=== PATIENT | male | born 1950 | race Caucasian/White ===

== ENCOUNTER 2025-02-12 13:11 | Outpatient (AMB) | payer MEDICARE, SELFPAY ==
--- NOTE | 2025-02-12 13:23 | A.OFFPC_ITS ---
Vital Signs 02/12/25 13:36 Height 5 ft 11.5 in Weight 238 lb BMI 32.7 BP 122/70 Blood Pressure Location Rt brachial Position Sitting Respiration 14 Pulse 92 Pulse Source Pulse Oximeter Temp 98.0 F Temp Source Oral Pulse Oximetry (%) 94 Oxygen Delivery Method Room Air Intake Visit Reasons: Est Care / Right shoulder pain Intake Note: New patient visit. Has Endocrinology at [facility]. Last results about three months ago was 7.0 Reprographics Technician Required: No Accompanied by: Spouse Allergies Gadolinium-Containing Contrast Medi Allergy (Unknown, Verified 02/12/25 14:00) watery eyes, watery itchy nose, coughing lisinopril Allergy (Unknown, Verified 02/12/25 14:00) Unknown Medication List - Last Reconciled 02/12/25 by Esvin Steward CNP amlodipine 2.5 mg PO DAILY atorvastatin 40 mg PO DAILY blood sugar diagnostic ([employer] Ultra Test strips) As directed blood-glucose meter (TáximoTouch Ultra2 Meter) As directed cetirizine 10 mg PO DAILY insulin aspart U-100 (Novolog FlexPen U-100 Insulin aspart) subcut insulin glargine (Lantus Solostar U-100 Insulin) 22 units subcut QPM lancets (OneTouch Delica Plus Lancet) As directed latanoprost 0.005% drps ophthalmic (eye) metformin 500 mg PO BID pen needle, diabetic As directed tolterodine 2 mg PO BID Tobacco use date assessed: 02/12/25 Fall risk assessment: No Falls in past year Last assessed Fall Risk: 02/12/25 Dental Screening Dental Screen Date: 02/12/25 Did you have a dental visit in the last 12 months?: Yes Did you have a dental problem in the last 6 months where you did not have access to dental care?: No Was dental information given to patient?: Patient has dentist HPI HPI Comments History of Present Illness Details 74-year-old male, accompanied by his wif e, presents to establish care. Prior PCP? - [facility] Last office visit - 8-9 months ago CPE/labs Over a year ago Acute issue(s) - HTN: He is on amlodiopine 2.5 mg daily - Elevated HDL: On atorvastatin 40 mg da kaleyn - Type 2 diabetes: On Metformin 500 mg t wice daily. Last A1c was 3 mos ago, 7%. Has a follow up appointment with endocrinology next week - Urinary incontinence: On tolterodine t litzy daily - Reports right shoulder arthritis. He has been experiencing severe sharp right shoulder pain with limited ROM in the past 2 months. He denies fall, injury, or trauma. He had 9-12 weeks of PT a year and half ago without relief. 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 - Reports bouts of diarrhea and normal s tool for the past 3 or 4 months. - Reports cramps to his bilateral lower extremities. - He has been experiencing difficulty wi th memory recall, including medication names and regular conversation with his , for the past 2 months - Myopia: He wears prescription glasses Past Medical History - HTN, type 2 diabetes, nephritis, right shoulder arthritis, memory loss, bladder cancer, urinary incontinence, myopia Surgical History - Prostatectomy, partial pancreatectomy, spleenectomy, bladder mesh Family History - Dad: Leukemia Social History - Former smoker, quit 55 years ago. Does not vape. Drinks 1-2 beers weekly, occasional glass of wine. Denies recreational drug use - Has been making healthy dietary choice s. Exercises routinely. Generally sleep well Health maintenance - Last eye exam was 3 months ago at [place], [place]. He will sign a release for his PCP to obtain his ophthalmology record - Last dental visit was 6 months ago; He has a dental appointment next month - Last tetanus vaccine was 7-8 years ago . - He has never been vaccinated for shing les or pneumonia; encouraged to get vaccinated for both at the local pharmacy - He notes that he is up-to-date on the flu vaccine - Last colonoscopy was about 8 years ago ; normal. He recently did a Cologuard test and awaiting result [facility] endocrinology [facility] Surgical History (Updated 02/12/25 @ 13:41 by Glenis Argueta CMA) History of pancreatectomy H/O prostatectomy Family History (Updated 02/12/25 @ 13:42 by Glenis Argueta CMA) Father Leukemia Social History (Updated 02/12/25 @ 13:43 by Glenis Argueta CMA) Housing: House Alcohol intake: current Comment: light beer and occasionally a glass of wine Patient Tobacco Use Status: Former Tobacco user Tobacco use type: Cigarette Years Smoked: 3 e-Cigarette/Vaping Use: Never Used Second Hand Smoke Exposure: No service: No Current occupational status: retired Cognitive needs: No Hearing needs: No Vision needs: No Questionnaire PHQ-9 Over the last 2 weeks, how often have you been bothered by any of the following problems? 1. Little interest or pleasure in doing things: not at all 2. Feeling down, depressed, or hopeless: not at all 3. Trouble falling or staying asleep, or sleeping too much: not at all 4. Feeling tired or having little energy: several days 5. Poor appetite or overeating: not at all 6. Feeling bad about yourself - or that you are a failure or have let yourself or your family down: not at all 7. Trouble concentrating on things, such as reading the newspaper or watching television: not at all 8. Moving or speaking so slowly that other people could have noticed. Or the opposite - being so fidgety or restless that you have been moving around a lot more than usual: not at all 9. Thoughts that you would be better off or of hurting yourself in some way: not at all Total score: 1 Depression Screening Interpretation: Negative Depression Screening Done: Yes 05268 - PHQ-9 Billing: Yes Source: Developed by Drs. Miguel Reyes, Ailyn Crenshaw, Valentino Lopez and colleagues, with an educational michael from [employer]. Thrive Questionnaire Date Thrive assessed: 02/12/25 I am a: Patient What is your living situation today?: I have a steady place to live Within the past 12 months, did the food you bought not last and you didn't have the money to get more?: Sometimes True Within the past 12 months, did you worry whether your food would run out before you got money to buy more?: Never true Do you have trouble paying for medicines?: No Do you have trouble getting transportation to medical appointments?: No Do you have trouble paying your heating and electricity bill?: No Do you have trouble taking care of your child, family member or friend?: No Do you have trouble with day-to-day activities such as bathing, preparing meals, shopping, managing finances, etc.?: No Are you currently unemployed and looking for a job?: No Are you interested in more education?: No Please select the resources that you would like help with: None Currently or been in a relationship where the following occur: No concerns reported THRIVE Score: 1 AUDIT C Alcohol Use Questionnaire (AUDIT-C) 1. How often do you have a drink containing alcohol?: 2-4 times a month 2. How many drinks containing alcohol do you have on a typical day when you are drinking?: 1 or 2 3. How often do you have six or more drinks on one occasion?: Never Total Score: 2 Score Reviewed/Action Taken: Yes MARYURI-7 AMB Questionnaire MARYURI-7 Date MARYURI - 7 assessed: 02/12/25 Feeling nervous, anxious, or on edge: 0 = Not at all Not being able to stop or control worryin = Not at all Worrying too much about different things: 0 = Not at all Trouble relaxin = Not at all Being so restless that it is hard to sit still: 0 = Not at all Becoming easily annoyed or irritable: 0 = Not at all Feeling afraid as if something awful might happen: 0 = Not at all Total MARYURI-7 score (0-4 normal; 5-9 mild; 10-14 moderate; 15-21 severe): 0 Source: Developed by Drs. Miguel Reyes, Ailyn Crenshaw, Valentino Lopez and colleagues, with an educational michael from [employer]. MARYURI-7 Assessment Billing MARYURI-7 Assessment Tool: MARYURI-7 Assessment 21415 Review of Systems Const Details: Denies chills, Denies fatigue, Denies fever(s), Denies headache(s) and Denies weakness HEENT Denies change in vision, Denies dizziness, Denies headache(s), Denies hearing loss, Denies nasal congestion, Denies sinus pain, Denies sinus pressure and Denies sore throat Card Denies chest pain, Denies lightheadedness, Denies dyspnea and Denies other (palpitations) Resp Denies cough, Denies dyspnea and Denies wheezing GI Reports as per HPI Denies hematuria and Denies dysuria Musc Reports as per HPI Skin/Breast Denies rash, Denies unusual bruising and Denies wounds Neuro Denies abnormal gait, Denies dizziness, Denies headache(s), Denies memory loss, Denies numbness, Denies Sensory deficit (Neuro), Denies tingling and Denies weakness Psych Denies anxiety, Denies depression and Reports memory loss Endo Denies cold intolerance, Denies fatigue, Denies heat intolerance, Denies polydipsia and Denies polyuria Adrián/Lymph Denies easy bleeding and Denies easy bruising Aller/Immun Denies wheezing Physical exam (Primary Care) Vital Signs: Last Vital Signs Pulse 92 02/12/25 13:36 Resp 14 02/12/25 13:36 BP 122/70 02/12/25 13:36 Pulse Ox 94 02/12/25 13:36 Oxygen Delivery Method Room Air 02/12/25 13:36 BMI result Body Mass Index 32.7 Tobacco/Smoking Status: Tobacco use Status Tobacco use date assessed 02/12/25 02/12/25 13:48 Patient Tobacco Use Status Former Tobacco user 02/12/25 13:48 Tobacco use type Cigarette 02/12/25 13:48 e-Cigarette/Vaping Use Never Used 02/12/25 13:48 PHQ-9: PHQ-9 Score PHQ-9: Total score 1 02/12/25 13:48 Depression Screening Interpretation: Negative Thrive Assessment: Date of Thrive Assessment Date Thrive assessed 02/12/25 02/12/25 13:48 Currently or been in a relationship where the following occur: No concerns reported Const Other: General: no acute distress, well developed, alert and awake Nutritional Appearance: well nourished Orientation/consciousness: patient oriented x3 HENMT Head: Yes normocephalic and Yes atraumatic Ears: hearing grossly normal bilaterally and TM's normal bilaterally General nose exam: Normal external nose present and Normal nares present Mouth: Normal oral and palatal mucosa present and moist mucous membranes Teeth and gingiva: dentition normal Throat: Yes oropharynx normal Eyes Pupils: Equal, round and reactive pupils present and Pupil accommodation reflex normal EOM: EOMs intact bilaterally Neck Neck: Yes normal visual inspection, Yes no lymphadenopathy and Yes trachea midline Thyroid: Thyroid normal Carotids: no bruits Lymphatic: no lymphadenopathy noted Chest Chest palpation & inspection: normal inspection of the chest Resp Effort & Inspection: normal respiratory effort Auscultation: clear to auscultation bilaterally Cardio Rate: regular rate Rhythm: regular rhythm Heart sounds: S1 normal heart sound present, S2 normal heart sound present, no gallops, no murmurs and no rubs Bruits: no abdominal aortic bruits and no carotid bruits GI Palpation (GI): No Abdominal aortic bruit present, Soft to palpation, nontender, No hepatosplenomegaly present and No Rebound tenderness present Auscultation: normal bowel sounds General: Yes no CVA tenderness Back/Spine/Pelvis Back: no CVA tenderness Cervical Spine: cervical ROM normal and No Cervical spine tenderness Thoracic/Lumbar Spine: thoraco-lumbar ROM normal, No pain with thoraco-lumbar ROM, No thoracic spinal tenderness and No lumbar spinal tenderness Skin General: warm and dry. Normal skin color. Normal skin turgor Lesions: no lesions Rashes: no rashes Trauma: no lacerations or abrasions Wounds: no wounds Nails: normal Neuro General: patient oriented x3, gait normal and CN's II-XI intact bilaterally Cranial nerves: Yes Equal, round and reactive pupils present Cognition (Neuro): normal cognition Gait exam (Neuro): Normal gait present Motor exam (neuro): 5/5 motor strength present throughout Sensory Exam: No Sensory deficit (Neuro) Deep tendon reflexes (DTR's): Right patellar reflex intensity grade: 2+ and Left patellar reflex intensity grade: 2+ Extrem General: Yes normal to inspection, No edema and No calf tenderness. Right shoulder pain with passive and active ROM which is slightly limited Psych Appearance: grossly normal Affect: normal affect Attitude: cooperative Thought process: Normal thought process present Coding Level of Care Code New Pt Level 4 (60438) New Pt Prev Care >65yr (27415) Diagnoses Normal physical examination, routine Z00.00 Type 2 diabetes mellitus E11.9 Hypertension I10 Urinary incontinence R32 Arthritis of right shoulder M19.011 Diarrhea R19.7 Cramps of left lower extremity R25.2 Vaccine counseling Z71.85 Memory loss R41.3 Obesity (BMI 30-39.9) E66.9 Laboratory tests ordered as part of a complete physical exam (CPE) Z00.00 Additional Codes MARYURI-7 Assessment Billing - MARYURI-7 Assessment Tool: MARYURI-7 Assessment 16728 ([id number]) PHQ-9 - 58201 - PHQ-9 Billing: Yes ([id number]) Assessment & Plan Assessment & Plan (1) Normal physical examination, routine: Code(s): Z00.00 - Encounter for general adult medical examination without abnormal findings Category: Medical Plan: Physical exam is normal except for positive tandem test. Gait is otherwise normal. Encouraged to ambulate with caution. Perform lab work at least 2-3 days before next visit. Follow-up for telehealth visit for labs review in 2-3 weeks. Return sooner with symptoms or concerns. Verbalized understanding and agreed with treatment plan. (2) Type 2 diabetes mellitus: Code(s): E11.9 - Type 2 diabetes mellitus without complications Category: Medical Plan: Continue current treatment regimen. Followed by [facility] endocrinology. (3) Hypertension: Code(s): I10 - Essential (primary) hypertension Category: Medical Plan: Blood pressure is 122/70, within goal of less than 130/80. Continue current treatment regimen. Will continue to monitor. Verbalized understanding and agreed with the plan. (4) Urinary incontinence: Code(s): R32 - Unspecified urinary incontinence Category: Medical Plan: Continue current treatment regimen. Followed by Urology. (5) Arthritis of right shoulder: Code(s): M19.011 - Primary osteoarthritis, right shoulder Category: Medical Plan: He has history of right shoulder arthritis. He has been experiencing severe sharp right shoulder pain with limited ROM in the past 2 months. No fall, injury, or trauma. He has history of PT without improvement. He declines physical therapy at this time. Right shoulder pain with passive and active ROM which is slightly limited. X-ray of the right shoulder ordered. May take Tylenol ibuprofen for pain or discomfort. Referred to [facility] Ortho. Follow-up with worsening or new symptoms. Verbalized understanding and agreed with treatment plan. (6) Diarrhea: Code(s): R19.7 - Diarrhea, unspecified Category: Medical Plan: Reports bouts of diarrhea and normal stool for the past 3 or 4 months. Healthy diet instructed and encouraged. Metformin IR can cause adverse reaction of diarrhea. 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 Follow-up with worsening or new symptoms. Verbalized understanding and agreed with the plan. (7) Cramps of left lower extremity: Code(s): R25.2 - Cramp and spasm Category: Medical Plan: He has been experiencing cramps to his bilateral lower extremities. Will check magnesium level. Stretching and massage encouraged. Follow-up with worsening or new symptoms. Verbalized understanding and agreed with the plan. (8) Vaccine counseling: Code(s): Z71.85 - Encounter for immunization safety counseling Category: Medical Plan: He has never been vaccinated for shingles or pneumonia. Encouraged to get vaccinated for both at the local pharmacy. Verbalized understanding and agreed with the plan. (9) Memory loss: Code(s): R41.3 - Other amnesia Category: Medical Plan: He has been experiencing difficulty with memory recall, including medication names and regular conversation with his , for the past 2 months. Referred to [facility] Neurology. (10) Obesity (BMI 30-39.9): Code(s): E66.9 - Obesity, unspecified Category: Medical Plan: He currently weighs 238 lb, BMI is 32.7. Declines referral to senior boiler operator/dietitian. He will continue to make healthy dietary choices and exercise routinely, which I encouraged. Follow-up as needed. Verbalized understanding and agreed with the plan. (11) Laboratory tests ordered as part of a complete physical exam (CPE): Code(s): Z00.00 - Encounter for general adult medical examination without abnormal findings Category: Medical Plan: Fasting labs ordered as part of a complete physical exam. Advised to fast for at least 10 hours before getting labs drawn. May drink water Verbalized understanding and agreed with treatment plan. Orders: Orders Lipid Panel Today Z00.00 - Encounter for general adult medical examination without abnormal findings Microalbumin, Random (w Creat) Today Z00.00 - Encounter for general adult medical examination without abnormal findings Vitamin D 25-OH Total Today Z00.00 - Encounter for general adult medical examination without abnormal findings Magnesium Today R25.2 - Cramp and spasm XR shoulder RT 1V Today M19.011 - Primary osteoarthritis, right shoulder Complete Blood Count Auto Diff Today Z00.00 - Encounter for general adult medical examination without abnormal findings Comprehensive [place]. Panel Fast Today Z00.00 - Encounter for general adult medical examination without abnormal findings PSA, Ultra Sensitive Today Z00.00 - Encounter for general adult medical examination without abnormal findings TSH reflex Free T4 Today Z00.00 - Encounter for general adult medical examination without abnormal findings UA CC w/rflx Micro + Cult Today Z00.00 - Encounter for general adult medical examination without abnormal findings Referrals Neurology Referral R41.3 - Other amnesia Orthopedics Referral M19.011 - Primary osteoarthritis, right shoulder
[2025-02-12 13:36] VITALS: BP 122/70; PULSE 92; RESP 14; TEMP 36.7; O2SAT 94; BMI 32.7
--- OUTSIDE RECORDS SUMMARY | 2025-02-12 15:07 | XMS_ITS | Clinical Summary ---
Author Organization [facility] Address [address] [place] [address] Phone Care Team Providers Care Live In Caregiver Name Role Phone Bita Nina MD Primary Care Prov ider Allergies Active Allergy Reactions Criticality Noted Date Comments Gadolinium-Containing Contrast Media Cough,Wheezing Medium 02/24/2014 Lisinopril Other 04/25/2020 Leg cramps/hyperkalemia Medications latanoprost (XALATAN) 0.005 % ophthalmic solution 8 Active diclofenac (VOLTAREN) 1 % topical gel Apply 4 g topically. 4 Active blood-glucose meter misc Use to monitor blood sugar twice daily 3 Active lancets 33 gauge misc 1 Stick by Not Applicable route. 4 Active blood-glucose meter,continuou s misc 1 Device by Not Applicable route. 4 Active methylPREDNISol one (MEDROL) 4 mg tablet Medrol Dosepak 6 tablets to be taken on day 1 5 tablets to be taken on day 2 4 tablets to be taken on day 3 3 tablets to be taken on day 4 2 tablets be taken on day 5 1 tablet to be taken on day 6 4 Active blood sugar diagnostic (ONE TOUCH/ONE TOUCH II STARTER MISC) Place 1 strip on the skin. 3 Active tolterodine (DETROL) 2 mg tablet Take 1 tablet (2 mg total) by mouth. 4 Active amLODIPine (NORVASC) 2.5 mg tablet Take 1 tablet (2.5 mg total) by mouth 1 (one) time each day. 90 tablet 1 4 Active metFORMIN (GLUCOPHAGE) 1,000 mg tablet Take 1 tablet (1,000 mg total) by mouth 2 (two) times a day with meals. 180 each 1 4 04/19/20 25 Active atorvastatin (LIPITOR) 40 mg tablet Take 1 tablet (40 mg total) by mouth 1 (one) time each day. 90 tablet 1 4 Active Lantus Solostar U-100 Insulin 100 unit/mL (3 mL) injection penIndications: 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, with long-term current use of insulin INJECT 5 UNITS INTO THE SKIN AT BEDTIME. 15 mL 2 4 Active NovoLOG Flexpen U-100 Insulin 100 unit/mL (3 mL) injection penIndications: 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, with long-term current use of insulin Take 16 units before beakfast, 14 units before lunch and 20 units before dinner plus sliding scale up to 60 units a day 60 mL 2 4 Active OneTouch Ultra Test test stripIndication s: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, with long-term current use of insulin Check sugars upto 2 times a day 200 each 3 4 Active pen needle, diabetic 32 gauge x 5/32 needleIndicatio ns: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, with long-term current use of insulin USE UP TO 4 TIMES A DAY 300 each 3 4 Active Active Problems Problem Noted Date Diagnosed Date Class 1 obesity 07/20/2024 Glaucoma 12/07/2020 Overview (07/08/2024): Sees Dr. 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 Incidental finding. 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assification 019 Radiation cystitis 05/31/2017 Overview (07/08/2024): Seen on cystoscopy 05/28/17 and evaluation of gross hematuria, Dr. Polo [place] cyst 05/09/2016 Metabolic syndrome 01/09/2016 Low HDL (under 40) 06/21/2015 Urinary incontinence 10/19/2014 Overview (07/08/2024): Post prostatectomy; Following with Dr. Nichole Syncope and collapse 02/09/2014 Overview (07/08/2024): 02/08/14, found uncounscous 45 miinutes in bathroom, left facial droop, slurred speech, [place], seen by Dr Arriaga, neg CT head, neg CXR, EKG Q III Diabetes mellitus 10/05/2013 Exposure to asbestos 10/05/2013 Hypertriglyceridemia 10/05/2013 Shoulder sprain 10/05/2013 Encounters Date Type Department Care Team Description 12/09/2024 8:15 AM EST Office Visit Orthopedic Surgery [facility] [address] [facility] [address] [place] [address] Quoc Pedro DPM Type 2 diabetes mellitus without complication, with long-term current use of insulin (CMS/HCC) (Primary Dx); Tendinitis of left ankle 11/25/2024 Telephone General Surgery [facility] [address] [facility] [address] [place] [address] Irina Soria [place] 11/20/2024 9:00 AM EST Office Visit Endocrinology [address] [phone] Kristina Dave MD Type 2 diabetes mellitus with other specified complication, unspecified whether filler leaf cutter long insulin use (CMS/HCC) (Primary Dx) from Last 3 Months Immunizations Name Administration Dates Next Due Hepatitis B (Owplnho-A-Ftwiv , Recombivax HB-Adult) 19yo and older 07/09/2019,09/10/2018,06/06/2018 HiB PRP-T conjugate (Acthib, Hiberix) 6wks and older 06/29/2020 Influenza Quadravalent, MDCK , 0.5ml, with preservative (Flucelvax) 6mo and older 2023 Influenza trivalent, 0.5mL ( Fluad) 65yo and older 08/14/2024 Influenza trivalent, 0.5mL ( Fluzone High-dose) 65yo and older 09/25/2022,09/26/2021,08/02/2020,07/28,09/10/2018,07/28/2017,08/24/2016 Influenza trivalent, with pr eservative (Fluzone; Afluria) 6mo and older 10/05/2013 Meningococcal Polysaccharide 06/29/2020 Pneumococcal conjugate 13 va lent (Prevnar 13, PCV13) 2mo and older 06/29/2020,01/09/2016 Pneumococcal polysaccharide 23 valent (Pneumovax 23) 2yo and older 03/04/2018 Td Tetanus diptheria (Tdvax) 7yo and older 12/03/2018,10/31/2006 Tdap Tetanus diptheria acell ular pertussis (Boostrix; Adacel) 7yo and older 12/03/2018,10/05/2013 Surgical History Surgery Date Site/Laterality Comments COLONOSCOPY 1999 PROCEDURE: HISTORICAL COLONOSCOPY; COMMENT: age 50, historic negative HAND SURGERY 2002 PROCEDURE: HISTORICAL HAND SURGERY; COMMENT: Right distal index finger amputation OTHER SURGICAL HISTORY 07/13/2014 PROCEDURE: ---- OTHER ----; COMMENT: robotic assisted prostatectomy CYSTOSCOPY 05/28/2017 PROCEDURE: NM CYSTOURETHROSCOPY; COMMENT: 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, gross hematuria COLONOSCOPY 01/29/2014 PROCEDURE: HISTORICAL COLONOSCOPY; COMMENT: 6 mm left colon polyp:adenoma COLONOSCOPY 05/18/2020 PROCEDURE: HISTORICAL COLONOSCOPY; COMMENT: Negative examination, no polyps. OTHER SURGICAL HISTORY 07/14/2020 PROCEDURE: HISTORICAL SPLENECTOMY OTHER SURGICAL HISTORY 07/14/2020 PROCEDURE: HISTORY OTHER; COMMENT: Distal pancreatectomy, regional lymphadenectomy, Dr. Jorge Aguilar OTHER SURGICAL HISTORY 02/15/2021 PROCEDURE: HISTORY OTHER; COMMENT: urethral sling OTHER SURGICAL HISTORY 07/2020 PROCEDURE: NM PNCRTECT DSTL STOT W/O PNCRTCOJEJUNOSTOMY OTHER SURGICAL HISTORY 07/2020 PROCEDURE: NM RPR TABDL LMPHADEC EXTNSV W/PEL AORTIC&RNL; COMMENT: 6 lymph nodes removed Medical History Medical History Date Comments Prediabetes 10/05/2013 DX:Prediabetes Mixed hyperlipidemia 06/21/2015 DX:Mixed hy perlipidemia Adenocarcinoma of prostate (CMS/HCC) 10/05/2013 DX:Adenocarcinoma of prostate (HCC); COMMENT: Biopsy 04/27/14, Tamar's 4+3 and no CVA of prostate in 2 on left upper 12 biopsies, sees Dr. Christian, referred to Dr. Morris for consideration of probiotic assisted laparoscopic radical prostatectomy 07/18/14 - robotic assisted prostatectomy 07/13/14 with left pelvic lymph node dissection State IIB, T2, N0 MX adenoca, positive margin at bladder base 08/28* Urinary incontinence 10/19/2014 DX:Urinary incontinence; COMMENT: Post prostatectomy Essential hypertension DX:Essent ial hypertension Diabetes mellitus type 2, co ntrolled, with complications (CMS/HCC) DX:Diabetes mellitus type 2, controlled, with complications (HCC) Family History Medical History Relation Name Comments Prostate cancer Brother 1 Bradly Prostate cancer Brother 2 Miguel Prostate cancer Brother 3 Wesley Brain cancer Brother 4 Manolo Leukemia Father Alzheimer's disease Mother Breast cancer Sister Colon cancer Neg Hx Esophageal cancer Neg Hx Pancreatic cancer Neg Hx Stomach cancer Neg Hx Relation Name Status Comments Brother 1 Bradly Alive Brother 2 Miguel Alive Brother 3 Wesley Alive Brother 4 Manolo Alive Father (Age 73) leukemia Mother (Age 87) alzhiemers Sister Alive Social History Tobacco Use Types Packs/Day Years Used Date Smoking Tobacco: Former Cigarettes Q uit: 11/11/1969 Smokeless Tobacco: Former Tobacco Cessation:Counseling Given: Not Answered Alcohol Use Standard Drinks/Week Comments Yes 0 (1 standard drink = 0.6 oz pur e alcohol) Sex and Gender Information Value Date Recorded Sex Assigned at Not on file Legal Sex Male 2:26 PM EST Gender Identity Not on file Sexual Orientation Not on file Obstetrics History Last Filed Vital Signs Vital Sign Reading Time Taken Comments Blood Pressure 133/87 11/20/2024 8:59 AM EST Pulse 66 11/20/2024 8:59 AM EST Temperature 36.2 ??C (97.2 ??F) 11/20/2024 8:59 AM ES T Respiratory Rate - - Oxygen Saturation 98% 11/20/2024 8:59 AM EST Inhaled Oxygen Concentration - - Weight 107 kg (235 lb) 12/09/2024 8:21 AM EST Height 180.3 cm (5' 10.98 ) 12/09/2024 8:[address] Body Mass Index 32.79 12/09/2024 8:21 AM EST Plan of Treatment Upcoming Encounters Date Type Department Care Team (Late st Contact Info) Description 02/18/2025 9:00 AM EDT Office Visit Endocrinology - [place] [address] [place], [place] [phone] Kristina Dave MD [address] [place] [address] Health Maintenance Due Date Last Done Comments Zoster Vaccines (1 of 2) 1969 RSV Immunization Adult Patients (1 - Risk 60-74 years 1-dose series) 2010 COVID-19 Vaccine (3 - Pfizer risk series) 03/29/2021 03/01/2021, 02/08/2021 Depression Screening 10/20/2022 Falls Risk Assessment 10/20/2022 Social Influencers of Health Screening 10/20/2022 Medicare Annual Wellness Visit 07/17/2024 07/17/2023 Diabetes: Blood Sugar Control Test (HGBA1C) 12/02/2024 06/01/2024, 06/01/2024 Diabetes: Annual GFR (Glomerular Filtration Rate) 03/02/2025 03/02/2024 Hypertension/CHF/CAD Annual BMP Blood Test 03/02/2025 03/02/2024 Diabetes: Annual Urine Albumin-Creatinine Ratio (uACR) 06/01/2025 06/01/2024 Diabetes: Annual Foot Exam 07/21/2025 07/21/2024 Diabetes: Annual Retina Eye Exam 07/28/2025 07/28/2024 Colorectal Cancer Screening: Colonoscopy 06/07/2027 06/07/2020 DTaP,Tdap,and Td Vaccines (5 - Td or Tdap) 12/03/2028 12/03/2018, 12/03/2018, 10/05/2013, Additional history exists Cholesterol Screening (Lipid Panel) 06/01/2029 06/01/2024, 06/01/2024, 06/01/2024 Hepatitis C Screening Completed 10/13/2013 Hepatitis B Vaccines Completed 07/09/2019, 09/10/2018, 06/06/2018 HIB Vaccines Aged Out 06/29/2020 No longer eligi ble based on patient's age to complete this topic Meningococcal ACWY Vaccine Aged Out 06/29/2020 N o longer eligible based on patient's age to complete this topic Pneumococcal Vaccine: 50+ Years Completed 06/29/2020, 03/04/2018, 01/09/2016 Abdominal Aortic Aneurysm (AAA) Screen Completed 05/18/2021 Influenza Vaccine Completed 08/14/2024, , 09/25/2022, Additional history exists HPV Vaccines Aged Out No longer eligi ble based on patient's age to complete this topic Hepatitis A Vaccines Aged Out No long er eligible based on patient's age to complete this topic IPV Vaccines Aged Out No longer eligi ble based on patient's age to complete this topic MMR Vaccines Aged Out No longer eligi ble based on patient's age to complete this topic Meningococcal B Vacine Aged Out No lo nger eligible based on patient's age to complete this topic RSV Immunization Patients Under 20 months Aged Out No longer eligible based on patient's age to complete this topic Varicella Vaccines Aged Out No longer eligible based on patient's age to complete this topic Procedures Procedure Name Priority Date/Time Associated Diagnosis Comments EXTERNAL CLINICAL LAB 12/27/2024 DIABETES EYE EXAM Routine 07/28/2024 DIABETES FOOT EXAM Routine 07/21/2024 URINE ALBUMIN CREATININE RATIO Routine 06/01/2024 HEMOGLOBIN A1C Routine 06/01/2024 LIPID PANEL Routine 06/01/2024 ANNUAL BMP BLOOD TEST Routine 03/02/2024 ABDOMINAL AORTIC ANEURYSM SCRREN Routine 05/18/2021 COLONOSCOPY Routine 06/07/2020 HEPATITIS C SCREENING Routine 10/13/2013 from Last 3 Months or Most Recently Relevant to Health Maintenance Results * External clinical lab (12/27/2024) Result [facility] [employer] LAB BLOOD ORDERABLES Fin al Result * Diabetes Eye Exam (07/28/2024) [facility] Diabetes: Annual Retina Eye Exam abstracted Result [facility] HEALTH MAINTENANCE Final Result * Diabetes Foot Exam (07/21/2024) [facility] Diabetes: Annual Foot Exam abstracted Result [facility] HEALTH MAINTENANCE Final Result * Urine Albumin Creatinine Ratio (06/01/2024) [facility] Urine Albumin Creatinine Ratio abstracted Result [facility] HEALTH MAINTENANCE Final Result * (ABNORMAL) Hemoglobin A1c (06/01/2024) [facility] Hemoglobin A1C 7.2(A) <=6.5 % Blood Venous blood specimen / Unknown Result [facility] LAB BLOOD ORDERABLES Sanna l Result * (ABNORMAL) Lipid panel (06/01/2024) [facility] Triglycerides 227(A) 0 - 150 mg/dL Cholesterol 130 0 - 200 mg/dL HDL 42 >=40 mg/dL LDL Cholesterol 43 0 - 100 mg/dL Blood Venous blood specimen / Unknown Result [facility] LAB BLOOD ORDERABLES Edit ed Result - Final * Annual BMP Blood Test (03/02/2024) [facility] Annual BMP Blood Test abstracted Result [facility] HEALTH MAINTENANCE Final Result * Abdominal Aortic Aneurysm Screen (05/18/2021) [facility] Abdominal Aortic Aneurysm (AAA) Screening 1 year fu Anatomical Region Laterality Modality Other Historical Provider HEALTH MAINTENANCE Final Result * Colonoscopy (06/07/2020) Colonoscopy 7 yr fu Anatomical Region Laterality Modality Other Historical Provider HEALTH MAINTENANCE Final Result * Hepatitis C Screening (10/13/2013) Hepatitis C Screening negative Historical Provider HEALTH MAINTENANCE Final Result from Last 3 Months or Most Recently Relevant to Health Maintenance Insurance [employer] MED[employer]ARE [employer]VANTAGE Advance Directives Documents on File Type Date Recorded Patient Prep Cook Expl anation Health Care Decision (hx) 07/18/2020 AD MURILLO DIRECTIVE Health Care Decision (hx) 07/18/2020 AD MURILLO DIRECTIVE Health Care Decision (hx) 07/18/2020 AD MURILLO DIRECTIVE Health Care Decision (hx) 07/18/2020 AD MURILLO DIRECTIVE Health Care Decision (hx) 07/18/2020 AD MURILLO DIRECTIVE Health Care Decision (hx) 07/18/2020 AD MURILLO DIRECTIVE Health Care Decision (hx) 07/18/2020 AD MURILLO DIRECTIVE Health Care Decision (hx) 07/18/2020 AD MURILLO DIRECTIVE Health Care Decision (hx) 07/18/2020 AD MURILLO DIRECTIVE Health Care Decision (hx) 07/14/2020 AD MURILLO DIRECTIVE Health Care Decision (hx) 07/14/2020 AD MURILLO DIRECTIVE Health Care Decision (hx) 07/14/2020 AD MURILLO DIRECTIVE Health Care Decision (hx) 07/14/2020 AD MURILLO DIRECTIVE Health Care Decision (hx) 07/14/2020 AD MURILLO DIRECTIVE Health Care Decision (hx) 07/14/2020 AD MURILLO DIRECTIVE Health Care Decision (hx) 07/14/2020 AD MURILLO DIRECTIVE Health Care Decision (hx) 07/14/2020 AD MURILLO DIRECTIVE Health Care Decision (hx) 07/14/2020 AD MURILLO DIRECTIVE Care Teams Live In Caregiver Relationship Specialty Start Date End Date Bita Nina MD [address] [place] [phone] PCP - General Internal Medicine 06/08/21
== END 2025-02-12 14:47 | disposition home or self-care (01) ==
LOC: HO.HMCFM 13:14
PROVIDERS: PCP Nurse Practitioner Family; Visit Provider Nurse Practitioner Family
DX: Z00.00 Encounter for general adult medical examination without abnormal findings (principal); E11.9 Type 2 diabetes mellitus without complications; E66.9 Obesity, unspecified; Z68.32 Body mass index [BMI] 32.0-32.9, adult; I10 Essential (primary) hypertension; R32 Unspecified urinary incontinence; M19.011 Primary osteoarthritis, right shoulder; R19.7 Diarrhea, unspecified; R25.2 Cramp and spasm; Z71.85 Encounter for immunization safety counseling; R41.3 Other amnesia

== ENCOUNTER → 2025-02-12 13:11 | Outpatient (BNVA) | payer MEDICARE, SELFPAY | PROVIDERS: PCP Nurse Practitioner Family; Visit Provider Nurse Practitioner Family | DX: Z00.00 Encounter for general adult medical examination without abnormal findings (principal); E11.9 Type 2 diabetes mellitus without complications; I10 Essential (primary) hypertension; R32 Unspecified urinary incontinence; M19.011 Primary osteoarthritis, right shoulder; R19.7 Diarrhea, unspecified; R25.2 Cramp and spasm; R41.3 Other amnesia; E66.9 Obesity, unspecified; Z68.32 Body mass index [BMI] 32.0-32.9, adult; Z71.85 Encounter for immunization safety counseling | CPT/HCPCS: 96127; 99202; 99387 ==

== ENCOUNTER 2025-02-16 09:00 | Outpatient (REF) | payer MEDICARE, SELFPAY ==
--- NOTE | ~2025-02-16 | XR_ITS ---
EXAMINATION: XR SHOULDER 2 OR MORE VIEWS RIGHT HISTORY: M19.011 - Primary osteoarthritis, right shoulder COMPARISON: There are no prior studies available for comparison. FINDINGS: Two views of the right shoulder are submitted. Osseous mineralization is normal. There is no fracture or dislocation. The glenohumeral and acromioclavicular joint spaces are preserved. The soft tissues are unremarkable. XR/XR shoulder RT min 2V IMPRESSION: Unremarkable examination of the right shoulder. Electronically signed by: Miguel Godinez MD 02/16/2025 11:14 AM EDT
--- OUTSIDE RECORDS SUMMARY | 2025-02-16 09:52 | XMS_ITS | Clinical Summary ---
Author Organization [facility] Address [address] [place] [address] Phone Care Team Providers Care Clinical Quality Manager Name Role Phone Bita Nina MD Primary [...] 8:15 AM EST Office Visit Orthopedic Surgery [facility] [address] [facility] [address] [place] [address] Quoc Pedro DPM Type 2 diabetes mellitus without complication, with long-term current use of insulin (CMS/HCC) (Primary Dx); Tendinitis of left ankle 11/25/2024 Telephone General Surgery [facility] [address] [facility] [address] [place] [address] Irina Soria [place] 11/20/2024 9:00 AM EST Office Visit Endocrinology [address] [phone] Kristina Dave MD Type 2 diabetes mellitus with other specified complication, unspecified whether vermin exterminator insulin use (CMS/HCC) (Primary Dx) from Last 3 Months Immunizations Name Administration Dates Next Due Hepatitis B (Ttnwvue-R-Ezlig , Recombivax HB-Adult) 19yo and older 07/09/2019,09/10/2018,06/06/2018 [...] COMMENT: robotic assisted prostatectomy CYSTOSCOPY 05/28/2017 PROCEDURE: OK CYSTOURETHROSCOPY; COMMENT: 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, [...] urethral sling OTHER SURGICAL HISTORY 07/2020 PROCEDURE: OK PNCRTECT DSTL STOT W/O PNCRTCOJEJUNOSTOMY OTHER SURGICAL HISTORY 07/2020 PROCEDURE: OK RPR TABDL LMPHADEC EXTNSV W/PEL AORTIC&RNL; COMMENT: [...] 9:00 AM EDT Office Visit Endocrinology - [place] [address] [place], [place] [phone] Kristina Dave MD [address] [place] [address] Health Maintenance Due Date Last Done Comments [...] age to complete this topic Meningococcal B Vaccine Aged Out No l onger eligible based on patient's age to complete [...] Results * External clinical lab (12/27/2024) Result [facility] [employer] LAB BLOOD ORDERABLES Fin al Result * Diabetes Eye Exam (07/28/2024) [facility] Diabetes: Annual Retina Eye Exam abstracted Result [facility] HEALTH MAINTENANCE Final Result * Diabetes Foot Exam (07/21/2024) [facility] Diabetes: Annual Foot Exam abstracted Result [facility] HEALTH MAINTENANCE Final Result * Urine Albumin Creatinine Ratio (06/01/2024) [facility] Urine Albumin Creatinine Ratio abstracted Result [facility] HEALTH MAINTENANCE Final Result * (ABNORMAL) Hemoglobin A1c (06/01/2024) [facility] Hemoglobin A1C 7.2(A) <=6.5 % Blood Venous blood specimen / Unknown Result [facility] LAB BLOOD ORDERABLES Sanna l Result * (ABNORMAL) Lipid panel (06/01/2024) [facility] Triglycerides 227(A) 0 - 150 mg/dL Cholesterol 130 0 - 200 mg/dL HDL 42 >=40 mg/dL LDL Cholesterol 43 0 - 100 mg/dL Blood Venous blood specimen / Unknown Result [facility] LAB BLOOD ORDERABLES Edit ed Result - Final * Annual BMP Blood Test (03/02/2024) [facility] Annual BMP Blood Test abstracted Result [facility] HEALTH MAINTENANCE Final Result * Abdominal Aortic Aneurysm Screen (05/18/2021) [facility] Abdominal Aortic Aneurysm (AAA) Screening [...] Documents on File Type Date Recorded Patient Leg Breaker Expl 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 (hx) 07/14/2020 AD MURILLO DIRECTIVE Care Teams Clinical Quality Manager Relationship Specialty Start Date End Date Bita Nina MD [address] [place] [phone] PCP - General Internal Medicine 06/08/21
[2025-02-16 09:59] LABS: MANUAL DIFF FLAG NO
[2025-02-16 10:10] LABS: Appearance Urine Clear; Basophils Percent Auto 0.5 % (0-2); Color Urine Yellow; Eosinophils Absolute Auto 0.2 X10*3/uL (0.0-0.4); Eosinophils Percent Auto 2.5 % (0-4); Glucose Urine UA Negative (Negative); Hemoglobin 14.7 g/dl (14.0-18.0); Imm Gran Abs Auto 0.03 X10*3/uL (0.00-0.03); Imm Gran Pct Auto 0.4 % (0.0-0.4); Leukocyte Esterase Urine Negative (Negative); Lymphocytes Absolute Auto 1.9 X10*3/uL (1.2-4.9); Lymphocytes Percent Auto 22.6 % (20-40); Mean Corpuscular HGB Conc 33.4 g/dl (31.0-36.0); Mean Corpuscular Hemoglobin 31.1 pg (27.0-33.0); Mean Corpuscular Volume 93.2 fL (80.0-98.0); Mean Platelet Volume 11.1 fL (9.4-12.4); Monocytes Percent Auto 11.6 % (2-11); Neutrophils Absolute Auto 5.4 x10*3/uL (2.0-8.3); Neutrophils Percent Auto 62.4 % (45-73); Nitrite Urine Negative (Negative); PH 6.5 (5.0-9.0); Platelet Count 321 X10*3/uL (160-400); Red Blood Count 4.72 X10*6/uL (4.60-5.80); Red Cell Distribution Width 13.8 % (11.0-16.0); Urine Blood Negative (Negative); Urine Ketones Trace mg/dL (Negative); Urine Protein Trace mg/dL (Neg-Trace); White Blood Count 8.6 X10*3/uL (4.8-10.8)
[2025-02-16 10:58] LABS: Carbon Dioxide 24 mmol/L (22-29); Chloride 108 mmol/L (96-108); Potassium 4.1 mmol/L (3.3-5.1); Sodium 138 mmol/L (135-145)
[2025-02-16 10:59] LABS: Alanine Aminotransferase 52 U/L (0-40); Albumin Level 4.3 g/dL (3.5-5.0); Alkaline Phosphatase 80 U/L (39-117); Anion Gap 10 (12-20); Aspartate Amino Transferase 29 U/L (5-37); Bilirubin Total 0.4 mg/dL (0.0-1.0); Blood Urea Nitrogen 17 mg/dL (9-16); Calcium 9.3 mg/dL (8.4-10.2); Cholesterol 134 mg/dL (<200); Estimated Glomerular Filt Rate > 60; Glucose Fasting 173 mg/dL (60-99); HDL Cholesterol 32 mg/dL (>40); LDL Cholesterol Calculated 37 mg/dL (<100); Magnesium 1.9 mg/dL (1.6-2.6); Triglycerides 329 mg/dL (<150)
[2025-02-16 11:13] LABS: Creatinine Urine 169.63 mg/dL; Microalbum/Creatinine Ratio Ur 28.2 ug/mg cr (<30)
[2025-02-16 11:16] LABS: TSH reflex Free T4 3.09 uIU/mL (0.32-4.0); Vitamin D 25-OH Total 24.4 ng/mL (>30)
== END 2025-02-16 09:01 | disposition home or self-care (01) ==
LOC: HO.HMGCX 09:00
PROVIDERS: PCP Nurse Practitioner Family; Visit Provider Nurse Practitioner Family
DX: Z00.00 Encounter for general adult medical examination without abnormal findings (principal); Z12.5 Encounter for screening for malignant neoplasm of prostate; Z13.6 Encounter for screening for cardiovascular disorders
CPT/HCPCS: 36415; 73030; 80053; 80061; 81003; 82043; 82306; 82570; 83735; 84153; 84443; 85025

== ENCOUNTER → 2025-02-16 09:06 | Outpatient (BNV) | payer MEDICARE, SELFPAY | PROVIDERS: PCP Nurse Practitioner Family; Visit Provider Radiology Diagnostic Radiology | DX: M19.011 Primary osteoarthritis, right shoulder (principal) | CPT/HCPCS: 73030 ==

== ENCOUNTER → 2025-03-02 11:58 | Outpatient (BNVA) | payer MEDICARE, SELFPAY | PROVIDERS: PCP Nurse Practitioner Family; Visit Provider Nurse Practitioner Family ==

== ENCOUNTER → 2025-03-02 11:58 | Outpatient (AMB) | payer MEDICARE, SELFPAY ==
--- NOTE | 2025-03-02 11:55 | A.OFFPC_ITS ---
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: No Allergies Gadolinium-Containing Contrast Medi Allergy (Unknown, Verified 03/02/25 11:55) watery eyes, watery itchy nose, coughing lisinopril Allergy (Unknown, Verified 03/02/25 11:55) Unknown Tobacco use date assessed: 03/02/25 Fall risk assessment: No Falls in past year Last assessed Fall Risk: 03/02/25 Dental Screening Dental Screen Date: 03/02/25 Did you have a dental visit in the last 12 months?: Yes Did you have a dental problem in the last 6 months where you did not have access to dental care?: No Was dental information given to patient?: Patient has dentist HPI HPI Comments History of Present Illness Details 74-year-old male presents for telehealth visit for review of recent lab and imaging results. He admits to taking his medications as prescribed without adverse reactions. He offers no complaints and denies acute symptoms at this time. [facility] Surgical History (Updated 02/12/25 @ 13:41 by Glenis Argueta CMA) History of pancreatectomy H/O prostatectomy Family History (Updated 02/12/25 @ 13:42 by Glenis Argueta CMA) Father Leukemia Social History (Updated 02/12/25 @ 13:43 by Glenis Argueta CMA) Housing: House Alcohol intake: current Comment: light beer and occasionally a glass of wine Patient Tobacco Use Status: Former Tobacco user Tobacco use type: Cigarette Years Smoked: 3 e-Cigarette/Vaping Use: Never Used Second Hand Smoke Exposure: No service: No Current occupational status: retired Cognitive needs: No Hearing needs: No Vision needs: No Questionnaire Thrive Questionnaire Date Thrive assessed: 02/12/25 MARYURI-7 AMB Questionnaire MARYURI-7 Date MARYURI - 7 assessed: 02/12/25 Source: Developed by Drs. Miguel Reyes, Ailyn Crenshaw, Valentino Lopez and colleagues, with an educational michael from [employer]. Review of Systems Const Details: Denies chills, Denies fatigue, Denies fever(s), Denies headache(s) and Denies weakness Cardiac Denies chest pain, Denies claudication, Denies leg edema, Denies lightheadedness, Denies palpitations, Denies dyspnea, Denies dyspnea on exertion, Denies orthopnea and Denies other (Loss of consciousness) Resp Denies cough, Denies excessive phlegm production, Denies dyspnea, Denies dyspnea on exertion, Denies snoring and Denies wheezing Physical exam (Primary Care) Tobacco/Smoking Status: Tobacco use Status Tobacco use date assessed 03/02/25 03/02/25 11:57 Patient Tobacco Use Status Former Tobacco user 03/02/25 11:57 Tobacco use type Cigarette 03/02/25 11:57 e-Cigarette/Vaping Use Never Used 03/02/25 11:57 Thrive Assessment: Date of Thrive Assessment Date Thrive assessed 02/12/25 03/02/25 11:57 Const Other: Patient is alert and oriented x3. Telehealth Telehealth Telehealth Platform: Telephone Location of provider rendering services: practice address Location of patient: address on file Patient Identification confirmed using: Name, : Yes Telehealth method: voice only Patient verbally consented to treatment: Yes Patient verbally consented to billing insurance company: Yes Patient informed of any privacy concerns related to visit: Yes Coding Level of Care Code Tele New Pt Level 3 (34147) Diagnoses Hyperlipidemia E78.5 Elevated ALT measurement R74.01 Vitamin D deficiency E55.9 Type 2 diabetes mellitus E11.9 Time Spent (min) 15 Assessment & Plan Assessment & Plan (1) Hyperlipidemia: Code(s): E78.5 - Hyperlipidemia, unspecified Category: Medical Plan: Recent triglycerides level is elevated, 329, HDL is slightly low, 32. Total cholesterol and LDL levels are normal. Fenofibrate 54 mg daily ordered; advised to take as prescribed. Advised to limit foods high in saturated fat and avoid foods high in trans fat. Routine exercise encouraged. Fast for 10-12 hours, may drink water, and perform blood work 2-3 days before next visit. Follow-up for a telehealth visit in 6 weeks. Return sooner with symptoms or concerns. Verbalized understanding and agreed with the plan. (2) Elevated ALT measurement: Code(s): R74.01 - Elevation of levels of liver transaminase levels Category: Medical Plan: Recent ALT level is slightly elevated, 52. Routine exercise and diet, including low fat encouraged. Will recheck liver panel in 6 weeks. Verbalized understanding and agreed with the plan. (3) Vitamin D deficiency: Code(s): E55.9 - Vitamin D deficiency, unspecified Category: Medical Plan: Recent vitamin-D level is slightly low, 24.4. Vitamin D3 1000 units ordered; advised to take as prescribed. Will recheck vitamin-D level in 6 weeks. Verbalized understanding and agreed with the plan. (4) Type 2 diabetes mellitus: Code(s): E11.9 - Type 2 diabetes mellitus without complications Category: Medical Plan: Recent fasting glucose is elevated, 173. He notes that his recent A1c was 7.2%. Continue current treatment regimen. Followed by [facility]. Verbalized understanding and agreed with the plan. Orders: Orders Vitamin D 25-OH Total 6 Weeks E55.9 - Vitamin D deficiency, unspecified Lipid Panel 6 Weeks E78.5 - Hyperlipidemia, unspecified Liver Panel 6 Weeks R74.01 - Elevation of levels of liver transaminase levels Medications: New fenofibrate 54 mg PO DAILY 30 days 30 tabs 3RF cholecalciferol (vitamin D3) 25 mcg PO DAILY 90 days 90 tabs 1RF
--- OUTSIDE RECORDS SUMMARY | 2025-03-02 14:22 | XMS_ITS | Clinical Summary ---
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 03/10/20 24 Active blood-glucose meter misc Use to monitor blood sugar twice daily 07/26/20 23 Active lancets 33 gauge misc 1 Stick by Not Applicable route. 04/03/20 24 Active blood-glucose meter,continuo us misc 1 Device by Not Applicable route. 06/02/20 24 Active methylPREDNISo lone (MEDROL) 4 mg tablet Medrol Dosepak 6 tablets to be taken on day 1 5 tablets to be taken on day 2 4 tablets to be taken on day 3 3 tablets to be taken on day 4 2 tablets be taken on day 5 1 tablet to be taken on day 6 06/08/20 24 Active blood sugar diagnostic (ONE TOUCH/ONE TOUCH II STARTER MISC) Place 1 strip on the skin. 07/26/20 23 Active tolterodine (DETROL) 2 mg tablet Take 1 tablet (2 mg total) by mouth. 12/16/19 24 Active amLODIPine (NORVASC) 2.5 mg tablet Take 1 tablet (2.5 mg total) by mouth 1 (one) time each day. 90 tablet 1 10/21/20 24 Active atorvastatin (LIPITOR) 40 mg tablet Take 1 tablet (40 mg total) by mouth 1 (one) time each day. 90 tablet 1 10/21/20 24 Active Lantus Solostar U-100 Insulin 100 unit/mL (3 mL) injection penIndications :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, with long-term current use of insulin ([facility] V24, [facility] V28) INJECT 5 UNITS INTO THE SKIN AT BEDTIME. 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, with long-term current use of insulin ([facility] V24, [facility] V28) Check sugars upto 2 times a day 200 each 3 10/22/20 24 Active pen needle, diabetic 32 gauge x 5/32 needleIndicati ons: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, with long-term current use of insulin ([facility] V24, [facility] V28) USE UP TO 4 TIMES A DAY 300 each 3 10/22/20 24 Active metFORMIN XR (GLUCOPHAGE-XR ) 500 mg 24 hr tabletIndicati ons: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, with long-term current use of insulin ([facility] V24, [facility] V28) Take 2 tablets (1,000 mg total) by mouth 2 (two) times a day. Do not crush, chew, or split. 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, with long-term current use of insulin ([facility] V24, [facility] V28) Take three times a day before meals max up to 70 units day. Please provide 90 day supply 90 mL 2 02/25/20 25 Active metFORMIN (GLUCOPHAGE) 1,000 mg tablet Take 1 tablet (1,000 mg total) by mouth 2 (two) times a day with meals. 180 each 1 10/21/20 24 025 Discontinued NovoLOG Flexpen U-100 Insulin 100 unit/mL (3 mL) injection penIndications :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, with long-term current use of insulin ([facility] V24, [facility] V28) Take 16 units before beakfast, 14 units before lunch and 20 units before dinner plus sliding scale up to 60 units a day 60 mL 2 10/22/20 24 025 Discontinued(Re order) NovoLOG Flexpen U-100 Insulin 100 unit/mL (3 mL) injection penIndications :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, with long-term current use of insulin ([facility] V24, [facility] V28) Take three times a day before meals max up to 65 units day. 75 mL 2 02/19/20 25 025 Discontinued(Re order) Active Problems Problem Noted Date Diagnosed Date Class 1 obesity 07/20/2024 Glaucoma 12/07/2020 Overview (07/08/2024): Sees Dr. 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 Incidental finding. 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 Cuellar Pilonidal cyst 05/09/2016 Metabolic syndrome 01/09/2016 Low HDL (under 40) 06/21/2015 Urinary incontinence 10/19/2014 Overview (07/08/2024): Post prostatectomy; Following with Dr. Nichole Syncope and collapse 02/09/2014 Overview (07/08/2024): 02/08/14, found uncounscous 45 miinutes in bathroom, left facial droop, slurred speech, [place], seen by Dr Arriaga, neg CT head, neg CXR, EKG Q III Diabetes mellitus ([facility] V24, [facility] V28) Exposure to asbestos 10/05/2013 Hypertriglyceridemia 10/05/2013 Shoulder sprain 10/05/2013 Encounters Date Type Department Care Team Description 02/19/2025 Telephone [address]ocr[address] [phone] Kristina Dave MD Medication Problem 02/18/2025 9:00 AM EDT Office Visit Endocrinology [address] [phone] Kristina Dave MD 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, with long-term current use of insulin ([facility] V24, [facility] V28) 12/09/2024 8:15 AM EST Office Visit Orthopedic Surgery - [address] [phone] Quoc Pedro, DPM Type 2 diabetes mellitus without complication, with long-term current use of insulin ([facility] V24, [facility] V28) (Primary Dx); Tendinitis of left ankle from Last 3 Months Immunizations Name Administration Dates Next Due Hepatitis B (Jcplkcs-E-Owtaw , Recombivax HB-Adult) 19yo and older 07/09/2019,09/10/2018,06/06/2018 [...] COMMENT: robotic assisted prostatectomy CYSTOSCOPY 05/28/2017 PROCEDURE: NH CYSTOURETHROSCOPY; COMMENT: 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, [...] urethral sling OTHER SURGICAL HISTORY 07/2020 PROCEDURE: NH PNCRTECT DSTL STOT W/O PNCRTCOJEJUNOSTOMY OTHER SURGICAL HISTORY 07/2020 PROCEDURE: NH RPR TABDL LMPHADEC EXTNSV W/PEL AORTIC&RNL; COMMENT: 6 lymph nodes removed Medical History Medical History Date Comments Prediabetes 10/05/2013 DX:Prediabetes Mixed hyperlipidemia 06/21/2015 DX:Mixed hy perlipidemia Adenocarcinoma of prostate ( CMS/HCC V24, CMS/HCC V28) 10/05/2013 DX:Adenocarcinoma of prostat e (HCC); COMMENT: Biopsy 04/27/14, Tamar's 4+3 and [...] mellitus type 2, co ntrolled, with complications (CMS/HCC V24, CMS/HCC V28) DX:Diabetes mellitus type 2, controlled, with complications [...] Sign Reading Time Taken Comments Blood Pressure 135/77 02/18/2025 9:05 AM EDT Pulse 71 02/18/2025 9:05 AM EDT Temperature 36.2 ??C (97.2 ??F) 02/18/2025 9:05 AM ED T Respiratory Rate - - Oxygen Saturation 96% 02/18/2025 9:05 AM EDT Inhaled Oxygen Concentration - - Weight 108 kg (237 lb) 02/18/2025 9:05 AM EDT Height 180.3 cm (5' 11 ) 02/18/2025 9:05 AM EDT Body Mass Index 33.05 02/18/2025 9:05 AM EDT Plan of Treatment Upcoming Encounters Date Type Department Care Team (Late st Contact Info) Description 06/02/2025 9:00 AM EDT Office Visit Endocrinology - [facility] [address], [place] [phone] Kristina Dave MD [address] [place] [address] Health Maintenance Due Date Last Done Comments Zoster Vaccines (1 of 2) 1969 RSV Immunization Adult Patients (1 - Risk 60-74 years 1-dose series) 2010 COVID-19 Vaccine (3 - Pfizer risk series) 03/29/2021 03/01/2021, 02/08/2021 Depression Screening 10/20/2022 Falls Risk Assessment 10/20/2022 Social Influencers of Health Screening 10/20/2022 Medicare Annual Wellness Visit 07/17/2024 07/17/2023 Diabetes: Annual Urine Albumin-Creatinine Ratio (uACR) 06/01/2025 06/01/2024 Diabetes: Annual Foot Exam 07/21/2025 07/21/2024 Diabetes: Annual Retina Eye Exam 07/28/2025 07/28/2024 Diabetes: Blood Sugar Control Test (HGBA1C) 08/18/2025 02/16/2025, 06/01/2024, 06/01/2024 Diabetes: Annual GFR (Glomerular Filtration Rate) 02/16/2026 02/16/2025, 03/02/2024 Hypertension/CHF/CAD Annual BMP Blood Test 02/16/2026 02/16/2025, 03/02/2024 Colorectal Cancer Screening: Colonoscopy 06/07/2027 06/07/2020 DTaP,Tdap,and Td Vaccines (5 - Td or Tdap) 12/03/2028 12/03/2018, 12/03/2018, 10/05/2013, Additional history exists Cholesterol Screening (Lipid Panel) 02/16/2030 02/16/2025, 06/01/2024, 06/01/2024, Additional history exists Hepatitis C Screening Completed 10/13/2013 Hepatitis B [...] Procedure Name Priority Date/Time Associated Diagnosis Comments CREATININE, SERUM Routine 02/16/2025 9:3 6 AM EDT Type 2 diabetes mellitus with other specified complication, unspecified whether assisted insulin use ([facility] V24, [facility] V28) BUN Routine 02/16/2025 9:36 AM EDT Type 2 diabetes mellitus with other specified complication, unspecified whether assisted insulin use ([facility] V24, [facility] V28) LIPID PANEL WITH REFLEX TO DIRECT LDL Routine 02/16/2025 9:36 AM EDT Hypertriglyceridemia HEMOGLOBIN A1C Routine 02/16/2025 8:47 AM EDT Type 2 diabetes mellitus with other specified complication, unspecified whether long 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 mining machine helper insulin use ([facility] V24, [facility] V28) EXTERNAL CLINICAL LAB 12/27/2024 DIABETES EYE EXAM Routine 07/28/2024 DIABETES FOOT EXAM Routine 07/21/2024 URINE ALBUMIN CREATININE RATIO Routine 06/01/2024 ABDOMINAL AORTIC ANEURYSM SCRREN Routine 05/18/2021 COLONOSCOPY Routine 06/07/2020 HEPATITIS C SCREENING Routine 10/13/2013 from Last 3 Months or Most Recently Relevant to Health Maintenance Results * (ABNORMAL) Lipid panel with reflex to direct LDL (02/16/2025 9:36 AM EDT) Cholesterol 138 0 - 200 mg/dL LAB CHEMISTRY METHOD 02/16/2025 1:40 PM EDT [facility] Triglycerides 383(H) 0 - 150 mg/dL LAB CHEMISTRY METHOD 02/16/2025 1:40 PM EDT [facility] HDL 44 >=40 mg/dL LAB CHEMISTRY METHOD 02/16/2025 1:40 PM EDT [facility] LDL Calculated 17 0 - 100 mg/dL LAB CHEMISTRY METHOD 02/16/2025 1:40 PM EDT [facility] VLDL Cholesterol Bob 76.6 mg/dL LAB CHEMISTRY METHOD 02/16/2025 1:40 PM EDT [facility] Non HDL Chol. (LDL+VLDL) 94 <145 mg/dL LAB CHEMISTRY METHOD 02/16/2025 1:40 PM EDT [facility] Chol/HDL Ratio 3.1 0.0 - 4.4 LAB CHEMISTRY METHOD 02/16/2025 1:40 PM EDT [facility] Blood Venous blood specimen / Unknown Venipuncture / Unknown 02/16/2025 9:36 AM EDT 02/16/2025 9:36 AM EDT us Kristina Dave MD LAB BLOOD ORDERABLES Final Resul t [facility] [address] [place] [address], [place] [phone] * Creatinine (02/16/2025 9:36 AM EDT) Creatinine 1.03 0.70 - 1.30 mg/dL LAB CHEMISTRY METHOD 02/16/2025 1:34 PM EDT [facility] eGFR 76 >=60 mL/min/1. 73m2 LAB CHEMISTRY METHOD 02/16/2025 1:34 PM EDT [facility] Comment:Calculation based on the??Chronic Kidney Disease Epidemiology Collaboration (CKD-EPI) equation refit??without adjustment for race. Blood Venous blood specimen / Unknown Venipuncture / Unknown 02/16/2025 9:36 AM EDT 02/16/2025 9:36 AM EDT us Kristina Dave MD LAB BLOOD ORDERABLES Final Resul t Performing Organization Address City/[facility]/ZIP Co de Phone Number [facility] [address] [place] [address], [place] [phone] * BUN (02/16/2025 9:36 AM EDT) BUN 17 5 - 25 mg/dL LAB CHEMISTRY METHOD 02/16/2025 1:34 PM EDT [facility] Blood Venous blood specimen / Unknown Venipuncture / Unknown 02/16/2025 9:36 AM EDT 02/16/2025 9:36 AM EDT Kristina Dave MD LAB BLOOD ORDERABLES Final Resul t [facility] [address] [place] [address], * (ABNORMAL) Hemoglobin A1c (02/16/2025 8:47 AM EDT) Hemoglobin A1C 8.2(H) <6.5 % LAB CHEMISTRY METHOD 02/16/2025 2:02 PM EDT [facility] Mean Bld Glu Estim. 189 mg/dL LAB CHEMISTRY METHOD 02/16/2025 2:02 PM EDT [facility] Blood Venous blood specimen / Unknown Venipuncture / Unknown 02/16/2025 8:47 AM EDT 02/16/2025 8:47 AM EDT Result [facility] Kristina Dave MD LAB BLOOD ORDERABLES Final Resul t [facility] [address] [place] [address], [place] [phone] * External clinical lab (12/27/2024) [facility] [employer] LAB BLOOD ORDERABLES Fin al Result * Diabetes Eye Exam (07/28/2024) [facility] Diabetes: Annual Retina Eye Exam abstracted Result [facility] [employer] Final Result * Diabetes Foot Exam (07/21/2024) [facility] Diabetes: Annual Foot Exam abstracted Result [facility]aki [employer] [facility] [employer] Final Result * Urine Albumin Creatinine Ratio (06/01/2024) [facility] Urine Albumin Creatinine Ratio abstracted Result [facility] [employer] [facility] [employer] Final Result * Abdominal Aortic Aneurysm Screen (05/18/2021) [facility] Abdominal Aortic Aneurysm (AAA) Screening 1 year fu Anatomical Region Laterality Modality Other [facility] Maki [facility] [facility] [employer] Final Result * Colonoscopy (06/07/2020) [facility] Colonoscopy 7 yr fu Anatomical Region Laterality Modality Other Result [facility] Provider HEALTH MAINTENANCE Final Result * Hepatitis C Screening (10/13/2013) [facility] Hepatitis C Screening negative Result [facility] Maki [facility] [employer] Final Result from Last 3 Months or Most Recently Relevant to Health Maintenance [place] [phone] [employer] MEDICARE ADVANTAGE Advance Directives Documents on File Type Date Recorded 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
== END ==
LOC: HO.HMCFM 11:58
PROVIDERS: PCP Nurse Practitioner Family; Visit Provider Nurse Practitioner Family
DX: E11.69 Type 2 diabetes mellitus with other specified complication (principal); E78.5 Hyperlipidemia, unspecified; R74.01 Elevation of levels of liver transaminase levels; E55.9 Vitamin D deficiency, unspecified

== ENCOUNTER 2025-03-11 08:24 | Outpatient (AMB) | payer MEDICARE, SELFPAY ==
--- NOTE | 2025-03-11 08:28 | AM.OFFWIN_ITS ---
Intake Vital Signs 03/11/25 08:32 Weight 238 lb BP 122/74 Blood Pressure Location Lt brachial Position Sitting Pulse 73 Pulse Source Pulse Oximeter Pulse Oximetry (%) 98 Oxygen Delivery Method Room Air Intake Visit Reasons: EP pain & pressure on RT hand Intake Note: Patient here for right middle finger pain that started about 1 week ago. Patient Tobacco Use Status: Former Tobacco user Allergies Gadolinium-Containing Contrast Medi Allergy (Unknown, Verified 03/11/25 08:33) watery eyes, watery itchy nose, coughing lisinopril Allergy (Unknown, Verified 03/11/25 08:33) Unknown Do you need a note to return to daycare/school/sports/work: No HPI HPI Comments History of Present Illness Details History of Present Illness - The patient is a 74-year-old male pres enting with right-hand and finger pain with swelling. - Symptoms began approximately one week ago after experiencing a stabbing pain when reaching out with the hand and hitting an object. - Pain is accompanied by a constant dull , aching sensation in the middle finger, with radiation towards the wrist and increased sensitivity to pressure or specific hand positions. - Self-treatment with 1000mg ibuprofen p rovided minimal relief, and there is ongoing swelling in the affected hand, prompting him to remove a ring from his finger. - Previous traumatic history involving t he right hand includes punching a cinder block wall 60 years ago. 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 Physical Exam General: Cooperative, healthy appearing, comfortable, no acute distress and well developed Orientation: Patient oriented x3 Limitations: No limitations Head: Normal to inspection Ears: Hearing grossly normal bilaterally Nose: Normal External nose present Face and sinus: Normal facial exam Eyes: Appearance normal, both eyes and all related structures Neck: Normal visual inspection and Yes full ROM Respiratory: Normal respiratory effort and able to speak in complete sentences. Skin: No rashes or lesions noted Neuro: Patient oriented x3 Extremities: RUE: slight edema of right hand, unable to medical surgical tech fully. no TTP wrist, hand and fingers, fingers NVI. negative tinel's, positive Phalen's. amputation at DIP of 2nd digit. [facility] Surgical History (Updated 02/12/25 @ 13:41 by Glenis Argueta CMA) History of pancreatectomy H/O prostatectomy Family History (Updated 02/12/25 @ 13:42 by Glenis Argueta CMA) Father Leukemia Social History (Updated 02/12/25 @ 13:43 by Glenis Argueta CMA) Housing: House Alcohol intake: current Comment: light beer and occasionally a glass of wine Patient Tobacco Use Status: Former Tobacco user Tobacco use type: Cigarette Years Smoked: 3 e-Cigarette/Vaping Use: Never Used Second Hand Smoke Exposure: No service: No Current occupational status: retired Cognitive needs: No Hearing needs: No Vision needs: No Review of Systems Const All systems reviewed & are unremarkable except as noted in HPI and below Physical Exam Vital Signs: Last Vital Signs Pulse 73 03/11/25 08:32 BP 122/74 03/11/25 08:32 Pulse Ox 98 03/11/25 08:32 Oxygen Delivery Method Room Air 03/11/25 08:32 Assessment & Plan Assessment & Plan (1) Finger pain, right: Code(s): M79.644 - Pain in right finger(s) Plan: Plan For the right-hand pain and associated swelling, suspected to involve nerve entrapment potentially involving the MCP joint vs carpal tunnel, I have prescribed meloxicam to alleviate inflammation, asking the patient to cease ibuprofen temporarily to avoid renal complications. A wrist brace has been provided to reduce strain and swelling while advising regular ROM exercises to keep the joints mobile. A right-hand x-ray is ordered to determine any structural issues potentially from past trauma. Pending x-ray results, I have sent an orthopedic consultation for hand surgeon. Patient was informed and verbally consented to the use of an ambient scribe for clinic note documentation during this visit. Orders: Orders XR hand RT min 3V Today M79.644 - Pain in right finger(s) Referrals Orthopedics Referral M79.644 - Pain in right finger(s) Medications: New meloxicam 15 mg PO DAILY 15 tabs 0RF Coding Level of Care Code Est Pt Level 4 (06887) Diagnoses Finger pain, right M79.644
[2025-03-11 08:32] VITALS: BP 122/74; PULSE 73; O2SAT 98
--- OUTSIDE RECORDS SUMMARY | 2025-03-11 08:35 | XMS_ITS | Clinical Summary ---
Author Organization [facility] Address [address] [place] [address] Phone Care Team Providers Care Medical Management Specialist Name Role Phone Bita Nina MD Primary [...] complication, with long-term current use of insulin ([facility] V24, [facility] V28) INJECT 5 UNITS INTO THE SKIN AT BEDTIME. 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 Do not crush, chew, or split. 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 V24, [facility] V28) Take three times a day before meals max up to 65 units day. 75 mL 2 02/19/20 25 025 Discontinued(Re order) Active Problems Problem Noted Date Diagnosed Date Class 1 obesity 07/20/2024 Glaucoma 12/07/2020 Overview (07/08/2024): Sees Dr. Frazier Essential hypertension 09/07/2020 Primary pancreatic neuroendocrine tumor ([facility] V28) 02/19/2020 Overview (07/08/2024): CT 2019. Incidental finding. 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 ([facility] V24, [facility] V28) 10/23/2019 Radiation [...] neg CXR, EKG Q III Diabetes mellitus ([facility] V24, 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 V24, [facility] V28) from Last 3 Months Immunizations Name Administration Dates Next Due Hepatitis B (Glwwviw-I-Lrpmq , Recombivax HB-Adult) 19yo and older 07/09/2019,09/10/2018,06/06/2018 [...] COMMENT: robotic assisted prostatectomy CYSTOSCOPY 05/28/2017 PROCEDURE: ND CYSTOURETHROSCOPY; COMMENT: 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, [...] urethral sling OTHER SURGICAL HISTORY 07/2020 PROCEDURE: ND PNCRTECT DSTL STOT W/O PNCRTCOJEJUNOSTOMY OTHER SURGICAL HISTORY 07/2020 PROCEDURE: ND RPR TABDL LMPHADEC EXTNSV W/PEL AORTIC&RNL; COMMENT: 6 lymph nodes removed Medical History Medical History Date Comments Prediabetes 10/05/2013 DX:Prediabetes Mixed hyperlipidemia 06/21/2015 DX:Mixed hy perlipidemia Adenocarcinoma of prostate ( [facility]/H[facility] V24, CMS/HCC V28) 10/05/2013 DX:Adenocarcinoma of prostat e ([facility]); COMMENT: Biopsy 04/27/14, Hampton's 4+3 and no CVA of prostate in [...] 06/02/2025 9:00 AM EDT Office Visit Endocrinology [address] [phone] Kristina Dave MD [address] [place] [address] Health Maintenance Due Date Last Done Comments [...] mellitus with other specified complication, unspecified whether terminal superintendent insulin use ([facility] V24, [facility] V28) BUN Routine 02/16/2025 9:36 AM EDT Type 2 diabetes mellitus with other specified complication, unspecified whether terminal superintendent insulin use ([facility] V24, [facility] V28) LIPID PANEL WITH REFLEX TO DIRECT LDL Routine 02/16/2025 9:36 AM EDT Hypertriglyceridemia HEMOGLOBIN A1C Routine 02/16/2025 8:47 AM EDT Type 2 diabetes mellitus with other specified complication, unspecified whether [facility] insulin use ([facility] V24, [facility] V28) EXTERNAL CLINICAL LAB 12/27/2024 DIABETES [...] LAB CHEMISTRY METHOD 02/16/2025 1:40 PM EDT [facility] Triglycerides 383(H) 0 - 150 mg/dL LAB CHEMISTRY METHOD 02/16/2025 1:40 PM EDT [facility] HDL 44 >=40 mg/dL LAB CHEMISTRY METHOD 02/16/2025 1:40 PM EDT [facility] LDL Calculated 17 0 - 100 mg/dL LAB CHEMISTRY METHOD 02/16/2025 1:40 PM EDT [facility] VLDL Cholesterol Bob 76.6 mg/dL LAB CHEMISTRY METHOD 02/16/2025 1:40 PM EDT [facility] Non HDL Chol. (LDL+VLDL) 94 <145 mg/dL LAB CHEMISTRY METHOD 02/16/2025 1:40 PM EDT [facility] Chol/HDL Ratio 3.1 0.0 - 4.4 LAB CHEMISTRY METHOD 02/16/2025 1:40 PM EDT [facility] Blood Venous blood specimen / Unknown Venipuncture / Unknown 02/16/2025 9:36 AM EDT 02/16/2025 9:36 AM EDT us Kristina Dave MD LAB BLOOD ORDERABLES Final Resul t [facility] [address] [place] [address], * Creatinine (02/16/2025 9:36 AM EDT) Creatinine 1.03 0.70 - 1.30 mg/dL LAB CHEMISTRY METHOD 02/16/2025 1:34 PM EDT [facility] eGFR 76 >=60 mL/min/1. 73m2 LAB CHEMISTRY METHOD 02/16/2025 1:34 PM EDT [facility] Comment:Calculation based on the??Chronic Kidney Disease Epidemiology Collaboration (CKD-EPI) equation refit??without adjustment for race. Blood Venous blood specimen / Unknown Venipuncture / Unknown 02/16/2025 9:36 AM EDT 02/16/2025 9:36 AM EDT us Kristina Dave MD LAB BLOOD ORDERABLES Final Resul t Performing Organization Address City/[facility]/ZIP Co de Phone Number [facility] [address] [place] [address], * BUN (02/16/2025 9:36 AM EDT) BUN 17 5 - 25 mg/dL LAB CHEMISTRY METHOD 02/16/2025 1:34 PM EDT [facility] Blood Venous blood specimen / Unknown Venipuncture / Unknown 02/16/2025 9:36 AM EDT 02/16/2025 9:36 AM EDT us Kristina Dave MD LAB BLOOD ORDERABLES Final Resul t Performing Organization Address [facility] de Phone Number [facility] [address] [place] [address], * (ABNORMAL) Hemoglobin A1c (02/16/2025 8:47 AM EDT) Hemoglobin A1C 8.2(H) <6.5 % LAB CHEMISTRY METHOD 02/16/2025 2:02 PM EDT [facility] Mean Bld Glu Estim. 189 mg/dL LAB CHEMISTRY METHOD 02/16/2025 2:02 PM EDT [facility] Blood Venous blood specimen / Unknown Venipuncture / Unknown 02/16/2025 8:47 AM EDT 02/16/2025 8:47 AM EDT Kristina Dave MD LAB BLOOD ORDERABLES Final Resul t [facility] [address] [place] [address], [place] [phone] * External clinical lab (12/27/2024) Provider [facility] LAB BLOOD ORDERABLES Fin al Result * Diabetes Eye Exam (07/28/2024) [facility] Diabetes: Annual Retina Eye Exam abstracted Historical Provider HEALTH MAINTENANCE Final Result * Diabetes Foot Exam (07/21/2024) [facility] Diabetes: Annual Foot Exam abstracted Historical Provider HEALTH MAINTENANCE Final Result * Urine Albumin Creatinine Ratio (06/01/2024) [facility] Urine Albumin Creatinine Ratio abstracted Historical Provider HEALTH MAINTENANCE Final Result * Abdominal Aortic Aneurysm Screen (05/18/2021) [facility] Abdominal Aortic Aneurysm (AAA) Screening 1 year fu Anatomical Region Laterality Modality Other Historical Provider HEALTH MAINTENANCE Final Result * Colonoscopy (06/07/2020) [facility] Colonoscopy 7 yr fu Anatomical Region Laterality Modality Other Result [facility] Historical Provider HEALTH MAINTENANCE Final Result * Hepatitis C Screening (10/13/2013) [facility] Hepatitis C Screening negative Historical Provider HEALTH MAINTENANCE Final Result from Last 3 Months or Most Recently Relevant to Health [place] [id number] [employer] MEDICARE ADVANTAGE Advance Directives Documents on File Type Date Recorded 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
== END 2025-03-11 09:15 | disposition home or self-care (01) ==
PROVIDERS: PCP Nurse Practitioner Family; Visit Provider Physician Assistant
DX: M79.644 Pain in right finger(s) (principal)

== ENCOUNTER 2025-03-11 08:24 | Outpatient (REF) | payer MEDICARE, SELFPAY ==
--- NOTE | ~2025-03-11 | XR_ITS ---
EXAMINATION: XR HAND, RIGHT CLINICAL INFORMATION: M79.644 - Pain in right finger(s) COMPARISON: None available. TECHNIQUE: PA, lateral, and oblique views of the right hand. FINDINGS: There has been prior amputation of the second digit at the mid middle phalanx level. There is a retained tiny metallic foreign body just lateral to the mid proximal phalanx of the first digit. There is no acute fracture, dislocation, or suspicious bone abnormality. There are arthritic changes throughout the remaining DIP joints, and interphalangeal joint of the thumb, with productive bony changes and spurring, with lesser involvement of the PIP joints. No definitive erosions evident. There is only mild involvement of the MCP joints with mild joint space narrowing first through third MCPs. Mild osteoarthritic change at the first CMC joint and STT joints. Mild radiocarpal joint space narrowing. Soft tissues demonstrate diffuse vascular calcifications, but are otherwise normal. XR/XR hand RT min 3V IMPRESSION: 1. No acute bony abnormalities. 2. 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 Small retained metallic foreign body as detailed. 3. Arthritic changes as described above, most notable in the DIP joints of the digits, with productive bony changes. Differential mainly includes osteoarthritis, early primary erosive osteoarthritis, or possibly psoriatic arthropathy. 4. There are diffuse soft tissue vascular calcifications. Electronically signed by: Simon Morales MD 03/11/2025 09:18 AM EDT
--- OUTSIDE RECORDS SUMMARY | 2025-03-11 09:21 | XMS_ITS | Clinical Summary ---
Author Organization [facility] Address [address] [place] [address] Phone Care Team Providers Care Blending Machine Operator Name Role Phone Bita Nina MD Primary [...] complication, with long-term current use of insulin ([facility] V24, [facility] V28) INJECT 5 UNITS INTO THE SKIN AT BEDTIME. 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 Do not crush, chew, or split. 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, with long-term current use of insulin ([facility] V24, [facility] V28) Take three times a day before [...] complication, with long-term current use of insulin ([facility] V24, [facility] V28) Take 16 units before beakfast, 14 units before lunch and 20 units before dinner plus sliding scale up to 60 units a day 60 mL 2 10/22/20 24 025 Discontinued(Re order) NovoLOG Flexpen U-100 Insulin 100 unit/mL (3 mL) injection penIndications :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 75 mL 2 02/19/20 25 025 Discontinued(Re order) Active Problems Problem Noted Date Diagnosed Date Class 1 obesity 07/20/2024 Glaucoma 12/07/2020 Overview (07/08/2024): Sees Dr. Frazier Essential hypertension 09/07/2020 Primary pancreatic neuroendocrine tumor ([facility] V28) 02/19/2020 Overview (07/08/2024): CT 2019. Incidental finding. 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 Overview (07/08/2024): [...] neg CXR, EKG Q III Diabetes mellitus ([facility] V24, [facility] V28) Exposure to asbestos 10/05/2013 Hypertriglyceridemia 10/05/2013 Shoulder sprain 10/05/2013 Encounters Date Type Department Care Team Description 02/19/2025 Telephone Endocrinology - [place] [address] [place] [id number] Kristina Dave MD Medication Problem 02/18/2025 9:00 AM EDT Office Visit Endocrinology - [place] [id number] [place] [phone] Kristina Dave MD 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, with long-term current use of insulin ([facility] V24, [facility] V28) from Last 3 Months Immunizations Name Administration Dates Next Due Hepatitis B ([employer]i-U-Cxqco , Recombivax HB-Adult) 19yo and older 07/09/2019,09/10/2018,06/06/2018 [...] COMMENT: robotic assisted prostatectomy CYSTOSCOPY 05/28/2017 PROCEDURE: IN CYSTOURETHROSCOPY; COMMENT: 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, [...] urethral sling OTHER SURGICAL HISTORY 07/2020 PROCEDURE: IN PNCRTECT DSTL STOT W/O PNCRTCOJEJUNOSTOMY OTHER SURGICAL HISTORY 07/2020 PROCEDURE: IN RPR TABDL LMPHADEC EXTNSV W/PEL AORTIC&RNL; COMMENT: 6 lymph nodes removed Medical History Medical History Date Comments Prediabetes 10/05/2013 DX:Prediabetes Mixed hyperlipidemia 06/21/2015 DX:Mixed hy perlipidemia Adenocarcinoma of prostate ( CMS/HCC V24, CMS/HCC V28) 10/05/2013 DX:Adenocarcinoma of prostat e ([facility]); COMMENT: Biopsy 04/27/14, [place] 4+3 and no CVA of prostate in [...] 06/02/2025 9:00 AM EDT Office Visit Endocrinology [address] [phone] Kristina Dave MD [address] [place] [address] Health Maintenance Due Date Last Done Comments [...] with other specified complication, unspecified whether terminal computer operator insulin use ([facility] V24, [facility] V28) BUN Routine 02/16/2025 9:36 AM EDT Type 2 diabetes mellitus with other specified complication, unspecified whether terminal computer operator insulin use ([facility] V24, [facility] V28) LIPID PANEL WITH REFLEX TO DIRECT LDL Routine 02/16/2025 9:36 AM EDT Hypertriglyceridemia HEMOGLOBIN A1C Routine 02/16/2025 8:47 AM EDT Type 2 diabetes mellitus with other specified complication, unspecified whether halfway insulin use ([facility] V24, [facility] V28) EXTERNAL CLINICAL LAB 12/27/2024 DIABETES EYE [...] LAB CHEMISTRY METHOD 02/16/2025 1:[address] [facility] Triglycerides 383(H) 0 - 150 mg/dL LAB CHEMISTRY METHOD 02/16/2025 1:[address] [facility] HDL 44 >=40 mg/dL LAB CHEMISTRY METHOD 02/16/2025 1:[address] [facility] LDL Calculated 17 0 - 100 mg/dL LAB CHEMISTRY METHOD 02/16/2025 1:[address] [facility] VLDL Cholesterol Bob 76.6 mg/dL LAB CHEMISTRY METHOD 02/16/2025 1:[address] [facility] Non HDL Chol. (LDL+VLDL) 94 <145 mg/dL LAB CHEMISTRY METHOD 02/16/2025 1:[address] [facility] Chol/HDL Ratio 3.1 0.0 - 4.4 LAB CHEMISTRY METHOD 02/16/2025 1:[address] [facility] Blood Venous blood specimen / Unknown Venipuncture / Unknown 02/16/2025 9:36 AM EDT 02/16/2025 9:36 AM EDT us Kristina Dave MD LAB BLOOD ORDERABLES Final Resul t [facility] [address] [place] [address], * Creatinine (02/16/2025 9:36 AM EDT) Creatinine 1.03 0.70 - 1.30 mg/dL LAB CHEMISTRY METHOD 02/16/2025 1:[address] [facility] eGFR 76 >=60 mL/min/1. 73m2 LAB CHEMISTRY METHOD 02/16/2025 1:[address] [facility] Comment:Calculation based on the??Chronic Kidney Disease Epidemiology Collaboration (CKD-EPI) equation refit??without adjustment for race. Blood Venous blood specimen / Unknown Venipuncture / Unknown 02/16/2025 9:36 AM EDT 02/16/2025 9:36 AM EDT us Kristina Dave MD LAB BLOOD ORDERABLES Final Resul t Performing Organization Address City/[facility]/ZIP Co de Phone Number [facility] [address] [place] [address], * BUN (02/16/2025 9:36 AM EDT) BUN 17 5 - 25 mg/dL LAB CHEMISTRY METHOD 02/16/2025 1:[address] [facility] Blood Venous blood specimen / Unknown Venipuncture / Unknown 02/16/2025 9:36 AM EDT 02/16/2025 9:36 AM EDT us Kristina Dave MD LAB BLOOD ORDERABLES Final Resul t Performing Organization Address [facility] de Phone Number [facility] [address] [place] [address], * (ABNORMAL) Hemoglobin A1c (02/16/2025 8:47 AM EDT) Hemoglobin A1C 8.2(H) <6.5 % LAB CHEMISTRY METHOD 02/16/2025 2:[address] [facility] Mean Bld Glu Estim. 189 mg/dL LAB CHEMISTRY METHOD 02/16/2025 2:[address] [facility] Blood Venous blood specimen / Unknown Venipuncture / Unknown 02/16/2025 8:47 AM EDT 02/16/2025 8:47 AM EDT Kristina Dave MD LAB BLOOD ORDERABLES Final Resul t [facility] [address] [place] [address], [place] [phone] * External clinical lab (12/27/2024) Provider [facility] LAB BLOOD ORDERABLES Fin al Result * Diabetes Eye Exam (07/28/2024) [facility] Diabetes: Annual Retina Eye Exam abstracted Historical Provider HEALTH MAINTENANCE Final Result * Diabetes Foot Exam (07/21/2024) [facility] Diabetes: Annual Foot Exam abstracted Historical Provider HEALTH MAINTENANCE Final Result * Urine Albumin Creatinine Ratio (06/01/2024) [facility] Urine Albumin Creatinine Ratio abstracted Historical Provider HEALTH MAINTENANCE Final Result * Abdominal Aortic Aneurysm Screen (05/18/2021) [facility] Abdominal Aortic Aneurysm (AAA) Screening 1 year fu Anatomical Region Laterality Modality Other Historical Provider HEALTH MAINTENANCE Final Result * Colonoscopy (06/07/2020) [facility] Colonoscopy 7 yr fu Anatomical Region Laterality Modality Other Result [facility] Historical Provider HEALTH MAINTENANCE Final Result * Hepatitis C Screening (10/13/2013) 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
== END 2025-03-11 08:25 | disposition home or self-care (01) ==
LOC: HO.HMGCX 08:24
PROVIDERS: PCP Nurse Practitioner Family; Visit Provider Physician Assistant
DX: M79.644 Pain in right finger(s) (principal)
CPT/HCPCS: 73130; 99212

== ENCOUNTER → 2025-03-11 08:58 | Outpatient (BNV) | payer MEDICARE, SELFPAY | PROVIDERS: PCP Nurse Practitioner Family; Visit Provider Radiology Diagnostic Radiology | DX: M19.041 Primary osteoarthritis, right hand (principal); M61.441 Other calcification of muscle, right hand | CPT/HCPCS: 73130 ==

== ENCOUNTER 2025-03-17 15:02 | Outpatient (AMB) | payer MEDICARE, SELFPAY ==
--- NOTE | 2025-03-17 15:06 | MHC.OFFVIS ---
Vital Signs 03/17/25 15:13 Height 5 ft 11.5 in Weight 238 lb BMI 32.7 Intake Visit Reasons: right shoulder pain and weakness Intake Note: Valente is a 74 year old right hand dominant male who presents with complaints of progressively worsening right shoulder pain and weakness. 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 Since that time he has had weakness when lifting his right hand above shoulder height. He has failed the last 6 weeks of conservative treatment which has included physical therapy exercises, a home exercise program, Tylenol and anti-inflammatory medicines. He has had injections in the past which gave him minimal relief. Allergies Gadolinium-Containing Contrast Medi Allergy (Unknown, Verified 03/17/25 15:13) watery eyes, watery itchy nose, coughing lisinopril Allergy (Unknown, Verified 03/17/25 15:13) Unknown Medication List - Last Reconciled 03/17/25 by Andrey Cunha MD amlodipine 2.5 mg PO DAILY atorvastatin 40 mg PO DAILY blood sugar diagnostic (InsideTouch Ultra Test strips) As directed blood-glucose meter (InsideTouch Ultra2 Meter) As directed cetirizine 10 mg PO DAILY cholecalciferol (vitamin D3) 25 mcg PO DAILY 90 days fenofibrate 54 mg PO DAILY 30 days insulin aspart U-100 (Novolog FlexPen U-100 Insulin aspart) subcut insulin glargine (Lantus Solostar U-100 Insulin) 22 units subcut QPM lancets (OneTouch Delica Plus Lancet) As directed latanoprost 0.005% drps ophthalmic (eye) meloxicam 15 mg PO DAILY metformin ER 1,000 mg PO BID pen needle, diabetic As directed tolterodine 2 mg PO BID [facility] Surgical History (Updated 02/12/25 @ 13:41 by Glenis Argueta CMA) History of pancreatectomy H/O prostatectomy Family History (Updated 02/12/25 @ 13:42 by Glenis Argueta CMA) Father Leukemia Social History (Updated 02/12/25 @ 13:43 by Glenis Argueta CMA) Housing: House Alcohol intake: current Comment: light beer and occasionally a glass of wine Patient Tobacco Use Status: Former Tobacco user Tobacco use type: Cigarette Years Smoked: 3 e-Cigarette/Vaping Use: Never Used Second Hand Smoke Exposure: No service: No Current occupational status: retired Cognitive needs: No Hearing needs: No Vision needs: No Physical Exam Const Other: Well-nourished well-developed very friendly male awake alert and oriented x3 in no acute distress Extrem Other: Right shoulder examination shows decreased range of motion when compared to his left shoulder, 4/5 strength with supraspinatus testing, positive impingement signs, tenderness over his acromioclavicular joint, no instability Assessment & Plan Assessment & Plan (1) Rotator cuff insufficiency of right shoulder: Code(s): M25.311 - Other instability, right shoulder Category: Medical Plan Mr. Pagan presents with right shoulder pain and weakness due to impingement syndrome and possible rotator cuff tearing. Thus, I will send the patient for an MRI of his right shoulder for further evaluation. I will contact him by phone once the MRI results are available to discuss the findings and treatment options. He will continue with his range of motion exercises in the meantime. Feel free to call me at any time should questions regarding his orthopedic management arise. Thank you very much for asking me to see this very friendly gentleman. I spent 21 minutes in reviewing the patient's records and imaging studies, seeing the patient and documenting in the medical record. Orders: Orders MR shoulder RT wo con Today M25.311 - Other instability, right shoulder Coding Level of Care Code New Pt Level 3 (51128) Complex EM visit Add On G2211 Diagnoses Rotator cuff insufficiency of right shoulder M25.311
[2025-03-17 15:13] VITALS: BMI 32.7
--- OUTSIDE RECORDS SUMMARY | 2025-03-17 16:05 | XMS_ITS | Clinical Summary ---
Author Organization [facility] Address [address] [place] [address] Phone Care Team Providers Care Communications Tech Name Role Phone Bita Nina MD Primary [...] complication, with long-term current use of insulin ([facility] V24, [facility] V28) INJECT 5 UNITS INTO THE SKIN AT BEDTIME. 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, with long-term current use of insulin ([facility] V24, [facility] V28) USE UP TO 4 TIMES A DAY 300 each 3 10/22/20 24 Active metFORMIN XR (GLUCOPHAGE-XR ) 500 mg 24 hr tabletIndicati ons: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 Do not crush, chew, or split. 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, with long-term current use of insulin ([facility] V24, [facility] V28) Take three times a day before [...] complication, with long-term current use of insulin ([facility] V24, [facility] V28) Take 16 units before beakfast, 14 units before lunch and 20 units before dinner plus sliding scale up to 60 units a day 60 mL 2 10/22/20 24 025 Discontinued(Re order) NovoLOG Flexpen U-100 Insulin 100 unit/mL (3 mL) injection penIndications :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 75 mL 2 02/19/20 25 025 Discontinued(Re order) Active Problems Problem Noted Date Diagnosed Date Class 1 obesity 07/20/2024 Glaucoma 12/07/2020 Overview (07/08/2024): Sees Dr. Frazier Essential hypertension 09/07/2020 Primary pancreatic neuroendocrine tumor ([facility] V28) 02/19/2020 Overview (07/08/2024): CT 2019. Incidental finding. 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 ([facility] V24, [facility] V28) 10/23/2019 Radiation cystitis 05/31/2017 Overview (07/08/2024): [...] neg CXR, EKG Q III Diabetes mellitus ([facility] V24, [facility] V28) Exposure to asbestos 10/05/2013 Hypertriglyceridemia 10/05/2013 Shoulder sprain 10/05/2013 Encounters Date Type Department Care Team Description 02/19/2025 Telephone Endocrinology - [place] [address] [place] [phone] Kristina Dave MD Medication Problem 02/18/2025 9:00 AM EDT Office Visit Endocrinology - [place] [id number] [place] [address] Kristina Dave MD 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, with long-term current use of insulin ([facility] V24, [facility] V28) from Last 3 Months Immunizations Name Administration Dates Next Due Hepatitis B (Oyklhik-Q-Vdkmj , Recombivax HB-Adult) 19yo and older 07/09/2019,09/10/2018,06/06/2018 [...] COMMENT: robotic assisted prostatectomy CYSTOSCOPY 05/28/2017 PROCEDURE: [place] CYSTOURETHROSCOPY; COMMENT: 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, [...] urethral sling OTHER SURGICAL HISTORY 07/2020 PROCEDURE: TX PNCRTECT DSTL STOT W/O PNCRTCOJEJUNOSTOMY OTHER SURGICAL HISTORY 07/2020 PROCEDURE: TX RPR TABDL LMPHADEC EXTNSV W/PEL AORTIC&RNL; COMMENT: 6 lymph nodes removed Medical History Medical History Date Comments Prediabetes 10/05/2013 DX:Prediabetes Mixed hyperlipidemia 06/21/2015 DX:Mixed hy perlipidemia Adenocarcinoma of prostate ( CMS/H[facility] V24, CMS/HCC V28) 10/05/2013 DX:Adenocarcinoma of prostat e ([facility]); COMMENT: Biopsy 04/27/14, Clifton's 4+3 and no CVA of prostate in [...] 06/02/2025 9:00 AM EDT Office Visit Endocrinology [address] [phone] Kristina Dave MD [address] [place] [address] Health Maintenance Due Date Last Done Comments [...] mellitus with other specified complication, unspecified whether termination clerk insulin use ([facility] V24, [facility] V28) BUN Routine 02/16/2025 9:36 AM EDT Type 2 diabetes mellitus with other specified complication, unspecified whether termination clerk insulin use ([facility] V24, [facility] V28) LIPID PANEL WITH REFLEX TO DIRECT LDL Routine 02/16/2025 9:36 AM EDT Hypertriglyceridemia HEMOGLOBIN A1C Routine 02/16/2025 8:47 AM EDT Type 2 diabetes mellitus with other specified complication, unspecified whether fdc insulin use ([facility] V24, [facility] V28) EXTERNAL CLINICAL LAB 12/27/2024 DIABETES EYE [...] LAB CHEMISTRY METHOD 02/16/2025 1:40 PM EDT [facility] Triglycerides 383(H) 0 - 150 mg/dL LAB CHEMISTRY METHOD 02/16/2025 1:40 PM EDT [facility] HDL 44 >=40 mg/dL LAB CHEMISTRY METHOD 02/16/2025 1:40 PM EDT [facility] LDL Calculated 17 0 - 100 mg/dL LAB CHEMISTRY METHOD 02/16/2025 1:40 PM EDT [facility] VLDL Cholesterol Bob 76.6 mg/dL LAB CHEMISTRY METHOD 02/16/2025 1:40 PM EDT [facility] Non HDL Chol. (LDL+VLDL) 94 <145 mg/dL LAB CHEMISTRY METHOD 02/16/2025 1:40 PM EDT [facility] Chol/HDL Ratio 3.1 0.0 - 4.4 LAB CHEMISTRY METHOD 02/16/2025 1:40 PM EDT [facility] Blood Venous blood specimen / Unknown Venipuncture / Unknown 02/16/2025 9:36 AM EDT 02/16/2025 9:36 AM EDT us Kristina Dave MD LAB BLOOD ORDERABLES Final Resul t [facility] [address] [place] [address], * Creatinine (02/16/2025 9:36 AM EDT) Creatinine 1.03 0.70 - 1.30 mg/dL LAB CHEMISTRY METHOD 02/16/2025 1:34 PM EDT [facility] eGFR 76 >=60 mL/min/1. 73m2 LAB CHEMISTRY METHOD 02/16/2025 1:34 PM EDT [facility] Comment:Calculation based on the??Chronic Kidney Disease Epidemiology Collaboration (CKD-EPI) equation refit??without adjustment for race. Blood Venous blood specimen / Unknown Venipuncture / Unknown 02/16/2025 9:36 AM EDT 02/16/2025 9:36 AM EDT us Kristina Dave MD LAB BLOOD ORDERABLES Final Resul t Performing Organization Address City/[facility]/ZIP Co de Phone Number [facility] [address] [place] [address], * BUN (02/16/2025 9:36 AM EDT) BUN 17 5 - 25 mg/dL LAB CHEMISTRY METHOD 02/16/2025 1:34 PM EDT [facility] Blood Venous blood specimen / Unknown Venipuncture / Unknown 02/16/2025 9:36 AM EDT 02/16/2025 9:36 AM EDT us Kristina Dave MD LAB BLOOD ORDERABLES Final Resul t Performing Organization Address [facility] de Phone Number [facility] [address] [place] [address], * (ABNORMAL) Hemoglobin A1c (02/16/2025 8:47 AM EDT) Hemoglobin A1C 8.2(H) <6.5 % LAB CHEMISTRY METHOD 02/16/2025 2:02 PM EDT [facility] Mean Bld Glu Estim. 189 mg/dL LAB CHEMISTRY METHOD 02/16/2025 2:02 PM EDT [facility] Blood Venous blood specimen / Unknown Venipuncture / Unknown 02/16/2025 8:47 AM EDT 02/16/2025 8:47 AM EDT Kristina Dave MD LAB BLOOD ORDERABLES Final Resul t [facility] [address] [place] [address], [place] [phone] * External clinical lab (12/27/2024) Provider [facility] LAB BLOOD ORDERABLES Fin al Result * Diabetes Eye Exam (07/28/2024) [facility] Diabetes: Annual Retina Eye Exam abstracted Historical Provider HEALTH MAINTENANCE Final Result * Diabetes Foot Exam (07/21/2024) [facility] Diabetes: Annual Foot Exam abstracted Historical Provider HEALTH MAINTENANCE Final Result * Urine Albumin Creatinine Ratio (06/01/2024) [facility] Urine Albumin Creatinine Ratio abstracted Historical Provider HEALTH MAINTENANCE Final Result * Abdominal Aortic Aneurysm Screen (05/18/2021) [facility] Abdominal Aortic Aneurysm (AAA) Screening 1 year fu Anatomical Region Laterality Modality Other Historical Provider HEALTH MAINTENANCE Final Result * Colonoscopy (06/07/2020) [facility] Colonoscopy 7 yr fu Anatomical Region Laterality Modality Other Result 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
== END 2025-03-17 15:24 | disposition home or self-care (01) ==
LOC: HO.HOS 15:03
PROVIDERS: PCP Nurse Practitioner Family; Visit Provider Orthopaedic Surgery
DX: M25.311 Other instability, right shoulder (principal)
CPT/HCPCS: 99203; G2211

== ENCOUNTER → 2025-03-17 15:02 | Outpatient (BNVA) | payer MEDICARE, SELFPAY | PROVIDERS: PCP Nurse Practitioner Family; Visit Provider Orthopaedic Surgery | DX: M25.311 Other instability, right shoulder (principal) | CPT/HCPCS: 99202 ==

== ENCOUNTER 2025-03-30 08:49 | Outpatient (AMB) | payer MEDICARE, SELFPAY ==
--- NOTE | 2025-03-30 08:51 | A.OFFVIS_ITS ---
Vital Signs 03/30/25 08:55 Height 5 ft 11.5 in Weight 238 lb BMI 32.7 Intake Visit Reasons: New prob-Rt finger pain Intake Note: Valente is a 74 year old - hand dominant male who presents today for a new problem visit with complains of right -- finger pain. Allergies Gadolinium-Containing Contrast Medi Allergy (Unknown, Verified 03/30/25 08:56) watery eyes, watery itchy nose, coughing lisinopril Allergy (Unknown, Verified 03/30/25 08:56) Unknown [facility] Surgical History (Updated 03/30/25 @ 08:58 by Mónica Browne Kaylene) History of bladder surgery History of pancreatectomy H/O prostatectomy Family History (Updated 02/12/25 @ 13:42 by Glenis Argueta CMA) Father Leukemia Social History (Updated 02/12/25 @ 13:43 by Glenis Argueta CMA) Housing: House Alcohol intake: current Comment: light beer and occasionally a glass of wine Patient Tobacco Use Status: Former Tobacco user Tobacco use type: Cigarette Years Smoked: 3 e-Cigarette/Vaping Use: Never Used Second Hand Smoke Exposure: No service: No Current occupational status: retired Cognitive needs: No Hearing needs: No Vision needs: No Physical Exam Vital Signs: BMI result Body Mass Index 32.7 Assessment & Plan Assessment & Plan (1) Finger pain, right: Code(s): M79.644 - Pain in right finger(s) Category: Medical Plan History of Present Illness The patient is a 74-year-old male presenting with intermittent hand pain. Four to five weeks ago, he experienced acute onset burning and stabbing pain along the finger, extending to the elbow, initiated by contact with the specific finger. The condition impaired his hand function, preventing him from making a fist. He underwent an x-ray that revealed arthritis but no bone issues, with an initial suggestion that the symptoms stemmed from a nerve issue. The pain lasted two and a half weeks but resolved on its own. The patient now reports absence of pain and intact hand function. This visit serves to assess his condition prior to extended travel. Review of Systems - Musculoskeletal: Denies current pain, reports previous episodes of severe pain in the hand and elbow area, absent upon examination. - Neurological: Denies numbness and tingling - No other systems were mentioned. Systems reviewed and are negative except as per HPI and below Physical Exam Patient is alert, oriented, and in no acute distress. Neuro: Normal sensation of the tips of all digits of the right hand at this time Vascular: Cap refill brisk Pain: no tenderness to palpation anywhere in the right hand, particularly the right middle finger ROM: patient is able to make a closed fist and extend all digits of the right hand fully and without difficulty Skin:No lacerations or abrasions. General: No ecchymosis, erythema, or evidence of infection. Psych:Appears grossly normal Affect normal Attitude cooperative Results - Imaging: X-ray revealing arthritic changes; no structural abnormalities Procedure Plan The current recommendation is to monitor for any return of symptoms related to nerve pain in the hand. Should these occur, an EMG and nerve conduction study will be considered to investigate nerve function in the upper extremity. As symptoms have resolved, no immediate intervention is needed, and the patient has been instructed to seek further consultation if symptoms reoccur, especially during his travel. Patient was informed and verbally consented to the use of an ambient scribe for clinic note documentation during this visit. Discussion Notes I discussed with the patient the possible nerve involvement as the cause of his recent hand symptoms. Since symptoms have resolved, we chose not to pursue further intervention at this time. However, in case of recurrence, I advised the patient to contact my office for follow-up and potentially to pursue an EMG and nerve conduction study. We discussed that these studies would help in evaluating nerve conduction and any chronic issues related to past injuries. I assured the patient that my office is available for contact should he require urgent assistance, shown by testing and possible subsequent treatment. He was informed about possible nerve-related complications and was advised to inspect and maintain hand function regularly. Additionally, I provided guidance on what to do if symptoms appear while he is traveling. Patient Instructions - Monitor your hand for any return of symptoms such as pain, numbness, or tingling. - If symptoms return while you are in [place], seek a local doctor or call us to schedule an appointment for when you return. - If symptoms recur, we may need to perform specialized nerve testing. - Keep using your hand to ensure continued mobility and strength. - Contact us if you notice any changes in your symptoms or for any concerns regarding your orthopedic health. Orders: Orders XR hand RT min 3V Today M79.641 - Pain in right hand Coding Level of Care Code Est Pt Level 3 (90847) Diagnoses Finger pain, right M79.644
[2025-03-30 08:55] VITALS: BMI 32.7
--- OUTSIDE RECORDS SUMMARY | 2025-03-30 09:08 | XMS_ITS | Clinical Summary ---
Author Organization [facility] Address [address] [place] [address] Phone Care Team Providers Care Mannequin Mold Maker Name Role Phone Bita Nina MD Primary [...] each day. 90 tablet 1 4 Active atorvastatin (LIPITOR) 40 mg tablet Take 1 tablet (40 mg total) by mouth 1 (one) time each day. 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 Do not crush, chew, or split. 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 Please provide 90 day supply 90 mL 2 5 Active Active Problems Problem Noted Date Diagnosed Date Class 1 obesity 07/20/2024 Glaucoma 12/07/2020 Overview (07/08/2024): Sees Dr. Frazier Essential hypertension 09/07/2020 Primary pancreatic neuroendocrine tumor ([facility] V28) 02/19/2020 Overview (07/08/2024): CT 2019. Incidental finding. 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 Overview (07/08/2024): [...] neg CXR, EKG Q III Diabetes mellitus ([facility], [facility] V28) Exposure to asbestos 10/05/2013 Hypertriglyceridemia 10/05/2013 Shoulder sprain 10/05/2013 Encounters Date Type Department Care Team Description 02/19/2025 Telephone Endocr[address] [phone] Kristina Dave MD Medication Problem 02/18/2025 9:00 AM EDT Office Visit Endocrinology [address] [phone] Kristina Dave MD 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, with long-term current use of insulin ([facility] V[facility], [facility] V28) from Last 3 Months Immunizations Name Administration Dates Next Due Hepatitis B (Fybexog-B-Tknxr , Recombivax HB-Adult) 19yo and older 07/09/2019,09/10/2018,06/06/2018 [...] COMMENT: robotic assisted prostatectomy CYSTOSCOPY 05/28/2017 PROCEDURE: MS CYSTOURETHROSCOPY; COMMENT: 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, [...] urethral sling OTHER SURGICAL HISTORY 07/2020 PROCEDURE: MS PNCRTECT DSTL STOT W/O PNCRTCOJEJUNOSTOMY OTHER SURGICAL HISTORY 07/2020 PROCEDURE: MS RPR TABDL LMPHADEC EXTNSV W/PEL AORTIC&RNL; COMMENT: [...] 9:00 AM EDT Office Visit Endocrinology - [place] [address] [place] [address] Kristina Dave MD [address] [place] [address] Health Maintenance Due Date Last Done Comments [...] mellitus with other specified complication, unspecified whether half-way insulin use ([facility] V24, [facility] V28) BUN Routine 02/16/2025 9:36 AM EDT Type 2 diabetes mellitus with other specified complication, unspecified whether intermediate designer insulin use ([facility] V24, [facility] V28) LIPID PANEL WITH REFLEX TO DIRECT LDL Routine 02/16/2025 9:36 AM EDT Hypertriglyceridemia HEMOGLOBIN A1C Routine 02/16/2025 8:47 AM EDT Type 2 diabetes mellitus with other specified complication, unspecified whether intermediate designer insulin use ([facility] V24, [facility] V28) DIABETES EYE EXAM Routine 07/28/2024 DIABETES FOOT [...] LAB CHEMISTRY METHOD 02/16/2025 1:40 PM EDT [facility] Triglycerides 383(H) 0 - 150 mg/dL LAB CHEMISTRY METHOD 02/16/2025 1:40 PM EDT [facility] HDL 44 >=40 mg/dL LAB CHEMISTRY METHOD 02/16/2025 1:40 PM EDT [facility] LDL Calculated 17 0 - 100 mg/dL LAB CHEMISTRY METHOD 02/16/2025 1:40 PM EDT [facility] VLDL Cholesterol Bob 76.6 mg/dL LAB CHEMISTRY METHOD 02/16/2025 1:40 PM EDT [facility] Non HDL Chol. (LDL+VLDL) 94 <145 mg/dL LAB CHEMISTRY METHOD 02/16/2025 1:40 PM EDT [facility] Chol/HDL Ratio 3.1 0.0 - 4.4 LAB CHEMISTRY METHOD 02/16/2025 1:40 PM EDT [facility] Blood Venous blood specimen / Unknown Venipuncture / Unknown 02/16/2025 9:36 AM EDT 02/16/2025 9:36 AM EDT Kristina Dave MD LAB BLOOD ORDERABLES Final Resul t Performing Organization Address [facility]/ZIP Co de Phone Number [facility] [address] [place] [address], * Creatinine (02/16/2025 9:36 AM EDT) Creatinine 1.03 0.70 - 1.30 mg/dL LAB CHEMISTRY METHOD 02/16/2025 1:34 PM EDT [facility] eGFR 76 >=60 mL/min/1. 73m2 LAB CHEMISTRY METHOD 02/16/2025 1:34 PM EDT [facility] Comment:Calculation based on the??Chronic Kidney Disease Epidemiology Collaboration (CKD-EPI) equation refit??without adjustment for race. Blood Venous blood specimen / Unknown Venipuncture / Unknown 02/16/2025 9:36 AM EDT 02/16/2025 9:36 AM EDT Kristina Dave MD LAB BLOOD ORDERABLES Final Resul t [facility] [address] [place] [address], * BUN (02/16/2025 9:36 AM EDT) BUN 17 5 - 25 mg/dL LAB CHEMISTRY METHOD 02/16/2025 1:34 PM EDT [facility] Blood Venous blood specimen / Unknown Venipuncture / Unknown 02/16/2025 9:36 AM EDT 02/16/2025 9:36 AM EDT Kristina Dave MD LAB BLOOD ORDERABLES Final Resul t Performing Organization Address [facility]/ZIP Co de Phone Number [facility] [address] [place] [address], [place] [phone] * (ABNORMAL) Hemoglobin A1c (02/16/2025 8:47 AM EDT) [facility] Hemoglobin A1C 8.2(H) <6.5 % LAB CHEMISTRY METHOD 02/16/2025 2:02 PM EDT [facility] Mean Bld Glu Estim. 189 mg/dL LAB CHEMISTRY METHOD 02/16/2025 2:02 PM EDT [facility] Blood Venous blood specimen / Unknown Venipuncture / Unknown 02/16/2025 8:47 AM EDT 02/16/2025 8:47 AM EDT Kristina Dave MD LAB BLOOD ORDERABLES Final Resul t Performing Organization Address City/[facility]/ZIP Co de Phone Number [facility] [address] [place] [address], [place] [phone] * Diabetes Eye Exam (07/28/2024) [facility] Diabetes: Annual Retina Eye Exam abstracted Historical Provider HEALTH MAINTENANCE Final Result * Diabetes Foot Exam (07/21/2024) [facility] Diabetes: Annual Foot Exam abstracted Historical Provider HEALTH MAINTENANCE Final Result * Urine Albumin Creatinine Ratio (06/01/2024) [facility] Urine Albumin Creatinine Ratio abstracted Historical Provider HEALTH MAINTENANCE Final Result * Abdominal Aortic Aneurysm Screen (05/18/2021) 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
== END 2025-03-30 09:14 | disposition home or self-care (01) ==
LOC: HO.HOS 08:50
PROVIDERS: PCP Nurse Practitioner Family
DX: M79.644 Pain in right finger(s) (principal)
CPT/HCPCS: 99213

== ENCOUNTER → 2025-03-30 08:51 | Outpatient (BNV) | payer MEDICARE, SELFPAY | PROVIDERS: Visit Provider Radiology Diagnostic Radiology | DX: M19.041 Primary osteoarthritis, right hand (principal) | CPT/HCPCS: 73130 ==

== ENCOUNTER 2025-03-30 09:49 | Outpatient (REF) | payer MEDICARE, SELFPAY ==
--- NOTE | ~2025-03-30 | XR_ITS ---
EXAMINATION: XR HAND 3 OR MORE VIEWS RIGHT HISTORY: M79.641 - Pain in right hand COMPARISON: Comparison is made with the prior examination dated 03/11/2025. FINDINGS: Three views of the right hand are submitted. Osseous mineralization is normal. 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 There is no fracture or dislocation. Again seen is osteoarthritis of the interphalangeal joint of the thumb and 1st carpometacarpal joint, the DIP joints and the PIP joint of the ring finger. Metallic foreign body is again seen adjacent to the proximal phalanx of the index finger. 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 Electronically signed by: Miguel Godinez MD 03/30/2025 09:03 AM EDT
--- OUTSIDE RECORDS SUMMARY | 2025-03-31 11:11 | XMS_ITS | Clinical Summary ---
Author Organization [facility] Address [address] [place] [address] Phone Care Team Providers Care Gear Generator Set Up Operator Name Role Phone Bita Nina MD [...] complication, with long-term current use of insulin ([facility] V24, [facility] V28) INJECT 5 UNITS INTO THE SKIN AT BEDTIME. 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 Do not crush, chew, or split. 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 Please provide 90 day supply 90 mL 2 5 Active Active Problems Problem Noted Date Diagnosed Date Class 1 obesity 07/20/2024 Glaucoma 12/07/2020 Overview (07/08/2024): Sees Dr. 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 Incidental finding. 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 ([facility] V24, [facility] V28) 10/23/2019 Radiation cystitis 05/31/2017 Overview (07/08/2024): [...] neg CXR, EKG Q III Diabetes mellitus ([facility] V24, [facility] V28) Exposure to asbestos 10/05/2013 Hypertriglyceridemia 10/05/2013 Shoulder sprain 10/05/2013 Encounters Date Type Department Care Team Description 02/19/2025 Telephone Endocr[address]ology [address] [address] Kristina Dave MD Medication Problem 02/18/2025 9:00 AM EDT Office Visit Endocrinology [address] [phone] Kristina Dave MD 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, with long-term current use of insulin ([facility] V24, [facility] V28) from Last 3 Months Immunizations Name Administration Dates Next Due Hepatitis B (Hfxolvb-G-Fwpar , Recombivax HB-Adult) 19yo and older 07/09/2019,09/10/2018,06/06/2018 [...] COMMENT: robotic assisted prostatectomy CYSTOSCOPY 05/28/2017 PROCEDURE: PA CYSTOURETHROSCOPY; COMMENT: 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, [...] urethral sling OTHER SURGICAL HISTORY 07/2020 PROCEDURE: PA PNCRTECT DSTL STOT W/O PNCRTCOJEJUNOSTOMY OTHER SURGICAL HISTORY 07/2020 PROCEDURE: PA RPR TABDL LMPHADEC EXTNSV W/PEL AORTIC&RNL; COMMENT: [...] 9:00 AM EDT Office Visit Endocrinology - [place] [address] [place] [address] Kristina Dave MD [address] [place] [address] Health Maintenance Due Date Last Done Comments [...] mellitus with other specified complication, unspecified whether shelter insulin use ([facility] V24, [facility] V28) BUN Routine 02/16/2025 9:36 AM EDT Type 2 diabetes mellitus with other specified complication, unspecified whether technician terminal and repeater insulin use ([facility] V24, [facility] V28) LIPID PANEL WITH REFLEX TO DIRECT LDL Routine 02/16/2025 9:36 AM EDT Hypertriglyceridemia HEMOGLOBIN A1C Routine 02/16/2025 8:47 AM EDT Type 2 diabetes mellitus with other specified complication, unspecified whether technician terminal and repeater insulin use ([facility] V24, [facility] V28) DIABETES EYE EXAM Routine 07/28/2024 DIABETES [...] LAB CHEMISTRY METHOD 02/16/2025 1:40 PM EDT [facility] Triglycerides 383(H) 0 - 150 mg/dL LAB CHEMISTRY METHOD 02/16/2025 1:40 PM EDT [facility] HDL 44 >=40 mg/dL LAB CHEMISTRY METHOD 02/16/2025 1:40 PM EDT [facility] LDL Calculated 17 0 - 100 mg/dL LAB CHEMISTRY METHOD 02/16/2025 1:40 PM EDT [facility] VLDL Cholesterol Bob 76.6 mg/dL LAB CHEMISTRY METHOD 02/16/2025 1:40 PM EDT [facility] Non HDL Chol. (LDL+VLDL) 94 <145 mg/dL LAB CHEMISTRY METHOD 02/16/2025 1:40 PM EDT [facility] Chol/HDL Ratio 3.1 0.0 - 4.4 LAB CHEMISTRY METHOD 02/16/2025 1:40 PM EDT [facility] Blood Venous blood specimen / Unknown Venipuncture / Unknown 02/16/2025 9:36 AM EDT 02/16/2025 9:36 AM EDT Kristina Dave MD LAB BLOOD ORDERABLES Final Resul t Performing Organization Address [facility]/ZIP Co de Phone Number [facility] [address] [place] [address], * Creatinine (02/16/2025 9:36 AM EDT) Creatinine 1.03 0.70 - 1.30 mg/dL LAB CHEMISTRY METHOD 02/16/2025 1:34 PM EDT [facility] eGFR 76 >=60 mL/min/1. 73m2 LAB CHEMISTRY METHOD 02/16/2025 1:34 PM EDT [facility] Comment:Calculation based on the??Chronic Kidney Disease Epidemiology Collaboration (CKD-EPI) equation refit??without adjustment for race. Blood Venous blood specimen / Unknown Venipuncture / Unknown 02/16/2025 9:36 AM EDT 02/16/2025 9:36 AM EDT Kristina Dave MD LAB BLOOD ORDERABLES Final Resul t [facility] [address] [place] [address], * BUN (02/16/2025 9:36 AM EDT) BUN 17 5 - 25 mg/dL LAB CHEMISTRY METHOD 02/16/2025 1:34 PM EDT [facility] Blood Venous blood specimen / Unknown Venipuncture / Unknown 02/16/2025 9:36 AM EDT 02/16/2025 9:36 AM EDT Kristina Dave MD LAB BLOOD ORDERABLES Final Resul t Performing Organization Address [facility]/ZIP Co de Phone Number [facility] [address] [place] [address], [place] [phone] * (ABNORMAL) Hemoglobin A1c (02/16/2025 8:47 AM EDT) [facility] [address] Hemoglobin A1C 8.2(H) <6.5 % LAB CHEMISTRY METHOD 02/16/2025 2:02 PM EDT [facility] Mean Bld Glu Estim. 189 mg/dL LAB CHEMISTRY METHOD 02/16/2025 2:02 PM EDT [facility] Blood Venous blood specimen / Unknown Venipuncture / Unknown 02/16/2025 8:47 AM EDT 02/16/2025 8:47 AM EDT Kristina Dave MD LAB BLOOD ORDERABLES Final Resul t Performing Organization Address City/[facility]/ZIP Co de Phone Number [facility] [address] [place] [address], [place] [phone] * Diabetes Eye Exam (07/28/2024) [facility] [address] Diabetes: Annual Retina Eye Exam abstracted Historical Provider HEALTH MAINTENANCE Final Result * Diabetes Foot Exam (07/21/2024) [facility] Diabetes: Annual Foot Exam abstracted Historical Provider HEALTH MAINTENANCE Final Result * Urine Albumin Creatinine Ratio (06/01/2024) [facility] Urine Albumin Creatinine Ratio abstracted Historical Provider HEALTH MAINTENANCE Final Result * Abdominal Aortic Aneurysm Screen (05/18/2021) [facility] Abdominal Aortic Aneurysm (AAA) Screening 1 [...] Most Recently Relevant to Health Maintenance Insurance [facility] [place] [phone] [employer] MEDICARE ADVANTAGE Advance Directives Documents on File Type Date Recorded Patient Blockers Skiver Expl 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 (hx) 07/14/2020 AD MURILLO DIRECTIVE Care Teams Gear Generator Set Up Operator Relationship Specialty Start Date End Date Bita Nina MD [address] [place] [id number] PCP - General Internal Medicine 06/08/21
== END 2025-03-30 09:50 | disposition home or self-care (01) ==
LOC: HO.HOSX 09:49
DX: M79.641 Pain in right hand (principal); M18.11 Unilateral primary osteoarthritis of first carpometacarpal joint, right hand
CPT/HCPCS: 73130; 99212

== ENCOUNTER → 2025-04-01 07:18 | Outpatient (BNV) | payer MEDICARE, SELFPAY | PROVIDERS: PCP Physician Assistant; Visit Provider Radiology Diagnostic Radiology | DX: M75.121 Complete rotator cuff tear or rupture of right shoulder, not specified as traumatic (principal); M19.011 Primary osteoarthritis, right shoulder | CPT/HCPCS: 73221 ==

== ENCOUNTER 2025-04-01 07:21 | Outpatient (REF) | payer MEDICARE, SELFPAY ==
--- NOTE | ~2025-04-01 | MR_ITS ---
EXAMINATION: MR SHOULDER, RIGHT CLINICAL INFORMATION: Right shoulder decreased range of motion, severe pain, and likely on right side or lift heavy objects. Symptoms x5-6 months. COMPARISON: No prior MRI. Right shoulder radiographs 02/16/2025. TECHNIQUE: Multiplanar multisequence MR imaging of the right shoulder was done without IV contrast. Examination performed on a 1.5 Radha Siemens unit utilizing standard sequences. FINDINGS: Rotator Cuff and Biceps Tendon: Supraspinatus: There is approximately 50% bursal surface tear of the distal tendon extending into the lateral footplate attachment. This tear measures approximately 15 mm in length, by 7 mm in width. No full-thickness tear or tendinous retraction. The remainder of the intact fibers are increased in signal suggesting tendinopathy. There is no atrophy of the muscle belly. Infraspinatus: There is a full-thickness insertional tear of the majority of the mid and posterior fibers of the tendon, measuring 6 mm in length by 8 mm in width. No gross tendinous retraction. The remainder of the tendon is hyperintense suggesting tendinopathy. Muscle belly is normal. Subscapularis: There is partial approximately 40% undersurface tear of the superior tendon extending into the medial attachment on the lesser tuberosity. (Series 9, image 19; series 5, image 16). There is subluxation of the bicipital tendon medially. The remainder of the tendon is slightly hyperintense and mildly thickened suggesting tendinopathy. There is no gross tendinous retraction. The mid fibers of the tendon appear intact. Normal muscle belly. Teres Minor: Intact and normal in signal. There is no tear. The muscle belly is normal. Biceps Long Head: Subluxed medially out of the groove. The tendon has abnormal morphology and signal suggesting degenerative type tearing. The tendon within the rotator interval is difficult to characterize but appears hyperintense and likely torn as well. AC Joint and Acromiohumeral Arch: There is moderate hypertrophic degenerative arthropathy of the AC joint, with predominantly superior surface spurring and mild undersurface spurring, as well as joint capsular distention and periarticular edema. There is a small joint effusion. There is mild indentation upon the superior supraspinatus outlet. There is a type II acromion. There is no subacromial spurring. There is no loss of the subacromial space. Glenohumeral Joint and Labrum: There is normal joint fluid present. There are mild changes of degenerative arthritis within the glenohumeral joint with small undersurface osteophytes of the humeral head and glenoid. There is mild spurring of the superior glenoid. There is moderate articular surface thinning of the humeral cartilage without full-thickness defect. The glenoid cartilage appears grossly intact without full-thickness defect. No regions of subchondral bone plate edema. There is likely tearing of the superior, posterior, and anterior labrum, given the irregular appearance and signal. This appears degenerative. Difficult to assess the inferior labrum. Osseous Structures: There are mild/small subcortical cystic changes in the bare area of the humerus. No gross bone marrow edema to suggest fracture or contusion. No abnormal infiltrating bone marrow signal. Spino-glenoid Notch: Normal. Quadrilateral Space: Normal. Other: There is mild fluid within the subacromial/subdeltoid bursa, nonspecific in the setting of full-thickness rotator cuff tear. Bursitis is suspected nevertheless. The glenohumeral ligaments appear intact without thickening. MR/MR shoulder RT wo con IMPRESSION: 1. Approximately 50% bursal surface tear of the distal supraspinatus tendon extending into the lateral footplate attachment. Mild tendinopathy of the intact aspect of the tendon. 2. Full-thickness insertional tear of the majority of the mid and posterior fibers of the infraspinatus tendon without gross tendinous retraction. Mild tendinopathy of the intact fibers. 3. Partial approximately 40% undersurface tear of the superior subscapularis tendon extending into the medial lesser tuberosity attachment. There is subluxation of the bicipital tendon medially. 4. Degenerative type tearing of the long head of the biceps tendon. 5. Suspect degenerative type labral tearing involving the posterior, superior, and anterior labrum. 6. Moderate hypertrophic arthropathy of the AC joint with only mild undersurface spurring. 7. Mild to moderate degenerative arthritis in the glenohumeral joint. No full-thickness cartilage defects. 8. Small amount of fluid in the subacromial/subdeltoid bursa, suspect bursitis. Electronically signed by: Simon Morales MD 04/01/2025 08:59 AM EDT
--- OUTSIDE RECORDS SUMMARY | 2025-04-01 07:23 | XMS_ITS | Clinical Summary ---
Author Organization [facility] Address [address] [place] [address] Phone Care Team Providers Care Financial Reporting Accountant Name Role Phone Bita Nina MD Primary [...] complication, with long-term current use of insulin ([facility] V24, [facility] V28) INJECT 5 UNITS INTO THE SKIN AT BEDTIME. 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 Do not crush, chew, or split. 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 Please provide 90 day supply 90 mL 2 5 Active Active Problems Problem Noted Date Diagnosed Date Class 1 obesity 07/20/2024 Glaucoma 12/07/2020 Overview (07/08/2024): Sees Dr. Frazier Essential hypertension 09/07/2020 Primary pancreatic neuroendocrine tumor ([facility] V28) 02/19/2020 Overview (07/08/2024): CT 2019. Incidental finding. 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/31/2017 Overview (07/08/2024): [...] neg CXR, EKG Q III Diabetes mellitus ([facility] V24, [facility] V28) Exposure to asbestos 10/05/2013 Hypertriglyceridemia 10/05/2013 Shoulder sprain 10/05/2013 Encounters Date Type Department Care Team Description 02/19/2025 [address]phone [address]ocr[address] [address] Kristina Dave MD Medication Problem 02/18/2025 9:00 AM EDT Office Visit Endocrinology [address] [address] Kristina Dave MD 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, with long-term current use of insulin ([facility] V24, [facility] V28) from Last 3 Months Immunizations Name Administration Dates Next Due Hepatitis B (Dedrzsg-K-Nhlvq , Recombivax HB-Adult) 19yo and older 07/09/2019,09/10/2018,06/06/2018 [...] 9:00 AM EDT Office Visit Endocrinology - [place] [address] [place] [address] Kristina Dave MD [address] [place] [address] Health Maintenance Due Date Last Done Comments [...] mellitus with other specified complication, unspecified whether longterm insulin use ([facility] V24, [facility] V28) BUN Routine 02/16/2025 9:36 AM EDT Type 2 diabetes mellitus with other specified complication, unspecified whether buttermaker continuous churn insulin use ([facility] V24, [facility] V28) LIPID PANEL WITH REFLEX TO DIRECT LDL Routine 02/16/2025 9:36 AM EDT Hypertriglyceridemia HEMOGLOBIN A1C Routine 02/16/2025 8:47 AM EDT Type 2 diabetes mellitus with other specified complication, unspecified whether buttermaker continuous churn insulin use ([facility] V24, [facility] V28) DIABETES EYE EXAM Routine 07/28/2024 [...] LAB CHEMISTRY METHOD 02/16/2025 1:40 PM EDT [facility] Triglycerides 383(H) 0 - 150 mg/dL LAB CHEMISTRY METHOD 02/16/2025 1:40 PM EDT [facility] HDL 44 >=40 mg/dL LAB CHEMISTRY METHOD 02/16/2025 1:40 PM EDT [facility] LDL Calculated 17 0 - 100 mg/dL LAB CHEMISTRY METHOD 02/16/2025 1:40 PM EDT [facility] VLDL Cholesterol Bob 76.6 mg/dL LAB CHEMISTRY METHOD 02/16/2025 1:40 PM EDT [facility] Non HDL Chol. (LDL+VLDL) 94 <145 mg/dL LAB CHEMISTRY METHOD 02/16/2025 1:40 PM EDT [facility] Chol/HDL Ratio 3.1 0.0 - 4.4 LAB CHEMISTRY METHOD 02/16/2025 1:40 PM EDT [facility] Blood Venous blood specimen / Unknown Venipuncture / Unknown 02/16/2025 9:36 AM EDT 02/16/2025 9:36 AM EDT Kristina Dave MD LAB BLOOD ORDERABLES Final Resul t Performing Organization Address [facility]/ZIP Co de Phone Number [facility] [address] [place] [address], * Creatinine (02/16/2025 9:36 AM EDT) Creatinine 1.03 0.70 - 1.30 mg/dL LAB CHEMISTRY METHOD 02/16/2025 1:34 PM EDT [facility] eGFR 76 >=60 mL/min/1. 73m2 LAB CHEMISTRY METHOD 02/16/2025 1:34 PM EDT [facility] Comment:Calculation based on the??Chronic Kidney Disease Epidemiology Collaboration (CKD-EPI) equation refit??without adjustment for race. Blood Venous blood specimen / Unknown Venipuncture / Unknown 02/16/2025 9:36 AM EDT 02/16/2025 9:36 AM EDT Kristina Dave MD LAB BLOOD ORDERABLES Final Resul t [facility] [address] [place] [address], * BUN (02/16/2025 9:36 AM EDT) BUN 17 5 - 25 mg/dL LAB CHEMISTRY METHOD 02/16/2025 1:34 PM EDT [facility] Blood Venous blood specimen / Unknown Venipuncture / Unknown 02/16/2025 9:36 AM EDT 02/16/2025 9:36 AM EDT Kristina Dave MD LAB BLOOD ORDERABLES Final Resul t Performing Organization Address [facility]/ZIP Co de Phone Number [facility] [address] [place] [address], [place] [phone] * (ABNORMAL) Hemoglobin A1c (02/16/2025 8:47 AM EDT) [facility] Hemoglobin A1C 8.2(H) <6.5 % LAB CHEMISTRY METHOD 02/16/2025 2:02 PM EDT [facility] Mean Bld Glu Estim. 189 mg/dL LAB CHEMISTRY METHOD 02/16/2025 2:02 PM EDT [facility] Blood Venous blood specimen / Unknown Venipuncture / Unknown 02/16/2025 8:47 AM EDT 02/16/2025 8:47 AM EDT Kristina Dave MD LAB BLOOD ORDERABLES Final Resul t Performing Organization Address City/[facility]/ZIP Co de Phone Number [facility] [address] [place] [address], [place] [phone] * Diabetes Eye Exam (07/28/2024) [facility] Diabetes: Annual Retina Eye Exam abstracted Historical Provider HEALTH MAINTENANCE Final Result * Diabetes Foot Exam (07/21/2024) [facility] Diabetes: Annual Foot Exam abstracted Historical Provider HEALTH MAINTENANCE Final Result * Urine Albumin Creatinine Ratio (06/01/2024) [facility] Urine Albumin Creatinine Ratio abstracted Historical Provider HEALTH MAINTENANCE Final Result * Abdominal Aortic Aneurysm Screen (05/18/2021) [facility] Abdominal Aortic Aneurysm (AAA) Screening 1 [...] Most Recently Relevant to Health Maintenance Insurance [facility] [place] [id number] A[employer]NA MEDICARE ADVANTAGE Advance Directives Documents on File Type Date Recorded Patient Scrub Tech Expl 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 (hx) 07/14/2020 AD MURILLO DIRECTIVE Care Teams Financial Reporting Accountant Relationship Specialty Start Date End Date Bita Nina MD [address] [place] [id number] PCP - General Internal Medicine 06/08/21
== END 2025-04-01 07:22 | disposition home or self-care (01) ==
LOC: HO.MRI 07:21
PROVIDERS: PCP Physician Assistant; Visit Provider Orthopaedic Surgery
DX: M25.311 Other instability, right shoulder (principal)
CPT/HCPCS: 73221

== ENCOUNTER 2025-06-03 08:15 | Outpatient (AMB) | payer MEDICARE, SELFPAY ==
--- NOTE | 2025-06-03 08:24 | MHC.OFFVIS ---
Vital Signs 06/03/25 08:31 Height 5 ft 11 in Weight 238 lb BMI 33.2 BP 159/77 H Blood Pressure Location Lt brachial Position Sitting Pulse 75 Handedness Right Intake Visit Reasons: Pre-Rt RTC Repair 06/11/25 Intake Note: Valente is a 74 year old right hand dominant male who presents with complaints of progressively worsening right shoulder pain and weakness. 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 Since that time he has had weakness when lifting his right hand above shoulder height. He has failed the last 6 weeks of conservative treatment which has included physical therapy exercises, a home exercise program, Tylenol and anti-inflammatory medicines. He has had injections in the past which gave him minimal relief. Allergies Gadolinium-Containing Contrast Medi Allergy (Unknown, Verified 06/03/25 08:24) watery eyes, watery itchy nose, coughing lisinopril Allergy (Unknown, Verified 06/03/25 08:24) Unknown Medication List - Last Reconciled 06/03/25 by Andrey Cunha MD acetaminophen 1,000 mg PO BEDTIME amlodipine 2.5 mg PO DAILY atorvastatin 40 mg PO DAILY blood sugar diagnostic (Youtuouch Ultra Test strips) As directed blood-glucose meter (Youtuouch Ultra2 Meter) As directed cetirizine 10 mg PO DAILY cholecalciferol (vitamin D3) 25 mcg PO DAILY 90 days fenofibrate 54 mg PO DAILY 30 days insulin aspart U-100 (Novolog FlexPen U-100 Insulin aspart) insulin glargine (Lantus Solostar U-100 Insulin) 3 units subcut QPM lancets (OneTouch Delica Plus Lancet) As directed latanoprost 0.005% 1 drp ophthalmic (eye) BEDTIME metformin ER 1,000 mg PO BID multivitamin 1 tab PO DAILY pen needle, diabetic As directed tolterodine 2 mg PO BID [facility] Medical History Skin cancer Prostate cancer Hx of radiation therapy Arthritis Incontinence Pancreatic cancer Nephritis Cough HTN (hypertension) TIA (transient ischemic attack) Surgical History H/O colonoscopy Hx of biopsy Hx of splenectomy History of bladder surgery History of pancreatectomy H/O prostatectomy Family History Father Leukemia Social History Housing: House Are you a primary workforce investment act career manager to a significant other at home: No Do you presently have visiting nurse or other home services: No Alcohol intake: current Alcohol intake frequency: a few times a week Comment: light beer and occasionally a glass of wine Patient Tobacco Use Status: Former Tobacco user Tobacco use type: Cigarette Years Smoked: 3 e-Cigarette/Vaping Use: Never Used Second Hand Smoke Exposure: No service: No Current occupational status: retired Cognitive needs: No Hearing needs: No Vision needs: No Physical Exam Vital Signs: Last Vital Signs Pulse 75 06/03/25 08:31 BP 159/77 H 06/03/25 08:31 BMI result Body Mass Index 33.2 Const Other: Well-nourished well-developed very friendly male awake alert and oriented x3 in no acute distress Extrem Other: Right shoulder examination shows positive impingement signs, 4/5 strength with supraspinatus testing, tenderness over his acromioclavicular joint, no instability Results Reviewed Results Reviewed: MRI of the patient's right shoulder show severe acromioclavicular joint narrowing, a type 2 acromion, a full-thickness rotator cuff tear Assessment & Plan Assessment & Plan (1) Rotator cuff insufficiency of right shoulder: Code(s): M25.311 - Other instability, right shoulder Category: Medical Plan Mr. Pagan presents with progressively worsening right shoulder pain and weakness due to impingement syndrome, acromioclavicular joint arthritis and a full-thickness rotator cuff tear. I had a lengthy discussion with the patient regarding the treatment options. At this point he has failed continued non operative treatments. The risks and benefits of right shoulder surgery were discussed at length with the patient. The patient wishes to proceed. Surgery will involve right shoulder arthroscopic distal clavicle excision, right shoulder arthroscopic acromioplasty and right shoulder mini open rotator cuff repair. The patient was given a prescription for Percocet at his preoperative appointment. He will follow up as instructed. Feel free to call me at any time should questions regarding his orthopedic management arise. I spent 21 minutes in reviewing the patient's records and imaging studies, seeing the patient and documenting in the medical record. Medications: New oxycodone-acetaminophen 5-325 mg (Percocet) Partial Fill upon patient request. Take 1-2 tabs every 4 hours as needed following her right shoulder surgery. 2 tabs PO Q4H PRN 40 tabs 0RF pain Coding Level of Care Code Est Pt Level 3 (81525) Complex EM visit Add On G2211 Diagnoses Rotator cuff insufficiency of right shoulder M25.311
--- OUTSIDE RECORDS SUMMARY | 2025-06-03 08:26 | XMS_ITS ---
Author Name [facility] Organization Unknown Care Team Organization Name Specialty Phone Email Start Date End Da te [facility] HOLLY MARTINEZ Primary Care 04/19/2023 06/29/2024 [facility] WINTER FOLEY Primary Care 09/18/20222023
[2025-06-03 08:31] VITALS: BP 159/77; PULSE 75; BMI 33.2
== END 2025-06-03 08:49 | disposition home or self-care (01) ==
LOC: HO.HOS 08:16
PROVIDERS: PCP Physician Assistant; Visit Provider Orthopaedic Surgery
DX: M25.311 Other instability, right shoulder (principal)
CPT/HCPCS: 99213; G2211

== ENCOUNTER → 2025-06-03 08:15 | Outpatient (BNVA) | payer MEDICARE, SELFPAY | PROVIDERS: PCP Physician Assistant; Visit Provider Orthopaedic Surgery | DX: Z01.818 Encounter for other preprocedural examination (principal); E11.9 Type 2 diabetes mellitus without complications; I10 Essential (primary) hypertension; R19.7 Diarrhea, unspecified; E78.5 Hyperlipidemia, unspecified; Z85.07 Personal history of malignant neoplasm of pancreas; Z79.4 Long term (current) use of insulin; Z79.899 Other long term (current) drug therapy; M25.311 Other instability, right shoulder; M75.41 Impingement syndrome of right shoulder; M19.011 Primary osteoarthritis, right shoulder | CPT/HCPCS: 83036; 93005; 99212 ==

== ENCOUNTER 2025-06-03 13:49 | Outpatient (AMB) | payer MEDICARE, SELFPAY ==
--- NOTE | 2025-06-03 13:59 | A.OFFPC_ITS ---
Vital Signs 06/03/25 14:04 Height 5 ft 11 in Weight 236 lb 6 oz BMI 33.0 BP 128/86 Blood Pressure Location Lt brachial Position Sitting Respiration 22 H Pulse 67 Pulse Source Pulse Oximeter Temp 98.2 F Temp Source Oral Pulse Oximetry (%) 96 Oxygen Delivery Method Room Air Intake Visit Reasons: LUISITO from [facility] / Pre Op Intake Note: Preop Dr Kohler torn tendon right shoulder. Requesting rescue inhaler originally thought it was prescribed by [facility] Ste[facility] Fitness Leader Required: No Allergies Gadolinium-Containing Contrast Medi Allergy (Unknown, Verified 06/03/25 13:59) watery eyes, watery itchy nose, coughing lisinopril Allergy (Unknown, Verified 06/03/25 13:59) Unknown Medication List - Last Reconciled 06/03/25 by Anne-Marie Markham PA-C acetaminophen 1,000 mg PO BEDTIME amlodipine 2.5 mg PO DAILY atorvastatin 40 mg PO DAILY blood sugar diagnostic (AgenTecTouch Ultra Test strips) As directed blood-glucose meter (AgenTecTouch Ultra2 Meter) As directed cetirizine 10 mg PO DAILY cholecalciferol (vitamin D3) 25 mcg PO DAILY 90 days fenofibrate 54 mg PO DAILY 30 days insulin aspart U-100 (Novolog FlexPen U-100 Insulin aspart) insulin glargine (Lantus Solostar U-100 Insulin) 3 units subcut QPM lancets (OneTouch Delica Plus Lancet) As directed latanoprost 0.005% 1 drp ophthalmic (eye) BEDTIME metformin ER 1,000 mg PO BID multivitamin 1 tab PO DAILY pen needle, diabetic As directed tolterodine 2 mg PO BID Tobacco use date assessed: 06/03/25 Fall risk assessment: No Falls in past year Last assessed Fall Risk: 06/03/25 Dental Screening Dental Screen Date: 03/02/25 HPI LUISITO from [facility] / Pre Op HPI Details Patient is a 74-year-old male with a significant past medical history of type 2 diabetes, hypertension, hyperlipidemia, prostate ca, pancreatic ca and obesity presenting today for a preop. He normally follows with [facility]. He is scheduled with Dr. Cunha 06/11/25. Msk: He has worsening right shoulder pain and weakness due to impingement syndrome, acromioclavicular joint arthritis and a full-thickness rotator cuff tear. At this point he has failed continued non operative treatments. The risks and benefits of right shoulder surgery were discussed at length with the patient at his appointment today with his orthopedic surgeon. The patient wishes to proceed. Surgery will involve right shoulder arthroscopic distal clavicle excision, right shoulder arthroscopic acromioplasty and right shoulder mini open rotator cuff repair. CV: Blood pressure today in the office is 128/86 He is currently on amlodipine 2.5 mg daily. Cholesterol is managed with atorvastatin 40 mg and fenofibrate 54 mg. Last LDL was 37. Patient denies any chest pain or shortness on breath. He states that he is able to do a lot at home and walks around without any difficulty. Goes up and down flights of stairs without difficulty. States that within the last 10 years he has had a negative stress test performed with [facility]. We do not have a copy of this. Endo: He was diagnosed with diabetes following his pancreatic cancer diagnosis 4 years ago. His A1c today is 7.2. He is currently on Lantus 1-3 units (I did confirm this with the patient) NovoLog 14 units with breakfast, 18 units with lunch, 22 units with dinner. He is going to be starting Jardiance 10 mg tomorrow. He is following with endocrinology and just saw endocrinology this week hyperglycemic 61%, in range 39%, 0 hypoglycemic. -he recently held with the metformin due to diarrhea GI: He reports getting diarrhea 6 months ago. He states that this is why he stopped the metformin. No recent travel or antibiotic use prior to this. He states that he has discussed this with his PCP. No weight loss from this. No abdominal pain. Has not had a bowel movement that was normal in the last 6 months. He thinks his last colonoscopy was 6-7 years ago. Surgery: Dr. Aguilar treated the pancreatic cancer surgically. He thinks that this was done in 2020. He follows every 6 months. States that he did not need any chemo Uro: had prostate ca 12 years ago and had a total prostatectomy and radiation. Follows with Dr. Morris. Earlier this year he had significant hematuria due to blood vessel damage from radiation. The bleeding self resolved and patient is just being monitored closely. He did have a cystoscopy recently. Colonoscopy: UTD- due around 2031 [facility] Medical History (Updated 06/03/25 @ 14:28 by Anne-Marie Markham PA-C) Skin cancer Prostate cancer Hx of radiation therapy Arthritis Incontinence Pancreatic cancer Nephritis Cough HTN (hypertension) TIA (transient ischemic attack) Surgical History H/O colonoscopy Hx of splenectomy History of bladder surgery History of pancreatectomy H/O prostatectomy Family History Father Leukemia Social History (Updated 06/03/25 @ 14:33 by Glenis Argueta CMA) Housing: House Are you a primary care clinician to a significant other at home: No Do you presently have visiting nurse or other home services: No Alcohol intake: current Alcohol intake frequency: a few times a week Comment: light beer and occasionally a glass of wine Patient Tobacco Use Status: Former Tobacco user Tobacco use type: Cigarette Years Smoked: 3 e-Cigarette/Vaping Use: Never Used Second Hand Smoke Exposure: No service: No Current occupational status: retired Cognitive needs: No Hearing needs: No Vision needs: No Questionnaire Thrive Questionnaire Date Thrive assessed: 02/12/25 I am a: Patient What is your living situation today?: I have a steady place to live Within the past 12 months, did the food you bought not last and you didn't have the money to get more?: Sometimes True Within the past 12 months, did you worry whether your food would run out before you got money to buy more?: Never true Do you have trouble paying for medicines?: No Do you have trouble getting transportation to medical appointments?: No Do you have trouble paying your heating and electricity bill?: No Do you have trouble taking care of your child, family member or friend?: No Do you have trouble with day-to-day activities such as bathing, preparing meals, shopping, managing finances, etc.?: No Are you currently unemployed and looking for a job?: No Are you interested in more education?: No Please select the resources that you would like help with: None Currently or been in a relationship where the following occur: No concerns reported THRIVE Score: 1 MARYURI-7 AMB Questionnaire MARYURI-7 Date MARYURI - 7 assessed: 02/12/25 Source: Developed by Drs. Miguel Reyes, Ailyn Crenshaw, Valentino Lopez and colleagues, with an educational michael from [employer]. Physical exam (Primary Care) Vital Signs: Last Vital Signs Temp 98.2 F 06/03/25 14:04 Pulse 67 06/03/25 14:04 Resp 22 H 06/03/25 14:04 BP 128/86 06/03/25 14:04 Pulse Ox 96 06/03/25 14:04 Oxygen Delivery Method Room Air 06/03/25 14:04 BMI result Body Mass Index 33.0 Tobacco/Smoking Status: Tobacco use Status Tobacco use date assessed 06/03/25 06/03/25 14:04 Patient Tobacco Use Status Former Tobacco user 06/03/25 14:33 Tobacco use type Cigarette 06/03/25 14:33 e-Cigarette/Vaping Use Never Used 06/03/25 14:33 Thrive Assessment: Date of Thrive Assessment Date Thrive assessed 02/12/25 06/03/25 14:04 Currently or been in a relationship where the following occur: No concerns reported Const Orientation/consciousness: patient oriented x3 HENMT Ears: hearing grossly normal bilaterally Neck Thyroid: Thyroid normal Lymphatic: no lymphadenopathy noted Resp Auscultation: clear to auscultation bilaterally Cardio Rate: regular rate Rhythm: regular rhythm Heart sounds: S1 normal heart sound present and S2 normal heart sound present GI Inspection: Yes normal to inspection Palpation (GI): Soft to palpation and Other GI palpation findings present (nontender, no cva tenderness) Auscultation: normoactive bowel sounds Rectal Exam - Male: Yes deferred Skin General skin exam: no rashes or lesions noted Neuro General: patient oriented x3, gait normal and no focal motor deficits Office Procedures EKG Details: EKG today in the office is normal sinus rhythm with nonspecific STT wave abnormalities. No prior study to compare here. EKG interpreted by myself and Dr. Conn. [id number], Complete Results AMB Hemoglobin A1c AMB Hemoglobin A1c 7.2 % Last Edit by Glenis Argueta CMA on 06/03/25 14:33 Results Reviewed Results Reviewed: Laboratory Last Values Hgb A1c (Clinic) 7.2 % (4.0-6.0) H 06/03/25 14:32 Laboratory Tests 06/03/25 15:14 WBC 8.2 RBC 4.68 Hgb 14.7 Hct 43.0 Plt Count 346 Creatinine 1.05 Estimated GFR > 60 Coding Level of Care Code Est Pt Level 4 (06917) Complex EM visit Add On G2211 Diagnoses Type 2 diabetes mellitus E11.9 Hypertension I10 Diarrhea R19.7 Hyperlipidemia E78.5 Pre-op exam Z01.818 CPT Codes EKG - CPT: [id number], Complete ([id number]) Assessment & Plan Assessment & Plan (1) Type 2 diabetes mellitus: Code(s): E11.9 - Type 2 diabetes mellitus without complications Category: Medical Plan: Continue follow up with endocrinology (2) Hypertension: Code(s): I10 - Essential (primary) hypertension Category: Medical Plan: Discuss it is slightly above goal but we will monitor. I have advised short term follow up to recheck (3) Diarrhea: Code(s): R19.7 - Diarrhea, unspecified Category: Medical Plan: Labs and stool studies ordered. Referral to GI. Abdominal exam is benign. (4) Hyperlipidemia: Code(s): E78.5 - Hyperlipidemia, unspecified Category: Medical Plan: Continue current regimen labs and LFTs ordered. (5) Pre-op exam: Code(s): Z01.818 - Encounter for other preprocedural examination Plan: We reviewed a list of his medications and they are up-to-date in the chart. Labs completed today for the preop were WNL. He completed a CBC and BMP included in this note. EKG is listed above. No previous study to compare. Patient is asymptomatic His A1c is not quite at goal but is not a contraindication to proceeding with surgery. We did discuss that his blood sugars need to be better controlled as this will help with healing. Based on my assessment, there are no current medical contraindications to proceeding with the surgery. He is medically clear to undergo planned shoulder surgery as scheduled. Orders: Orders OBSX3 06/03/25 E11.9 - Type 2 diabetes mellitus without complications, E78.5 - Hyperlipidemia, unspecified, I10 - Essential (primary) hypertension, R19.7 - Diarrhea, unspecified, Z85.07 - Personal history of malignant neoplasm of pancreas Erythrocyte Sedimentation Rate 06/03/25 E11.9 - Type 2 diabetes mellitus without complications, E78.5 - Hyperlipidemia, unspecified, I10 - Essential (primary) hypertension, R19.7 - Diarrhea, unspecified, Z85.07 - Personal history of malignant neoplasm of pancreas Calprotectin, Fecal 06/03/25 E11.9 - Type 2 diabetes mellitus without complications, E78.5 - Hyperlipidemia, unspecified, I10 - Essential (primary) hypertension, R19.7 - Diarrhea, unspecified, Z85.07 - Personal history of malignant neoplasm of pancreas Endomysial IgA rflx Titer 06/03/25 E11.9 - Type 2 diabetes mellitus without complications, E78.5 - Hyperlipidemia, unspecified, I10 - Essential (primary) hypertension, R19.7 - Diarrhea, unspecified, Z85.07 - Personal history of malignant neoplasm of pancreas Transglutaminase Ab IgG 06/03/25 E11.9 - Type 2 diabetes mellitus without complications, E78.5 - Hyperlipidemia, unspecified, I10 - Essential (primary) hypertension, R19.7 - Diarrhea, unspecified, Z85.07 - Personal history of malignant neoplasm of pancreas Immunoglobulin A 06/03/25 E11.9 - Type 2 diabetes mellitus without complications, E78.5 - Hyperlipidemia, unspecified, I10 - Essential (primary) hypertension, R19.7 - Diarrhea, unspecified, Z85.07 - Personal history of malignant neoplasm of pancreas Basic Metabolic Panel 06/03/25 E11.9 - Type 2 diabetes mellitus without complications, E78.5 - Hyperlipidemia, unspecified, I10 - Essential (primary) hypertension, R19.7 - Diarrhea, unspecified, Z85.07 - Personal history of malignant neoplasm of pancreas Liver Panel 06/03/25 E11.9 - Type 2 diabetes mellitus without complications, E78.5 - Hyperlipidemia, unspecified, I10 - Essential (primary) hypertension, R19.7 - Diarrhea, unspecified, Z85.07 - Personal history of malignant neoplasm of pancreas Complete Blood Count Auto Diff 06/03/25 E11.9 - Type 2 diabetes mellitus without complications, E78.5 - Hyperlipidemia, unspecified, I10 - Essential (primary) hypertension, R19.7 - Diarrhea, unspecified, Z85.07 - Personal history of malignant neoplasm of pancreas TSH reflex Free T4 06/03/25 E11.9 - Type 2 diabetes mellitus without complications, E78.5 - Hyperlipidemia, unspecified, I10 - Essential (primary) hypertension, R19.7 - Diarrhea, unspecified, Z85.07 - Personal history of malignant neoplasm of pancreas AMB Hemoglobin A1c 06/03/25 E11.9 - Type 2 diabetes mellitus without complications Referrals Gastroenterology Referral R19.7 - Diarrhea, unspecified, R74.01 - Elevation of levels of liver transaminase levels
[2025-06-03 14:04] VITALS: BP 128/86; PULSE 67; RESP 22; TEMP 36.8; O2SAT 96; BMI 33.0
== END 2025-06-03 14:50 | disposition home or self-care (01) ==
LOC: HO.HMCFM 13:50
PROVIDERS: PCP Nurse Practitioner Family; Visit Provider Physician Assistant
DX: E11.9 Type 2 diabetes mellitus without complications (principal)

== ENCOUNTER 2025-06-03 15:05 | Outpatient (REF) | payer MEDICARE, SELFPAY ==
[2025-06-03 17:32] LABS: MANUAL DIFF FLAG NO
[2025-06-03 17:53] LABS: Hematocrit 43.0 % (42.0-52.0); Hemoglobin 14.7 g/dl (14.0-18.0); Imm Gran Abs Auto 0.02 X10*3/uL (0.00-0.03); Imm Gran Pct Auto 0.2 % (0.0-0.4); Lymphocytes Absolute Auto 2.9 X10*3/uL (1.2-4.9); Mean Corpuscular HGB Conc 34.2 g/dl (31.0-36.0); Mean Corpuscular Hemoglobin 31.4 pg (27.0-33.0); Mean Corpuscular Volume 91.9 fL (80.0-98.0); NRBC Abs Auto 0.000 X10*3/uL (0.0-0.012); NRBC Pct Auto 0.0 /100WBC (0.0-0.2); Platelet Count 346 X10*3/uL (160-400); Red Blood Count 4.68 X10*6/uL (4.60-5.80); White Blood Count 8.2 X10*3/uL (4.8-10.8)
[2025-06-03 17:57] LABS: Alanine Aminotransferase 44 U/L (0-40); Albumin Level 4.9 g/dL (3.5-5.0); Alkaline Phosphatase 86 U/L (39-117); Anion Gap 12 (12-20); Aspartate Amino Transferase 29 U/L (5-37); Blood Urea Nitrogen 16 mg/dL (9-16); Calcium 9.9 mg/dL (8.4-10.2); Carbon Dioxide 27 mmol/L (22-29); Chloride 104 mmol/L (96-108); Cholesterol 139 mg/dL (<200); Estimated Glomerular Filt Rate > 60; HDL Cholesterol 32 mg/dL (>40); Potassium 4.1 mmol/L (3.3-5.1); Sodium 139 mmol/L (135-145); Total Protein 7.9 g/dL (6.5-8.0); Triglycerides 222 mg/dL (<150)
[2025-06-04 21:07] LABS: Transglutaminase Ab IgG <1.0 U/mL
[2025-06-04 21:44] LABS: Immunoglobulin A 259 mg/dL (70-320)
== END 2025-06-03 15:06 | disposition home or self-care (01) ==
LOC: HO.WFDLDS 15:05
PROVIDERS: Referring Provider Nurse Practitioner Family; Visit Provider Physician Assistant
DX: E11.9 Type 2 diabetes mellitus without complications (principal); I10 Essential (primary) hypertension; R19.7 Diarrhea, unspecified; E78.5 Hyperlipidemia, unspecified; E55.9 Vitamin D deficiency, unspecified; Z85.07 Personal history of malignant neoplasm of pancreas
CPT/HCPCS: 36415; 80048; 80061; 80076; 82306; 82784; 84443; 85025; 85652; 86231; 86364

== ENCOUNTER 2025-06-05 17:51 | Outpatient (REF) | payer MEDICARE, SELFPAY ==
[2025-06-07 17:58] LABS: OBS Date 1 07-25-25; OBS Date 2 07-26-25; OBS Date 3 07-26-25; OBS Int Ctl Valid YES; OBS Lot 50142 3L; OBS1 NEGATIVE (NEGATIVE); OBS2 NEGATIVE (NEGATIVE); OBS3 NEGATIVE (NEGATIVE)
== END 2025-06-05 17:52 | disposition home or self-care (01) ==
LOC: HO.LNP 17:51
PROVIDERS: Visit Provider Physician Assistant
DX: R19.7 Diarrhea, unspecified (principal); E11.9 Type 2 diabetes mellitus without complications; I10 Essential (primary) hypertension; E78.5 Hyperlipidemia, unspecified; Z85.07 Personal history of malignant neoplasm of pancreas
CPT/HCPCS: 82270

== ENCOUNTER 2025-06-06 17:47 | Outpatient (REF) | payer MEDICARE, SELFPAY | END 2025-06-06 17:48 | disposition home or self-care (01) | LOC: HO.LNP 17:47 | PROVIDERS: Visit Provider Physician Assistant | DX: Z13.89 Encounter for screening for other disorder (principal) ==

== ENCOUNTER 2025-06-07 15:15 | Outpatient (REF) | payer MEDICARE, SELFPAY ==
--- OUTSIDE RECORDS SUMMARY | 2025-06-10 14:34 | XMS_ITS | Clinical Summary ---
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, with long-term current use of insulin ([facility] V24, [facility] V28) Check sugars upto 2 times a day 200 each 3 4 Active pen needle, diabetic 32 gauge x needleIndicatio ns: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, with long-term current use of insulin ([facility] V24, [facility] V28) USE UP TO 4 TIMES A DAY 300 each 3 4 Active metFORMIN XR (GLUCOPHAGE-XR) 500 mg 24 hr tabletIndicatio ns: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, with long-term current use of insulin ([facility] V24, [facility] V28) Take 2 tablets (1,000 mg total) by mouth 2 (two) times a day. Do not crush, chew, or split. 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, with long-term current use of insulin ([facility] V24, [facility] V28) Take three times a day before meals max up to 70 units day. Please provide 90 day supply 90 mL 2 5 Active Additional Information Patient not taking.Reported on 06/02/2025 Active Problems Problem Noted Date Diagnosed Date Class 1 obesity 07/20/2024 Glaucoma 12/07/2020 Overview (07/08/2024): Sees Dr. 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 Incidental finding. 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 Overview (07/08/2024): [...] neg CXR, EKG Q III Diabetes mellitus [place] [facility] [place] Exposure to asbestos 10/05/2013 Hypertriglyceridemia 10/05/2013 Shoulder sprain 10/05/2013 Encounters Date Type Department Care Team Description 06/02/2025 9:00 AM EDT Office Visit Endocrinology - [address] [phone] Kristina Dave MD 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, with long-term current use of insulin [place] [place] [facility] [place] (Primary Dx) 05/31/2025 Telephone Endocrinology - [id number] [place] [phone] Mary Conklin MA Request For Order(s) (Lab orders ) from Last 3 Months Immunizations Name Administration Dates Next Due Hepatitis B (Vmhqhnn-Q-Ikpht , Recombivax HB-Adult) 19yo and older 07/09/2019,09/10/2018,06/06/2018 [...] COMMENT: robotic assisted prostatectomy CYSTOSCOPY 05/28/2017 PROCEDURE: MA CYSTOURETHROSCOPY; COMMENT: 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, [...] urethral sling OTHER SURGICAL HISTORY 07/2020 PROCEDURE: MA PNCRTECT DSTL STOT W/O PNCRTCOJEJUNOSTOMY OTHER SURGICAL HISTORY 07/2020 PROCEDURE: MA RPR TABDL LMPHADEC EXTNSV W/PEL AORTIC&RNL; COMMENT: 6 lymph nodes removed Medical History Medical History Date Comments Prediabetes 10/05/2013 DX:Prediabetes Mixed hyperlipidemia 06/21/2015 DX:Mixed hy perlipidemia Adenocarcinoma of prostate ( [facility] V24, [facility] V28) 10/05/2013 DX:Adenocarcinoma of prostat e (HCC); COMMENT: Biopsy 04/27/14, [place]'s 4+3 and no CVA of prostate in [...] Sign Reading Time Taken Comments Blood Pressure 137/72 06/02/2025 8:52 AM EDT Pulse 72 06/02/2025 8:52 AM EDT Temperature 36.2 C (97.2 F) 02/18/2025 9:05 AM EDT Respiratory Rate - - Oxygen Saturation 96% 02/18/2025 9:05 AM EDT Inhaled Oxygen Concentration - - Weight 107 kg (235 lb) 06/02/2025 8:52 AM EDT Height 180.3 cm (5' 11 ) 06/02/2025 8:52 AM EDT Body Mass Index 32.78 06/02/2025 8:52 AM EDT Plan of Treatment Upcoming Encounters Date Type Department Care Team (Late st Contact Info) Description 07/20/2025 9:45 AM EDT Office Visit Endocrinology - [address] [phone] Kristina Dave MD [address] [place] [address] Health Maintenance Due Date Last Done Comments Zoster Vaccines (1 of 2) 1969 RSV Immunization Adult Patients (1 - Risk 60-74 years 1-dose series) 2010 COVID-19 Vaccine (3 - Pfizer risk series) 03/29/2021 03/01/2021, 02/08/2021 Falls Risk Assessment 10/20/2022 Social Influencers of Health Screening 10/20/2022 Medicare Annual Wellness Visit 07/17/2024 07/17/2023 Depression Screening 11/11/2024 Influenza Vaccine (#1) 2025 , 2023, 09/25/2022, Additional history exists Diabetes: Annual Foot Exam 07/21/2025 07/21/2024 Diabetes: Annual Retina Eye Exam 07/28/2025 07/28/2024 Diabetes: Blood Sugar Control Test (HGBA1C) 12/02/2025 06/01/2025, 02/16/2025, 06/01/2024, Additional history exists Diabetes: Annual Urine Albumin-Creatinine Ratio (uACR) 06/01/2026 06/01/2025, 06/01/2024 Diabetes: Annual GFR (Glomerular Filtration Rate) 06/01/2026 06/01/2025, 02/16/2025, 03/02/2024 Hypertension/CHF/CAD Annual BMP Blood Test 06/01/2026 06/01/2025, 02/16/2025, 03/02/2024 Colorectal Cancer Screening: Colonoscopy 06/07/2027 [...] Abdominal Aortic Aneurysm (AAA) Screen Completed 05/18/2021 HPV Vaccines Aged Out No longer eligi [...] Date/Time Associated Diagnosis Comments CREATININE, SERUM Routine 06/01/2025 10: 11 AM EDT Type 2 diabetes mellitus with other specified complication, unspecified whether prison insulin use ([facility] V24, [facility] V28) BUN Routine 06/01/2025 10:11 AM EDT Type 2 diabetes mellitus with other specified complication, unspecified whether prison insulin use ([facility] V24, [facility] V28) HEMOGLOBIN A1C Routine 06/01/2025 10:11 AM EDT Type 2 diabetes mellitus with other specified complication, unspecified whether superintendent container terminal insulin use ([facility] V24, [facility] V28) MICROALBUMIN CREATININE URINE RATIO Routine 06/01/2025 10:11 AM EDT Type 2 diabetes mellitus with other specified complication, unspecified whether superintendent container terminal insulin use ([facility] V24, [facility] V28) LIPID PANEL WITH REFLEX TO DIRECT LDL Routine 02/16/2025 9:36 AM EDT Hypertriglyceridemi a DIABETES EYE EXAM Routine 07/28/2024 DIABETES FOOT EXAM Routine 07/21/2024 ABDOMINAL AORTIC ANEURYSM SCRREN Routine 05/18/2021 COLONOSCOPY Routine 06/07/2020 HEPATITIS C SCREENING Routine 10/13/2013 from Last 3 Months or Most Recently Relevant to Health Maintenance Results * Microalbumin creatinine urine ratio (06/01/2025 10:11 AM EDT) Creatinine, Urine 135.0 mg/dL LAB CHEMISTRY METHOD 06/01/2025 6:11 PM EDT [facility] Microalb, Ur 16.0 0.0 - 29.0 mg/L LAB CHEMISTRY METHOD 06/01/2025 6:11 PM EDT [facility] Microalb/Creat Ratio 12 <30 mg/g creat LAB CHEMISTRY METHOD 06/01/2025 6:11 PM [facility] Urine Urine specimen obtained by clean catch procedure / Unknown Non-blood Collection / Unknown 06/01/2025 10:11 AM EDT 06/01/2025 10:11 AM EDT us Kristina Dave MD LAB URINE ORDERABLES Final Resul t Performing Organization Address City/[facility]/ZIP Co de Phone Number [facility] [address] [place] [address], [place] [phone] * Creatinine (06/01/2025 10:11 AM EDT) Creatinine 1.20 0.70 - 1.30 mg/dL LAB CHEMISTRY METHOD 06/01/2025 2:23 PM EDT [facility] eGFR 63 >=60 mL/min/1. 73m2 LAB CHEMISTRY METHOD 06/01/2025 2:23 PM EDT [facility] Comment:Calculation based on the Chronic Kidney Disease Epidemiology Collaboration (CKD-EPI) equation refit without adjustment for race. Blood Venous blood specimen / Unknown Venipuncture / Unknown 06/01/2025 10:11 AM EDT 06/01/2025 10:11 AM EDT us Kristina Dave MD LAB BLOOD ORDERABLES Final Resul t Performing Organization Address [facility]/ZIP Co de Phone Number [facility] [address] [place] [address], [place] [phone] * BUN (06/01/2025 10:11 AM EDT) BUN 19 5 - 25 mg/dL LAB CHEMISTRY METHOD 06/01/2025 2:23 PM EDT [facility] Blood Venous blood specimen / Unknown Venipuncture / Unknown 06/01/2025 10:11 AM EDT 06/01/2025 10:11 AM EDT us Kristina Dave MD LAB BLOOD ORDERABLES Final Resul t Performing Organization Address City/[facility]/ZIP Co de Phone Number [facility] [address] [place] [address], * (ABNORMAL) Hemoglobin A1c (06/01/2025 10:11 AM EDT) Pathologist [facility] Hemoglobin A1C 8.7(H) <6.5 % LAB CHEMISTRY METHOD 06/01/2025 5:59 PM EDT [facility] Mean Bld Glu Estim. 203 mg/dL LAB CHEMISTRY METHOD 06/01/2025 5:59 PM EDT [facility] Blood Venous blood specimen / Unknown Venipuncture / Unknown 06/01/2025 10:11 AM EDT 06/01/2025 10:11 AM EDT Kristina Dave MD LAB BLOOD ORDERABLES Final Resul t Performing Organization Address [facility]/ZIP Co de Phone Number [facility] [address] [place] [address], [place] [phone] * (ABNORMAL) Lipid panel with reflex to direct LDL (02/16/2025 9:36 AM EDT) [facility] Cholesterol 138 0 - 200 mg/dL LAB CHEMISTRY METHOD 02/16/2025 1:40 PM EDT [facility] Triglycerides 383(H) 0 - 150 mg/dL LAB CHEMISTRY METHOD 02/16/2025 1:40 PM EDT [facility] HDL 44 >=40 mg/dL LAB CHEMISTRY METHOD 02/16/2025 1:40 PM EDT [facility] LDL Calculated 17 0 - 100 mg/dL LAB CHEMISTRY METHOD 02/16/2025 1:40 PM EDT [facility] VLDL Cholesterol Bob 76.6 mg/dL LAB CHEMISTRY METHOD 02/16/2025 1:40 PM EDT [facility] Non HDL Chol. (LDL+VLDL) 94 <145 mg/dL LAB CHEMISTRY METHOD 02/16/2025 1:40 PM EDT [facility] Chol/HDL Ratio 3.1 0.0 - 4.4 LAB CHEMISTRY METHOD 02/16/2025 1:40 PM EDT [facility] Blood Venous blood specimen / Unknown Venipuncture / Unknown 02/16/2025 9:36 AM EDT 02/16/2025 9:36 AM EDT Kristina Dave MD LAB BLOOD ORDERABLES Final Resul t [facility] [address] [place] [address], [place] [phone] * Diabetes Eye Exam (07/28/2024) [facility] Diabetes: Annual Retina Eye Exam abstracted [facility]aki [facility] [employer] Final Result * Diabetes Foot Exam (07/21/2024) [facility] Diabetes: Annual Foot Exam abstracted Historical [facility] [employer] Final Result * Abdominal Aortic Aneurysm Screen (05/18/2021) [facility] Abdominal Aortic Aneurysm (AAA) Screening 1 year fu Anatomical Region Laterality Modality Other Diane Gambino MD HEALTH MAINTENANCE Final Result * Colonoscopy (06/07/2020) [facility] Colonoscopy 7 yr fu Anatomical Region Laterality Modality Other Result [facility] Historical M[facility] [employer] Final Result * Hepatitis C Screening (10/13/2013) [facility] Hepatitis C Screening negative Diane Gambino MD HEALTH MAINTENANCE Final Result from Last 3 Months or Most Recently Relevant to Health Maintenance Insurance [facility] [place] [id number] [employer] MEDICARE ADVANTAGE Advance Directives Documents on File Type Date Recorded Patient Webbing Tacker Expl 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 (hx) 07/14/2020 AD MURILLO DIRECTIVE Care Teams Clicking Machine Operator Relationship Specialty Start Date End Date Bita Nina MD [address] [place] [id number] PCP - General Internal Medicine 06/08/21
== END 2025-06-07 15:16 | disposition home or self-care (01) ==
LOC: HO.LNP 15:15
PROVIDERS: Visit Provider Physician Assistant
DX: E11.9 Type 2 diabetes mellitus without complications (principal); R19.7 Diarrhea, unspecified; I10 Essential (primary) hypertension; E78.5 Hyperlipidemia, unspecified; Z85.07 Personal history of malignant neoplasm of pancreas
CPT/HCPCS: 83993

== ENCOUNTER 2025-06-11 05:38 | Day surgery (SDC) | payer MEDICARE, SELFPAY ==
--- OUTSIDE RECORDS SUMMARY | 2025-04-19 08:20 | XMS_ITS | Clinical Summary ---
Author Organization [facility] Address [address] [place] [address] Phone Care Team Providers Care Design Technology Professor Name Role Phone Bita Nina MD Primary [...] complication, with long-term current use of insulin ([facility] V24, [facility] V28) INJECT 5 UNITS INTO THE SKIN AT BEDTIME. 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 Do not crush, chew, or split. 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 Please provide 90 day supply 90 mL 2 5 Active Active Problems Problem Noted Date Diagnosed Date Class 1 obesity 07/20/2024 Glaucoma 12/07/2020 Overview (07/08/2024): Sees Dr. Frazier Essential hypertension 09/07/2020 Primary pancreatic neuroendocrine tumor ([facility] V28) 02/19/2020 Overview (07/08/2024): CT 2019. Incidental finding. 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 ([facility] V24, [facility] [place]) 10/23/2019 Radiation cystitis 05/31/2017 Overview (07/08/2024): [...] neg CXR, EKG Q III Diabetes mellitus ([facility] [place], [facility] V28) Exposure to asbestos 10/05/2013 Hypertriglyceridemia 10/05/2013 Shoulder sprain 10/05/2013 Encounters Date Type Department Care Team Description 02/19/2025 Telephone [address] [phone] Kristina Dave MD Medication Problem 02/18/2025 9:00 AM EDT Office Visit Endocrinology [address] [phone] Kristina Dave MD 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, with long-term current use of insulin ([facility], [facility] V28) from Last 3 Months Immunizations Name Administration Dates Next Due Hepatitis B (Esbmwkb-G-Oaspq , Recombivax HB-Adult) 19yo and older 07/09/2019,09/10/2018,06/06/2018 [...] COMMENT: robotic assisted prostatectomy CYSTOSCOPY 05/28/2017 PROCEDURE: [place] CYSTOURETHROSCOPY; COMMENT: 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, [...] urethral sling OTHER SURGICAL HISTORY 07/2020 PROCEDURE: [place] PNCRTECT DSTL STOT W/O PNCRTCOJEJUNOSTOMY OTHER SURGICAL HISTORY 07/2020 PROCEDURE: [place] RPR TABDL LMPHADEC EXTNSV W/PEL AORTIC&RNL; COMMENT: [...] Comments Brother 1 Bradly Alive Brother 2 Migule Alive Brother 3 Wesley Alive Brother 4 [...] 9:00 AM EDT Office Visit Endocrinology - [place] [address] [place] [address] Kristina Dave MD [address] [place] [address] Health Maintenance Due Date Last Done Comments [...] whether [facility] insulin use ([facility] V24, [facility] V28) BUN Routine 02/16/2025 9:36 AM EDT Type 2 diabetes mellitus with other specified complication, unspecified whether intermodal dispatcher insulin use ([facility] V24, [facility] V28) LIPID PANEL WITH REFLEX TO DIRECT LDL Routine 02/16/2025 9:36 AM EDT Hypertriglyceridemia HEMOGLOBIN A1C Routine 02/16/2025 8:47 AM EDT Type 2 diabetes mellitus with other specified complication, unspecified whether intermodal dispatcher insulin use ([facility] V24, [facility] V28) DIABETES EYE EXAM Routine [...] LAB CHEMISTRY METHOD 02/16/2025 1:40 PM EDT [facility] Triglycerides 383(H) 0 - 150 mg/dL LAB CHEMISTRY METHOD 02/16/2025 1:40 PM EDT [facility] HDL 44 >=40 mg/dL LAB CHEMISTRY METHOD 02/16/2025 1:40 PM EDT [facility] LDL Calculated 17 0 - 100 mg/dL LAB CHEMISTRY METHOD 02/16/2025 1:40 PM EDT [facility] VLDL Cholesterol Bob 76.6 mg/dL LAB CHEMISTRY METHOD 02/16/2025 1:40 PM EDT [facility] Non HDL Chol. (LDL+VLDL) 94 <145 mg/dL LAB CHEMISTRY METHOD 02/16/2025 1:40 PM EDT [facility] Chol/HDL Ratio 3.1 0.0 - 4.4 LAB CHEMISTRY METHOD 02/16/2025 1:40 PM EDT [facility] Blood Venous blood specimen / Unknown Venipuncture / Unknown 02/16/2025 9:36 AM EDT 02/16/2025 9:36 AM EDT Kristina Dave MD LAB BLOOD ORDERABLES Final Resul t Performing Organization Address [facility]/ZIP Co de Phone Number [facility] [address] [place] [address], * Creatinine (02/16/2025 9:36 AM EDT) Creatinine 1.03 0.70 - 1.30 mg/dL LAB CHEMISTRY METHOD 02/16/2025 1:34 PM EDT [facility] eGFR 76 >=60 mL/min/1. 73m2 LAB CHEMISTRY METHOD 02/16/2025 1:34 PM EDT [facility] Comment:Calculation based on the??Chronic Kidney Disease Epidemiology Collaboration (CKD-EPI) equation refit??without adjustment for race. Blood Venous blood specimen / Unknown Venipuncture / Unknown 02/16/2025 9:36 AM EDT 02/16/2025 9:36 AM EDT Kristina Dave MD LAB BLOOD ORDERABLES Final Resul t [facility] [address] [place] [address], * BUN (02/16/2025 9:36 AM EDT) BUN 17 5 - 25 mg/dL LAB CHEMISTRY METHOD 02/16/2025 1:34 PM EDT [facility] Blood Venous blood specimen / Unknown Venipuncture / Unknown 02/16/2025 9:36 AM EDT 02/16/2025 9:36 AM EDT Kristina Dave MD LAB BLOOD ORDERABLES Final Resul t Performing Organization Address [facility]/ZIP Co de Phone Number [facility] [address] [place] [address], [place] [phone] * (ABNORMAL) Hemoglobin A1c (02/16/2025 8:47 AM EDT) [facility] Hemoglobin A1C 8.2(H) <6.5 % LAB CHEMISTRY METHOD 02/16/2025 2:02 PM EDT [facility] Mean Bld Glu Estim. 189 mg/dL LAB CHEMISTRY METHOD 02/16/2025 2:02 PM EDT [facility] Blood Venous blood specimen / Unknown Venipuncture / Unknown 02/16/2025 8:47 AM EDT 02/16/2025 8:47 AM EDT Kristina Dave MD LAB BLOOD ORDERABLES Final Resul t Performing Organization Address City/[facility]/ZIP Co de Phone Number [facility] [address] [place] [address], [place] [phone] * Diabetes Eye Exam (07/28/2024) [facility] Diabetes: Annual Retina Eye Exam abstracted Historical Provider HEALTH MAINTENANCE Final Result * Diabetes Foot Exam (07/21/2024) [facility] Diabetes: Annual Foot Exam abstracted Historical Provider HEALTH MAINTENANCE Final Result * Urine Albumin Creatinine Ratio (06/01/2024) [facility] Urine Albumin Creatinine Ratio abstracted Historical Provider HEALTH MAINTENANCE Final Result * Abdominal Aortic Aneurysm Screen (05/18/2021) [facility] Abdominal Aortic Aneurysm (AAA) Screening 1 [...] Recently Relevant to Health Maintenance Insurance Formerly [facility] [place] [id number] A[employer] MEDICARE ADVANTAGE Advance Directives Documents on File Type Date Recorded Patient Drop Press Hand Expl 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 (hx) 07/14/2020 AD MURILLO DIRECTIVE Care Teams Design Technology Professor Relationship Specialty Start Date End Date Bita Nina MD [address] [place] [id number] PCP - General Internal Medicine 06/08/21
[2025-05-31 09:21] VITALS: BMI 31.6
[2025-06-11] VITALS (10 sets, daily range): BP systolic 113–140; BP diastolic 56–79; PULSE 56–67; RESP 12–17; TEMP 36.2–36.6; O2SAT 90–96; BMI 32.5
[2025-06-11] MEDS: Lactated Ringers 1,000 ML 100 ML IVCONT (06:38)
[2025-06-11 06:39] LABS: Glucose, Whole Blood 154 mg/dL (60-115)
--- NOTE | 2025-06-11 07:15 | HO.ANESPROP2 ---
Documented by User: Beverly Gerard NP 06/09/25 13:43 HPI - Anesthesia Eval Consult details Narrative: 74yo M for Right Shoulder Arthroscopy, distal clavicle excision, acromioplasty, rotator cuff repair with Mini Open RCR Medically optimized per PCP - labs and EKG done preop WNL, A1C ~ 7% Multiple cancers s/p surgery and radiation, no chemo PMFSH Active Problems Active Problems: All Active Problems History of pancreatic cancer (Acute) Rotator cuff insufficiency of right shoulder (Acute) Finger pain, right (Acute) Vitamin D deficiency (Acute) Elevated ALT measurement (Acute) Hyperlipidemia (Acute) Obesity (BMI 30-39.9) (Acute) Memory loss (Acute) Vaccine counseling (Acute) Laboratory tests ordered as part of a complete physical exam (CPE) (Acute) Cramps of left lower extremity (Acute) Diarrhea (Acute) Arthritis of right shoulder (Acute) Urinary incontinence (Acute) Hypertension (Acute) Type 2 diabetes mellitus (Acute) Normal physical examination, routine (Acute) Past Medical History Medical History (Updated 06/03/25 @ 14:28 by Anne-Marie Markham PA-C) Skin cancer Prostate cancer Hx of radiation therapy Arthritis Incontinence Pancreatic cancer Nephritis Cough HTN (hypertension) TIA (transient ischemic attack) Family History Family History Father Leukemia Surgical History Surgical History H/O colonoscopy Hx of splenectomy History of bladder surgery History of pancreatectomy H/O prostatectomy Social History Social History (Updated 06/03/25 @ 14:33 by Glenis Argueta CMA) Housing: House Are you a primary acute care physical therapist to a significant other at home: No Do you presently have visiting nurse or other home services: No Alcohol intake: current Alcohol intake frequency: a few times a week Comment: light beer and occasionally a glass of wine Patient Tobacco Use Status: Former Tobacco user Tobacco use type: Cigarette Years Smoked: 3 e-Cigarette/Vaping Use: Never Used Second Hand Smoke Exposure: No Use of substances other than those prescribed or required for medical reasons: No Have you been hit, kicked, punched, or otherwise hurt by someone within the past year? If so, by whom?: No Are you DNR?: No Advance Directives: No Advance Directives Information Provided: Yes Advance Directives on File: No Poor oral hygiene: Yes service: No Current occupational status: retired Cognitive needs: No Hearing needs: No Vision needs: No Meds Allergies Allergy/AdvReac Type Severity Reaction Status Date / Time Gadolinium-Containing Allergy Unknown watery Verified 06/03/25 13:59 Contrast Medi eyes, watery itchy nose, coughing lisinopril Allergy Unknown Unknown Verified 06/03/25 13:59 Active Medications: Current Medications Cefazolin Sodium/Dextrose (Ancef) 2 gm in 50 mls @ 100 mls/hr IV PREOP ONE Stop: 06/11/25 06:07 Home Medications ?Medication ?Instructions ?Recorded ?Confirmed ?Last Taken ?Type amlodipine 2.5 mg tablet 2.5 mg PO DAILY 02/12/25 06/11/25 06/11/25 05:00 History atorvastatin 40 mg tablet 40 mg PO DAILY 02/12/25 06/03/25 Unknown History blood sugar diagnostic (Synoste Oyuch #10 ea 02/12/25 06/03/25 Unknown History Ultra Test strips) blood-glucose meter (ChronoWakeTouch #1 ea 02/12/25 06/03/25 Unknown History Ultra2 Meter) cetirizine 10 mg tablet 10 mg PO DAILY 02/12/25 06/03/25 Unknown History insulin aspart U-100 100 unit/mL 02/12/25 06/03/25 Unknown History (3 mL) subcutaneous pen (Novolog FlexPen U-100 Insulin aspart) insulin glargine 100 unit/mL (3 3 unit subcut QPM 02/12/25 06/11/25 06/10/25 21:00 History mL) subcutaneous pen (Lantus Solostar U-100 Insulin) lancets 33 gauge (ChronoWakeTouch Delica #100 ea 02/12/25 06/03/25 Unknown History Plus Lancet) latanoprost 0.005 % eye drops 1 drp ophthalmic (eye) BEDTIME 02/12/25 06/03/25 Unknown History pen needle, diabetic 32 gauge x #1,200 ea 02/12/25 06/03/25 Unknown History tolterodine 2 mg tablet 2 mg PO BID 02/12/25 06/03/25 Unknown History acetaminophen 500 mg tablet 1,000 mg PO BEDTIME 05/31/25 06/03/25 Unknown History multivitamin 1 tab PO DAILY 05/31/25 06/03/25 Unknown History Exam Height,Weight and Vital Signs: Height 5 ft 11.5 in Weight 104.326 kg Pertinent Lab Results Pertinent Lab Results: Laboratory Tests 06/03/25 15:14 WBC 8.2 Hgb 14.7 Hct 43.0 Plt Count 346 Sodium 139 Potassium 4.1 Chloride 104 Carbon Dioxide 27 BUN 16 Creatinine 1.05 Narrative Narrative: EKG 05/2025 NSR @ 74 Nonspecific T wave abn Assessment and Plan Assessment Anesthesia Assessment: Chart Reviewed Documented by User: Bita Owen DO 06/11/25 08:09 PMFSH Past Medical History Medical History (Updated 06/03/25 @ 14:28 by Anne-Marie Markham PA-C) Skin cancer Prostate cancer Hx of radiation therapy Arthritis Incontinence Pancreatic cancer Nephritis Cough HTN (hypertension) TIA (transient ischemic attack) Family History Family History Father Leukemia Family history of problems with anesthesia: No Surgical History Surgical History H/O colonoscopy Hx of splenectomy History of bladder surgery History of pancreatectomy H/O prostatectomy History of Problems with Anesthesia: No Social History Social History (Updated 06/03/25 @ 14:33 by Glenis Argueta CMA) Housing: House Are you a primary acute care physical therapist to a significant other at home: No Do you presently have visiting nurse or other home services: No Alcohol intake: current Alcohol intake frequency: a few times a week Comment: light beer and occasionally a glass of wine Patient Tobacco Use Status: Former Tobacco user Tobacco use type: Cigarette Years Smoked: 3 e-Cigarette/Vaping Use: Never Used Second Hand Smoke Exposure: No Use of substances other than those prescribed or required for medical reasons: No Have you been hit, kicked, punched, or otherwise hurt by someone within the past year? If so, by whom?: No Are you DNR?: No Advance Directives: No Advance Directives Information Provided: Yes Advance Directives on File: No Poor oral hygiene: Yes service: No Current occupational status: retired Cognitive needs: No Hearing needs: No Vision needs: No Meds Allergies Allergy/AdvReac Type Severity Reaction Status Date / Time Gadolinium-Containing Allergy Unknown watery Verified 06/03/25 13:59 Contrast Medi eyes, watery itchy nose, coughing lisinopril Allergy Unknown Unknown Verified 06/03/25 13:59 Home Medications ?Medication ?Instructions ?Recorded ?Confirmed ?Last Taken ?Type amlodipine 2.5 mg tablet 2.5 mg PO DAILY 02/12/25 06/11/25 06/11/25 05:00 History atorvastatin 40 mg tablet 40 mg PO DAILY 02/12/25 06/03/25 Unknown History blood sugar diagnostic (ChronoWakeTouch #10 ea 02/12/25 06/03/25 Unknown History Ultra Test strips) blood-glucose meter (ChronoWakeTouch #1 ea 02/12/25 06/03/25 Unknown History Ultra2 Meter) cetirizine 10 mg tablet 10 mg PO DAILY 02/12/25 06/03/25 Unknown History insulin aspart U-100 100 unit/mL 02/12/25 06/03/25 Unknown History (3 mL) subcutaneous pen (Novolog FlexPen U-100 Insulin aspart) insulin glargine 100 unit/mL (3 3 unit subcut QPM 02/12/25 06/11/25 06/10/25 21:00 History mL) subcutaneous pen (Lantus Solostar U-100 Insulin) lancets 33 gauge (OneTouch Delica #100 ea 02/12/25 06/03/25 Unknown History Plus Lancet) latanoprost 0.005 % eye drops 1 drp ophthalmic (eye) BEDTIME 02/12/25 06/03/25 Unknown History pen needle, diabetic 32 gauge x #1,200 ea 02/12/25 06/03/25 Unknown History tolterodine 2 mg tablet 2 mg PO BID 02/12/25 06/03/25 Unknown History acetaminophen 500 mg tablet 1,000 mg PO BEDTIME 05/31/25 06/03/25 Unknown History multivitamin 1 tab PO DAILY 05/31/25 06/03/25 Unknown History Exam Exam Date and Time: 06/11/25 0715 Height,Weight and Vital Signs: Height 5 ft 11.5 in Weight 104.326 kg Height 5 ft 11.5 in Weight 107.1 kg Vital Signs Temperature 98 F 06/11/25 06:30 Pulse Rate 67 06/11/25 06:30 Respiratory Rate 16 06/11/25 06:30 Blood Pressure 138/79 06/11/25 06:30 Pulse Oximetry 94 06/11/25 06:30 Oxygen Delivery Method Room Air 06/11/25 06:30 Temperature 98 F 06/11/25 06:30 Pulse Rate 67 06/11/25 06:30 Respiratory Rate 16 06/11/25 06:30 Blood Pressure 138/79 06/11/25 06:30 Pulse Oximetry 94 06/11/25 06:30 Oxygen Delivery Method Room Air 06/11/25 06:30 Airway Mallampati Class: I TM Dist: >3cm Neck ROM: Limited Denture: Upper Partial: Lower Heart: S1S2 Lungs: Diminished bilaterally Assessment and Plan Assessment Anesthesia Assessment: Anesthesia Plan Discussed and Chart Reviewed Final Anesthetic Review Family History of Problems with Anesthesia: No History of Problems with Anesthesia: No NPO: Yes ASA Class: III Final Preanesthetic Review: No Changes in Pt Med Stat, Meds/Allgs Chart Reviewed, Consent Obtained/Reviewed and Anes Risks/Benef Reviewed Patient Risk: Intermediate Procedure Risk: Intermediate Anesthetic Plan Anesthetic Plan: GA, Regional Block (right brachial plexus block) and Agree w/ Assess. and Plan Disposition: Standard PACU
--- NOTE | 2025-06-11 09:38 | P.BOP_ITS ---
Brief Operative Note Date of Service: 06/11/25 Pre-op diagnosis: Right shoulder impingement syndrome, right shoulder acromioclavicular joint arthritis, right shoulder rotator cuff tear Post-op diagnosis: same Procedure: Right shoulder arthroscopic distal clavicle excision, right shoulder arthroscopic acromioplasty, right shoulder mini open rotator cuff repair Implants: 1 suture anchor ([employer] Twinfix anchor with #2 ultrabraid suture) Surgeon: Andrey Cunha MD Anesthesia: regional Was an Apartment Maintenance Worker used for this Procedure?: No Estimated blood loss (mL): 20 Pathology: none sent Condition: stable Disposition: PACU
--- NOTE | 2025-06-11 09:42 | W.PM.OPN ---
Operative Note Operative Note Date of Service: 06/11/25 Narrative: After the patient was identified as Valente Pagan and his right shoulder was initialed by myself the patient was brought to the holding area where a right shoulder interscalene regional block was performed by the anesthesiologist in routine fashion. The patient was then brought to the operating room where general anesthesia was induced by the anesthesiologist in routine fashion. The patient was given 2 g of IV Ancef preoperatively for infection prophylaxis. Examination under anesthesia of the patient's right shoulder showed full passive range of motion of the patient's right shoulder when compared to the left. The patient was gently positioned in the beach chair position with all bony prominences well padded. The patient's right shoulder region and upper extremity were prepped and draped in sterile fashion. A formal time-out was completed. A #11 scalpel blade was used to make a posterior portal 2 cm inferior and 1 cm medial to the posterolateral corner of the acromion. Blunt trocar technique was used to enter the glenohumeral joint in routine fashion. An anterior portal was made just lateral to the coracoid process after proper positioning was confirmed using a spinal needle. Diagnostic arthroscopy showed minimal degenerative changes of the glenoid and humeral head articular surfaces. There was a full-thickness tear of the supraspinatus tendon. There biceps tendon was not identified. There was no inflammation of the anterior joint capsule. The arthroscope was then placed from the posterior portal into the subacromial space. A lateral portal was made 2 fingerbreadths lateral to the anterior lateral corner of the acromion. The ArthroCare Wand was used to ablate soft tissues along the undersurface of the acromion as well as to excise the coracoacromial ligament. There was a sharp spur along the undersurface of the acromion which was removed using the hooded bur. The arthroscope was then placed into the lateral portal and the acromioplasty was completed with the bur in the posterior portal using the posterior aspect of the acromion as a cutting block. The ArthroCare Wand was then brought in through the anterior portal and was used to ablate soft tissues along the acromioclavicular joint and distal clavicle. The posterior and superior ligamentous structures were left intact. A distal clavicle excision of 8 mm was performed using the hooded bur. Any remaining bursal tissue was removed using the arthroscopic shaver. The subacromial space was irrigated and then drained. All arthroscopic instruments were removed. Sterile gloves were changed and the shoulder was once again prepped with Betadine. A #15 scalpel blade was used to extend the lateral portal to the lateral edge of the acromion. The subacromial tissues were dissected using electrocautery down to the superficial deltoid fascia. The trocar split in the anterior raphe of the deltoid was then extended to the lateral edge of the acromion using electrocautery and curved Castillo scissors. Any remaining bursal tissue was removed using curved Castillo scissors. Subacromial and subdeltoid adhesions were bluntly dissected. The undersurface of the acromion was palpated and it was smooth. A #2 Ethibond tag suture was placed into the supraspinatus tendon. The tendon was easily mobilized to its insertion point on the glenoid. The wound was irrigated with copious amounts of normal saline solution. One suture anchor was placed into the greater tuberosity in routine fashion. The rotator cuff repair was then performed using horizontal mattress sutures under minimal tension with the patient's elbow at their side. Following the repair the shoulder was taken through a full range of motion. The repair was stable. The wound was irrigated with copious amounts of normal saline solution. The superficial and deep deltoid fascia were closed with #1 Vicryl [id number] interrupted suture. The wound was once again irrigated. The subcutaneous tissues were closed with 2-0 Vicryl interrupted suture. The skin was closed with 3-0 Prolene subcuticular suture and Steri-Strips. The anterior and posterior portals were closed with 3-0 nylon interrupted suture. Dry sterile dressing was placed over all incisions. The patient's right upper extremity was placed into a sling. The patient was awoken and extubated in the operating room. The patient was transferred to the recovery room in stable condition.
== END 2025-06-11 12:15 | disposition home or self-care (01) ==
PROVIDERS: PCP Physician Assistant; Visit Provider Orthopaedic Surgery
PROC: (CPT 23412; principal; 2025-06-11 07:30)
DX: M75.101 Unspecified rotator cuff tear or rupture of right shoulder, not specified as traumatic (principal); M75.41 Impingement syndrome of right shoulder; M19.011 Primary osteoarthritis, right shoulder; M25.511 Pain in right shoulder; M25.311 Other instability, right shoulder; R53.1 Weakness; Z87.828 Personal history of other (healed) physical injury and trauma; I10 Essential (primary) hypertension; Z85.828 Personal history of other malignant neoplasm of skin; Z85.46 Personal history of malignant neoplasm of prostate; Z85.07 Personal history of malignant neoplasm of pancreas; R32 Unspecified urinary incontinence; Z92.3 Personal history of irradiation; Z86.73 Personal history of transient ischemic attack (TIA), and cerebral infarction without residual deficits; Z79.4 Long term (current) use of insulin; Z79.84 Long term (current) use of oral hypoglycemic drugs; Z79.899 Other long term (current) drug therapy; Z88.8 Allergy status to other drugs, medicaments and biological substances; Z87.891 Personal history of nicotine dependence; Z98.890 Other specified postprocedural states
CPT/HCPCS: 23412; 29824; 29826; 82947; C1713; J0131; J0165; J0690; J0696; J1100; J2003; J2250; J2371; J2405; J2704; J2795; J3010

== ENCOUNTER → 2025-06-11 05:38 | Outpatient (BNV) | payer MEDICARE, SELFPAY | PROVIDERS: PCP Physician Assistant; Visit Provider Orthopaedic Surgery | DX: M75.121 Complete rotator cuff tear or rupture of right shoulder, not specified as traumatic (principal); M75.41 Impingement syndrome of right shoulder; M19.011 Primary osteoarthritis, right shoulder | CPT/HCPCS: 23412; 29824 ==

== ENCOUNTER 2025-06-21 07:31 | Outpatient (AMB) | payer MEDICARE, SELFPAY ==
--- OUTSIDE RECORDS SUMMARY | 2025-06-21 07:34 | XMS_ITS | Clinical Summary ---
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, with long-term current use of insulin ([facility] V24, [facility] V28) Check sugars upto 2 times a day 200 each 3 4 Active pen needle, diabetic 32 gauge x needleIndicatio ns: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, with long-term current use of insulin ([facility] V24, [facility] V28) USE UP TO 4 TIMES A DAY 300 each 3 4 Active metFORMIN XR (GLUCOPHAGE-XR) 500 mg 24 hr tabletIndicatio ns: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, with long-term current use of insulin ([facility] V24, [facility] V28) Take 2 tablets (1,000 mg total) by mouth 2 (two) times a day. Do not crush, chew, or split. 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, with long-term current use of insulin ([facility] V24, [facility] V28) Take three times a day before meals max up to 70 units day. Please provide 90 day supply 90 mL 2 5 Active Additional Information Patient not taking.Reported on 06/02/2025 Active Problems Problem Noted Date Diagnosed Date Class 1 obesity 07/20/2024 Glaucoma 12/07/2020 Overview (07/08/2024): Sees Dr. 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 Incidental finding. 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 Overview (07/08/2024): [...] neg CXR, EKG Q III Diabetes mellitus ([facility] V24, [facility] V28) Exposure to asbestos 10/05/2013 Hypertriglyceridemia 10/05/2013 Shoulder sprain 10/05/2013 Encounters Date Type Department Care Team Description 06/02/2025 9:00 AM EDT Office Visit Endocrinology - [address] [phone] Kristina Dave MD 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, with long-term current use of insulin ([facility] V24, [facility] V28) (Primary Dx) 05/31/2025 Telephone Endocrinology - [id number] [place] [phone] Mary Conklin MA Request For Order(s) (Lab orders ) from Last 3 Months Immunizations Name Administration Dates Next Due Hepatitis B (Irkkjbn-X-Pdwzf , Recombivax HB-Adult) 19yo and older 07/09/2019,09/10/2018,06/06/2018 [...] COMMENT: robotic assisted prostatectomy CYSTOSCOPY 05/28/2017 PROCEDURE: MD CYSTOURETHROSCOPY; COMMENT: 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, [...] urethral sling OTHER SURGICAL HISTORY 07/2020 PROCEDURE: MD PNCRTECT DSTL STOT W/O PNCRTCOJEJUNOSTOMY OTHER SURGICAL HISTORY 07/2020 PROCEDURE: MD RPR TABDL LMPHADEC EXTNSV W/PEL AORTIC&RNL; COMMENT: [...] 9:45 AM EDT Office Visit Endocrinology - [address] [phone] Kristina Dave MD [address] [place] [address] Health Maintenance Due Date Last Done Comments [...] mellitus with other specified complication, unspecified whether salvage determiner insulin use ([facility] V24, [facility] V28) BUN Routine 06/01/2025 10:11 AM EDT Type 2 diabetes mellitus with other specified complication, unspecified whether prison insulin use ([facility] V24, [facility] V28) HEMOGLOBIN A1C Routine 06/01/2025 10:11 AM EDT Type 2 diabetes mellitus with other specified complication, unspecified whether salvage determiner insulin use ([facility] V24, [facility] V28) MICROALBUMIN CREATININE URINE RATIO Routine 06/01/2025 10:11 AM EDT Type 2 diabetes mellitus with other specified complication, unspecified whether prison insulin use ([facility] V24, [facility] V28) LIPID PANEL WITH REFLEX [...] LAB CHEMISTRY METHOD 06/01/2025 6:11 PM EDT [facility] Microalb, Ur 16.0 0.0 - 29.0 mg/L LAB CHEMISTRY METHOD 06/01/2025 6:11 PM EDT [facility] Microalb/Creat Ratio 12 <30 mg/g creat LAB CHEMISTRY METHOD 06/01/2025 6:11 PM [facility] Urine Urine specimen obtained by clean catch procedure / Unknown Non-blood Collection / Unknown 06/01/2025 10:11 AM EDT 06/01/2025 10:11 AM EDT us Kristina Dave MD LAB URINE ORDERABLES Final Resul t Performing Organization Address City/[facility]/ZIP Co de Phone Number [facility] [address] [place] [address], [place] [phone] * Creatinine (06/01/2025 10:11 AM EDT) Creatinine 1.20 0.70 - 1.30 mg/dL LAB CHEMISTRY METHOD 06/01/2025 2:23 PM EDT [facility] eGFR 63 >=60 mL/min/1. 73m2 LAB CHEMISTRY METHOD 06/01/2025 2:23 PM EDT [facility] Comment:Calculation based on the Chronic Kidney Disease Epidemiology Collaboration (CKD-EPI) equation refit without adjustment for race. Blood Venous blood specimen / Unknown Venipuncture / Unknown 06/01/2025 10:11 AM EDT 06/01/2025 10:11 AM EDT us Kristina Dave MD LAB BLOOD ORDERABLES Final Resul t Performing Organization Address [facility]/ZIP Co de Phone Number [facility] [address] [place] [address], [place] [phone] * BUN (06/01/2025 10:11 AM EDT) BUN 19 5 - 25 mg/dL LAB CHEMISTRY METHOD 06/01/2025 2:23 PM EDT [facility] Blood Venous blood specimen / Unknown Venipuncture / Unknown 06/01/2025 10:11 AM EDT 06/01/2025 10:11 AM EDT us Kristina Dave MD LAB BLOOD ORDERABLES Final Resul t Performing Organization Address City/[facility]/ZIP Co de Phone Number [facility] [address] [place] [address], * (ABNORMAL) Hemoglobin A1c (06/01/2025 10:11 AM EDT) Pathologist [facility] [place] Hemoglobin A1C 8.7(H) <6.5 % LAB CHEMISTRY METHOD 06/01/2025 5:59 PM EDT [facility] Mean Bld Glu Estim. 203 mg/dL LAB CHEMISTRY METHOD 06/01/2025 5:59 PM EDT [facility] Blood Venous blood specimen / Unknown Venipuncture / Unknown 06/01/2025 10:11 AM EDT 06/01/2025 10:11 AM EDT Kristina Dave MD LAB BLOOD ORDERABLES Final Resul t Performing Organization Address [facility]/ZIP Co de Phone Number [facility] [address] [place] [address], [place] [phone] * (ABNORMAL) Lipid panel with reflex to direct LDL (02/16/2025 9:36 AM EDT) [facility] Cholesterol 138 0 - 200 mg/dL LAB CHEMISTRY METHOD 02/16/2025 1:40 PM EDT [facility] Triglycerides 383(H) 0 - 150 mg/dL LAB CHEMISTRY METHOD 02/16/2025 1:40 PM EDT [facility] HDL 44 >=40 mg/dL LAB CHEMISTRY METHOD 02/16/2025 1:40 PM EDT [facility] LDL Calculated 17 0 - 100 mg/dL LAB CHEMISTRY METHOD 02/16/2025 1:40 PM EDT [facility] VLDL Cholesterol Bob 76.6 mg/dL LAB CHEMISTRY METHOD 02/16/2025 1:40 PM EDT [facility] Non HDL Chol. (LDL+VLDL) 94 <145 mg/dL LAB CHEMISTRY METHOD 02/16/2025 1:40 PM EDT [facility] Chol/HDL Ratio 3.1 0.0 - 4.4 LAB CHEMISTRY METHOD 02/16/2025 1:40 PM EDT [facility] Blood Venous blood specimen / Unknown Venipuncture / Unknown 02/16/2025 9:36 AM EDT 02/16/2025 9:36 AM EDT Kristina Dave MD LAB BLOOD ORDERABLES Final Resul t [facility] [address] [place] [address], [place] [phone] * Diabetes Eye Exam (07/28/2024) [facility] Diabetes: Annual Retina Eye Exam abstracted [facility] Maki [facility] [employer] Final Result * Diabetes Foot Exam (07/21/2024) [facility] Diabetes: Annual Foot Exam abstracted Historical Maki [facility] [employer] Final Result * Abdominal Aortic Aneurysm Screen (05/18/2021) [facility] Abdominal Aortic Aneurysm (AAA) Screening 1 year fu Anatomical Region Laterality Modality Other Diane Gambino MD HEALTH MAINTENANCE Final Result * Colonoscopy (06/07/2020) [facility] Colonoscopy 7 yr fu Anatomical Region Laterality Modality Other Result [facility] Historical Maki [facility] [employer] Final Result * Hepatitis C Screening (10/13/2013) [facility] Hepatitis C Screening negative Diane Gambino MD HEALTH MAINTENANCE Final Result from Last 3 Months or Most Recently Relevant to Health Maintenance Insurance [facility] [place] [id number] [employer] MEDICARE ADVANTAGE Advance Directives Documents on File Type Date Recorded 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
--- NOTE | 2025-06-21 07:57 | A.OFFVIS_ITS ---
Intake Visit Reasons: OV- bandage check/ Rt RTC Repair 06/11/25 DR Intake Note: Mr. Pagan presents for bandage check of his right shoulder after undergoing right shoulder rotator cuff repair surgery on 06/11/2025. The patient states that several days ago he was sweating in his bandage came off. His did place a sterile bandage back over his incisions as per my instructions. He has been resting his shoulder as per my instructions. He is no longer taking narcotics for his discomfort. He denies any fevers or chills. Allergies Gadolinium-Containing Contrast Medi Allergy (Unknown, Verified 06/03/25 13:59) watery eyes, watery itchy nose, coughing lisinopril Allergy (Unknown, Verified 06/03/25 13:59) Unknown Medication List - Last Reconciled 06/21/25 by Andrey Cunha MD acetaminophen 1,000 mg PO BEDTIME amlodipine 2.5 mg PO DAILY atorvastatin 40 mg PO DAILY blood sugar diagnostic ([employer] Ultra Test strips) As directed blood-glucose meter ([employer] Ultra2 Meter) As directed cetirizine 10 mg PO DAILY cholecalciferol (vitamin D3) 25 mcg PO DAILY 90 days fenofibrate 54 mg PO DAILY 30 days insulin aspart U-100 (Novolog FlexPen U-100 Insulin aspart) insulin glargine (Lantus Solostar U-100 Insulin) 3 units subcut QPM lancets (SapiensTouch Delica Plus Lancet) As directed latanoprost 0.005% 1 drp ophthalmic (eye) BEDTIME multivitamin 1 tab PO DAILY oxycodone-acetaminophen 5-325 mg (Percocet) 2 tabs PO Q4H PRN pen needle, diabetic As directed tolterodine 2 mg PO BID PFSH Medical History (Updated 06/21/25 @ 08:08 by Andrey Cunha MD) Skin cancer Prostate cancer Hx of radiation therapy Arthritis Incontinence Pancreatic cancer Nephritis Cough HTN (hypertension) TIA (transient ischemic attack) Surgical History H/O colonoscopy Hx of splenectomy History of bladder surgery History of pancreatectomy H/O prostatectomy Family History Father Leukemia Social History (Updated 06/03/25 @ 14:33 by ROSIE England Housing: House Are you a primary student career development specialist to a significant other at home: No Do you presently have visiting nurse or other home services: No Alcohol intake: current Alcohol intake frequency: a few times a week Comment: light beer and occasionally a glass of wine Patient Tobacco Use Status: Former Tobacco user Tobacco use type: Cigarette Years Smoked: 3 e-Cigarette/Vaping Use: Never Used Second Hand Smoke Exposure: No service: No Current occupational status: retired Cognitive needs: No Hearing needs: No Vision needs: No Physical Exam Extrem Other: Right shoulder examination shows that the surgical incisions are healing well, no erythema, minimal discomfort with gentle passive range of motion Assessment & Plan Assessment & Plan (1) Right shoulder pain: Code(s): M25.511 - Pain in right shoulder Category: Medical Plan Mr. Pagan there is doing well after undergoing right shoulder rotator cuff repair surgery on 06/11/2025. He will continue resting his shoulder for now. He will keep his incisions covered with a sterile dressing. I will see him back later this week for suture removal as scheduled. Feel free to call me at any time should questions regarding his orthopedic management arise. Coding Level of Care Code Global (57932) Diagnoses Right shoulder pain M25.511
== END 2025-06-21 07:56 | disposition home or self-care (01) ==
LOC: HO.HOS 07:32
PROVIDERS: PCP Physician Assistant; Visit Provider Orthopaedic Surgery
DX: M25.511 Pain in right shoulder (principal)
CPT/HCPCS: 99024

== ENCOUNTER → 2025-06-21 07:31 | Outpatient (BNVA) | payer MEDICARE, SELFPAY | PROVIDERS: PCP Physician Assistant; Visit Provider Orthopaedic Surgery | DX: M25.511 Pain in right shoulder (principal); Z98.890 Other specified postprocedural states | CPT/HCPCS: 99212 ==

== ENCOUNTER 2025-06-24 08:33 | Outpatient (AMB) | payer MEDICARE, SELFPAY ==
--- NOTE | 2025-06-24 08:48 | MHC.OFFVIS ---
Intake Visit Reasons: PO-Rt RTC Repair 06/11/25 DR Intake Note: Valente is a 74 year old male who presents today post operatively after undergoing a right rotator cuff repair, DOS 06/11/[address] Cunha. Patient reports her is doing well, states his discomfort is not too bad. He has no concerns today. Allergies Gadolinium-Containing Contrast Medi Allergy (Unknown, Verified 06/24/25 08:50) watery eyes, watery itchy nose, coughing lisinopril Allergy (Unknown, Verified 06/24/25 08:50) Unknown Medication List - Last Reconciled 06/24/25 by Paty Mercedes PA-C acetaminophen 1,000 mg PO BEDTIME amlodipine 2.5 mg PO DAILY atorvastatin 40 mg PO DAILY blood sugar diagnostic ([employer] Ultra Test strips) As directed blood-glucose meter ([employer] Ultra2 Meter) As directed cetirizine 10 mg PO DAILY cholecalciferol (vitamin D3) 25 mcg PO DAILY 90 days fenofibrate 54 mg PO DAILY 30 days insulin aspart U-100 (Novolog FlexPen U-100 Insulin aspart) insulin glargine (Lantus Solostar U-100 Insulin) 3 units subcut QPM lancets (OneTouch Delica Plus Lancet) As directed latanoprost 0.005% 1 drp ophthalmic (eye) BEDTIME multivitamin 1 tab PO DAILY oxycodone-acetaminophen 5-325 mg (Percocet) 2 tabs PO Q4H PRN pen needle, diabetic As directed tolterodine 2 mg PO BID HPI HPI PO-Rt RTC Repair 06/11/25 DR: Details: 74-year-old gentleman returns to the office today status post right rotator cuff repair on 06/11/[address] Cunha. The patient comes in today without his sling on. He is doing quite well, denies pain. No concerns today. [facility] Medical History (Updated 06/21/25 @ 12:25 by Anne-Marie Markham PA-C) Skin cancer Prostate cancer Hx of radiation therapy Arthritis Incontinence Pancreatic cancer Nephritis Cough HTN (hypertension) TIA (transient ischemic attack) Surgical History H/O colonoscopy Hx of splenectomy History of bladder surgery History of pancreatectomy H/O prostatectomy Family History Father Leukemia Social History Housing: House Are you a primary child care giver to a significant other at home: No Do you presently have visiting nurse or other home services: No Alcohol intake: current Alcohol intake frequency: a few times a week Comment: light beer and occasionally a glass of wine Patient Tobacco Use Status: Former Tobacco user Tobacco use type: Cigarette Years Smoked: 3 e-Cigarette/Vaping Use: Never Used Second Hand Smoke Exposure: No service: No Current occupational status: retired Cognitive needs: No Hearing needs: No Vision needs: No Review of Systems Const All systems reviewed & are unremarkable except as noted in HPI and below Physical Exam Extrem Other: Right shoulder incision clean dry and intact. No erythema or drainage. Neurovascularly intact. Results Reviewed Results Reviewed: Brief Operative Note Date of Service: 06/11/25 Pre-op diagnosis: Right shoulder impingement syndrome, right shoulder acromioclavicular joint arthritis, right shoulder rotator cuff tear Post-op diagnosis: same Procedure: Right shoulder arthroscopic distal clavicle excision, right shoulder arthroscopic acromioplasty, right shoulder mini open rotator cuff repair Implants: 1 suture anchor ([employer] Twinfix anchor with #2 ultrabraid suture) Surgeon: Andrey Cunha MD Assessment & Plan Assessment & Plan (1) Rotator cuff insufficiency of right shoulder: Code(s): M25.311 - Other instability, right shoulder Category: Medical (2) Arthritis of right shoulder: Code(s): M19.011 - Primary osteoarthritis, right shoulder Category: Medical Plan Sutures removed today Steri-Strips applied. The patient can discontinue the sling in a controlled environment. An order was placed for physical therapy and he was given the contact information to make an appointment. He will begin physical therapy to work on motion and periscapular stabilization. He will see us back in [address] Cunha, sooner if needed. Orders: Orders PT Evaluation and Treatment Today M19.011 - Primary osteoarthritis, right shoulder, M25.311 - Other instability, right shoulder Coding Level of Care Code Global (38614) Diagnoses Rotator cuff insufficiency of right shoulder M25.311 Arthritis of right shoulder M19.011
--- OUTSIDE RECORDS SUMMARY | 2025-06-24 08:54 | XMS_ITS | Clinical Summary ---
Author Organization [facility] Address [address] [place] [address] Phone Care Team Providers Care Hydrator Operator Name Role Phone Bita Nina MD [...] complication, with long-term current use of insulin ([facility] V24, [facility] V28) INJECT 5 UNITS INTO THE SKIN AT BEDTIME. 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 Do not crush, chew, or split. 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 Please provide 90 day supply 90 mL 2 5 Active Additional Information Patient not taking.Reported on 06/02/2025 Active Problems Problem Noted Date Diagnosed Date Class 1 obesity 07/20/2024 Glaucoma 12/07/2020 Overview (07/08/2024): Sees Dr. 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 Incidental finding. 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 ([facility] V24, [facility] V28) 10/23/2019 Radiation cystitis 05/31/2017 Overview (07/08/2024): [...] CXR, EKG Q III Diabetes mellitus ([facility], [facility] V28) Exposure to asbestos 10/05/2013 Hypertriglyceridemia 10/05/2013 Shoulder sprain 10/05/2013 Encounters Date Type Department Care Team Description 06/02/2025 9:00 AM EDT Office Visit Endocrinology - [address] [phone] Kristina Dave MD 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, with long-term current use of insulin ([facility] V24, [facility] V28) (Primary Dx) 05/31/2025 Telephone Endocrinology - [address] [place] [phone] Mary Conklin MA Request For Order(s) (Lab orders ) from Last 3 Months Immunizations Name Administration Dates Next Due Hepatitis B (Cuwupng-T-Zagpq , Recombivax HB-Adult) 19yo and older 07/09/2019,09/10/2018,06/06/2018 [...] COMMENT: robotic assisted prostatectomy CYSTOSCOPY 05/28/2017 PROCEDURE: MN CYSTOURETHROSCOPY; COMMENT: 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, [...] urethral sling OTHER SURGICAL HISTORY 07/2020 PROCEDURE: MN PNCRTECT DSTL STOT W/O PNCRTCOJEJUNOSTOMY OTHER SURGICAL HISTORY 07/2020 PROCEDURE: MN RPR TABDL LMPHADEC EXTNSV W/PEL AORTIC&RNL; COMMENT: [...] 9:45 AM EDT Office Visit Endocrinology - [address] [phone] Kristina Dave MD [address] [place] [address] Health Maintenance Due Date Last Done Comments [...] mellitus with other specified complication, unspecified whether terminologist insulin use ([facility] V24, [facility] V28) BUN Routine 06/01/2025 10:11 AM EDT Type 2 diabetes mellitus with other specified complication, unspecified whether residential insulin use ([facility] V24, [facility] V28) HEMOGLOBIN A1C Routine 06/01/2025 10:11 AM EDT Type 2 diabetes mellitus with other specified complication, unspecified whether terminologist insulin use ([facility] V24, [facility] V28) MICROALBUMIN CREATININE URINE RATIO Routine 06/01/2025 10:11 AM EDT Type 2 diabetes mellitus with other specified complication, unspecified whether residential insulin use ([facility] V24, [facility] V28) LIPID PANEL WITH REFLEX TO [...] LAB CHEMISTRY METHOD 06/01/2025 6:11 PM EDT [facility] Microalb, Ur 16.0 0.0 - 29.0 mg/L LAB CHEMISTRY METHOD 06/01/2025 6:11 PM EDT [facility] Microalb/Creat Ratio 12 <30 mg/g creat LAB CHEMISTRY METHOD 06/01/2025 6:11 PM [facility] Urine Urine specimen obtained by clean catch procedure / Unknown Non-blood Collection / Unknown 06/01/2025 10:11 AM EDT 06/01/2025 10:11 AM EDT us Kristina Dave MD LAB URINE ORDERABLES Final Resul t Performing Organization Address City/[facility]/ZIP Co de Phone Number [facility] [address] [place] [address], [place] [phone] * Creatinine (06/01/2025 10:11 AM EDT) Creatinine 1.20 0.70 - 1.30 mg/dL LAB CHEMISTRY METHOD 06/01/2025 2:23 PM EDT [facility] eGFR 63 >=60 mL/min/1. 73m2 LAB CHEMISTRY METHOD 06/01/2025 2:23 PM EDT [facility] Comment:Calculation based on the Chronic Kidney Disease Epidemiology Collaboration (CKD-EPI) equation refit without adjustment for race. Blood Venous blood specimen / Unknown Venipuncture / Unknown 06/01/2025 10:11 AM EDT 06/01/2025 10:11 AM EDT us Kristina Dave MD LAB BLOOD ORDERABLES Final Resul t Performing Organization Address [facility]/ZIP Co de Phone Number [facility] [address] [place] [address], [place] [phone] * BUN (06/01/2025 10:11 AM EDT) BUN 19 5 - 25 mg/dL LAB CHEMISTRY METHOD 06/01/2025 2:23 PM EDT [facility] Blood Venous blood specimen / Unknown Venipuncture / Unknown 06/01/2025 10:11 AM EDT 06/01/2025 10:11 AM EDT us Kristina Dave MD LAB BLOOD ORDERABLES Final Resul t Performing Organization Address City/[facility]/ZIP Co de Phone Number [facility] [address] [place] [address], * (ABNORMAL) Hemoglobin A1c (06/01/2025 10:11 AM EDT) Pathologist [facility] Hemoglobin A1C 8.7(H) <6.5 % LAB CHEMISTRY METHOD 06/01/2025 5:59 PM EDT [facility] Mean Bld Glu Estim. 203 mg/dL LAB CHEMISTRY METHOD 06/01/2025 5:59 PM EDT [facility] Blood Venous blood specimen / Unknown Venipuncture / Unknown 06/01/2025 10:11 AM EDT 06/01/2025 10:11 AM EDT Kristina Dave MD LAB BLOOD ORDERABLES Final Resul t Performing Organization Address [facility]/ZIP Co de Phone Number [facility] [address] [place] [address], [place] [phone] * (ABNORMAL) Lipid panel with reflex to direct LDL (02/16/2025 9:36 AM EDT) [facility] Cholesterol 138 0 - 200 mg/dL LAB CHEMISTRY METHOD 02/16/2025 1:40 PM EDT [facility] Triglycerides 383(H) 0 - 150 mg/dL LAB CHEMISTRY METHOD 02/16/2025 1:40 PM EDT [facility] HDL 44 >=40 mg/dL LAB CHEMISTRY METHOD 02/16/2025 1:40 PM EDT [facility] LDL Calculated 17 0 - 100 mg/dL LAB CHEMISTRY METHOD 02/16/2025 1:40 PM EDT [facility] VLDL Cholesterol Bob 76.6 mg/dL LAB CHEMISTRY METHOD 02/16/2025 1:40 PM EDT [facility] Non HDL Chol. (LDL+VLDL) 94 <145 mg/dL LAB CHEMISTRY METHOD 02/16/2025 1:40 PM EDT [facility] Chol/HDL Ratio 3.1 0.0 - 4.4 LAB CHEMISTRY METHOD 02/16/2025 1:40 PM EDT [facility] Blood Venous blood specimen / Unknown Venipuncture / Unknown 02/16/2025 9:36 AM EDT 02/16/2025 9:36 AM EDT Kristina Dave MD LAB BLOOD ORDERABLES Final Resul t [facility] [address] [place] [address], [place] [phone] * Diabetes Eye Exam (07/28/2024) [facility] Diabetes: Annual Retina Eye Exam abstracted [facility] Maki ESCALERA HE[employer] MAINTENANCE Final Result * Diabetes Foot Exam (07/21/2024) [facility] Diabetes: Annual Foot Exam abstracted Historical Maki ESCAL[employer]A HE[employer] MAINTENANCE Final Result * Abdominal Aortic Aneurysm Screen (05/18/2021) [facility] Abdominal Aortic Aneurysm (AAA) Screening 1 year fu Anatomical Region Laterality Modality Other Diane Gambino MD HEALTH MAINTENANCE Final Result * Colonoscopy (06/07/2020) [facility] Colonoscopy 7 yr fu Anatomical Region Laterality Modality Other Result [facility] Historical Maki ESCALERA HEALTH MAINTENANCE Final Result * Hepatitis C Screening (10/13/2013) [facility] Hepatitis C Screening negative Diane Gambino MD HEALTH MAINTENANCE Final Result from Last 3 Months or Most Recently Relevant to Health Maintenance Insurance [place] [phone] [employer] MEDICARE ADVANTAGE Advance Directives Documents on File Type Date Recorded 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
== END 2025-06-24 09:07 | disposition home or self-care (01) ==
LOC: HO.HOS 08:40
PROVIDERS: PCP Physician Assistant; Visit Provider Physician Assistant
DX: M25.311 Other instability, right shoulder (principal); M19.011 Primary osteoarthritis, right shoulder
CPT/HCPCS: 99024

== ENCOUNTER → 2025-06-24 08:33 | Outpatient (BNVA) | payer MEDICARE, SELFPAY | PROVIDERS: PCP Physician Assistant; Visit Provider Physician Assistant | DX: Z48.02 Encounter for removal of sutures (principal); M25.311 Other instability, right shoulder; M19.011 Primary osteoarthritis, right shoulder; Z98.890 Other specified postprocedural states | CPT/HCPCS: 99212 ==

== ENCOUNTER 2025-07-07 08:35 | Outpatient (REF) | payer MEDICARE, SELFPAY ==
--- OUTSIDE RECORDS SUMMARY | 2025-07-07 08:56 | XMS_ITS | Clinical Summary ---
Author Organization [facility] Address [address] [place] [address] Phone Care Team Providers Care Fabrication Department Supervisor Name Role Phone Bita Nina MD Primary [...] complication, with long-term current use of insulin ([facility] V24, [facility] V28) INJECT 5 UNITS INTO THE SKIN AT BEDTIME. 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 Do not crush, chew, or split. 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 Please provide 90 day supply 90 mL 2 5 Active Additional Information Patient not taking.Reported on 06/02/2025 Active Problems Problem Noted Date Diagnosed Date Class 1 obesity 07/20/2024 Glaucoma 12/07/2020 Overview (07/08/2024): Sees Dr. Frazier Essential hypertension 09/07/2020 Primary pancreatic neuroendocrine tumor ([facility] V28) 02/19/2020 Overview (07/08/2024): CT 2019. Incidental finding. 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 [...] neg CXR, EKG Q III Diabetes mellitus ([facility] V24, [facility] V28) Exposure to asbestos 10/05/2013 Hypertriglyceridemia 10/05/2013 Shoulder sprain 10/05/2013 Encounters Date Type Department Care Team Description 06/02/2025 9:00 AM EDT Office Visit Endocrinology - [address] [phone] Kristina Dave MD 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, with long-term current use of insulin ([facility] V24, [facility] V28) (Primary Dx) 05/31/2025 Telephone Endocrinology - [address] [place] [phone] Mary Conklin MA from Last 3 Months Immunizations Name Administration Dates Next Due Hepatitis B (Ftmovwt-V-Jruma , Recombivax HB-Adult) 19yo and older 07/09/2019,09/10/2018,06/06/2018 [...] of prostat e (HCC); COMMENT: Biopsy 04/27/14, [facility] 4+3 and no CVA of prostate in [...] 9:45 AM EDT Office Visit Endocrinology - [place] [address] [place] [phone] Kristina Dave MD [address] [place] [address] Health Maintenance Due Date Last Done Comments [...] mellitus with other specified complication, unspecified whether telecom assistant insulin use ([facility] V24, [facility] V28) BUN Routine 06/01/2025 10:11 AM EDT Type 2 diabetes mellitus with other specified complication, unspecified whether telecom assistant insulin use ([facility] V[facility], [facility] V28) HEMOGLOBIN A1C Routine 06/01/2025 10:11 AM EDT Type 2 diabetes mellitus with other specified complication, unspecified whether mcc insulin use ([facility] V24, [facility] V28) MICROALBUMIN CREATININE URINE RATIO Routine 06/01/2025 10:11 AM EDT Type 2 diabetes mellitus with other specified complication, unspecified whether mcc insulin use ([facility] V24, [facility] V28) LIPID PANEL WITH REFLEX [...] mg/dL LAB CHEMISTRY METHOD 06/01/2025 6:11 PM T [facility] Microalb, Ur 16.0 0.0 - 29.0 mg/L LAB CHEMISTRY METHOD 06/01/2025 6:11 PM [facility] Microalb/Creat Ratio 12 <30 mg/g creat LAB CHEMISTRY METHOD 06/01/2025 6:11 PM [facility] Urine Urine specimen obtained by clean catch procedure / Unknown Non-blood Collection / Unknown 06/01/2025 10:11 AM EDT 06/01/2025 10:11 AM EDT us Kristina Dave MD LAB URINE ORDERABLES Final Resul t Performing Organization Address [facility] Co de Phone Number [facility] [address] [place] [address], [place] [phone] * Creatinine (06/01/2025 10:11 AM EDT) Creatinine 1.20 0.70 - 1.30 mg/dL LAB CHEMISTRY METHOD 06/01/2025 2:23 PM EDT [facility] eGFR 63 >=60 mL/min/1. 73m2 LAB CHEMISTRY METHOD 06/01/2025 2:23 PM EDT [facility] Comment:Calculation based on the Chronic Kidney Disease Epidemiology Collaboration (CKD-EPI) equation refit without adjustment for race. Blood Venous blood specimen / Unknown Venipuncture / Unknown 06/01/2025 10:11 AM EDT 06/01/2025 10:11 AM EDT us Kristina Dave MD LAB BLOOD ORDERABLES Final Resul t Performing Organization Address [facility] Co de Phone Number [facility] [address] [place] [address], [place] [phone] * BUN (06/01/2025 10:11 AM EDT) BUN 19 5 - 25 mg/dL LAB CHEMISTRY METHOD 06/01/2025 2:23 PM EDT [facility] Blood Venous blood specimen / Unknown Venipuncture / Unknown 06/01/2025 10:11 AM EDT 06/01/2025 10:11 AM EDT us Kristina Dave MD LAB BLOOD ORDERABLES Final Resul t Performing Organization Address City/State/[facility] de Phone Number [facility] [address] [place] [address], [place] [phone] * (ABNORMAL) Hemoglobin A1c (06/01/2025 10:11 AM EDT) [facility] Hemoglobin A1C 8.7(H) <6.5 % LAB CHEMISTRY METHOD 06/01/2025 5:59 PM EDT [facility] Mean Bld Glu Estim. 203 mg/dL LAB CHEMISTRY METHOD 06/01/2025 5:59 PM EDT [facility] Blood Venous blood specimen / Unknown Venipuncture / Unknown 06/01/2025 10:11 AM EDT 06/01/2025 10:11 AM EDT Kristina Dave MD LAB BLOOD ORDERABLES Final Resul t Performing Organization Address [facility] de Phone Number [facility] [address] [place] [address], [place] [phone] * (ABNORMAL) Lipid panel with reflex to direct LDL (02/16/2025 9:36 AM EDT) [facility] Cholesterol 138 0 - 200 [...] [facility] [address] [place] [address], * Diabetes Eye Exam (07/28/2024) [facility] Diabetes: Annual Retina Eye Exam abstracted Historical [...] [facility] Center Hepatitis C Screening negative Historical Maki ESCALERA HE[facility] MAINTENANCE Final Result from Last 3 Months or Most Recently Relevant to Health Maintenance Insurance [facility] [place] [phone] [employer] MEDICARE ADVANTAGE Advance Directives Documents on File Type Date Recorded 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
== END 2025-07-07 08:36 | disposition home or self-care (01) ==
LOC: HO.WFDLDS 08:35
PROVIDERS: Visit Provider Nurse Practitioner Family
DX: Z13.89 Encounter for screening for other disorder (principal)

== ENCOUNTER 2025-07-08 09:03 | Outpatient (AMB) | payer MEDICARE, SELFPAY ==
--- NOTE | 2025-07-08 09:37 | MHC.PC.OV ---
Vital Signs 07/08/25 09:43 Height 5 ft 11.5 in Weight 237 lb 2 oz BMI 32.6 BP 136/76 Blood Pressure Location Lt brachial Position Sitting Respiration 14 Pulse 67 Pulse Source Pulse Oximeter Pulse Oximetry (%) 95 Oxygen Delivery Method Room Air Intake Visit Reasons: labs Intake Note: Follow up lab results Inspector Precision Assembly Required: No Allergies Gadolinium-Containing Contrast Medi Allergy (Unknown, Verified 07/08/25 09:42) watery eyes, watery itchy nose, coughing lisinopril Allergy (Unknown, Verified 07/08/25 09:42) Unknown Medication List - Last Reconciled 07/08/25 by Anne-Marie Markham PA-C acetaminophen 1,000 mg PO BEDTIME amlodipine 2.5 mg PO DAILY atorvastatin 40 mg PO DAILY blood sugar diagnostic (DRB Systemsuch Ultra Test strips) As directed blood-glucose meter (DRB Systemsuch Ultra2 Meter) As directed cetirizine 10 mg PO DAILY cholecalciferol (vitamin D3) 25 mcg PO DAILY 90 days fenofibrate 54 mg PO DAILY 30 days insulin aspart U-100 (Novolog FlexPen U-100 Insulin aspart) insulin glargine (Lantus Solostar U-100 Insulin) 3 units subcut QPM lancets (OneTouch Delica Plus Lancet) As directed latanoprost 0.005% 1 drp ophthalmic (eye) BEDTIME multivitamin 1 tab PO DAILY oxycodone-acetaminophen 5-325 mg (Percocet) 2 tabs PO Q4H PRN pen needle, diabetic As directed tolterodine 2 mg PO BID Tobacco use date assessed: 07/08/25 Fall risk assessment: No Falls in past year Last assessed Fall Risk: 07/08/25 Dental Screening Dental Screen Date: 03/02/25 HPI labs HPI Details Patient is a 74-year-old male with a significant past medical history of type 2 diabetes, hypertension, hyperlipidemia, prostate ca, pancreatic ca and obesity presenting today for a f/u. Msk: following with ortho and is s/p right shoulder repair. CV: Blood pressure today in the office is 136/76 He is currently on amlodipine 2.5 mg daily. Cholesterol is managed with atorvastatin 40 mg and fenofibrate 54 mg. Last LDL was 37. Patient states that last week he was helping his elderly brother into a vehicle when his brother tripped and he had to support him. He states that he was holding him and trying to hold him upright for so long started to make him feel like he was going to have a heart attack. He states he felt very sweaty, nauseous, dizzy and short of breath. He states that he had to lay down on the grass after they were able to safely lower his brother to the ground. He states that his brother is heavy and needed a lot of support. He did not have any chest pain but did have his right shoulder recently repaired prior to this and states that that pain was distracting. Endo: He was diagnosed with diabetes following his pancreatic cancer diagnosis 4 years ago. His A1c today is 7.2. He is currently on Lantus 1-3 units (I did confirm this with the patient) NovoLog 14 units with breakfast, 18 units with lunch, 22 units with dinner. He states his electrical unit rebuilder a supposed to send in Jardiance but did not. He is following with endocrinology at [place] but states that he has not really heard back in regards to his elevated blood sugars. He had me refer him at our last visit to [place]. His appointment is an until next month. hyperglycemic 65%, in range 35%, 0 hypoglycemic. -he recently held with the metformin due to diarrhea. He wants to avoid GLP ones given the history of pancreatic cancer. GI: He reports getting diarrhea 6 months ago. He states that this is why he stopped the metformin. No recent travel or antibiotic use prior to this. He states that he has discussed this with his PCP. No weight loss from this. No abdominal pain. Has not had a bowel movement that was normal in the last 6 months. He thinks his last colonoscopy was 6-7 years ago. Surgery: Dr. Aguilar treated the pancreatic cancer surgically. He thinks that this was done in 2020. He follows every 6 months. States that he did not need any chemo Uro: had prostate ca 12 years ago and had a total prostatectomy and radiation. Follows with Dr. Morris. Earlier this year he had significant hematuria due to blood vessel damage from radiation. The bleeding self resolved and patient is just being monitored closely. He did have a cystoscopy recently. Colonoscopy: UTD- due around 2031 [facility] Medical History (Updated 07/08/25 @ 10:24 by Anne-Marie Markham PA-C) Skin cancer Prostate cancer Hx of radiation therapy Arthritis Incontinence Pancreatic cancer Nephritis Cough HTN (hypertension) TIA (transient ischemic attack) Surgical History (Updated 07/08/25 @ 09:48 by Glenis Argueta CMA) H/O shoulder surgery H/O colonoscopy Hx of splenectomy History of bladder surgery History of pancreatectomy H/O prostatectomy Family History Father Leukemia Social History (Updated 07/08/25 @ 09:46 by Glenis Argueta CMA) Housing: House Are you a primary direct care supervisor to a significant other at home: No Do you presently have visiting nurse or other home services: No Alcohol intake: current Alcohol intake frequency: a few times a week Comment: light beer and occasionally a glass of wine Patient Tobacco Use Status: Former Tobacco user Tobacco use type: Cigarette Years Smoked: 3 e-Cigarette/Vaping Use: Never Used Second Hand Smoke Exposure: No service: No Current occupational status: retired Cognitive needs: No Hearing needs: No Vision needs: No Questionnaire Thrive Questionnaire Date Thrive assessed: 02/12/25 I am a: Patient What is your living situation today?: I have a steady place to live Within the past 12 months, did the food you bought not last and you didn't have the money to get more?: Sometimes True Within the past 12 months, did you worry whether your food would run out before you got money to buy more?: Never true Do you have trouble paying for medicines?: No Do you have trouble getting transportation to medical appointments?: No Do you have trouble paying your heating and electricity bill?: No Do you have trouble taking care of your child, family member or friend?: No Do you have trouble with day-to-day activities such as bathing, preparing meals, shopping, managing finances, etc.?: No Are you currently unemployed and looking for a job?: No Are you interested in more education?: No Please select the resources that you would like help with: None Currently or been in a relationship where the following occur: No concerns reported THRIVE Score: 1 MARYURI-7 AMB Questionnaire MARYURI-7 Date MARYURI - 7 assessed: 02/12/25 Source: Developed by Drs. Miguel Reyes, Ailyn Crenshaw, Valentino Lopez and colleagues, with an educational michael from [employer]. Physical exam (Primary Care) Vital Signs: Last Vital Signs Pulse 67 07/08/25 09:43 Resp 14 07/08/25 09:43 BP 136/76 07/08/25 09:43 Pulse Ox 95 07/08/25 09:43 Oxygen Delivery Method Room Air 07/08/25 09:43 BMI result Body Mass Index 32.6 Tobacco/Smoking Status: Tobacco use Status Tobacco use date assessed 07/08/25 07/08/25 09:46 Patient Tobacco Use Status Former Tobacco user 07/08/25 09:46 Tobacco use type Cigarette 07/08/25 09:46 e-Cigarette/Vaping Use Never Used 07/08/25 09:46 Thrive Assessment: Date of Thrive Assessment Date Thrive assessed 02/12/25 07/08/25 09:37 Currently or been in a relationship where the following occur: No concerns reported Const Orientation/consciousness: patient oriented x3 HENMT Ears: hearing grossly normal bilaterally Neck Thyroid: Thyroid normal Lymphatic: no lymphadenopathy noted Resp Auscultation: clear to auscultation bilaterally Cardio Rate: regular rate Rhythm: regular rhythm Heart sounds: S1 normal heart sound present and S2 normal heart sound present Skin General skin exam: no rashes or lesions noted Neuro General: patient oriented x3, gait normal and no focal motor deficits Coding Level of Care Code Est Pt Level 4 (13324) Complex EM visit Add On G2211 Diagnoses Hypertension I10 Hyperlipidemia E78.5 Uncontrolled type 2 diabetes mellitus with hyperglycemia, with long-term current use of insulin E11.65; Z79.4 Diarrhea R19.7 Elevated ALT measurement R74.01 Dyspnea on exertion R06.09 Assessment & Plan Assessment & Plan (1) Hypertension: Code(s): I10 - Essential (primary) hypertension Category: Medical Plan: WNL. Continue current regimen (2) Hyperlipidemia: Code(s): E78.5 - Hyperlipidemia, unspecified Category: Medical Plan: Atorvastatin 40 mg. Continue current regimen (3) Uncontrolled type 2 diabetes mellitus with hyperglycemia, with long-term current use of insulin: Code(s): E11.65 - Type 2 diabetes mellitus with hyperglycemia; Z79.4 - nursing home (current) use of insulin Category: Medical Plan: increase lantus to 10 units continue novolog dosing start jardiance- discussed risks and benefits and adverse effects of meds like uti, increased urinary frequency and yeast infections recheck labs in 2 weeks (4) Diarrhea: Code(s): R19.7 - Diarrhea, unspecified Category: Medical Plan: gave number to [facility] (5) Elevated ALT measurement: Code(s): R74.01 - Elevation of levels of liver transaminase levels Category: Medical Plan: u/s booked in august (6) Dyspnea on exertion: Code(s): R06.09 - Other forms of dyspnea Category: Medical Plan: Chest x-ray ordered. Echo and stress test ordered as well. Warning signs of chest pain that would require emergent medical treatment were discussed. We will follow up. Orders: Orders XR chest 2V Today E11.65 - Type 2 diabetes mellitus with hyperglycemia, E78.5 - Hyperlipidemia, unspecified, I10 - Essential (primary) hypertension, R06.09 - Other forms of dyspnea, Z79.4 - nursing home (current) use of insulin Comprehensive Met. 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 (current) use of insulin Microalbumin, Random (w Creat) Today E11.65 - Type 2 diabetes mellitus with hyperglycemia, E78.5 - Hyperlipidemia, unspecified, I10 - Essential (primary) hypertension, Z79.4 - nursing home (current) use of insulin CA stress test Today E78.5 - Hyperlipidemia, unspecified, I10 - Essential (primary) hypertension, R06.09 - Other forms of dyspnea CA echo transthoracic complete Today E78.5 - Hyperlipidemia, unspecified, I10 - Essential (primary) hypertension, R06.09 - Other forms of dyspnea Medications: New empagliflozin (Jardiance) 10 mg PO QAM 30 tabs 2RF Changed From insulin glargine (Lantus Solostar U-100 Insulin) 3 units subcut QPM To insulin glargine (Lantus Solostar U-100 Insulin) 10 units (0.1 mL) subcut QPM 15 mL 0RF Patient Instructions: increase lantus to 10 units nightly continue novolog dosing start jardiance recheck labs in 2 weeks.
[2025-07-08 09:43] VITALS: BP 136/76; PULSE 67; RESP 14; O2SAT 95; BMI 32.6
--- OUTSIDE RECORDS SUMMARY | 2025-07-08 09:58 | XMS_ITS | Clinical Summary ---
Author Organization [facility] Address [address] [place] [address] Phone Care Team Providers Care Natural Gas Trader Name Role Phone Bita Nina MD Primary [...] complication, with long-term current use of insulin ([facility] V24, [facility] V28) INJECT 5 UNITS INTO THE SKIN AT BEDTIME. 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, with long-term current use of insulin ([facility] V24, [facility] V28) Check sugars upto 2 times a day 200 each 3 4 Active pen needle, diabetic 32 gauge x needleIndicatio ns: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, with long-term current use of insulin ([facility] V24, [facility] V28) USE UP TO 4 TIMES A DAY 300 each 3 4 Active metFORMIN XR (GLUCOPHAGE-XR) 500 mg 24 hr tabletIndicatio ns: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, with long-term current use of insulin ([facility] V24, [facility] V28) Take 2 tablets (1,000 mg total) by mouth 2 (two) times a day. Do not crush, chew, or split. 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, with long-term current use of insulin ([facility] V24, [facility] V28) Take three times a day before meals max up to 70 units day. Please provide 90 day supply 90 mL 2 5 Active Additional Information Patient not taking.Reported on 06/02/2025 Active Problems Problem Noted Date Diagnosed Date Class 1 obesity 07/20/2024 Glaucoma 12/07/2020 Overview (07/08/2024): Sees Dr. 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 Incidental finding. 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 ([facility] V24, [facility] V28) 10/23/2019 Radiation cystitis 05/31/2017 Overview [...] CXR, EKG Q III Diabetes mellitus ([facility] V24, [facility] V28) Exposure to asbestos 10/05/2013 Hypertriglyceridemia 10/05/2013 Shoulder sprain 10/05/2013 Encounters Date Type Department Care Team Description 06/02/2025 9:00 AM EDT Office Visit Endocrinology - [address] [phone] Kristina Dave MD 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, with long-term current use of insulin ([facility] V24, [facility] V28) (Primary Dx) 05/31/2025 Telephone Endocrinology - [id number] [place] [phone] Mary Conklin MA from Last 3 Months Immunizations Name Administration Dates Next Due Hepatitis B (Ktvjyze-U-Dwzhr , Recombivax HB-Adult) 19yo and older 07/09/2019,09/10/2018,06/06/2018 [...] COMMENT: robotic assisted prostatectomy CYSTOSCOPY 05/28/2017 PROCEDURE: SD CYSTOURETHROSCOPY; COMMENT: 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, [...] urethral sling OTHER SURGICAL HISTORY 07/2020 PROCEDURE: SD PNCRTECT DSTL STOT W/O PNCRTCOJEJUNOSTOMY OTHER SURGICAL HISTORY 07/2020 PROCEDURE: SD RPR TABDL LMPHADEC EXTNSV W/PEL AORTIC&RNL; COMMENT: 6 lymph nodes removed Medical History Medical History Date Comments Prediabetes 10/05/2013 DX:Prediabetes Mixed hyperlipidemia 06/21/2015 DX:Mixed hy perlipidemia Adenocarcinoma of prostate ( CMS/HCC V24, CMS/HCC V28) 10/05/2013 DX:Adenocarcinoma of prostat e (HCC); COMMENT: Biopsy 04/27/14, [place] 4+3 and no CVA of prostate in [...] 9:45 AM EDT Office Visit Endocrinology - [place] [address] [place] [phone] Kristina Dave MD [address] [place] [address] Health Maintenance Due Date Last Done Comments [...] mellitus with other specified complication, unspecified whether candy maker insulin use ([facility] V24, [facility] V28) BUN Routine 06/01/2025 10:11 AM EDT Type 2 diabetes mellitus with other specified complication, unspecified whether candy maker insulin use ([facility] V24, [facility] V28) HEMOGLOBIN A1C Routine 06/01/2025 10:11 AM EDT Type 2 diabetes mellitus with other specified complication, unspecified whether nursing home insulin use ([facility] V24, [facility] V28) MICROALBUMIN CREATININE URINE RATIO Routine 06/01/2025 10:11 AM EDT Type 2 diabetes mellitus with other specified complication, unspecified whether nursing home insulin use ([facility] V24, [facility] V28) LIPID PANEL WITH REFLEX TO [...] LAB CHEMISTRY METHOD 06/01/2025 6:11 PM T [facility] Microalb, Ur 16.0 0.0 - 29.0 mg/L LAB CHEMISTRY METHOD 06/01/2025 6:11 PM [facility] Microalb/Creat Ratio 12 <30 mg/g creat LAB CHEMISTRY METHOD 06/01/2025 6:11 PM [facility] Urine Urine specimen obtained by clean catch procedure / Unknown Non-blood Collection / Unknown 06/01/2025 10:11 AM EDT 06/01/2025 10:11 AM EDT us Kristina Dave MD LAB URINE ORDERABLES Final Resul t Performing Organization Address [facility] Co de Phone Number [facility] [address] [place] [address], [place] [phone] * Creatinine (06/01/2025 10:11 AM EDT) Creatinine 1.20 0.70 - 1.30 mg/dL LAB CHEMISTRY METHOD 06/01/2025 2:23 PM EDT [facility] eGFR 63 >=60 mL/min/1. 73m2 LAB CHEMISTRY METHOD 06/01/2025 2:23 PM EDT [facility] Comment:Calculation based on the Chronic Kidney Disease Epidemiology Collaboration (CKD-EPI) equation refit without adjustment for race. Blood Venous blood specimen / Unknown Venipuncture / Unknown 06/01/2025 10:11 AM EDT 06/01/2025 10:11 AM EDT us Kristina Dave MD LAB BLOOD ORDERABLES Final Resul t Performing Organization Address [facility] Co de Phone Number [facility] [address] [place] [address], [place] [phone] * BUN (06/01/2025 10:11 AM EDT) BUN 19 5 - 25 mg/dL LAB CHEMISTRY METHOD 06/01/2025 2:23 PM EDT [facility] Blood Venous blood specimen / Unknown Venipuncture / Unknown 06/01/2025 10:11 AM EDT 06/01/2025 10:11 AM EDT us Kristina Dave MD LAB BLOOD ORDERABLES Final Resul t Performing Organization Address City/State/[facility] de Phone Number [facility] [address] [place] [address], [place] [phone] * (ABNORMAL) Hemoglobin A1c (06/01/2025 10:11 AM EDT) [facility] Hemoglobin A1C 8.7(H) <6.5 % LAB CHEMISTRY METHOD 06/01/2025 5:59 PM EDT [facility] Mean Bld Glu Estim. 203 mg/dL LAB CHEMISTRY METHOD 06/01/2025 5:59 PM EDT [facility] Blood Venous blood specimen / Unknown Venipuncture / Unknown 06/01/2025 10:11 AM EDT 06/01/2025 10:11 AM EDT Kristina Dave MD LAB BLOOD ORDERABLES Final Resul t Performing Organization Address [facility] de Phone Number [facility] [address] [place] [address], [place] [phone] * (ABNORMAL) Lipid panel with reflex to direct LDL (02/16/2025 9:36 AM EDT) [facility] Cholesterol 138 0 - 200 mg/dL LAB CHEMISTRY METHOD 02/16/2025 1:40 PM EDT [facility] Triglycerides 383(H) 0 - 150 mg/dL LAB CHEMISTRY METHOD 02/16/2025 1:40 PM EDT [facility] HDL 44 >=40 mg/dL LAB CHEMISTRY METHOD 02/16/2025 1:40 PM EDT [facility] LDL Calculated 17 0 - 100 mg/dL LAB CHEMISTRY METHOD 02/16/2025 1:40 PM EDT [facility] VLDL Cholesterol Bob 76.6 mg/dL LAB CHEMISTRY METHOD 02/16/2025 1:40 PM EDT [facility] Non HDL Chol. (LDL+VLDL) 94 <145 mg/dL LAB CHEMISTRY METHOD 02/16/2025 1:40 PM EDT [facility] Chol/HDL Ratio 3.1 0.0 - 4.4 LAB CHEMISTRY METHOD 02/16/2025 1:40 PM EDT [facility] Blood Venous blood specimen / Unknown Venipuncture / Unknown 02/16/2025 9:36 AM EDT 02/16/2025 9:36 AM EDT Kristina Dave MD LAB BLOOD ORDERABLES Final Resul t [facility] [address] [place] [address], * Diabetes Eye Exam (07/28/2024) [facility] Diabetes: Annual Retina Eye Exam abstracted Historical Provider HEALTH MAINTENANCE Final Result * Diabetes Foot Exam (07/21/2024) [facility] Diabetes: Annual Foot Exam abstracted Historical Provider HEALTH MAINTENANCE Final Result * Abdominal Aortic Aneurysm Screen (05/18/2021) [facility] Abdominal Aortic Aneurysm (AAA) Screening 1 year fu Anatomical Region Laterality Modality Other Historical Provider HEALTH MAINTENANCE Final Result * Colonoscopy (06/07/2020) [facility] Colonoscopy 7 yr fu Anatomical Region Laterality Modality Other Historical Provider HEALTH MAINTENANCE Final Result * Hepatitis C Screening (10/13/2013) [facility] Hepatitis C Screening negative Historical Maki ESCALERA HEALTH MAINTENANCE Final Result from Last 3 Months or Most Recently Relevant to Health Maintenance Insurance [facility] [place] [phone] [employer] MEDICARE ADVANTAGE Advance Directives Documents on File Type Date Recorded Patient Transition Lead Expl 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 (hx) 07/14/2020 AD MURILLO DIRECTIVE Care Teams Natural Gas Trader Relationship Specialty Start Date End Date Bita Nina MD [address] [place] [id number] PCP - General Internal Medicine 06/08/21
== END 2025-07-08 10:26 | disposition home or self-care (01) ==
LOC: HO.HMCFM 09:04
PROVIDERS: PCP Physician Assistant; Visit Provider Physician Assistant
DX: I10 Essential (primary) hypertension (principal); E78.5 Hyperlipidemia, unspecified; E11.65 Type 2 diabetes mellitus with hyperglycemia; Z79.4 Long term (current) use of insulin; R19.7 Diarrhea, unspecified; R74.01 Elevation of levels of liver transaminase levels; R06.09 Other forms of dyspnea

== ENCOUNTER → 2025-07-08 09:03 | Outpatient (BNVA) | payer MEDICARE, SELFPAY | PROVIDERS: PCP Physician Assistant; Visit Provider Physician Assistant | DX: E11.65 Type 2 diabetes mellitus with hyperglycemia (principal); E78.5 Hyperlipidemia, unspecified; I10 Essential (primary) hypertension; C61 Malignant neoplasm of prostate; E66.9 Obesity, unspecified; M25.511 Pain in right shoulder; R19.7 Diarrhea, unspecified; R74.01 Elevation of levels of liver transaminase levels; R06.09 Other forms of dyspnea; Z79.4 Long term (current) use of insulin; Z68.32 Body mass index [BMI] 32.0-32.9, adult | CPT/HCPCS: 99212 ==

== ENCOUNTER 2025-07-15 07:37 | Outpatient (REF) | payer MEDICARE, SELFPAY ==
[2025-07-15 14:01] LABS: Folate 11.3 ng/mL (> or = 4.0); Vitamin B12 302 pg/mL (200-900)
[2025-07-21 08:59] LABS: Vitamin D 25-OH, D2 <4 ng/mL; Vitamin D 25-OH, D3 27 ng/mL; Vitamin D 25-OH, Total 27 ng/mL (30-100)
== END 2025-07-15 07:38 | disposition home or self-care (01) ==
LOC: HO.HKASLDS 07:37
PROVIDERS: PCP Nurse Practitioner Family; Visit Provider Psychiatry & Neurology Neurology
DX: R41.3 Other amnesia (principal); R47.89 Other speech disturbances
CPT/HCPCS: 36415; 82306; 82607; 82746; 85652; 99202

== ENCOUNTER 2025-07-15 07:37 | Outpatient (AMB) | payer MEDICARE, SELFPAY ==
--- OUTSIDE RECORDS SUMMARY | 2025-07-15 07:40 | XMS_ITS | Clinical Summary ---
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, with long-term current use of insulin ([facility] V24, [facility] V28) Check sugars upto 2 times a day 200 each 3 4 Active pen needle, diabetic 32 gauge x needleIndicatio ns: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, with long-term current use of insulin ([facility] V24, [facility] V28) USE UP TO 4 TIMES A DAY 300 each 3 4 Active metFORMIN XR (GLUCOPHAGE-XR) 500 mg 24 hr tabletIndicatio ns: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, with long-term current use of insulin ([facility] V24, [facility] V28) Take 2 tablets (1,000 mg total) by mouth 2 (two) times a day. Do not crush, chew, or split. 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, with long-term current use of insulin ([facility] V24, [facility] V28) Take three times a day before meals max up to 70 units day. Please provide 90 day supply 90 mL 2 5 Active Additional Information Patient not taking.Reported on 06/02/2025 Active Problems Problem Noted Date Diagnosed Date Class 1 obesity 07/20/2024 Glaucoma 12/07/2020 Overview (07/08/2024): Sees Dr. Frazier Essential hypertension 09/07/2020 Primary pancreatic neuroendocrine tumor ([facility] V28) 02/19/2020 Overview (07/08/2024): CT 2019. Incidental finding. 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 ([facility] V24, [facility] V28) 10/23/2019 Radiation cystitis 05/31/2017 Overview [...] CXR, EKG Q III Diabetes mellitus ([facility] V24, [facility] V28) Exposure to asbestos 10/05/2013 Hypertriglyceridemia 10/05/2013 Shoulder sprain 10/05/2013 Encounters Date Type Department Care Team Description 06/02/2025 9:00 AM EDT Office Visit Endocrinology - [address] [phone] Kristina Dave MD 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, with long-term current use of insulin ([facility] V24, [facility] V28) (Primary Dx) 05/31/2025 Telephone Endocrinology - [id number] [place] [phone] Mary Conklin MA from Last 3 Months Immunizations Name Administration Dates Next Due Hepatitis B (Dahymtt-J-Isfsi , Recombivax HB-Adult) 19yo and older 07/09/2019,09/10/2018,06/06/2018 [...] of prostat e (HCC); COMMENT: Biopsy 04/27/14, Gate's 4+3 and no CVA of prostate in [...] Brother 3 Wesley Brain cancer Brother 4 Mnaolo Leukemia Father Alzheimer's disease Mother Breast cancer [...] 9:45 AM EDT Office Visit Endocrinology - [place] [address] [place] [phone] Kristina Dave MD [address] [place] [address] Health Maintenance Due Date Last Done Comments [...] mellitus with other specified complication, unspecified whether middle or intermediate school principal insulin use ([facility] V24, [facility] V28) BUN Routine 06/01/2025 10:11 AM EDT Type 2 diabetes mellitus with other specified complication, unspecified whether middle or intermediate school principal insulin use ([facility] V24, [facility] V28) HEMOGLOBIN A1C Routine 06/01/2025 10:11 AM EDT Type 2 diabetes mellitus with other specified complication, unspecified whether care home insulin use ([facility] V24, [facility] V28) MICROALBUMIN CREATININE URINE RATIO Routine 06/01/2025 10:11 AM EDT Type 2 diabetes mellitus with other specified complication, unspecified whether middle or intermediate school principal insulin use ([facility] V24, [facility] V28) LIPID PANEL WITH REFLEX TO [...] LAB CHEMISTRY METHOD 06/01/2025 6:11 PM T [facility] Microalb, Ur 16.0 0.0 - 29.0 mg/L LAB CHEMISTRY METHOD 06/01/2025 6:11 PM [facility] Microalb/Creat Ratio 12 <30 mg/g creat LAB CHEMISTRY METHOD 06/01/2025 6:11 PM [facility] Urine Urine specimen obtained by clean catch procedure / Unknown Non-blood Collection / Unknown 06/01/2025 10:11 AM EDT 06/01/2025 10:11 AM EDT us Kristina Dave MD LAB URINE ORDERABLES Final Resul t Performing Organization Address [facility] Co de Phone Number [facility] [address] [place] [address], [place] [phone] * Creatinine (06/01/2025 10:11 AM EDT) Creatinine 1.20 0.70 - 1.30 mg/dL LAB CHEMISTRY METHOD 06/01/2025 2:23 PM EDT [facility] eGFR 63 >=60 mL/min/1. 73m2 LAB CHEMISTRY METHOD 06/01/2025 2:23 PM EDT [facility] Comment:Calculation based on the Chronic Kidney Disease Epidemiology Collaboration (CKD-EPI) equation refit without adjustment for race. Blood Venous blood specimen / Unknown Venipuncture / Unknown 06/01/2025 10:11 AM EDT 06/01/2025 10:11 AM EDT us Kristina Dave MD LAB BLOOD ORDERABLES Final Resul t Performing Organization Address [facility] Co de Phone Number [facility] [address] [place] [address], [place] [phone] * BUN (06/01/2025 10:11 AM EDT) BUN 19 5 - 25 mg/dL LAB CHEMISTRY METHOD 06/01/2025 2:23 PM EDT [facility] Blood Venous blood specimen / Unknown Venipuncture / Unknown 06/01/2025 10:11 AM EDT 06/01/2025 10:11 AM EDT us Kristina Dave MD LAB BLOOD ORDERABLES Final Resul t Performing Organization Address City/State/[facility] de Phone Number [facility] [address] [place] [address], [place] [phone] * (ABNORMAL) Hemoglobin A1c (06/01/2025 10:11 AM EDT) [facility] Hemoglobin A1C 8.7(H) <6.5 % LAB CHEMISTRY METHOD 06/01/2025 5:59 PM EDT [facility] Mean Bld Glu Estim. 203 mg/dL LAB CHEMISTRY METHOD 06/01/2025 5:59 PM EDT [facility] Blood Venous blood specimen / Unknown Venipuncture / Unknown 06/01/2025 10:11 AM EDT 06/01/2025 10:11 AM EDT Kristina Dave MD LAB BLOOD ORDERABLES Final Resul t Performing Organization Address [facility] de Phone Number [facility] [address] [place] [address], [place] [phone] * (ABNORMAL) Lipid panel with reflex to direct LDL (02/16/2025 9:36 AM EDT) [facility] Cholesterol 138 0 - 200 mg/dL LAB CHEMISTRY METHOD 02/16/2025 1:40 PM EDT [facility] Triglycerides 383(H) 0 - 150 mg/dL LAB CHEMISTRY METHOD 02/16/2025 1:40 PM EDT [facility] HDL 44 >=40 mg/dL LAB CHEMISTRY METHOD 02/16/2025 1:40 PM EDT [facility] LDL Calculated 17 0 - 100 mg/dL LAB CHEMISTRY METHOD 02/16/2025 1:40 PM EDT [facility] VLDL Cholesterol Bob 76.6 mg/dL LAB CHEMISTRY METHOD 02/16/2025 1:40 PM EDT [facility] Non HDL Chol. (LDL+VLDL) 94 <145 mg/dL LAB CHEMISTRY METHOD 02/16/2025 1:40 PM EDT [facility] Chol/HDL Ratio 3.1 0.0 - 4.4 LAB CHEMISTRY METHOD 02/16/2025 1:40 PM EDT [facility] Blood Venous blood specimen / Unknown Venipuncture / Unknown 02/16/2025 9:36 AM EDT 02/16/2025 9:36 AM EDT Kristina Dave MD LAB BLOOD ORDERABLES Final Resul t [facility] [address] [place] [address], * Diabetes Eye Exam (07/28/2024) [facility] Diabetes: Annual Retina Eye Exam abstracted Historical Provider HEALTH MAINTENANCE Final Result * Diabetes Foot Exam (07/21/2024) [facility] Diabetes: Annual Foot Exam abstracted Historical Provider HEALTH MAINTENANCE Final Result * Abdominal Aortic Aneurysm Screen (05/18/2021) [facility] Abdominal Aortic Aneurysm (AAA) Screening 1 year fu Anatomical Region Laterality Modality Other Historical Provider HEALTH MAINTENANCE Final Result * Colonoscopy (06/07/2020) [facility] Colonoscopy 7 yr fu Anatomical Region Laterality Modality Other Historical Provider HEALTH MAINTENANCE Final Result * Hepatitis C Screening (10/13/2013) [facility] Hepatitis C Screening negative Historical Maki ESCALERA HEALTH MAINTENANCE Final Result from Last 3 Months or Most Recently Relevant to Health Maintenance Insurance [facility] [place] [id number] A[employer]NA MEDICARE ADVANTAGE Advance Directives Documents on File Type Date Recorded Patient Bar Pilot Expl anation Health Care Decision (hx) 07/18/2020 AD MURILLO DIRECTIVE Health Care Decision (hx) 07/18/2020 AD MURILLO DIRECTIVE Health Care Decision (hx) 07/18/2020 AD MURILLO DIRECTIVE Health Care Decision (hx) 07/18/2020 AD MUIRLLO DIRECTIVE Health Care Decision (hx) 07/18/2020 AD [...] (hx) 07/14/2020 AD MURILLO DIRECTIVE Care Teams Hvac Sheet Metal Installer Relationship Specialty Start Date End Date Bita Nina MD [address] [place] [id number] PCP - General Internal Medicine 06/08/21
[2025-07-15 07:45] VITALS: BP 128/82; PULSE 68; O2SAT 96; BMI 32.2
--- NOTE | 2025-07-15 07:45 | MHC.OFFVIS ---
Vital Signs 07/15/25 07:45 Height 5 ft 11.5 in Weight 234 lb 6 oz BMI 32.2 BP 128/82 Blood Pressure Location Rt brachial Position Sitting Pulse 68 Pulse Source Pulse Oximeter Pulse Oximetry (%) 96 Oxygen Delivery Method Room Air Intake Visit Reasons: INP-Amnesia Intake Note: Amnesia Audit Senior Associate Required: No Accompanied by: Self / Same As Patient Allergies Gadolinium-Containing Contrast Medi Allergy (Unknown, Verified 07/15/25 07:45) watery eyes, watery itchy nose, coughing lisinopril Allergy (Unknown, Verified 07/15/25 07:45) Unknown HPI Comments Details: 74y/o Right handed male comes for evaluation of memory issues. He started noticing short term recall issues about 1 year ago and has been worsening since then .He has trouble recalling names of people he has known for many years , goes to a room and forgets why he went there etc. He is independent in all his ADLs.He denies any executive dysfunction.His mother had dementia and at age 82 No h/o head injury He denies sleep issues but snores as per his and has fatigue during daytime. [facility] Medical History Skin cancer Prostate cancer Hx of radiation therapy Arthritis Incontinence Pancreatic cancer Nephritis Cough HTN (hypertension) TIA (transient ischemic attack) Surgical History H/O shoulder surgery H/O colonoscopy Hx of splenectomy History of bladder surgery History of pancreatectomy H/O prostatectomy Family History Father Leukemia Social History Housing: House Are you a primary residential care facility manager to a significant other at home: No Do you presently have visiting nurse or other home services: No Alcohol intake: current Alcohol intake frequency: a few times a week Comment: light beer and occasionally a glass of wine Patient Tobacco Use Status: Former Tobacco user Tobacco use type: Cigarette Years Smoked: 3 e-Cigarette/Vaping Use: Never Used Second Hand Smoke Exposure: No service: No Current occupational status: retired Cognitive needs: No Hearing needs: No Vision needs: No Physical Exam Vital Signs: Last Vital Signs Pulse 68 07/15/25 07:45 BP 128/82 07/15/25 07:45 Pulse Ox 96 07/15/25 07:45 Oxygen Delivery Method Room Air 07/15/25 07:45 BMI result Body Mass Index 32.2 Const General: cooperative, healthy appearing, comfortable and no acute distress Nutritional Appearance: overweight Orientation/consciousness: patient oriented x3 Eyes Pupils: Equal, round and reactive pupils present Neuro General: patient oriented x3, tone normal, moves all extremities and no focal motor deficits Cranial nerves: Yes Facial sensation intact/muscles of mastication intact, Yes Equal, round and reactive pupils present, Yes Bilaterally intact EOM present, Yes Nystagmus not present, Yes Normal facial strength present, Yes Midline tongue present, Yes Symmetric palate elevation present, Yes Ability to bilaterally rotate head present and Yes Ability to bilaterally elevate shoulders present Cognition (Neuro): abnormal cognition Gait exam (Neuro): Normal gait present Motor exam (neuro): 5/5 motor strength present throughout and Normal motor muscle tone present throughout Deep tendon reflexes (DTR's): Right triceps reflex intensity grade: 1+, Left triceps reflex intensity grade: 1+, Rt Biceps (C5, C6): 1+, Left biceps reflex intensity grade: 1+, Right brachioradialis reflex intensity grade: 1+, Left brachioradialis reflex intensity grade: 1+, Right patellar reflex intensity grade: 1+ and Left patellar reflex intensity grade: 1+ Coordination: [id number] test normal Assessment & Plan Assessment & Plan (1) Word finding difficulty: Code(s): R47.89 - Other speech disturbances Category: Medical (2) Memory loss: Code(s): R41.3 - Other amnesia Category: Medical Plan Check Vit B 12 levels MRI brain to r/o structural causes Home sleep test to r/o sleep apnea- patient reports snoring and hypersomnia Cognitive therapy will consider checking APOE 4 status and PET AMyloid Orders: Orders Vitamin B12 and Folate Today R41.3 - Other amnesia Erythrocyte Sedimentation Rate Today R41.3 - Other amnesia Vitamin D 25-OH (D2 and D3) Today R41.3 - Other amnesia MR head/brain wo con Today R41.3 - Other amnesia RT home sleep study Today G47.10 - Hypersomnia, unspecified, R06.83 - Snoring Referrals Speech and Hearing Referral R47.89 - Other speech disturbances Coding Level of Care Code New Pt Level 4 (39681) Complex EM visit Add On G2211 Diagnoses Word finding difficulty R47.89 Memory loss R41.3 MOCA Assessment Visuospatial/Executive Was patient able to complete Number to Letter matching?: Yes Was the patient able to copy the cube?: Yes Clock: Contour: Yes Clock: Numbers: Yes Clock: Hands: Yes Naming Was the patient able name the Lion?: Yes Was the patient able to name the Rhinoceros?: Yes Was the patient able to name the Camel?: Yes Memory 1st Trial - Select the words the patient was able to remember: Face, Velvet, Caodaism, Yisel and Red 2nd Trial - Select the words the patient was able to remember: Face, Velvet, Caodaism, Yisel and Red Attention Was the patient able to repeat [2 1 8 5 4] in forward order?: Yes Was the patient able to repeat [7 4 2] in backward order?: Yes Was the patient able to identify the A's with <2 errors?: Yes Serial 7 subtraction starting at 100 result: 4 or 5 correct (3 points) Language Select the phrases the patient was able to repeat: I only know that Prosper is the one to help today and The cat always hid under the couch when dogs were in the room Was the patient able to name more than 11 words that start with the letter F?: Yes Abstraction Select all that the patient was able to find the similarity: Train - Bicycle and Watch - Ruler Delayed Recall Category Cue - Select the words the patient was able to remeber: Velvet, Yisel and Red Multi Choice Cue - Select the words the patient was able to remember: Velvet, Caodaism, Yisel and Red Orientation Select the following items that the patient knew: Month, Year, Day, Place and City Score MOCA Score (>26 out of 30 is Normal): 24
== END 2025-07-15 08:24 | disposition home or self-care (01) ==
LOC: HO.HSMS 07:38
PROVIDERS: PCP Nurse Practitioner Family; Visit Provider Psychiatry & Neurology Neurology
DX: R47.89 Other speech disturbances (principal); R41.3 Other amnesia
CPT/HCPCS: 99204; G2211

== ENCOUNTER 2025-07-22 12:42 | Outpatient (AMB) | payer MEDICARE, SELFPAY ==
--- NOTE | 2025-07-22 12:51 | MHC.PC.OV ---
Vital Signs 07/22/25 12:52 Height 5 ft 11.5 in Weight 237 lb 2 oz BMI 32.6 BP 132/72 Blood Pressure Location Rt brachial Position Sitting Respiration 16 Pulse 82 Pulse Source Pulse Oximeter Pulse Oximetry (%) 96 Oxygen Delivery Method Room Air Intake Visit Reasons: dm f/u labs first Intake Note: Diabetes follow up Water Resource Specialist Required: No Allergies Gadolinium-Containing Contrast Medi Allergy (Unknown, Verified 07/22/25 12:54) watery eyes, watery itchy nose, coughing lisinopril Allergy (Unknown, Verified 07/22/25 12:54) Unknown Medication List - Last Reconciled 07/22/25 by Anne-Marie Markham PA-C acetaminophen 1,000 mg PO BEDTIME amlodipine 2.5 mg PO DAILY atorvastatin 40 mg PO DAILY blood sugar diagnostic (Nixle Ultra Test strips) As directed blood-glucose meter (Nixle Ultra2 Meter) As directed cetirizine 10 mg PO DAILY cholecalciferol (vitamin D3) 25 mcg PO DAILY cyanocobalamin (vitamin B-12) 1,000 mcg PO DAILY fenofibrate 54 mg PO DAILY 30 days insulin aspart U-100 (Novolog FlexPen U-100 Insulin aspart) insulin glargine (Lantus Solostar U-100 Insulin) 14 units (0.14 mL) subcut QPM lancets (Medaphis Physician Services CorporationTouch Delica Plus Lancet) As directed latanoprost 0.005% 1 drp ophthalmic (eye) BEDTIME metformin 1,000 mg PO BID multivitamin 1 tab PO DAILY pen needle, diabetic As directed tolterodine 2 mg PO BID [vitamin a PO] Tobacco use date assessed: 07/22/25 Fall risk assessment: No Falls in past year Last assessed Fall Risk: 07/22/25 Dental Screening Dental Screen Date: 03/02/25 HPI dm f/u labs first HPI Details Patient is a 74-year-old male with a significant past medical history of type 2 diabetes, hypertension, hyperlipidemia, prostate ca, pancreatic ca and obesity presenting today for a f/u. Msk: following with ortho and is s/p right shoulder repair. CV: Blood pressure today in the office is 136/76 He is currently on amlodipine 2.5 mg daily. Cholesterol is managed with atorvastatin 40 mg and fenofibrate 54 mg. Has echo and stress test ordered but not yet booked. phone number to cardiology provided today. No reoccurrence of symptoms Endo: He was diagnosed with diabetes following his pancreatic cancer diagnosis 4 years ago. His A1c was 7.2. He is currently on Lantus 10 units, NovoLog 14 units with breakfast, 18 units with lunch, 22 units with dinner. farxiga and jardiance are too expensive He is following with endocrinology at [facility] but states that he has not really heard back in regards to his elevated blood sugars. He had me refer him at our last visit to [facility]. His appointment is an until next month. hyperglycemic 65%, in range 35%, 0 hypoglycemic. -he recently held with the metformin due to diarrhea. He wants to avoid GLP ones given the history of pancreatic cancer. GI: He reports getting diarrhea 6 months ago. He states that this is why he stopped the metformin. No recent travel or antibiotic use prior to this. No weight loss from this. No abdominal pain. Has not had a bowel movement that was normal in the last 6 months. He thinks his last colonoscopy was more than 10 years ago. He states when he was thinking about it he thinks it was pre pandemic and even prior to his prostatectomy which was in 2013 Surgery: Dr. Aguilar treated the pancreatic cancer surgically. He thinks that this was done in 2020. He follows every 6 months. States that he did not need any chemo Uro: had prostate ca 12 years ago and had a total prostatectomy and radiation. Follows with Dr. Morris. Earlier this year he had significant hematuria due to blood vessel damage from radiation. The bleeding self resolved and patient is just being monitored closely. He did have a cystoscopy recently. Colonoscopy: Overdue, no records [facility] Medical History (Updated 07/15/25 @ 08:22 by Darlene Butler MD) Word finding difficulty Skin cancer Prostate cancer Hx of radiation therapy Arthritis Incontinence Pancreatic cancer Nephritis Cough HTN (hypertension) TIA (transient ischemic attack) Surgical History H/O shoulder surgery H/O colonoscopy Hx of splenectomy History of bladder surgery History of pancreatectomy H/O prostatectomy Family History Father Leukemia Social History (Updated 07/22/25 @ 12:56 by Glenis Argueta CMA) Housing: House Are you a primary restorative care technician to a significant other at home: No Do you presently have visiting nurse or other home services: No Alcohol intake: current Alcohol intake frequency: a few times a week Comment: light beer and occasionally a glass of wine Patient Tobacco Use Status: Former Tobacco user Tobacco use type: Cigarette Years Smoked: 3 e-Cigarette/Vaping Use: Never Used Second Hand Smoke Exposure: No service: No Current occupational status: retired Cognitive needs: No Hearing needs: No Vision needs: No Questionnaire Thrive Questionnaire Date Thrive assessed: 02/12/25 I am a: Patient What is your living situation today?: I have a steady place to live Within the past 12 months, did the food you bought not last and you didn't have the money to get more?: Sometimes True Within the past 12 months, did you worry whether your food would run out before you got money to buy more?: Never true Do you have trouble paying for medicines?: No Do you have trouble getting transportation to medical appointments?: No Do you have trouble paying your heating and electricity bill?: No Do you have trouble taking care of your child, family member or friend?: No Do you have trouble with day-to-day activities such as bathing, preparing meals, shopping, managing finances, etc.?: No Are you currently unemployed and looking for a job?: No Are you interested in more education?: No Please select the resources that you would like help with: None Currently or been in a relationship where the following occur: No concerns reported THRIVE Score: 1 AUDIT C Alcohol Use Questionnaire (AUDIT-C) 1. How often do you have a drink containing alcohol?: 2-3 times a week 2. How many drinks containing alcohol do you have on a typical day when you are drinking?: 1 or 2 3. How often do you have six or more drinks on one occasion?: Never Total Score: 3 MARYURI-7 AMB Questionnaire MARYURI-7 Date MARYURI - 7 assessed: 02/12/25 Source: Developed by Drs. Miguel Reyes, Ailyn Crenshaw, Valentino Lopez and colleagues, with an educational michael from [email or web address]. Physical exam (Primary Care) Vital Signs: Last Vital Signs Pulse 82 07/22/25 12:52 Resp 16 07/22/25 12:52 BP 132/72 07/22/25 12:52 Pulse Ox 96 09/11/25 12:52 Oxygen Delivery Method Room Air 07/22/25 12:52 BMI result Body Mass Index 32.6 Tobacco/Smoking Status: Tobacco use Status Tobacco use date assessed 07/22/25 07/22/25 12:59 Patient Tobacco Use Status Former Tobacco user 07/22/25 12:59 Tobacco use type Cigarette 07/22/25 12:59 e-Cigarette/Vaping Use Never Used 07/22/25 12:59 Thrive Assessment: Date of Thrive Assessment Date Thrive assessed 02/12/25 07/22/25 12:59 Currently or been in a relationship where the following occur: No concerns reported Const Orientation/consciousness: patient oriented x3 HENMT Ears: hearing grossly normal bilaterally Neck Thyroid: Thyroid normal Lymphatic: no lymphadenopathy noted Resp Auscultation: clear to auscultation bilaterally Cardio Rate: regular rate Rhythm: regular rhythm Heart sounds: S1 normal heart sound present and S2 normal heart sound present GI Inspection: Yes normal to inspection Palpation (GI): Soft to palpation and Other GI palpation findings present (nontender, no cva tenderness) Auscultation: normoactive bowel sounds Rectal Exam - Male: Yes deferred Skin General skin exam: no rashes or lesions noted Neuro General: patient oriented x3, gait normal and no focal motor deficits Results Reviewed Results Reviewed: Laboratory Tests 06/03/25 06/11/25 07/15/25 15:14 06:35 08:28 Creatinine 1.05 Estimated GFR > 60 POC Glucose 154 H Triglycerides 222 H Cholesterol 139 LDL Cholesterol, Calc 63 HDL Cholesterol 32 L Vitamin B12 302 25-OH Vitamin D Total 27 L Coding Level of Care Code Est Pt Level 4 (63440) Complex EM visit Add On G2211 Diagnoses Uncontrolled type 2 diabetes mellitus with hyperglycemia, with long-term current use of insulin E11.65; Z79.4 Hypertension I10 Hyperlipidemia E78.5 Diarrhea R19.7 Assessment & Plan Assessment & Plan (1) Uncontrolled type 2 diabetes mellitus with hyperglycemia, with long-term current use of insulin: Code(s): E11.65 - Type 2 diabetes mellitus with hyperglycemia; Z79.4 - [facility]CI (current) use of insulin Category: Medical Plan: increase lantus to 14 units scheduled to see endo later this month will let me know if any lows (2) Hypertension: Code(s): I10 - Essential (primary) hypertension Category: Medical Plan: wnl continue current plan (3) Hyperlipidemia: Code(s): E78.5 - Hyperlipidemia, unspecified Category: Medical Plan: at goal (4) Diarrhea: Code(s): R19.7 - Diarrhea, unspecified Category: Medical Plan: booked to see GI soon Ultrasound is scheduled for 08/12 No change in symptoms. We will follow up pending test results Orders: Referrals Gastroenterology Referral Z12.11 - Encounter for screening for malignant neoplasm of colon Medications: New cyanocobalamin (vitamin B-12) 1,000 mcg PO DAILY 90 caps 0RF cholecalciferol (vitamin D3) 25 mcg PO DAILY 90 caps 0RF Changed From insulin glargine (Lantus Solostar U-100 Insulin) 10 units (0.1 mL) subcut QPM 15 mL 0RF To insulin glargine (Lantus Solostar U-100 Insulin) 14 units (0.14 mL) subcut QPM 15 mL 3RF Discontinued dapagliflozin propanediol (Farxiga) Discontinued Reason: Doctor's Order 5 mg PO QAM 90 tabs 0RF
[2025-07-22 12:52] VITALS: BP 132/72; PULSE 82; RESP 16; O2SAT 96; BMI 32.6
== END 2025-07-22 13:23 | disposition home or self-care (01) ==
LOC: HO.HMCFM 12:43
PROVIDERS: PCP Physician Assistant; Visit Provider Physician Assistant
DX: E11.65 Type 2 diabetes mellitus with hyperglycemia (principal); Z79.4 Long term (current) use of insulin; I10 Essential (primary) hypertension; E78.5 Hyperlipidemia, unspecified; R19.7 Diarrhea, unspecified

== ENCOUNTER → 2025-07-22 12:42 | Outpatient (BNVA) | payer MEDICARE, SELFPAY | PROVIDERS: PCP Physician Assistant; Visit Provider Physician Assistant | DX: E11.65 Type 2 diabetes mellitus with hyperglycemia (principal); I10 Essential (primary) hypertension; E78.5 Hyperlipidemia, unspecified; R19.7 Diarrhea, unspecified; C25.9 Malignant neoplasm of pancreas, unspecified; Z79.4 Long term (current) use of insulin; Z79.899 Other long term (current) drug therapy | CPT/HCPCS: 99212 ==

== ENCOUNTER 2025-08-03 08:53 | Outpatient (AMB) | payer MEDICARE, SELFPAY ==
[2025-08-03 09:13] VITALS: BP 124/78; PULSE 94; O2SAT 93; BMI 32.6
--- NOTE | 2025-08-03 09:13 | MHC.OFFVIS ---
Vital Signs 08/03/25 09:13 Height 5 ft 11.5 in Weight 236 lb 12.423 oz BMI 32.6 BP 124/78 Blood Pressure Location Rt brachial Position Sitting Pulse 94 Pulse Source Pulse Oximeter Pulse Oximetry (%) 93 Oxygen Delivery Method Room Air Intake Visit Reasons: Type 2 diabetes mellitus without complications Intake Note: New patient internally referred by PCP for T2DM. Patient receives Freestyle Sandro 3 Plus through: [facility] Last Diabetic Eye exam: approx 6 months ago, [facility] Last Podiatry Visit: Does not see a Poidatrist Random Glucose: 311 mg/dl Hgb A1C: 7.2% 06/03/2025 Supervisor Boarding Required: No Accompanied by: Self / Same As Patient Allergies Gadolinium-Containing Contrast Medi Allergy (Unknown, Verified 08/03/25 09:15) watery eyes, watery itchy nose, coughing lisinopril Allergy (Unknown, Verified 08/03/25 09:15) Unknown Medication List - Last Reconciled 08/03/25 by ZACHARY Wong acetaminophen 1,000 mg PO BEDTIME amlodipine 2.5 mg PO DAILY atorvastatin 40 mg PO DAILY blood sugar diagnostic ([employer] Ultra Test strips) As directed blood-glucose meter (OneTouch Ultra2 Meter) As directed cetirizine 10 mg PO DAILY cholecalciferol (vitamin D3) 25 mcg PO DAILY cyanocobalamin (vitamin B-12) 1,000 mcg PO DAILY fenofibrate 54 mg PO DAILY 30 days insulin aspart U-100 (Novolog FlexPen U-100 Insulin aspart) subcut insulin glargine (Lantus Solostar U-100 Insulin) 16 units subcut QPM lancets (OneTouch Delica Plus Lancet) As directed latanoprost 0.005% 1 drp ophthalmic (eye) BEDTIME metformin ER (Glumetza) 1,000 mg PO BID multivitamin 1 tab PO DAILY pen needle, diabetic As directed tolterodine 2 mg PO BID [vitamin a PO] HPI Comments Details: This is a 74-year-old male with a past medical history of type 2 diabetes, pancreatic cancer, prostate cancer, hyperlipidemia, hypertension and obesity presenting to establish care for diabetic management. He was diagnosed with diabetes 6 years ago following surgery for pancreatic cancer. Previously followed by [facility] end[facility]ology. Hemoglobin a1c 7.2% 06/03/2025. Reviewed CGM data for the past 14 days CGM active 79% G NE 8.2% Glucose variability 36.2% Very high 27% High 30% Target range 43% 0% hypoglycemia My interpretation is that he experiences hyperglycemia in the morning and after his breakfast which is usually around 10:00. The patient explains that he was traveling recently and did not have his medications for the last couple of days. He restarted them today. Current medication regimen: Metformin ER 1000 mg twice daily, Lantus 14 units nightly, NovoLog before meals. He adds 2 units if he is going to have a meal with a lot of carbs like pasta. Past medication: Patient has diarrhea for the past 6 months, and he has been referred to Gastroenterology. He has been on metformin for many years without having diarrhea, and it was switched to extended release to see if this would help, but it did not make a difference. Jardiance and Farxiga were too expensive. Avoids GLP 1 due to history of pancreatic cancer. Diet: Breakfast-eggs with toast or a small cup of cereal Lunch-sandwich Dinner-protein, veggies and a carbohydrate Snacks/desserts: Tries to avoid this Hypoglycemia episodes: None recently Hyperglycemia symptoms: None Microvascular complications: None Macrovascular complications: TIA 2011 Patient reports that he is having a cardiovascular evaluation due to an episode of dyspnea and diaphoresis after exertion a month ago. Hypertension: treated with amlodipine. Allergy to lisinopril Hyperlipidemia: treated with atorvastatin, fenofibrate ROS: Constitutional: No unexplained weight loss, fever, chills or night sweats Eyes: No vision changes Respiratory: No shortness of breath Cardiovascular: No chest pain Gastrointestinal: No blood in stools, anorexia, nausea, vomiting or abdominal pain. +diarrhea per HPI Endocrine: No cold or heat intolerance. No polyuria or polydipsia. Physical exam: Constitutional: Alert, in no distress. Neck: Supple, Full range of motion. No lymphadenopathy. No palpable thyroid masses. Respiratory: Clear to auscultation. Cardiovascular: S1 S2 regular. No murmurs. Right foot: Warm and well perfused. No clubbing, cyanosis or edema. Intact DP pulse. Intact vibratory sensation. Intact sensation to monofilament. No open wounds. Left foot: Warm and well perfused. No clubbing, cyanosis or edema. Intact DP pulse. Intact vibratory sensation. Intact sensation to monofilament. No open wounds. [facility] Medical History (Updated 07/15/25 @ 08:22 by Darlene Butler MD) Word finding difficulty Skin cancer Prostate cancer Hx of radiation therapy Arthritis Incontinence Pancreatic cancer Nephritis Cough HTN (hypertension) TIA (transient ischemic attack) Surgical History H/O shoulder surgery H/O colonoscopy Hx of splenectomy History of bladder surgery History of pancreatectomy H/O prostatectomy Family History Father Leukemia Social History Housing: House Are you a primary women's health care nurse practitioner to a significant other at home: No Do you presently have visiting nurse or other home services: No Alcohol intake: current Alcohol intake frequency: a few times a week Comment: light beer and occasionally a glass of wine Patient Tobacco Use Status: Former Tobacco user Tobacco use type: Cigarette Years Smoked: 3 e-Cigarette/Vaping Use: Never Used Second Hand Smoke Exposure: No service: No Current occupational status: retired Cognitive needs: No Hearing needs: No Vision needs: No Physical Exam Vital Signs: Last Vital Signs Pulse 94 08/03/25 09:13 BP 124/78 08/03/25 09:13 Pulse Ox 93 08/03/25 09:13 Oxygen Delivery Method Room Air 08/03/25 09:13 BMI result Body Mass Index 32.6 Office Procedures Glucose Monitoring Details Details: See HPI 98016 - Glucose monitoring, continuous-physician I&R Procedure code (CPT) selection complete Results Reviewed Results Reviewed: Laboratory Last Values Glucose (Clinic) 311 mg/dL (60-115) H 08/03/25 09:21 Laboratory Tests 02/16/25 06/03/25 07/15/25 09:16 15:14 08:28 Creatinine 1.05 Estimated GFR > 60 Vitamin B12 302 Urine Creatinine 169.63 Urine Microalbumin 48.0 Microalb/Creat Ratio 28.2 Assessment & Plan Assessment & Plan (1) Uncontrolled type 2 diabetes mellitus with hyperglycemia, with long-term current use of insulin: Code(s): E11.65 - Type 2 diabetes mellitus with hyperglycemia; Z79.4 - terminal gauger supervisor (current) use of insulin Category: Medical Plan In summary this is a 74-year-old male with type 2 diabetes due to pancreatic injury (surgery). Continue metformin extended release 1000 mg twice daily. Increase Lantus to 16 units nightly. Increase NovoLog to 16 units before breakfast, continue 18 units before lunch and 22 units before dinner. Check C-peptide. If this is within normal limits we could see if Invokana is cheaper than Jardiance and Farxiga. We discussed Actos, but he would like to avoid this considering he has a history of cancer, and Actos may increase likelihood of bladder cancer. He is not a good candidate for a GLP 1 due to history of pancreatic cancer. Reviewed treatment of hypoglycemia. Diabetic diet reviewed. He met with a dietitian at [facility]. Declines referral to clinical document improvement educator and dietitian at this time. He wanted to know if he can start taking Chaga. His son makes homeopathic meds. I advised against this since it is associated with inhibiting platelet aggregation and renal complications. It also can cause hypoglycemia especially in patients on medications for diabetes. Follow up in 1 month. Orders: Orders C Peptide Today ZACHARY Wong E11.9 - Type 2 diabetes mellitus without complications Creatinine Today ZACHARY Wong E11.9 - Type 2 diabetes mellitus without complications AMB Glucose Monitoring Today ZACHARY Wong E11.9 - Type 2 diabetes mellitus without complications Medications: Changed From insulin glargine (Lantus Solostar U-100 Insulin) 14 units (0.14 mL) subcut QPM 15 mL 3RF To insulin glargine (Lantus Solostar U-100 Insulin) 16 units subcut QPM Anne-Marie Markham PA-C Refilled cyanocobalamin (vitamin B-12) 1,000 mcg PO DAILY 90 caps 0RF ZACHARY Wong Patient Instructions: Metformin ER 1000 mg twice daily Lantus 16 units nightly NovoLog 16 units before breakfast, 18 units before lunch and 22 units before dinner If you experience low blood sugar, treat this by eating a chewable fruit candy like skittles or jelly beans (about 8 pieces), 4 ounces (1/2 cup) of fruit juice (not diet), 1 tablespoon of honey or 4 glucose tablets. If your blood sugar is under 50, take double the amount of one of the above. Recheck your blood sugar in 15 minutes. Coding Level of Care Code New Pt Level 4 (98785) Diagnoses Uncontrolled type 2 diabetes mellitus with hyperglycemia, with long-term current use of insulin E11.65; Z79.4 CPT Codes Details - CPT: 77136 - Glucose monitoring, continuous-physician I&R ([id number])
--- OUTSIDE RECORDS SUMMARY | 2025-08-03 10:06 | XMS_ITS | Clinical Summary ---
Author Organization [facility] Address [address] [place] [address] Phone Care Team Providers Care Dental Secretary Name Role Phone Bita Nina MD Primary [...] complication, with long-term current use of insulin ([facility] V24, [facility] V28) INJECT 5 UNITS INTO THE SKIN AT BEDTIME. 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, with long-term current use of insulin ([facility] V24, [facility] V28) Check sugars upto 2 times a day 200 each 3 4 Active pen needle, diabetic 32 gauge x needleIndicatio ns: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, with long-term current use of insulin ([facility] V24, [facility] V28) USE UP TO 4 TIMES A DAY 300 each 3 4 Active metFORMIN XR (GLUCOPHAGE-XR) 500 mg 24 hr tabletIndicatio ns: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, with long-term current use of insulin ([facility] V24, [facility] V28) Take 2 tablets (1,000 mg total) by mouth 2 (two) times a day. Do not crush, chew, or split. 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, with long-term current use of insulin ([facility] V24, [facility] V28) Take three times a day before meals max up to 70 units day. Please provide 90 day supply 90 mL 2 5 Active Additional Information Patient not taking.Reported on 06/02/2025 Active Problems Problem Noted Date Diagnosed Date Class 1 obesity 07/20/2024 Glaucoma 12/07/2020 Overview (07/08/2024): Sees Dr. 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 Incidental finding. 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 Overview (07/08/2024): [...] EKG Q III Diabetes mellitus ([facility] V24, [facility] V28) Exposure to asbestos 10/05/2013 Hypertriglyceridemia 10/05/2013 Shoulder sprain 10/05/2013 Encounters Date Type Department Care Team Description 06/02/2025 9:00 AM EDT Office Visit Endocrinology - [address] [phone] Kristina Dave MD 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, with long-term current use of insulin ([facility] V24, [facility] V28) (Primary Dx) 05/31/2025 Telephone Endocrinology - [id number] [place] [phone] Mary Conklin MA from Last 3 Months Immunizations Name Administration Dates Next Due Hepatitis B (Ousdwwl-S-Eblpk , Recombivax HB-Adult) 19yo and older 07/09/2019,09/10/2018,06/06/2018 [...] COMMENT: robotic assisted prostatectomy CYSTOSCOPY 05/28/2017 PROCEDURE: OR CYSTOURETHROSCOPY; COMMENT: 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, [...] urethral sling OTHER SURGICAL HISTORY 07/2020 PROCEDURE: OR PNCRTECT DSTL STOT W/O PNCRTCOJEJUNOSTOMY OTHER SURGICAL HISTORY 07/2020 PROCEDURE: OR RPR TABDL LMPHADEC EXTNSV W/PEL AORTIC&RNL; COMMENT: 6 lymph nodes removed Medical History Medical History Date Comments Prediabetes 10/05/2013 DX:Prediabetes Mixed hyperlipidemia 06/21/2015 DX:Mixed hy perlipidemia Adenocarcinoma of prostate ( CMS/HCC V24, CMS/HCC V28) 10/05/2013 DX:Adenocarcinoma of prostat e (HCC); COMMENT: Biopsy 04/27/14, [place]'s 4+3 and no CVA of prostate in [...] 06/02/2025 8:52 AM EDT Plan of Treatment Health Maintenance Due Date Last Done Comments [...] specified complication, unspecified whether prison insulin use ([facility] V24, [facility] V28) BUN Routine 06/01/2025 10:11 AM EDT Type 2 diabetes mellitus with other specified complication, unspecified whether dance hall hostess insulin use (CMS/HCC V24, [facility] V28) HEMOGLOBIN A1C Routine 06/01/2025 10:11 AM EDT Type 2 diabetes mellitus with other specified complication, unspecified whether prison insulin use ([facility] V24, [facility] V28) MICROALBUMIN CREATININE URINE RATIO Routine 06/01/2025 10:11 AM EDT Type 2 diabetes mellitus with other specified complication, unspecified whether dance hall hostess insulin use ([facility] V24, [facility] V28) LIPID PANEL WITH REFLEX TO DIRECT [...] LAB CHEMISTRY METHOD 06/01/2025 6:11 PM EDT [facility] Microalb, Ur 16.0 0.0 - 29.0 mg/L LAB CHEMISTRY METHOD 06/01/2025 6:11 PM EDT [facility] Microalb/Creat Ratio 12 <30 mg/g creat LAB CHEMISTRY METHOD 06/01/2025 6:11 PM EDT [facility] Urine Urine specimen obtained by clean catch procedure / Unknown Non-blood Collection / Unknown 06/01/2025 10:11 AM EDT 06/01/2025 10:11 AM EDT us Kristina Dave MD LAB URINE ORDERABLES Final Resul t [facility] [address] [place] [address], [place] [phone] * Creatinine (06/01/2025 10:11 AM EDT) Creatinine [...] Final Resul t [facility] [address] [place] [address], [place] [phone] * BUN (06/01/2025 10:11 AM EDT) BUN 19 5 - 25 mg/dL LAB CHEMISTRY METHOD 06/01/2025 2:23 PM EDT [facility] Blood Venous blood specimen / Unknown Venipuncture / Unknown 06/01/2025 10:11 AM EDT 06/01/2025 10:11 AM EDT us Kristina Dave MD LAB BLOOD ORDERABLES Final Resul t [facility] [address] [place] [address], [place] [phone] * (ABNORMAL) Hemoglobin A1c (06/01/2025 10:11 AM EDT) Hemoglobin A1C 8.7(H) <6.5 % LAB CHEMISTRY METHOD 06/01/2025 5:59 PM EDT [facility] Mean Bld Glu Estim. 203 mg/dL LAB CHEMISTRY METHOD 06/01/2025 5:59 PM EDT [facility] Blood Venous blood specimen / Unknown Venipuncture / Unknown 06/01/2025 10:11 AM EDT 06/01/2025 10:11 AM EDT us Kristina Dave MD LAB BLOOD ORDERABLES Final Resul t [facility] [address] [place] [address], [place] [phone] * (ABNORMAL) Lipid panel with reflex to [...] mg/dL LAB CHEMISTRY METHOD 02/16/2025 1:40 PM T [facility] Non HDL Chol. (LDL+VLDL) 94 <145 mg/dL LAB CHEMISTRY METHOD 02/16/2025 1:40 PM EDT [facility] Chol/HDL Ratio 3.1 0.0 - 4.4 LAB CHEMISTRY METHOD 02/16/2025 1:40 PM [facility] Blood Venous blood specimen / Unknown Venipuncture / Unknown 02/16/2025 9:36 AM EDT 02/16/2025 9:36 AM EDT Kristina Dave MD LAB BLOOD ORDERABLES Final Resul t [facility] [address] [place] [address], [place] [phone] * Diabetes Eye Exam (07/28/2024) [facility] Diabetes: Annual Retina Eye Exam abstracted Historical Provider HEALTH MAINTENANCE Final Result * Diabetes Foot Exam (07/21/2024) [facility] Diabetes: Annual Foot Exam abstracted Historical Provider HEALTH MAINTENANCE Final Result * Abdominal Aortic Aneurysm Screen (05/18/2021) [facility] Abdominal Aortic Aneurysm (AAA) Screening 1 year fu Anatomical Region Laterality Modality Other Historical Provider HEALTH MAINTENANCE Final Result * Colonoscopy (06/07/2020) [facility] Colonoscopy 7 yr fu Anatomical Region Laterality Modality Other Historical Provider HEALTH MAINTENANCE Final Result * Hepatitis C Screening (10/13/2013) [facility] Hepatitis C Screening negative Historical Provider HEALTH MAINTENANCE Final Result from Last 3 Months or Most Recently [id number] [employer] MEDICARE ADVANTAGE Advance Directives Documents on File Type Date Recorded 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
== END 2025-08-03 10:18 | disposition home or self-care (01) ==
LOC: HO.ENCR 08:53
PROVIDERS: PCP Physician Assistant; Visit Provider Physician Assistant Medical
DX: E11.65 Type 2 diabetes mellitus with hyperglycemia (principal); Z79.4 Long term (current) use of insulin

== ENCOUNTER → 2025-08-03 08:53 | Outpatient (BNVA) | payer MEDICARE, SELFPAY | PROVIDERS: PCP Physician Assistant; Visit Provider Physician Assistant Medical | DX: E11.65 Type 2 diabetes mellitus with hyperglycemia (principal); Z79.4 Long term (current) use of insulin; Z79.84 Long term (current) use of oral hypoglycemic drugs | CPT/HCPCS: 82947; 99202 ==

== ENCOUNTER 2025-08-03 10:23 | Outpatient (REF) | payer MEDICARE, SELFPAY ==
[2025-08-03 11:44] LABS: Estimated Glomerular Filt Rate > 60
== END 2025-08-03 10:24 | disposition home or self-care (01) ==
LOC: HO.10HDL 10:23
PROVIDERS: Visit Provider Physician Assistant Medical
DX: E11.9 Type 2 diabetes mellitus without complications (principal)
CPT/HCPCS: 36415; 82565; 84681

== ENCOUNTER 2025-08-10 10:35 | Outpatient (AMB) | payer MEDICARE, SELFPAY ==
--- NOTE | 2025-08-10 10:54 | MHC.OFFVIS ---
Vital Signs 08/10/25 11:00 Height 5 ft 11 in Weight 235 lb BMI 32.8 Intake Visit Reasons: PO-Rt RTC Repair 06/11/25 Intake Note: Valente is a 74 year old male right hand dominant who presents with complaints of mild intermittent discomfort in his right shoulder after undergoing right shoulder rotator cuff repair surgery on 06/11/2025. He continues with his home stretching program. He does not take any medicines for his discomfort. He denies any fevers or chills. Allergies Gadolinium-Containing Contrast Medi Allergy (Unknown, Verified 08/10/25 11:01) watery eyes, watery itchy nose, coughing lisinopril Allergy (Unknown, Verified 08/10/25 11:01) Unknown Medication List - Last Reconciled 08/10/25 by Andrey Cunha MD acetaminophen 1,000 mg PO BEDTIME amlodipine 2.5 mg PO DAILY atorvastatin 40 mg PO DAILY blood sugar diagnostic (The Wet SealTouch Ultra Test strips) As directed blood-glucose meter (The Wet SealTouch Ultra2 Meter) As directed cetirizine 10 mg PO DAILY cholecalciferol (vitamin D3) 25 mcg PO DAILY cyanocobalamin (vitamin B-12) 1,000 mcg PO DAILY fenofibrate 54 mg PO DAILY 30 days insulin aspart U-100 (Novolog FlexPen U-100 Insulin aspart) subcut insulin glargine (Lantus Solostar U-100 Insulin) 16 units subcut QPM lancets (OneTouch Delica Plus Lancet) As directed latanoprost 0.005% 1 drp ophthalmic (eye) BEDTIME metformin ER (Glumetza) 1,000 mg PO BID multivitamin 1 tab PO DAILY pen needle, diabetic As directed tolterodine 2 mg PO BID [vitamin a PO] [facility] Medical History (Updated 07/15/25 @ 08:22 by Darlene Butler MD) Word finding difficulty Skin cancer Prostate cancer Hx of radiation therapy Arthritis Incontinence Pancreatic cancer Nephritis Cough HTN (hypertension) TIA (transient ischemic attack) Surgical History H/O shoulder surgery H/O colonoscopy Hx of splenectomy History of bladder surgery History of pancreatectomy H/O prostatectomy Family History Father Leukemia Social History Housing: House Are you a primary medicare interviewer to a significant other at home: No Do you presently have visiting nurse or other home services: No Alcohol intake: current Alcohol intake frequency: a few times a week Comment: light beer and occasionally a glass of wine Patient Tobacco Use Status: Former Tobacco user Tobacco use type: Cigarette Years Smoked: 3 e-Cigarette/Vaping Use: Never Used Second Hand Smoke Exposure: No service: No Current occupational status: retired Cognitive needs: No Hearing needs: No Vision needs: No Physical Exam Vital Signs: BMI result Body Mass Index 32.8 Extrem Other: Right shoulder examination shows that the surgical incisions are well healed, no erythema, full active range of motion when compared to his left shoulder, minimal discomfort with resisted forward flexion Assessment & Plan Assessment & Plan (1) Right shoulder pain: Code(s): M25.511 - Pain in right shoulder Category: Medical Plan Mr. Pagan continues to do well after undergoing right shoulder rotator cuff repair surgery on 06/11/2025. He will continue with his home stretching program. The do's and don'ts of lifting were discussed at length with the patient. He will contact me prior to his follow-up appointment in 3 months should any questions or concerns arise. Feel free to call me at any time should questions regarding his orthopedic management arise. Coding Level of Care Code Global (54991) Diagnoses Right shoulder pain M25.511
[2025-08-10 11:00] VITALS: BMI 32.8
--- OUTSIDE RECORDS SUMMARY | 2025-08-10 11:50 | XMS_ITS | Clinical Summary ---
Author Organization [facility] Address [address] [place] [phone] Phone Care Team Providers Care Line Locator Name Role Phone Unknown, Unknown Primary Care Provider Gray gomez Social History Tobacco Use Types Packs/Day Years Used Date Smoking Tobacco: Never Assessed Education Answer Date Recorded Are you interested in more education? Not on karthikeyan e 08/07/2025 Are you concerned about learning? Not on file 08/07/2025 No 08/07/2025 No 08/07/2025 Digital Access Answer Date Recorded No 08/07/2025 No 08/07/2025 Reliable internet access at home? Not on file 08/07/2025 Device with a working camera? Not on file Sex and Gender Information Value Date Recorded Sex Assigned at Not on file Legal Sex Male 9:21 AM EST Gender Identity Not on file Sexual Orientation Not on file Plan of Treatment Upcoming Encounters Date Type Department Care Team (Late st Contact Info) Description 10/01/2025 8:00 AM EST Office Visit [facility] [address] [place] [address] Unknown, Unknown, MD Willard, Leonora Russo, PAT [address] [place], [place] [id number] Medical Devices Not on file Insurance [employer] PPO MEDICARE REPLACEMENT AETNA O MEDICARE REPLACEMENT AETNA [facility] MEDICARE REPLACEMENT AETNA O MEDICARE REPLACEMENT AETNA PPO MEDICARE REPLACEMENT A[employer] PPO MEDICARE REPLACEMENT Care Teams Line Locator Relationship Specialty Start Date End Date Unknown, Unknown, PCP - General 10/09/24 Additional Source Comments The information contained in this document represents components of the legal health record. It is not the complete legal health record.[facility]
--- OUTSIDE RECORDS SUMMARY | 2025-08-10 11:50 | XMS_ITS | Clinical Summary ---
Author Organization [facility] Address [address] [place] [address] Phone Care Team Providers Care Extension Work Director Name Role Phone Bita Nina MD Primary [...] with long-term current use of insulin ([facility] V24, [facility] V28) INJECT 5 UNITS INTO THE SKIN AT BEDTIME. 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 Do not crush, chew, or split. 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 Please provide 90 day supply 90 mL 2 5 Active Additional Information Patient not taking.Reported on 06/02/2025 Active Problems Problem Noted Date Diagnosed Date Class 1 obesity 07/20/2024 Glaucoma 12/07/2020 Overview (07/08/2024): Sees Dr. 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 Incidental finding. 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 ([facility] V24, [facility] V28) 10/23/2019 Radiation cystitis 05/31/2017 [...] neg CXR, EKG Q III Diabetes mellitus ([facility] V24, [facility] V28) Exposure to asbestos 10/05/2013 Hypertriglyceridemia 10/05/2013 Shoulder sprain 10/05/2013 Encounters Date Type Department Care Team Description 06/02/2025 9:00 AM EDT Office Visit Endocrinology - [address] [phone] Kristina Dave MD 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, with long-term current use of insulin ([facility] V24, [facility] V28) (Primary Dx) 05/31/2025 Telephone Endocrinology - [id number] [place] [phone] Mary Conklin MA from Last 3 Months Immunizations Immunization Administration Dates Next Due Hepatitis B (Weoljqi-I-Ykowa , Recombivax HB-Adult) 19yo and older 07/09/2019,09/10/2018,06/06/2018 [...] of prostat e (HCC); COMMENT: Biopsy 04/27/14, [place]'s 4+3 and no CVA of prostate in [...] with other specified complication, unspecified whether long term care social worker insulin use ([facility] V24, [facility] V28) BUN Routine 06/01/2025 10:11 AM EDT Type 2 diabetes mellitus with other specified complication, unspecified whether chcf insulin use (CMS/HCC V24, [facility] V28) HEMOGLOBIN A1C Routine 06/01/2025 10:11 AM EDT Type 2 diabetes mellitus with other specified complication, unspecified whether chcf insulin use ([facility] V24, [facility] V28) MICROALBUMIN CREATININE URINE RATIO Routine 06/01/2025 10:11 AM EDT Type 2 diabetes mellitus with other specified complication, unspecified whether long term care social worker insulin use ([facility] V24, [facility] V28) LIPID PANEL WITH REFLEX [...] LAB CHEMISTRY METHOD 06/01/2025 6:11 PM EDT [facility] Microalb, Ur 16.0 0.0 - 29.0 mg/L LAB CHEMISTRY METHOD 06/01/2025 6:11 PM EDT [facility] Microalb/Creat Ratio 12 <30 mg/g creat LAB CHEMISTRY METHOD 06/01/2025 6:11 PM EDT [facility] Urine Urine specimen obtained by clean catch procedure / Unknown Non-blood Collection / Unknown 06/01/2025 10:11 AM EDT 06/01/2025 10:11 AM EDT us Kristina Dave MD LAB URINE ORDERABLES Final Resul t [facility] [address] [place] [address], [place] [phone] * Creatinine (06/01/2025 10:11 AM EDT) Creatinine 1.20 0.70 - 1.30 mg/dL LAB CHEMISTRY METHOD 06/01/2025 2:23 PM EDT [facility] eGFR 63 >=60 mL/min/1. 73m2 LAB CHEMISTRY METHOD 06/01/2025 2:23 PM EDT [facility] Comment:Calculation based on the Chronic Kidney Disease Epidemiology Collaboration (CKD-EPI) equation refit without adjustment for race. Blood Venous blood specimen / Unknown Venipuncture / Unknown 06/01/2025 10:11 AM EDT 06/01/2025 10:11 AM EDT us Kristina Dave MD LAB BLOOD ORDERABLES Final Resul t [facility] [address] [place] [address], [place] [phone] * BUN (06/01/2025 10:11 AM EDT) BUN 19 5 - 25 mg/dL LAB CHEMISTRY METHOD 06/01/2025 2:23 PM EDT [facility] Blood Venous blood specimen / Unknown Venipuncture / Unknown 06/01/2025 10:11 AM EDT 06/01/2025 10:11 AM EDT us Kristina Dave MD LAB BLOOD ORDERABLES Final Resul t [facility] [address] [place] [address], [place] [phone] * (ABNORMAL) Hemoglobin A1c (06/01/2025 10:11 AM EDT) Hemoglobin A1C 8.7(H) <6.5 % LAB CHEMISTRY METHOD 06/01/2025 5:59 PM EDT [facility] Mean Bld Glu Estim. 203 mg/dL LAB CHEMISTRY METHOD 06/01/2025 5:59 PM EDT [facility] Blood Venous blood specimen / Unknown Venipuncture / Unknown 06/01/2025 10:11 AM EDT 06/01/2025 10:11 AM EDT us Kristina Dave MD LAB BLOOD ORDERABLES Final Resul t [facility] [address] [place] [address], [place] [phone] * (ABNORMAL) Lipid panel with reflex to direct LDL (02/16/2025 9:36 AM EDT) Cholesterol 138 0 - 200 mg/dL LAB CHEMISTRY METHOD 02/16/2025 1:40 PM EDT [facility] Triglycerides 383(H) 0 - 150 mg/dL LAB CHEMISTRY METHOD 02/16/2025 1:40 PM EDT [facility] HDL 44 >=40 mg/dL LAB CHEMISTRY METHOD 02/16/2025 1:40 PM EDT [facility] LDL Calculated 17 0 - 100 mg/dL LAB CHEMISTRY METHOD 02/16/2025 1:40 PM EDT [facility] VLDL Cholesterol Bob 76.6 mg/dL LAB CHEMISTRY METHOD 02/16/2025 1:40 PM T [facility] Non HDL Chol. (LDL+VLDL) 94 <145 mg/dL LAB CHEMISTRY METHOD 02/16/2025 1:40 PM EDT [facility] Chol/HDL Ratio 3.1 0.0 - 4.4 LAB CHEMISTRY METHOD 02/16/2025 1:40 PM [facility] Blood Venous blood specimen / Unknown Venipuncture / Unknown 02/16/2025 9:36 AM EDT 02/16/2025 9:36 AM EDT Kristina Dave MD LAB BLOOD ORDERABLES Final Resul t [facility] ([facility] [address] [place] [address], [place] [phone] * Diabetes Eye Exam (07/28/2024) [facility] Diabetes: Annual Retina Eye Exam abstracted Historical Provider HEALTH MAINTENANCE Final Result * Diabetes Foot Exam (07/21/2024) [facility] Diabetes: Annual Foot Exam abstracted Historical Provider HEALTH MAINTENANCE Final Result * Abdominal Aortic Aneurysm Screen (05/18/2021) [facility] Abdominal Aortic Aneurysm (AAA) Screening 1 year fu Anatomical Region Laterality Modality Other Historical Provider HEALTH MAINTENANCE Final Result * Colonoscopy (06/07/2020) [facility] Colonoscopy 7 yr fu Anatomical Region Laterality Modality Other Historical Provider HEALTH MAINTENANCE Final Result * Hepatitis C Screening (10/13/2013) [facility] Hepatitis C Screening negative Historical Provider HEALTH MAINTENANCE Final Result from Last 3 Months or Most Recently [place] [id number] [employer] MEDICARE ADVANTAGE Advance Directives Documents on File Type Date Recorded 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
== END 2025-08-10 11:30 | disposition home or self-care (01) ==
LOC: HO.HOS 10:36
PROVIDERS: PCP Physician Assistant; Visit Provider Orthopaedic Surgery
DX: M25.511 Pain in right shoulder (principal)
CPT/HCPCS: 99024

== ENCOUNTER → 2025-08-10 18:45 | Outpatient (BNV) | payer MEDICARE, SELFPAY | PROVIDERS: PCP Physician Assistant; Visit Provider Radiology Diagnostic Radiology | DX: R41.3 Other amnesia (principal); I67.82 Cerebral ischemia | CPT/HCPCS: 70551 ==

== ENCOUNTER 2025-08-10 18:47 | Outpatient (REF) | payer MEDICARE, SELFPAY ==
--- NOTE | ~2025-08-10 | MR_ITS ---
EXAMINATION: MR BRAIN WITHOUT CONTRAST CLINICAL INFORMATION: R 41.3. Amnesia. COMPARISON: None available. TECHNIQUE: MRI of the brain was obtained using routine sequences without contrast. FINDINGS: No restricted diffusion. No acute intracranial hemorrhage, mass effect, midline shift, hydrocephalus or herniation. Bilateral multifocal punctate subcortical deep white matter hyperintense T2 FLAIR signal involving centrum semiovale and olivares radiata. Keating-white matter differentiation is normal. Prominence of the extra-axial CSF spaces, cerebral sulci, ventricles. Old lacunar infarct right frontal olivares radiata white matter. Flow-void signal within the main cerebral vessels is normal. Sellar/suprasellar region is normal. Craniocervical junction demonstrates normal position of the cerebellar tonsils. No signal abnormality within the hippocampi. Asymmetric volume loss involving mostly the right hippocampus. Mucosal thickening, paranasal sinuses. MR/MR head/brain wo con IMPRESSION: No acute stroke/nonhemorrhagic ischemia or acute intracranial hemorrhage. Global cerebral atrophy. Small vessel occlusive disease. Electronically signed by: Augie Sanches MD 08/11/2025 07:03 AM EDT
== END 2025-08-10 18:48 | disposition home or self-care (01) ==
LOC: HO.MRI 18:47
PROVIDERS: PCP Physician Assistant; Visit Provider Psychiatry & Neurology Neurology
DX: R41.3 Other amnesia (principal); M25.511 Pain in right shoulder
CPT/HCPCS: 70551; 99212

== ENCOUNTER 2025-08-12 08:48 | Outpatient (REF) | payer MEDICARE, SELFPAY ==
--- NOTE | ~2025-08-12 | US_ITS ---
EXAMINATION: US ABDOMEN COMPLETE CLINICAL INFORMATION: R 74.01. Elevation of levels of liver transaminases.. COMPARISON: None available. TECHNIQUE: Real-time ultrasound of the abdomen using grayscale technique. FINDINGS: Limited due to patient's body habitus. PANCREAS: No peripancreatic fluid collections. ABDOMINAL AORTA: The proximal, mid, and distal segments are normal in caliber. INFERIOR VENA CAVA: Visualized portions are normal. LIVER: 19 cm. Increased echotexture. No nodular surface. No solid or cystic lesion detected. No intrahepatic biliary ductal dilatation. GALLBLADDER: Fluid-filled. No pericholecystic fluid collection or gallbladder wall thickening. No distention. COMMON BILE DUCT: 2 mm. RIGHT KIDNEY: 11 cm. Normal echotexture. Normal renal cortical thickness. No hydronephrosis. No gross solid or cystic lesion.. LEFT KIDNEY: 11 cm. Normal echotexture. Normal renal cortical thickness. No hydronephrosis. There is a 2.5 cm well-defined anechoic lesion at the corticomedullary junction of the upper pole. There is a 2.2 cm anechoic lesion at the corticomedullary junction upper pole.. SPLEEN: Not identified.. FREE FLUID: None. US/US abdomen complete IMPRESSION: Hepatomegaly and likely steatosis. No cholelithiasis or choledocholithiasis. No hydronephrosis. Simple cyst, left kidney. No ascites. Electronically signed by: Augie Sanches MD 08/12/2025 09:35 AM EDT
--- OUTSIDE RECORDS SUMMARY | 2025-08-12 09:16 | XMS_ITS | Clinical Summary ---
Author Organization [facility] Address [address] [place] [phone] Phone Care Team Providers Care Truck Cleaner Name Role Phone Unknown, Unknown Primary Care [...] Description 10/01/2025 8:00 AM EST Office Visit [facility] Gastroenterology Clinic [address] [place] [address] Unknown, Unknown, MD Willard, Leonora Russo, PAT [address] [place], [place] [phone] Medical Devices Not on file Insurance A[employer]NA PPO MEDICARE REPLACEMENT AETNA O MEDICARE REPLACEMENT AETNA [facility] MEDICARE REPLACEMENT AETNA O MEDICARE REPLACEMENT AETNA PPO MEDICARE REPLACEMENT AETNA PPO MEDICARE REPLACEMENT Care Teams Truck Cleaner Relationship Specialty Start Date End Date Unknown, Unknown, PCP - General 10/09/24 Additional Source Comments The information contained in this document represents components of the legal health record. It is not the complete legal health record.[facility]
--- OUTSIDE RECORDS SUMMARY | 2025-08-12 09:16 | XMS_ITS | Clinical Summary ---
Author Organization [facility] Address [address] [place] [address] Phone Care Team Providers Care Clinical Operations Leader Name Role Phone Bita Nina MD Primary [...] with long-term current use of insulin ([facility] V24, [facility] V28) INJECT 5 UNITS INTO THE SKIN AT BEDTIME. 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 Do not crush, chew, or split. 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, with long-term current use of insulin ([facility] V24, [facility] V28) Take three times a day before [...] mild COPD by GOLD cl assification ([facility] V24, [facility] V28) 10/23/2019 Radiation cystitis 05/31/2017 Overview (07/08/2024): [...] 9:00 AM EDT Office Visit Endocrinology - [address] [phone] Kristina Dave MD 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, with long-term current use of insulin ([facility] V24, [facility] V28) (Primary Dx) 05/31/2025 Telephone Endocrinology - [id number] [place] [phone] Mary Conklin MA from Last 3 Months Immunizations Immunization Administration Dates Next Due Hepatitis B (Zscyrad-F-Grcar , Recombivax HB-Adult) 19yo and older 07/09/2019,09/10/2018,06/06/2018 [...] COMMENT: robotic assisted prostatectomy CYSTOSCOPY 05/28/2017 PROCEDURE: IA CYSTOURETHROSCOPY; COMMENT: 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, [...] urethral sling OTHER SURGICAL HISTORY 07/2020 PROCEDURE: IA PNCRTECT DSTL STOT W/O PNCRTCOJEJUNOSTOMY OTHER SURGICAL HISTORY 07/2020 PROCEDURE: IA RPR TABDL LMPHADEC EXTNSV W/PEL AORTIC&RNL; COMMENT: 6 lymph nodes removed Medical History Medical History Date Comments Prediabetes 10/05/2013 DX:Prediabetes Mixed hyperlipidemia 06/21/2015 DX:Mixed hy perlipidemia Adenocarcinoma of prostate ( CMS/HCC V24, CMS/HCC V28) 10/05/2013 DX:Adenocarcinoma of prostat e (HCC); COMMENT: Biopsy 04/27/14, [place] 4+3 and no CVA of prostate in [...] long term care social worker insulin use ([facility] V24, [facility] V28) BUN Routine 06/01/2025 10:11 AM EDT Type 2 diabetes mellitus with other specified complication, unspecified whether long term care social worker insulin use (CMS/HCC V24, [facility] V28) HEMOGLOBIN A1C Routine 06/01/2025 10:11 AM EDT Type 2 diabetes mellitus with other specified complication, unspecified whether long term care social worker insulin use ([facility] V24, [facility] V28) MICROALBUMIN CREATININE URINE RATIO Routine 06/01/2025 10:11 AM EDT Type 2 diabetes mellitus with other specified complication, unspecified whether fdc insulin use ([facility] V24, [facility] V28) LIPID PANEL WITH REFLEX TO DIRECT [...] LAB CHEMISTRY METHOD 06/01/2025 6:11 PM EDT [facility] Microalb, Ur 16.0 0.0 - 29.0 mg/L LAB CHEMISTRY METHOD 06/01/2025 6:11 PM EDT [facility] Microalb/Creat Ratio 12 <30 mg/g creat LAB CHEMISTRY METHOD 06/01/2025 6:11 PM EDT [facility] Urine Urine specimen obtained by clean catch procedure / Unknown Non-blood Collection / Unknown 06/01/2025 10:11 AM EDT 06/01/2025 10:11 AM EDT us Kristina Dave MD LAB URINE ORDERABLES Final Resul t [facility] [address] [place] [address], [place] [phone] * Creatinine (06/01/2025 10:11 AM EDT) Creatinine 1.20 0.70 - 1.30 mg/dL LAB CHEMISTRY METHOD 06/01/2025 2:23 PM EDT [facility] eGFR 63 >=60 mL/min/1. 73m2 LAB CHEMISTRY METHOD 06/01/2025 2:23 PM EDT [facility] Comment:Calculation based on the Chronic Kidney Disease Epidemiology Collaboration (CKD-EPI) equation refit without adjustment for race. Blood Venous blood specimen / Unknown Venipuncture / Unknown 06/01/2025 10:11 AM EDT 06/01/2025 10:11 AM EDT us Kristina Dave MD LAB BLOOD ORDERABLES Final Resul t [facility] [address] [place] [address], [place] [phone] * BUN (06/01/2025 10:11 AM EDT) BUN 19 5 - 25 mg/dL LAB CHEMISTRY METHOD 06/01/2025 2:23 PM EDT [facility] Blood Venous blood specimen / Unknown Venipuncture / Unknown 06/01/2025 10:11 AM EDT 06/01/2025 10:11 AM EDT us Kristina Dave MD LAB BLOOD ORDERABLES Final Resul t [facility] [address] [place] [address], [place] [phone] * (ABNORMAL) Hemoglobin A1c (06/01/2025 10:11 AM EDT) Hemoglobin A1C 8.7(H) <6.5 % LAB CHEMISTRY METHOD 06/01/2025 5:59 PM EDT [facility] Mean Bld Glu Estim. 203 mg/dL LAB CHEMISTRY METHOD 06/01/2025 5:59 PM EDT [facility] Blood Venous blood specimen / Unknown Venipuncture / Unknown 06/01/2025 10:11 AM EDT 06/01/2025 10:11 AM EDT us Kristina Dave MD LAB BLOOD ORDERABLES Final Resul t [facility] [address] [place] [address], [place] [phone] * (ABNORMAL) Lipid panel with reflex to direct LDL (02/16/2025 9:36 AM EDT) Cholesterol 138 0 - 200 mg/dL LAB CHEMISTRY METHOD 02/16/2025 1:40 PM EDT [facility] Triglycerides 383(H) 0 - 150 mg/dL LAB CHEMISTRY METHOD 02/16/2025 1:40 PM EDT [facility] HDL 44 >=40 mg/dL LAB CHEMISTRY METHOD 02/16/2025 1:40 PM EDT [facility] LDL Calculated 17 0 - 100 mg/dL LAB CHEMISTRY METHOD 02/16/2025 1:40 PM EDT [facility] VLDL Cholesterol Bob 76.6 mg/dL LAB CHEMISTRY METHOD 02/16/2025 1:40 PM T [facility] Non HDL Chol. (LDL+VLDL) 94 <145 mg/dL LAB CHEMISTRY METHOD 02/16/2025 1:40 PM EDT [facility] Chol/HDL Ratio 3.1 0.0 - 4.4 LAB CHEMISTRY METHOD 02/16/2025 1:40 PM [facility] Blood Venous blood specimen / Unknown Venipuncture / Unknown 02/16/2025 9:36 AM EDT 02/16/2025 9:36 AM EDT Kristina Dave MD LAB BLOOD ORDERABLES Final Resul t [facility] [address] [place] [address], [place] [phone] * Diabetes Eye Exam (07/28/2024) [facility] Diabetes: Annual Retina Eye Exam abstracted Historical Provider HEALTH MAINTENANCE Final Result * Diabetes Foot Exam (07/21/2024) [facility] Diabetes: Annual Foot Exam abstracted Historical Provider HEALTH MAINTENANCE Final Result * Abdominal Aortic Aneurysm Screen (05/18/2021) [facility] Abdominal Aortic Aneurysm (AAA) Screening 1 year fu Anatomical Region Laterality Modality Other Historical Provider HEALTH MAINTENANCE Final Result * Colonoscopy (06/07/2020) [facility] Colonoscopy 7 yr fu Anatomical Region Laterality Modality Other Historical Provider HEALTH MAINTENANCE Final Result * Hepatitis C Screening (10/13/2013) [facility] Hepatitis C Screening negative Historical Provider HEALTH MAINTENANCE Final Result from Last 3 Months or Most Recently [place]vant [id number] [employer] MEDICARE ADVANTAGE Advance Directives Documents on File Type Date Recorded 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
== END 2025-08-12 08:49 | disposition home or self-care (01) ==
LOC: HO.US 08:48
PROVIDERS: PCP Physician Assistant; Visit Provider Physician Assistant
DX: R74.01 Elevation of levels of liver transaminase levels (principal); R19.7 Diarrhea, unspecified; Z85.07 Personal history of malignant neoplasm of pancreas
CPT/HCPCS: 76700

== ENCOUNTER → 2025-08-12 08:50 | Outpatient (BNV) | payer MEDICARE, SELFPAY | PROVIDERS: PCP Physician Assistant; Visit Provider Radiology Diagnostic Radiology | DX: R16.0 Hepatomegaly, not elsewhere classified (principal); N28.1 Cyst of kidney, acquired | CPT/HCPCS: 76700 ==

== ENCOUNTER 2025-08-31 08:16 | Outpatient (AMB) | payer MEDICARE, SELFPAY ==
--- NOTE | 2025-08-31 08:21 | MHC.OFFVIS ---
Vital Signs 08/31/25 08:22 Height 5 ft 11 in Weight 243 lb 6.245 oz BMI 33.9 BP 122/84 Blood Pressure Location Rt brachial Position Sitting Pulse 64 Pulse Source Pulse Oximeter Pulse Oximetry (%) 95 Oxygen Delivery Method Room Air Intake Visit Reasons: Type II diabetes Intake Note: Patient present today for T2DM. Patient receives Freestyle Sandro 3 Plus through: [facility] Last Diabetic Eye exam: approx 6 months ago, [facility] Last Podiatry Visit: Does not see a Chronometer Adjuster Random Glucose: 149 mg/dl Hgb A1C: 8.3% Scanning Clerk Required: No Accompanied by: Self / Same As Patient Allergies Gadolinium-Containing Contrast Medi Allergy (Unknown, Verified 08/31/25 08:27) watery eyes, watery itchy nose, coughing lisinopril Allergy (Unknown, Verified 08/31/25 08:27) Unknown Medication List - Last Reconciled 08/31/25 by ZACHARY Wong acetaminophen 1,000 mg PO BEDTIME amlodipine 2.5 mg PO DAILY atorvastatin 40 mg PO DAILY blood sugar diagnostic (OneTouch Ultra Test strips) As directed blood-glucose meter (OneTouch Ultra2 Meter) As directed cetirizine 10 mg PO DAILY cholecalciferol (vitamin D3) 25 mcg PO DAILY cyanocobalamin (vitamin B-12) 1,000 mcg PO DAILY fenofibrate 54 mg PO DAILY 30 days insulin aspart U-100 (Novolog FlexPen U-100 Insulin aspart) subcutaneously; administer 16 units before breakfast, 20 units before lunch and 22 units before dinner 90 days insulin glargine (Lantus Solostar U-100 Insulin) 16 units subcut QPM lancets (OneTouch Delica Plus Lancet) As directed latanoprost 0.005% 1 drp ophthalmic (eye) BEDTIME metformin ER (Glucophage XR) 1,000 mg (2 x 500 mg) PO BID 90 days multivitamin 1 tab PO DAILY pen needle, diabetic As directed tolterodine 2 mg PO BID [vitamin a PO] HPI Comments Details: This is a 74-year-old male with a past medical history of type 2 diabetes, pancreatic cancer, prostate cancer, hyperlipidemia, hypertension and obesity presenting for diabetic management. He was diagnosed with diabetes 6 years ago following surgery for pancreatic cancer. Previously followed by [facility] endocrinology. Hemoglobin a1c 8.3% today. Reviewed CGM data G AK 7.7% Very high 12% High 38% Target range 50% 0% hypoglycemia Patient has hyperglycemia during the day with postprandial increases after lunch and dinner. His fasting sugars are mostly within target range. Denies hypoglycemic episodes. Current medication regimen: Metformin ER 1000 mg twice daily, Lantus 14 units nightly, NovoLog before meals. Past medication: Patient has diarrhea for the past 6 months, and he has been referred to Gastroenterology. He has been on metformin for many years without having diarrhea, and it was switched to extended release to see if this would help, but it did not make a difference. Jardiance and Farxiga were too expensive. Avoids GLP 1 due to history of pancreatic cancer. Diet: Breakfast-eggs with toast or a small cup of cereal Lunch-sandwich Dinner-protein, veggies and a carbohydrate Snacks/desserts: He has fruit before bedtime. Hypoglycemia episodes: None recently Hyperglycemia symptoms: None Microvascular complications: None Macrovascular complications: TIA 2011 Patient reports that he is having a cardiovascular evaluation due to an episode of dyspnea and diaphoresis after exertion a month ago. He has a stress test, echocardiogram and sleep study scheduled. Hypertension: treated with amlodipine. Allergy to lisinopril. His diastolic blood pressure is mildly elevated today, but it was normal at his last visit. Hyperlipidemia: treated with atorvastatin, fenofibrate ROS: Constitutional: No unexplained weight loss, fever, chills or night sweats Eyes: No vision changes Respiratory: No shortness of breath Cardiovascular: No chest pain Gastrointestinal: No blood in stools, anorexia, nausea, vomiting or abdominal pain. +diarrhea per HPI Endocrine: No cold or heat intolerance. No polyuria or polydipsia. Physical exam: Constitutional: Alert, in no distress. Neck: Supple, Full range of motion. No lymphadenopathy. No palpable thyroid masses. Respiratory: Clear to auscultation. Cardiovascular: S1 S2 regular. No murmurs. [facility] Medical History (Updated 07/15/25 @ 08:22 by Darlene Butler MD) Word finding difficulty Skin cancer Prostate cancer Hx of radiation therapy Arthritis Incontinence Pancreatic cancer Nephritis Cough HTN (hypertension) TIA (transient ischemic attack) Surgical History H/O shoulder surgery H/O colonoscopy Hx of splenectomy History of bladder surgery History of pancreatectomy H/O prostatectomy Family History Father Leukemia Social History Housing: House Are you a primary lawn care technician to a significant other at home: No Do you presently have visiting nurse or other home services: No Alcohol intake: current Alcohol intake frequency: a few times a week Comment: light beer and occasionally a glass of wine Patient Tobacco Use Status: Former Tobacco user Tobacco use type: Cigarette Years Smoked: 3 e-Cigarette/Vaping Use: Never Used Second Hand Smoke Exposure: No service: No Current occupational status: retired Cognitive needs: No Hearing needs: No Vision needs: No Physical Exam Vital Signs: Last Vital Signs Pulse 64 08/31/25 08:22 BP 122/84 08/31/25 08:22 Pulse Ox 95 08/31/25 08:22 Oxygen Delivery Method Room Air 08/31/25 08:22 BMI result Body Mass Index 33.9 Office Procedures Glucose Monitoring Details Details: See [facility] [address] - Glucose monitoring, continuous-physician I&R Procedure code (CPT) selection complete Results AMB Hemoglobin A1c AMB Hemoglobin A1c 8.3 % Last Edit by DELON Rivera on 08/31/25 08:52 Results Reviewed Results Reviewed: Laboratory Last Values Glucose (Clinic) 149 mg/dL (60-115) H 08/31/25 08:29 Laboratory Tests 02/16/25 06/03/25 07/15/25 09:16 15:14 08:28 Creatinine Estimated GFR C-Peptide Triglycerides 222 H Cholesterol 139 LDL Cholesterol, Calc 63 HDL Cholesterol 32 L Vitamin B12 302 Urine Creatinine 169.63 Urine Microalbumin 48.0 Microalb/Creat Ratio 28.2 08/03/25 10:26 Creatinine 1.11 Estimated GFR > 60 C-Peptide 2.67 Triglycerides Cholesterol LDL Cholesterol, Calc HDL Cholesterol Vitamin B12 Urine Creatinine Urine Microalbumin Microalb/Creat Ratio Assessment & Plan Assessment & Plan (1) Uncontrolled type 2 diabetes mellitus with hyperglycemia, with long-term current use of insulin: Code(s): E11.65 - Type 2 diabetes mellitus with hyperglycemia; Z79.4 - terminal worker (current) use of insulin Category: Medical Plan In summary this is a 74-year-old male with type 2 diabetes due to pancreatic injury. Continue metformin extended release 1000 mg twice daily. Continue Lantus to 16 units nightly. Continue NovoLog to 16 units before breakfast, and increase to 18 units before lunch and 22 units before dinner. We discussed Actos, but he would like to avoid this considering he has a history of cancer, and Actos may increase likelihood of bladder cancer. He is not a good candidate for a GLP 1 due to history of pancreatic cancer. We discussed trying Invokana, however he reports a history of splenectomy, and there is concern about potential genitourinary infections. Reviewed treatment of hypoglycemia. Diabetic diet reviewed. He met with a dietitian at [facility]. Declines referral to educator senior clinical and dietitian at this time. Follow up in 6 weeks. Orders: Orders AMB Hemoglobin A1c Today E11.65 - Type 2 diabetes mellitus with hyperglycemia, E11.9 - Type 2 diabetes mellitus without complications, Z13.9 - Encounter for screening, unspecified, Z79.4 - [facility] (current) use of insulin AMB Glucose Monitoring Today E11.9 - Type 2 diabetes mellitus without complications Medications: New metformin ER (Glucophage XR) 1,000 mg (2 x 500 mg) PO BID 360 tabs 1RF 90 days Changed From insulin aspart U-100 (Novolog FlexPen U-100 Insulin aspart) subcut To insulin aspart U-100 (Novolog FlexPen U-100 Insulin aspart) subcutaneously; administer 16 units before breakfast, 20 units before lunch and 22 units before dinner 60 mL 1RF 90 days Patient Instructions: Continue metformin extended release 1000 mg twice daily. Continue Lantus to 16 units nightly. Continue NovoLog to 16 units before breakfast, increase to 20 units before lunch and 22 units before dinner. If you experience low blood sugar, treat this by eating a chewable fruit candy like skittles or jelly beans (about 8 pieces), 4 ounces (1/2 cup) of fruit juice (not diet), 1 tablespoon of honey or 4 glucose tablets. If your blood sugar is under 50, take double the amount of one of the above. Recheck your blood sugar in 15 minutes. Coding Level of Care Code Est Pt Level 4 (48255) Diagnoses Uncontrolled type 2 diabetes mellitus with hyperglycemia, with long-term current use of insulin E11.65; Z79.4 CPT Codes Details - CPT: 77701 - Glucose monitoring, continuous-physician I&R ([id number])
[2025-08-31 08:22] VITALS: BP 122/84; PULSE 64; O2SAT 95; BMI 33.9
--- OUTSIDE RECORDS SUMMARY | 2025-08-31 08:22 | XMS_ITS | Clinical Summary ---
Author Organization [facility] Address [address] [place] [phone] Phone Care Team Providers Care Body Service Team Member Name Role Phone Unknown, Unknown Primary Care [...] Description 10/01/2025 8:00 AM EST Office Visit [facility] Gastroenterology Clinic [address] [place] [address] Unknown, Unknown, MD Willard, Leonora Russo, PAT [address] [place], [place] [phone] Medical Devices Not on file Insurance A[employer] PPO MEDICARE REPLACEMENT AETNA O MEDICARE REPLACEMENT AETNA [facility] MEDICARE REPLACEMENT AETNA O MEDICARE REPLACEMENT AETNA PPO MEDICARE REPLACEMENT AETNA PPO MEDICARE REPLACEMENT Care Teams Body Service Team Member Relationship Specialty Start Date End Date Unknown, Unknown, PCP - General 10/09/24 Additional Source Comments The information contained in this document represents components of the legal health record. It is not the complete legal health record.[facility]
[2025-08-31 08:32] LABS: Glucose, Whole Blood 149 mg/dL (60-115)
== END 2025-08-31 09:00 | disposition home or self-care (01) ==
LOC: HO.ENCR 08:17
PROVIDERS: PCP Physician Assistant; Visit Provider Physician Assistant Medical
DX: Z13.9 Encounter for screening, unspecified (principal); E11.9 Type 2 diabetes mellitus without complications; E11.65 Type 2 diabetes mellitus with hyperglycemia; Z79.4 Long term (current) use of insulin

== ENCOUNTER → 2025-08-31 08:16 | Outpatient (BNVA) | payer MEDICARE, SELFPAY | PROVIDERS: PCP Physician Assistant; Visit Provider Physician Assistant Medical | DX: E11.65 Type 2 diabetes mellitus with hyperglycemia (principal); Z79.4 Long term (current) use of insulin | CPT/HCPCS: 82947; 83036; 99212 ==

== ENCOUNTER → 2025-09-06 08:28 | Outpatient (REF) | payer MEDICARE, SELFPAY ==
--- NOTE | 2025-09-06 08:43 | CA_ITS ---
Acquisition Time: 2025-09-06 09:44:40 Total Exercise Time: 00:06:57 Test Indications: DYSPNEA ON EXTERION Medications: AMLODIPINE ATROVASTATIN Protocol: HANNAH Max HR: 122 BPM 83% of Pred: 146 BPM Max BP: 172/80 mmHG Max Work Load: 8.4 METS Exercise stress test with exercise 6 mins 57 secs of Hannah Protocol, achieving 85% MPHR, with reports of moderate SOB, with isolated PACs and PVCs, with normotenisve response to exercise. With baseline T wave abnormality, with T wave inversion with exercise, warranting further eval. In recovery, breathing returned to baseline. Will recommend nuclear stress test for further evaluation. Test reviewed with Dr. Louis. Referred By: Anne-Marie Markham Electronically Signed By: Jeffery Landeros
--- NOTE | 2025-09-06 08:43 | CA_ITS ---
Transthoracic Echocardiogram Patient (Last, First, Middle): Valente Pagan E Gender: M Date of : 1950 Age: 74 Procedure Date: 09/06/2025 Procedure Type: Transthoracic Echocardiogram Location: OP Height: 180.34 cm Weight: 106.14 kg BSA: 2.25 m2 Heart Rate: 65 bpm BP: 122 / 80 mmHg Snuff Grinder: SB Referring MD: Anne-Marie Markham PA-C Symptoms: I10 - Essential (primary) hypertension Study Quality: Adequate w contrast ECG Rhythm: Sinus Conclusions: - The left ventricular systolic function is low normal. The visually estimated ejection fraction is between 50-55%. - No obvious valvular pathology seen on this study. Findings Procedure Information Contrast agent, definity, is being given per protocol without apparent complications. The quality of the study was technically difficult. The study quality is limited by patients body habitus and lung artifact. Left Ventricle Normal left ventricular cavity size. There is mildly increased left ventricular wall thickness. The left ventricular systolic function is low normal. The visually estimated ejection fraction is between 50-55%. There is no evidence of regional wall motion abnormalities. Right Ventricle Normal right ventricular cavity size and systolic function. Atria Both atria are normal in size. Aortic Valve There is a normal trileaflet aortic valve. There is no aortic valve stenosis. There is no aortic valve regurgitation. Mitral Valve The mitral valve appears normal. There is no mitral valve regurgitation. There is no mitral valve stenosis. Pulmonic Valve The pulmonic valve is likely normal. Tricuspid Valve There is mild tricuspid valve regurgitation. There is no evidence of pulmonary hypertension. Great Vessels The asc aorta is normal in size. Venous The inferior vena cava was not well visualized. Pericardium/Pleural Prominent epicardial adipose tissue noted. There is no evidence of pericardial effusion. Prior Study Comparison No prior study available for comparison. Recommendations, Care & Conclusions No obvious valvular pathology seen on this study. Measurements 2D Linear Measurements IVSd: 1.25 0.6-0.9/0.6-1.0 cm LVIDd: 3.72 3.9-5.3/4.2-5.9 cm LVIDd Index: 1.65 2.4-3.2/2.2-3.1 cm/m2 LVIDs: 3.00 2.0-3.6 cm LVPWd: 1.19 0.7-1.1 cm LA Diam: 4.00 2.7-3.8/3.0-4.0 cm LAIDs Index: 1.78 1.5-2.3 cm/m2 LV Mass: 189.56 67-162/88-224 g LV Mass Index: 84.25 43-95/49-115 g/m2 LVOT Diam: 2.40 3.0+(-)1.3 cm 2D Systolic Function EF 4C: 53.50 >55% EF 2C: 50.80 >55% EF BiP: 50.40 >55% Mitral Valve MV Pk E: 0.62 MV PK A: 0.73 MV Decel Time: 230.00 E/A: 0.80 E'Lateral: 5.55 E'Medial: 6.53 E/E' Med: 9.40 E/E' Lat: 11.10 PHT: 68.00 MVA PHT: 3.24 Decel Huron: 2.68 Aortic Valve AoV Pk Lenny: 1.39 AoV Mn Lenny: 0.96 AoV VTI: 0.31 AoV Pk Grad: 8.00 Aov Mn Grad: 4.00 PATRICIA Cont.VTI: 2.78 LVOT LVOT Pk Lenny: 0.90 LVOT Mn Lenny: 0.64 LVOT VTI: 0.19 LVOT Pk Grad: 3.00 LVOT Mn Grad: 2.00 LVOT Diam: 2.40 LVOT Area: 4.52 Diastolic Function MV Pk E: 0.62 MV Pk A: 0.73 E/A: 0.80 E'Medial: 6.53 E/E' Med: 9.40 E' Laterial: 5.55 E/E' Lat: 11.10 Right Ventricle TAPSE (mm): 20.90 TVS' Lenny: 11.00 Tricuspid Valve TR Pk Lenny: 2.47 TR Pk Grad: 24.00 RA Press: 3.00 RVSP: 27.00 Great Vessels Aorta Sinus of Valsalva: 3.40 2.0-3.5 cm Ao Asc: 3.30 2.1-3.4 cm Pulmonary Valve PV Pk Lenny: 1.34 Peak PV Grad: 7.00 Updated in Other Vendor System with Status of Final Russell Louis MD electronically signed on 09/06/2025 11:56:50 AM with status of Final
--- OUTSIDE RECORDS SUMMARY | 2025-09-06 08:45 | XMS_ITS | Clinical Summary ---
Author Organization [facility] Address [address] [place] [address] Phone Care Team Providers Care Machine Shop Helper Name Role Phone Unavailable Primary Care Provider Unavailabl e Allergies Active Allergy Reactions Criticality Noted Date [...] complication, with long-term current use of insulin ([facility] V24, [facility] V28) INJECT 5 UNITS INTO THE SKIN AT BEDTIME. 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, with long-term current use of insulin ([facility] V24, [facility] V28) Check sugars upto 2 times a day 200 each 3 4 Active pen needle, diabetic 32 gauge x needleIndicatio ns: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, with long-term current use of insulin ([facility] V24, [facility] V28) USE UP TO 4 TIMES A DAY 300 each 3 4 Active metFORMIN XR (GLUCOPHAGE-XR) 500 mg 24 hr tabletIndicatio ns: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, with long-term current use of insulin ([facility] V24, [facility] V28) Take 2 tablets (1,000 mg total) by mouth 2 (two) times a day. Do not crush, chew, or split. 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, with long-term current use of insulin ([facility] V24, [facility] V28) Take three times a day before meals max up to 70 units day. Please provide 90 day supply 90 mL 2 5 Active Additional Information Patient not taking.Reported on 06/02/2025 Active Problems Problem Noted Date Diagnosed Date Class 1 obesity 07/20/2024 Glaucoma 12/07/2020 Overview (07/08/2024): Sees Dr. 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 Incidental finding. 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 ([facility] V24, [facility] V28) [...] neg CXR, EKG Q III Diabetes mellitus ([facility] V24, [facility] V28) Exposure to asbestos 10/05/2013 Hypertriglyceridemia 10/05/2013 Shoulder sprain 10/05/2013 Immunizations Immunization Administration Dates Next Due Hepatitis B (Tbnlaxp-X-Smrca , Recombivax HB-Adult) 19yo and older 07/09/2019,09/10/2018,06/06/2018 [...] COMMENT: robotic assisted prostatectomy CYSTOSCOPY 05/28/2017 PROCEDURE: VT CYSTOURETHROSCOPY; COMMENT: 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, [...] urethral sling OTHER SURGICAL HISTORY 07/2020 PROCEDURE: VT PNCRTECT DSTL STOT W/O PNCRTCOJEJUNOSTOMY OTHER SURGICAL HISTORY 07/2020 PROCEDURE: VT RPR TABDL LMPHADEC EXTNSV W/PEL AORTIC&RNL; COMMENT: 6 lymph nodes removed Medical History Medical History Date Comments Prediabetes 10/05/2013 DX:Prediabetes Mixed hyperlipidemia 06/21/2015 DX:Mixed hy perlipidemia Adenocarcinoma of prostate ( CMS/HCC V24, CMS/HCC V28) 10/05/2013 DX:Adenocarcinoma of prostat e (HCC); COMMENT: Biopsy 6/17/14, Sidney's 4+3 and no CVA of prostate in [...] DX:Diabetes mellitus type 2, controlled, with complications ([facility]) Family History Medical History Relation Name Comments [...] RSV Immunization Adult Patients (1 - Risk 50-74 years 1-dose series) 2000 COVID-19 Vaccine (3 - Pfizer risk series) [...] Procedure Name Priority Date/Time Associated Diagnosis Comments MICROALBUMIN CREATININE URINE RATIO Routine 06/01/2025 10:11 AM EDT Type 2 diabetes mellitus with other specified complication, unspecified whether mcfp insulin use ([facility] V24, [facility] V28) CREATININE, SERUM Routine 06/01/2025 10: 11 AM EDT Type 2 diabetes mellitus with other specified complication, unspecified whether mcfp insulin use ([facility] V24, [facility] V28) HEMOGLOBIN A1C Routine 06/01/2025 10:11 AM EDT Type 2 diabetes mellitus with other specified complication, unspecified whether lathe sander insulin use ([facility] V24, [facility] V28) LIPID PANEL WITH REFLEX [...] LAB CHEMISTRY METHOD 06/01/2025 6:11 PM EDT [facility] Microalb, Ur 16.0 0.0 - 29.0 mg/L LAB CHEMISTRY METHOD 06/01/2025 6:11 PM EDT [facility] Microalb/Creat Ratio 12 <30 mg/g creat LAB CHEMISTRY METHOD 06/01/2025 6:11 PM EDT [facility] Urine Urine specimen obtained by clean catch procedure / Unknown Non-blood Collection / Unknown 06/01/2025 10:11 AM EDT 06/01/2025 10:11 AM EDT Kristina Dave MD LAB URINE ORDERABLES Final Resul t [facility] [address] [place] [address], [place] [phone] * Creatinine (06/01/2025 10:11 AM EDT) Creatinine 1.20 0.70 - 1.30 mg/dL LAB CHEMISTRY METHOD 06/01/2025 2:23 PM EDT [facility] eGFR 63 >=60 mL/min/1. 73m2 LAB CHEMISTRY METHOD 06/01/2025 2:23 PM EDT [facility] Comment:Calculation based on the Chronic Kidney Disease Epidemiology Collaboration (CKD-EPI) equation refit without adjustment for race. Blood Venous blood specimen / Unknown Venipuncture / Unknown 06/01/2025 10:11 AM EDT 06/01/2025 10:11 AM EDT Kristina Dave MD LAB BLOOD ORDERABLES Final Resul t Performing Organization Address [facility]/ZIP Co de Phone Number [facility] [address] [place] [address], [place] [phone] * (ABNORMAL) Hemoglobin A1c (06/01/2025 10:11 AM EDT) Hemoglobin A1C 8.7(H) <6.5 % LAB CHEMISTRY METHOD 06/01/2025 5:59 PM EDT [facility] Mean Bld Glu Estim. 203 mg/dL LAB CHEMISTRY METHOD 06/01/2025 5:59 PM EDT [facility] Blood Venous blood specimen / Unknown Venipuncture / Unknown 06/01/2025 10:11 AM EDT 06/01/2025 10:11 AM EDT Kristina Dave MD LAB BLOOD ORDERABLES Final Resul t Performing Organization Address [facility] Co de Phone Number [facility] [address] [place] [address], [place] [phone] * (ABNORMAL) Lipid panel with reflex to direct LDL (02/16/2025 9:36 AM EDT) [facility] Cholesterol 138 0 - 200 mg/dL LAB CHEMISTRY METHOD 02/16/2025 1:40 PM EDT [facility] Triglycerides 383(H) 0 - 150 mg/dL LAB CHEMISTRY METHOD 02/16/2025 1:40 PM EDT [facility] HDL 44 >=40 mg/dL LAB CHEMISTRY METHOD 02/16/2025 1:40 PM EDT [facility] LDL Calculated 17 0 - 100 mg/dL LAB CHEMISTRY METHOD 02/16/2025 1:40 PM EDT [facility] VLDL Cholesterol Bob 76.6 mg/dL LAB CHEMISTRY METHOD 02/16/2025 1:40 PM EDT [facility] Non HDL Chol. (LDL+VLDL) 94 <145 mg/dL LAB CHEMISTRY METHOD 02/16/2025 1:40 PM EDT [facility] Chol/HDL Ratio 3.1 0.0 - 4.4 LAB CHEMISTRY METHOD 02/16/2025 1:40 PM EDT [facility] Blood Venous blood specimen / Unknown Venipuncture / Unknown 02/16/2025 9:36 AM EDT 02/16/2025 9:36 AM EDT Kristina Dave MD LAB BLOOD ORDERABLES Final Resul t [facility] [address] [place] [address], [place] [phone] * Diabetes Eye Exam (07/28/2024) [facility] Diabetes: Annual Retina Eye Exam abstracted Historical [facility] Final Result * Diabetes Foot Exam (07/21/2024) [facility] Diabetes: Annual Foot Exam abstracted Historical [facility] Final Result * Abdominal Aortic Aneurysm Screen (05/18/2021) [facility] Abdominal Aortic Aneurysm (AAA) Screening 1 year fu Anatomical Region Laterality Modality Other Historical [facility] Final Result * Colonoscopy (06/07/2020) [facility] Colonoscopy 7 yr fu Anatomical Region Laterality Modality Other Historical [facility] Final Result * Hepatitis C Screening (10/13/2013) [facility] Hepatitis C Screening negative Historical [facility] Final Result from Last 3 Months or Most Recently Relevant to Health Maintenance Insurance [facility] [place] [id number] A[employer] MEDICARE ADVANTAGE Advance Directives Documents on File Type Date Recorded Patient 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
--- OUTSIDE RECORDS SUMMARY | 2025-09-06 08:45 | XMS_ITS | Clinical Summary ---
Author Organization [facility] Address [address] [place] [address] Phone Care Team Providers Care Rehab Services Aide Name Role Phone Unknown, Unknown Primary Care [...] Description 10/01/2025 8:00 AM EST Office Visit [facility] [address] [place] [address] Unknown, Unknown, MD Willard, Leonora Russo, PAT [address] [place], [place] [id number] Medical Devices Not on file Insurance [employer] PPO MEDICARE REPLACEMENT AETNA O MEDICARE REPLACEMENT AETNA [facility] MEDICARE REPLACEMENT AETNA O MEDICARE REPLACEMENT AET[employer] PPO MEDICARE REPLACEMENT A[employer] PPO MEDICARE REPLACEMENT Care Teams Rehab Services Aide Relationship Specialty Start Date End Date Unknown, Unknown, PCP - General 10/09/24 Additional Source Comments The information contained in this document represents components of the legal health record. It is not the complete legal health record.[facility]
== END ==
LOC: HO.CARD 08:28
PROVIDERS: PCP Physician Assistant; Visit Provider Physician Assistant
DX: I10 Essential (primary) hypertension (principal); E78.5 Hyperlipidemia, unspecified; R06.09 Other forms of dyspnea; R94.39 Abnormal result of other cardiovascular function study
CPT/HCPCS: 93017; 93306; Q9957

== ENCOUNTER → 2025-09-06 08:43 | Outpatient (BNV) | payer MEDICARE, SELFPAY | PROVIDERS: PCP Physician Assistant; Visit Provider Internal Medicine | DX: R06.02 Shortness of breath (principal); I36.1 Nonrheumatic tricuspid (valve) insufficiency; I10 Essential (primary) hypertension; I49.1 Atrial premature depolarization; I49.3 Ventricular premature depolarization | CPT/HCPCS: 93016; 93018; 93350; 93352 ==

== ENCOUNTER 2025-09-30 12:23 | Outpatient (RCR) | payer MEDICARE, SELFPAY ==
--- NOTE | 2025-10-01 15:45 | MHC.SP.ADU ---
Referring provider: Darlene Butler MD Reason for Referral: Cognitive Evaluation Type of Treatment: 19846 Standardized Cognitive Performance Testing, per hour Date of Plan of Treatment: 09/30/25 Onset of Symptoms/Illness: 07/15/25 Date Treatment Started: 09/30/25 Medical Diagnosis: R47.89 Other Speech Disturbances Primary Speech Language Diagnosis: R41.841 Cognitive communication disorder History Valente is a 75 year old male who was referred to [facility] for further cognitive testing by Darlene Butler MD at [facility] Neurology and [facility]. Per the referral note: ?He started noticing short term recall issues about 1 year ago and has been worsening since then. He has trouble remembering names of people he has known for years, goes to a room and forgets why he went there etc?. His mother had dementia and at age 82.? Valente reports that his memory is okay but he requires extensive thought processing time. He reports that when he is asked a question he may have to call a person back a few hours later to give them an answer. Valente reports that his /family has more concerns with his memory and hearing than he does. Valente scored a 24/30 on the Alexander Cognitive Assessment (MoCA)?with Dr. Darlene Butler; normal range for this test is 26 or greater. Valente reports no troubles with word finding, losing track of thoughts during conversations, clarity and formation of speech, or any speech disturbances. Valente is retired, he was employed and worked on [employer]. 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 Medical History: Skin cancer, prostate cancer, history of radiation therapy, arthritis, pancreatic cancer, nephritis, cough, HTN, TIA Recent Hospitalizations: No Respiratory Needs: Room Air Patient Orientation: Alert & Oriented x 4 Social History: Employment Status: Retired Highest level of education obtained: Completed High School/GED Current Living Situation: Valente currently resides in a private residence with his Assistive Devices in use: Glasses/Contacts Other Therapies Seen in Current Calendar Year: Occupational Therapy, Physical Therapy (for shoulder) Reported Speech, Language, Cognition difficulties: Memory Comments: Valente reports memory is okay but does require extensive thought processing in order to retain and recall Quality of Life: Valente reports no changes in quality of life due to cognitive functioning Patient Stated Goal of Speech-Language Therapy: Further evaluate cognitive functioning and determine need for further therapy Assessment Tests of Cognition: RBANS Clinical Impression: Intact Observations: Valente completed the Repeatable Battery for the Assessment of Neuropsychological Status (RBANS) IMMEDIATE MEMORY: This domain assesses the individual?s ?ability to remember information immediately after it is presented.? For the ?List Learning? task, Valente was read a list of 10 words and asked to repeat back as many words as he could. He was given this list four times. On the first trial, Valente was able to immediately recall 5/10 words. In the second trial, he was able to recall 6/10 words. On the third trial, he was able to recall 7/10 words. In the fourth and last trial, he was able to recall 8/10 words. Valente had some repetition of words and would ask, ? I said ___ ,right??. On the ?Story Memory? task, a brief story is read by the examiner two times, with the subject required to repeat back as much as they remember each time. Valente initially recalled 5/12 items. He greatly improved on the second trial and was able to recall 9/12 items. Both scores on ?List Learning? and on ?Story Memory? fell into the Average range. Both scores, cumulatively on the composite score for Immediate Memory were Average, indicating an area of no difficulties for Valente. List Learning Scaled Score: 9 Interpretation: Average Story Memory Scaled Score: 8 Interpretation: Average Immediate Memory Index Score: 90 Interpretation: Average VISUOSPATIAL/CONSTRUCTIONAL: This domain assesses the individual?s ?ability to perceive spatial relations and to construct a spatially accurate copy of a drawing.? During the Figure Copy task, Valente was given an example of a specific figure to copy onto a piece of paper. Individuals are scored on both the drawing accuracy and placement of 10 different target items. Valente?s drawing was greatly accurate to the example drawing; unfortunately most shapes were unclosed, heavily impacting score, demonstrating a Extremely Low score. Valente demonstrated some difficulties on the Line Orientation task, in which an individual is asked to transpose two line segments of an angle to a compass diagram above it, in order to label each segment. Valente made 7 errors resulting in a score of 13/20. His score fell into the Low Average range. Both scores, cumulatively on the composite score for Visuospatial/Constructional were Extremely Low. Likely this score due to the specific scoring measures for Figure Copy requiring all unclosed shapes to be marked incorrect; Valente himself reports no difficulties in this area. Figure Copy Scaled Score: 1 Interpretation: Extremely Low Line Orientation Percentile Group: 10-16 Interpretation: Low Average Visuospatial/Constructional Index Score: 64 Interpretation: Extremely Low LANGUAGE: This domain assesses the individual?s ?ability to respond verbally to either naming or retrieving learned material.? Valente was asked to label various line drawings in responsive naming tasks and then asked to name as many animals found in a zoo as they could in one minute in a Semantic Fluency task. Valente accurately and rapidly named 10 out of 10 drawings, demonstrating an Average score, he labeled 17 animals in one minute, demonstrating an Average on this subtest. Scores combined resulted in an Average score for the Language Domain. Picture Naming Percentile Group: 51-75 Interpretation: Average Semantic Fluency Scaled Score: 11 Interpretation: Average Language Index Score: 105 Interpretation: Average ATTENTION: This domain assesses the individual?s ?capacity to remember and manipulate both visually and orally presented information in short-term memory storage.? Valente was read aloud strings of numbers of varying lengths then asked to recall the numbers. Valente accurately recalled strings of numbers up to 9 digits with no difficulties, resulting in a Very Superior score. In the coding subtest, Valente was asked to write numbers to their matching symbols as quickly and efficiently as possible within 90 seconds. Valente worked semi-quickly and accurately through this test marking 32 symbols in allotted time, which yielded an Average score. Valente misunderstood my wording of instructions and tried to hand back the paper before allotted time as he completed the row that I pointed to when showing how to complete the task. Prompted to continue and did continue accurately. For the overall ?Attention? domain score, Valente fell in the High Average range. Digit Span Scaled Score: 16 Interpretation: Very Superior Coding Scaled Score: 8 Interpretation: Average Attention Index Score: 112 Interpretation: High Average DELAYED MEMORY: This domain assesses the individual?s ?anterograde memory capacity.? ?Low scores indicate difficulties with recognition and retrieval of information from long-term memory stores.? Valente was initially able to recall 5 out of 10 words from the wordlist that was presented earlier in the test. When given a recognition task regarding words on the list (i.e. ?Was apple on the list??) Valente answered these yes/no questions with great accuracy, indicating that he was able to recall items when given this level of prompt. He demonstrated within an Average range for List Recall and an Average range for List Recognition. On recalling the story that was read to Valenet at the beginning of the assessment, he was able to recall 6 out of 12 items. Placing him in a Low Average range. Finally, when asked to recall the figure Valente elisabeth at the beginning of the test, he attempted with great motivation. Points having to be deducted again due to unclosed shapes and Valente was missing 2/12 items from the figure. This placed Valente in the Average range for Figure Recall. Overall for the Delayed Memory? domain, Valente fell in the Average range. List Recall Percentile Group: 51-75 Interpretation: Average List Recognition Percentile Group: 51-75 Interpretation: Average Story Recall Scaled Score: 7 Interpretation: Low Average Figure Recall Scaled Score: 8 Interpretation: Average Delayed Memory Index Score: 95 Interpretation: Average Summary/Conclusion Valente scored within Average range for all domains besides Visuospatial/constructional for which he scored within the Extremely Low range. Note that the specific scoring factor of having all shapes closed heavily impacted Valente's score on ?Figure Copy.? Valente was able to correctly copy the figure and identify correct shapes/items of the figure. Valente personally reports no difficulties/concerns in this area. Impressions and Recommendations Summary: Valente is a 75 year old male who presents with cognitive functioning deemed within functional limits. Outpatient speech therapy is not recommended at this time. Recommendation for Speech Therapy: NA:Typical Evaluation Recommended Referrals to be Discussed with Primary Care Provider: Patient Education: Completed: Yes Patient/Caregiver Education: Described Results of Evaluation Patient expressed understanding of evaluation Patient agrees with goals and treatment plan Gun Stocker Clinican/Clinical Fellow: No Supervisory Statement: No Speech Language Pathologist: Karen Schultz M.A., [facility]-DATA SPECIALIST
== END 2025-10-14 12:15 | disposition home or self-care (01) ==
LOC: HO.SH 12:23
PROVIDERS: PCP Physician Assistant; Visit Provider Psychiatry & Neurology Neurology
DX: R47.89 Other speech disturbances (principal)
CPT/HCPCS: 96125

== ENCOUNTER → 2025-10-04 08:04 | Outpatient (REF) | payer MEDICARE, SELFPAY ==
--- OUTSIDE RECORDS SUMMARY | 2025-10-04 08:10 | XMS_ITS | Clinical Summary ---
Author Organization [facility] Address [address] [place] [phone] Phone Care Team Providers Care Handmade Tile Artist Name Role Phone Anne-Marie Markham Primary Care Provider [phone]- [phone] Social History Tobacco Use Types Packs/Day Years [...] Care Team (Late st Contact Info) Description 01/14/2026 1:00 PM EST Office Visit [facility] [address] [place] [address] Amanda Hoskins CNP [address] [place] [address] Health Maintenance Due Date Last Done Comments Adult Td,Tdap Booster 1950 LIPID PANEL 1950 DEPRESSION SCREENING 1962 SMOKING Hx and SMOKELESS TOB ACCO SCREENING 1963 HEPATITIS C SCREENING 1968 COLOGUARD 1995 COLONOSCOPY 1995 COLORECTAL CANCER SCREENING 1995 FIT TEST 1995 FOBT 1995 SIGMOIDOSCOPY 1995 VIRTUAL COLONOSCOPY 1995 PNEUMOCOCCAL VACCINES (50+ y ears) (1 of 1 - PCV) 2000 ZOSTER VACCINES (1 of 2) 2000 INFLUENZA VACCINE (#1) 2025 COVID-19 VACCINE (1 - 2024-2 6 season) 2025 RSV VACCINE (1 - 1-dose 75+ series) 2025 HEPATITIS A VACCINES Aged Out No long er eligible based on patient's age to complete this topic HIB VACCINES Aged Out No longer eligi ble based on patient's age to complete this topic MENINGOCOCCAL VACCINES (ACWY) Aged Out No longer eligible based on patient's age to complete this topic MENINGOCOCCAL VACCINES (B) Aged Out N o longer eligible based on patient's age to complete this topic Medical Devices Not on file Insurance AET[employer] O MEDICARE REPLACEMENT AETNA O MEDICARE REPLACEMENT AETNA PPO MEDICARE REPLACEMENT AETNA PPO MEDICARE REPLACEMENT AETNA O MEDICARE REPLACEMENT AETNA PPO MEDICARE REPLACEMENT Care Teams Handmade Tile Artist Relationship Specialty Start Date End Date Anne-Marie Markham PA [address] [place] [address] PCP - General Physician Child Protective Investigator 09/24/25 Additional Source Comments The information contained in this document represents components of the legal health record. It is not the complete legal health record.[facility]
--- OUTSIDE RECORDS SUMMARY | 2025-10-04 08:10 | XMS_ITS | Clinical Summary ---
Author Organization [facility] Address [address] [place] [address] Phone Care Team Providers Care Chief Service Observer Name Role Phone Unavailable Primary Care Provider [...] long-term current use of insulin ([facility] V24, [facility] V28) INJECT 5 UNITS INTO THE SKIN AT BEDTIME. 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 Do not crush, chew, or split. 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 Please provide 90 day supply 90 mL 2 5 Active Additional Information Patient not taking.Reported on 06/02/2025 Active Problems Problem Noted Date Diagnosed Date Class 1 obesity 07/20/2024 Glaucoma 12/07/2020 Overview (07/08/2024): Sees Dr. 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 Incidental finding. 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 ([facility] V24, [facility] V28) 10/23/2019 Radiation [...] neg CXR, EKG Q III Diabetes mellitus ([facility] V24, [facility] V28) Exposure to asbestos 10/05/2013 Hypertriglyceridemia 10/05/2013 Shoulder sprain 10/05/2013 Immunizations Immunization Administration Dates Next Due Hepatitis B (Htahdzm-L-Cukbj , Recombivax HB-Adult) 19yo and older 07/09/2019,09/10/2018,06/06/2018 [...] COMMENT: robotic assisted prostatectomy CYSTOSCOPY 05/28/2017 PROCEDURE: [facility] CYSTOURETHROSCOPY; COMMENT: 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, [...] urethral sling OTHER SURGICAL HISTORY 07/2020 PROCEDURE: [facility] PNCRTECT DSTL STOT W/O PNCRTCOJEJUNOSTOMY OTHER SURGICAL HISTORY 07/2020 PROCEDURE: [facility] RPR TABDL LMPHADEC EXTNSV W/PEL AORTIC&RNL; COMMENT: 6 lymph nodes removed Medical History Medical History Date Comments Prediabetes 10/05/2013 DX:Prediabetes Mixed hyperlipidemia 06/21/2015 DX:Mixed hy perlipidemia Adenocarcinoma of prostate ( CMS/HCC V24, CMS/HCC V28) 10/05/2013 DX:Adenocarcinoma of prostat e (HCC); COMMENT: Biopsy 6/17/14, [place] 4+3 and no CVA of prostate in [...] DX:Diabetes mellitus type 2, controlled, with complications ([facility]) Family History Medical History Relation Name Comments [...] Years Used Date Smoking Tobacco: Former Cigarettes 1 Q uit: 11/11/1969 Smokeless Tobacco: Former Tobacco [...] Comments Zoster Vaccines (1 of 2) 1969 COVID-19 Vaccine (3 - Pfizer risk series) 03/29/2021 03/01/2021, 02/08/2021 Falls Risk Assessment 10/20/2022 Social Influencers of Health Screening 10/20/2022 Medicare Annual Wellness Visit 07/17/2024 07/17/2023 Depression Screening 11/11/2024 Influenza Vaccine (#1) 2025 , 2023, 09/25/2022, Additional history exists Diabetes: Annual Foot Exam 07/21/2025 07/21/2024 Diabetes: Annual Retina Eye Exam 07/28/2025 07/28/2024 RSV Immunization Adult Patients (1 - 1-dose 75+ series) 2025 Diabetes: Blood Sugar Control Test (HGBA1C) 12/02/2025 [...] mellitus with other specified complication, unspecified whether exterminator termite insulin use ([facility] V24, [facility] V28) CREATININE, SERUM Routine 06/01/2025 10: 11 AM EDT Type 2 diabetes mellitus with other specified complication, unspecified whether exterminator termite insulin use ([facility] V24, [facility] V28) HEMOGLOBIN A1C Routine 06/01/2025 10:11 AM EDT Type 2 diabetes mellitus with other specified complication, unspecified whether exterminator termite insulin use ([facility] V24, [facility] V28) LIPID PANEL WITH REFLEX TO [...] LAB CHEMISTRY METHOD 06/01/2025 6:11 PM EDT [facility] Microalb, Ur 16.0 0.0 - 29.0 mg/L LAB CHEMISTRY METHOD 06/01/2025 6:11 PM EDT [facility] Microalb/Creat Ratio 12 <30 mg/g creat LAB CHEMISTRY METHOD 06/01/2025 6:11 PM EDT [facility] Urine Urine specimen obtained by clean catch procedure / Unknown Non-blood Collection / Unknown 06/01/2025 10:11 AM EDT 06/01/2025 10:11 AM EDT Kristina Dave MD LAB URINE ORDERABLES Final Resul t [facility] [address] [place] [address], [place] [phone] * Creatinine (06/01/2025 10:11 AM EDT) Creatinine 1.20 0.70 - 1.30 mg/dL LAB CHEMISTRY METHOD 06/01/2025 2:23 PM EDT [facility] eGFR 63 >=60 mL/min/1. 73m2 LAB CHEMISTRY METHOD 06/01/2025 2:23 PM EDT [facility] Comment:Calculation based on the Chronic Kidney Disease Epidemiology Collaboration (CKD-EPI) equation refit without adjustment for race. Blood Venous blood specimen / Unknown Venipuncture / Unknown 06/01/2025 10:11 AM EDT 06/01/2025 10:11 AM EDT Kristina Dave MD LAB BLOOD ORDERABLES Final Resul t Performing Organization Address [facility]/ZIP Co de Phone Number [facility] [address] [place] [address], * (ABNORMAL) Hemoglobin A1c (06/01/2025 10:11 AM EDT) Hemoglobin A1C 8.7(H) <6.5 % LAB CHEMISTRY METHOD 06/01/2025 5:59 PM EDT [facility] Mean Bld Glu Estim. 203 mg/dL LAB CHEMISTRY METHOD 06/01/2025 5:59 PM EDT [facility] Blood Venous blood specimen / Unknown Venipuncture / Unknown 06/01/2025 10:11 AM EDT 06/01/2025 10:11 AM EDT Kristina Dave MD LAB BLOOD ORDERABLES Final Resul t Performing Organization Address [facility] Co de Phone Number [facility] [address] [place] [address], [place] [phone] * (ABNORMAL) Lipid panel with reflex to direct LDL (02/16/2025 9:36 AM EDT) [facility] Cholesterol 138 0 - 200 mg/dL LAB CHEMISTRY METHOD 02/16/2025 1:40 PM EDT [facility] Triglycerides 383(H) 0 - 150 mg/dL LAB CHEMISTRY METHOD 02/16/2025 1:40 PM EDT [facility] HDL 44 >=40 mg/dL LAB CHEMISTRY METHOD 02/16/2025 1:40 PM EDT [facility] LDL Calculated 17 0 - 100 mg/dL LAB CHEMISTRY METHOD 02/16/2025 1:40 PM EDT [facility] VLDL Cholesterol Bob 76.6 mg/dL LAB CHEMISTRY METHOD 02/16/2025 1:40 PM EDT [facility] Non HDL Chol. (LDL+VLDL) 94 <145 mg/dL LAB CHEMISTRY METHOD 02/16/2025 1:40 PM EDT [facility] Chol/HDL Ratio 3.1 0.0 - 4.4 LAB CHEMISTRY METHOD 02/16/2025 1:40 PM EDT [facility] Blood Venous blood specimen / Unknown Venipuncture / Unknown 02/16/2025 9:36 AM EDT 02/16/2025 9:36 AM EDT Kristina Dave MD LAB BLOOD ORDERABLES Final Resul t [facility] [address] [place] [address], [place] [phone] * Diabetes Eye Exam (07/28/2024) [facility] Diabetes: Annual Retina Eye Exam abstracted Historical Maki [facility] MAINTENANCE Final Result * Diabetes Foot Exam (07/21/2024) [facility] Diabetes: Annual Foot Exam abstracted Diane Gambino MD HEALTH MAINTENANCE Final Result * Abdominal Aortic Aneurysm Screen (05/18/2021) [facility] Abdominal Aortic Aneurysm (AAA) Screening 1 year fu Anatomical Region Laterality Modality Other Diane Gambino MD HEALTH MAINTENANCE Final Result * Colonoscopy (06/07/2020) [facility] Colonoscopy 7 yr fu Anatomical Region Laterality Modality Other Historical Maki ESCALERA [facility] MAINTENANCE Final Result * Hepatitis C Screening (10/13/2013) [facility] Hepatitis C Screening negative Diane Gambino MD HEALTH MAINTENANCE Final Result from Last 3 Months or Most Recently Relevant to Health Maintenance Insurance [facility] [place] [id number] AET[employer] MEDICARE ADVANTAGE Advance Directives Documents on File Type Date Recorded Patient Well Logger Expl 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
== END ==
LOC: HO.SL 08:04
PROVIDERS: PCP Physician Assistant; Visit Provider Psychiatry & Neurology Neurology
DX: G47.33 Obstructive sleep apnea (adult) (pediatric) (principal); R06.83 Snoring; G47.10 Hypersomnia, unspecified
CPT/HCPCS: 95806

== ENCOUNTER 2025-10-12 08:52 | Outpatient (AMB) | payer MEDICARE, SELFPAY ==
--- NOTE | 2025-10-12 08:55 | MHC.OFFVIS ---
Vital Signs 10/12/25 08:56 Height 5 ft 11 in Weight 237 lb 10.533 oz BMI 33.1 BP 136/74 Blood Pressure Location Lt brachial Position Sitting Pulse 78 Pulse Source Pulse Oximeter Pulse Oximetry (%) 95 Oxygen Delivery Method Room Air Intake Visit Reasons: Type II Diabetes Intake Note: Patient present today for T2DM. Patient receives Freestyle Sandro 3 Plus through: [facility] Last Diabetic Eye exam: approx 6 months ago, [facility] Eye [facility] Last Podiatry Visit: Does not see a Braddisher Random Glucose: 177 mg/dl Hgb A1C: 8.3% 08/31/2025 Civil Transportation Engineer Required: No Accompanied by: Self / Same As Patient Allergies Gadolinium-Containing Contrast Medi Allergy (Unknown, Verified 10/12/25 09:02) watery eyes, watery itchy nose, coughing lisinopril Allergy (Unknown, Verified 10/12/25 09:02) Unknown Medication List - Last Reconciled 10/12/25 by ZACHARY Wong acetaminophen 1,000 mg PO BEDTIME amlodipine 2.5 mg PO DAILY atorvastatin 40 mg PO DAILY blood sugar diagnostic (OneTouch Ultra Test strips) As directed blood-glucose meter (OneTouch Ultra2 Meter) As directed cetirizine 10 mg PO DAILY cholecalciferol (vitamin D3) 25 mcg PO DAILY cyanocobalamin (vitamin B-12) 1,000 mcg PO DAILY fenofibrate 54 mg PO DAILY 30 days insulin aspart U-100 (Novolog FlexPen U-100 Insulin aspart) subcutaneously; administer 18 units before breakfast, 20 units before lunch and 24 units before dinner insulin glargine (Lantus Solostar U-100 Insulin) 15 units subcut QPM lancets (OneTouch Delica Plus Lancet) As directed latanoprost 0.005% 1 drp ophthalmic (eye) BEDTIME metformin ER (Glucophage XR) 1,000 mg (2 x 500 mg) PO BID 90 days multivitamin 1 tab PO DAILY pen needle, diabetic As directed tolterodine 2 mg PO BID [vitamin a PO] HPI Comments Details: This is a 74-year-old male with a past medical history of type 2 diabetes, pancreatic cancer, prostate cancer, hyperlipidemia, hypertension and obesity presenting for diabetic management. He was diagnosed with diabetes 6 years ago following surgery for pancreatic cancer. Previously followed by [facility] [place] [facility]. Hemoglobin a1c 8.3% 08/31/25. Reviewed Sandro 3 data CGM active 91% Average glucose 180 G SC 7.6% Glucose variability 25.3% Very high 10% High 30% Target range 60% 0% hypoglycemia Patient has postprandial hyperglycemia and nocturnal hyperglycemia. Denies hypoglycemic episodes. Current medication regimen: metformin extended release 1000 mg twice daily. Lantus 16 units nightly (patient is only taking 11 units) NovoLog to 16 units before breakfast, 20 units before lunch and 24 units before dinner. Past medication: Jardiance and Farxiga were too expensive. Hypoglycemia episodes: None Hyperglycemia symptoms: None Microvascular complications: None Macrovascular complications: TIA 2011 Patient recently had a stress test that showed T-wave inversions with exercise. Nuclear stress test has been ordered. Echo showed low normal LVEF 50-55%. Hypertension: treated with amlodipine. Allergy to lisinopril. Hyperlipidemia: treated with atorvastatin, fenofibrate ROS: Constitutional: No unexplained weight loss, fever, chills or night sweats Eyes: No vision changes Respiratory: No shortness of breath Cardiovascular: No chest pain Gastrointestinal: No blood in stools, anorexia, nausea, vomiting or abdominal pain. +diarrhea per HPI Endocrine: No cold or heat intolerance. No polyuria or polydipsia. Physical exam: Constitutional: Alert, in no distress. Neck: Supple, Full range of motion. No lymphadenopathy. No palpable thyroid masses. Respiratory: Clear to auscultation. Cardiovascular: S1 S2 regular. No murmurs. [facility] Medical History (Updated 10/12/25 @ 12:40 by ZACHARY Wong) Word finding difficulty Skin cancer Prostate cancer Hx of radiation therapy Arthritis Incontinence Pancreatic cancer Nephritis Cough HTN (hypertension) TIA (transient ischemic attack) Surgical History H/O shoulder surgery H/O colonoscopy Hx of splenectomy History of bladder surgery History of pancreatectomy H/O prostatectomy Family History Father Leukemia Social History Housing: House Are you a primary client care specialist to a significant other at home: No Do you presently have visiting nurse or other home services: No Alcohol intake: current Alcohol intake frequency: a few times a week Comment: light beer and occasionally a glass of wine Patient Tobacco Use Status: Former Tobacco user Tobacco use type: Cigarette Years Smoked: 3 e-Cigarette/Vaping Use: Never Used Second Hand Smoke Exposure: No service: No Current occupational status: retired Cognitive needs: No Hearing needs: No Vision needs: No Physical Exam Vital Signs: Last Vital Signs Pulse 78 10/12/25 08:56 BP 136/74 10/12/25 08:56 Pulse Ox 95 10/12/25 08:56 Oxygen Delivery Method Room Air 10/12/25 08:56 BMI result Body Mass Index 33.1 Office Procedures Glucose Monitoring Details Details: See HPI 38501 - Glucose monitoring, continuous-physician I&R Procedure code (CPT) selection complete Results Reviewed Results Reviewed: Laboratory Tests 02/16/25 06/03/25 07/15/25 09:16 15:14 08:28 Creatinine Estimated GFR C-Peptide Triglycerides 222 H Cholesterol 139 LDL Cholesterol, Calc 63 HDL Cholesterol 32 L Vitamin B12 302 Urine Creatinine 169.63 Urine Microalbumin 48.0 Microalb/Creat Ratio 28.2 08/03/25 10:26 Creatinine 1.11 Estimated GFR > 60 C-Peptide 2.67 Triglycerides Cholesterol LDL Cholesterol, Calc HDL Cholesterol Vitamin B12 Urine Creatinine Urine Microalbumin Microalb/Creat Ratio Assessment & Plan Assessment & Plan (1) Uncontrolled type 2 diabetes mellitus with hyperglycemia, with long-term current use of insulin: Code(s): E11.65 - Type 2 diabetes mellitus with hyperglycemia; Z79.4 - [facility] (current) use of insulin Category: Medical (2) Hyperlipidemia: Code(s): E78.5 - Hyperlipidemia, unspecified Category: Medical Qualifiers: Hyperlipidemia type: mixed hyperlipidemia Qualified Code(s): E78.2 - Mixed hyperlipidemia (3) Hypertension: Code(s): I10 - Essential (primary) hypertension Category: Medical Qualifiers: Hypertension type: primary hypertension Qualified Code(s): I10 - Essential (primary) hypertension Plan In summary this is a 74-year-old male with type 2 diabetes due to pancreatic injury. Continue metformin extended release 1000 mg twice daily. Increase Lantus to 15 units nightly. Increase NovoLog to 18 units before breakfast, and continue 20 units before lunch and 24 units before dinner. If postprandial readings are still greater than 180 add additional 2 units. We discussed Actos, but he would like to avoid this considering he has a history of cancer, and Actos may increase likelihood of bladder cancer. He is not a good candidate for a GLP 1 due to history of pancreatic cancer. We discussed trying Invokana, however he reports a history of splenectomy, and there is concern about potential genitourinary infections. Reviewed treatment of hypoglycemia. Diabetic diet reviewed. He met with a dietitian at [facility] [place]. Declined referral to extension educator and dietitian. His systolic blood pressure is mildly elevated today. He will check this at home with his cuff and bring a log to his next appointment. We can increase amlodipine to 5 mg if blood pressures are above goal. Continue atorvastatin and fenofibrate for hyperlipidemia. Follow up in 6 weeks. He will have lab work done prior to the next visit. Orders: Orders Lipid Panel 5 Weeks E11.9 - Type 2 diabetes mellitus without complications, E78.5 - Hyperlipidemia, unspecified Aspartate Amino Transferase 5 Weeks E11.9 - Type 2 diabetes mellitus without complications Vitamin B12 5 Weeks E11.9 - Type 2 diabetes mellitus without complications, Z91.89 - Other specified personal risk factors, not elsewhere classified Creatinine 5 Weeks E11.9 - Type 2 diabetes mellitus without complications Alanine Aminotransferase 5 Weeks E11.9 - Type 2 diabetes mellitus without complications Hemoglobin A1c 5 Weeks E11.9 - Type 2 diabetes mellitus without complications, R73.9 - Hyperglycemia, unspecified Microalbumin, Random (w Creat) 5 Weeks E11.9 - Type 2 diabetes mellitus without complications AMB Glucose Monitoring Today E11.9 - Type 2 diabetes mellitus without complications Medications: Changed From insulin aspart U-100 (Novolog FlexPen U-100 Insulin aspart) subcutaneously; administer 16 units before breakfast, 20 units before lunch and 22 units before dinner 90 days 60 mL 1RF To insulin aspart U-100 (Novolog FlexPen U-100 Insulin aspart) subcutaneously; administer 18 units before breakfast, 20 units before lunch and 24 units before dinner Patient Instructions: Continue metformin extended release 1000 mg twice daily. Increase Lantus from 11 units to 15 units nightly Increase Novolog from 16 units to 18 units before breakfast, continue 20 units before lunch and 24 units before dinner. If your sugars after lunch or dinner are still going above 180, add an additional 2 units. Please bring a blood pressure log to your next visit with me. Please have fasting labs done prior to next appointment. Coding Level of Care Code Est Pt Level 4 (85030) Diagnoses Uncontrolled type 2 diabetes mellitus with hyperglycemia, with long-term current use of insulin E11.65; Z79.4 Mixed hyperlipidemia E78.2 Hyperlipidemia type: mixed hyperlipidemia Primary hypertension I10 Hypertension type: primary hypertension CPT Codes Details - CPT: 28567 - Glucose monitoring, continuous-physician I&R ([id number])
[2025-10-12 08:56] VITALS: BP 136/74; PULSE 78; O2SAT 95; BMI 33.1
--- OUTSIDE RECORDS SUMMARY | 2025-10-12 09:09 | XMS_ITS | Clinical Summary ---
Author Organization [facility] Address [address] [place] [phone] Phone Care Team Providers Care Bleach Plant Operator Name Role Phone Anne-Marie Markham Primary Care Provider +1- [phone] Social History Tobacco Use Types Packs/Day Years [...] Description 01/14/2026 1:00 PM EST Office Visit [facility] [address] [place] [phone] Amanda Hoskins CNP [address] [place] [address] Health Maintenance Due Date Last Done Comments [...] REPLACEMENT [employer] PPO MEDICARE REPLACEMENT Care Teams Bleach Plant Operator Relationship Specialty Start Date End Date Anne-Marie Markham PA [address] [place] [address] PCP - General Physician Child Care Centre Manager 09/24/25 Additional Source Comments The information contained in this document represents components of the legal health record. It is not the complete legal health record.[facility]
--- OUTSIDE RECORDS SUMMARY | 2025-10-12 09:09 | XMS_ITS | Clinical Summary ---
Author Organization [facility] Address [address] [place] [address] Phone Care Team Providers Care Kitchen Supervisor Name Role Phone Unavailable Primary Care Provider [...] use of insulin ([facility] V24, [facility] V28) INJECT 5 UNITS INTO THE SKIN AT BEDTIME. 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, with long-term current use of insulin ([facility] V24, [facility] V28) Check sugars upto 2 times a day 200 each 3 4 Active pen needle, diabetic 32 gauge x needleIndicatio ns: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, with long-term current use of insulin ([facility] V24, [facility] V28) USE UP TO 4 TIMES A DAY 300 each 3 4 Active metFORMIN XR (GLUCOPHAGE-XR) 500 mg 24 hr tabletIndicatio ns: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, with long-term current use of insulin ([facility] V24, [facility] V28) Take 2 tablets (1,000 mg total) by mouth 2 (two) times a day. Do not crush, chew, or split. 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, with long-term current use of insulin ([facility] V24, [facility] V28) Take three times a day before meals max up to 70 units day. Please provide 90 day supply 90 mL 2 5 Active Additional Information Patient not taking.Reported on 06/02/2025 Active Problems Problem Noted Date Diagnosed Date Class 1 obesity 07/20/2024 Glaucoma 12/07/2020 Overview (07/08/2024): Sees Dr. 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 Incidental finding. 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 Overview (07/08/2024): [...] neg CXR, EKG Q III Diabetes mellitus ([facility] V24, [facility] V28) Exposure to asbestos 10/05/2013 Hypertriglyceridemia 10/05/2013 Shoulder sprain 10/05/2013 Immunizations Immunization Administration Dates Next Due Hepatitis B (Brrxgbo-R-Uojip , Recombivax HB-Adult) 19yo and older 07/09/2019,09/10/2018,06/06/2018 [...] COMMENT: robotic assisted prostatectomy CYSTOSCOPY 05/28/2017 PROCEDURE: WI CYSTOURETHROSCOPY; COMMENT: 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, [...] urethral sling OTHER SURGICAL HISTORY 07/2020 PROCEDURE: WI PNCRTECT DSTL STOT W/O PNCRTCOJEJUNOSTOMY OTHER SURGICAL HISTORY 07/2020 PROCEDURE: WI RPR TABDL LMPHADEC EXTNSV W/PEL AORTIC&RNL; COMMENT: 6 lymph nodes removed Medical History Medical History Date Comments Prediabetes 10/05/2013 DX:Prediabetes Mixed hyperlipidemia 06/21/2015 DX:Mixed hy perlipidemia Adenocarcinoma of prostate ( CMS/HCC V24, CMS/HCC V28) 10/05/2013 DX:Adenocarcinoma of prostat e (HCC); COMMENT: Biopsy 6/17/14, Dixon's 4+3 and no CVA of prostate in [...] DX:Diabetes mellitus type 2, controlled, with complications ([facility]) Family History Medical History Relation Name [...] specified complication, unspecified whether longterm insulin use ([facility] V24, [facility] V28) CREATININE, SERUM Routine 06/01/2025 10: 11 AM EDT Type 2 diabetes mellitus with other specified complication, unspecified whether longterm insulin use ([facility] V24, [facility] V28) HEMOGLOBIN A1C Routine 06/01/2025 10:11 AM EDT Type 2 diabetes mellitus with other specified complication, unspecified whether longterm insulin use ([facility] V24, [facility] V28) LIPID PANEL WITH REFLEX [...] LAB CHEMISTRY METHOD 06/01/2025 6:11 PM EDT [facility] Microalb, Ur 16.0 0.0 - 29.0 mg/L LAB CHEMISTRY METHOD 06/01/2025 6:11 PM EDT [facility] Microalb/Creat Ratio 12 <30 mg/g creat LAB CHEMISTRY METHOD 06/01/2025 6:11 PM EDT [facility] Urine Urine specimen obtained by clean catch procedure / Unknown Non-blood Collection / Unknown 06/01/2025 10:11 AM EDT 06/01/2025 10:11 AM EDT Kristina Dave MD LAB URINE ORDERABLES Final Resul t [facility] [address] [place] [address], [place] [phone] * Creatinine (06/01/2025 10:11 AM EDT) Creatinine 1.20 0.70 - 1.30 mg/dL LAB CHEMISTRY METHOD 06/01/2025 2:23 PM EDT [facility] eGFR 63 >=60 mL/min/1. 73m2 LAB CHEMISTRY METHOD 06/01/2025 2:23 PM EDT [facility] Comment:Calculation based on the Chronic Kidney Disease Epidemiology Collaboration (CKD-EPI) equation refit without adjustment for race. Blood Venous blood specimen / Unknown Venipuncture / Unknown 06/01/2025 10:11 AM EDT 06/01/2025 10:11 AM EDT Kristina Dave MD LAB BLOOD ORDERABLES Final Resul t Performing Organization Address [facility]/ZIP Co de Phone Number [facility] [address] [place] [address], * (ABNORMAL) Hemoglobin A1c (06/01/2025 10:11 AM EDT) Hemoglobin A1C 8.7(H) <6.5 % LAB CHEMISTRY METHOD 06/01/2025 5:59 PM EDT [facility] Mean Bld Glu Estim. 203 mg/dL LAB CHEMISTRY METHOD 06/01/2025 5:59 PM EDT [facility] Blood Venous blood specimen / Unknown Venipuncture / Unknown 06/01/2025 10:11 AM EDT 06/01/2025 10:11 AM EDT Kristina Dave MD LAB BLOOD ORDERABLES Final Resul t Performing Organization Address [facility] Co de Phone Number [facility] [address] [place] [address], [place] [phone] * (ABNORMAL) Lipid panel with reflex to direct LDL (02/16/2025 9:36 AM EDT) [facility] Cholesterol 138 0 - 200 mg/dL LAB CHEMISTRY METHOD 02/16/2025 1:40 PM EDT [facility] Triglycerides 383(H) 0 - 150 mg/dL LAB CHEMISTRY METHOD 02/16/2025 1:40 PM EDT [facility] HDL 44 >=40 mg/dL LAB CHEMISTRY METHOD 02/16/2025 1:40 PM EDT [facility] LDL Calculated 17 0 - 100 mg/dL LAB CHEMISTRY METHOD 02/16/2025 1:40 PM EDT [facility] VLDL Cholesterol Bob 76.6 mg/dL LAB CHEMISTRY METHOD 02/16/2025 1:40 PM EDT [facility] Non HDL Chol. (LDL+VLDL) 94 <145 mg/dL LAB CHEMISTRY METHOD 02/16/2025 1:40 PM EDT [facility] Chol/HDL Ratio 3.1 0.0 - 4.4 LAB CHEMISTRY METHOD 02/16/2025 1:40 PM EDT [facility] Blood Venous blood specimen / Unknown Venipuncture / Unknown 02/16/2025 9:36 AM EDT 02/16/2025 9:36 AM EDT Kristina Dave MD LAB BLOOD ORDERABLES Final Resul t [facility] [address] [place] [address], [place] [phone] * Diabetes Eye Exam (07/28/2024) [facility] Diabetes: Annual Retina Eye Exam abstracted Historical Maki [facility] Final Result * Diabetes Foot Exam (07/21/2024) [facility] Diabetes: Annual Foot Exam abstracted Diane Gambino MD HEALTH MAINTENANCE Final Result * Abdominal Aortic Aneurysm Screen (05/18/2021) [facility] Abdominal Aortic Aneurysm (AAA) Screening 1 year fu Anatomical Region Laterality Modality Other Diane Gambino MD HEALTH MAINTENANCE Final Result * Colonoscopy (06/07/2020) [facility] Colonoscopy 7 yr fu Anatomical Region Laterality Modality Other Historical Maki [facility] [employer] Final Result * Hepatitis C Screening (10/13/2013) [facility] Hepatitis C Screening negative Diane Gambino MD HEALTH MAINTENANCE Final Result from Last 3 Months or Most Recently Relevant to Health Maintenance Insurance Former[facility] [id number] [employer] MEDICARE ADVANTAGE Advance Directives Documents on File Type Date Recorded 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
[2025-10-12 09:16] LABS: Glucose, Whole Blood 177 mg/dL (60-115)
== END 2025-10-12 09:34 | disposition home or self-care (01) ==
LOC: HO.ENCR 08:53
PROVIDERS: PCP Physician Assistant; Visit Provider Physician Assistant Medical
DX: E11.65 Type 2 diabetes mellitus with hyperglycemia (principal); Z79.4 Long term (current) use of insulin; E78.2 Mixed hyperlipidemia; I10 Essential (primary) hypertension

== ENCOUNTER → 2025-10-12 08:52 | Outpatient (BNVA) | payer MEDICARE, SELFPAY | PROVIDERS: PCP Physician Assistant; Visit Provider Physician Assistant Medical | DX: E11.65 Type 2 diabetes mellitus with hyperglycemia (principal); E78.2 Mixed hyperlipidemia; I10 Essential (primary) hypertension; Z79.4 Long term (current) use of insulin; Z79.84 Long term (current) use of oral hypoglycemic drugs; Z79.899 Other long term (current) drug therapy; Z87.891 Personal history of nicotine dependence; Z91.89 Other specified personal risk factors, not elsewhere classified | CPT/HCPCS: 82947; 99212 ==

== ENCOUNTER 2025-10-27 08:28 | Outpatient (AMB) | payer MEDICARE, SELFPAY ==
--- NOTE | 2025-10-27 08:28 | MHC.PC.OV ---
Vital Signs 10/27/25 08:29 Height 5 ft 11 in Weight 244 lb 6 oz BMI 34.1 BP 130/74 Blood Pressure Location Rt brachial Position Sitting Respiration 16 Pulse 83 Pulse Source Pulse Oximeter Pulse Oximetry (%) 96 Oxygen Delivery Method Room Air Intake Visit Reasons: med check Intake Note: Medication follow up. Needs refill on Amdopine 2.5, vitamin b12 and pen needle for Novlog. 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: No Allergies Gadolinium-Containing Contrast Medi Allergy (Unknown, Verified 10/27/25 08:31) watery eyes, watery itchy nose, coughing lisinopril Allergy (Unknown, Verified 10/27/25 08:31) Unknown Medication List - Last Reconciled 10/27/25 by Anne-Marie Markham PA-C amlodipine 2.5 mg PO DAILY atorvastatin 40 mg PO DAILY blood sugar diagnostic ([employer] Ultra Test strips) As directed blood-glucose meter ([employer] Ultra2 Meter) As directed cholecalciferol (vitamin D3) 25 mcg PO DAILY cyanocobalamin (vitamin B-12) 1,000 mcg PO DAILY fenofibrate 54 mg PO DAILY 30 days insulin aspart U-100 (Novolog FlexPen U-100 Insulin aspart) subcutaneously; administer 18 units before breakfast, 20 units before lunch and 24 units before dinner insulin glargine (Lantus Solostar U-100 Insulin) 15 units subcut QPM lancets (OneTouch Delica Plus Lancet) As directed latanoprost 0.005% 1 drp ophthalmic (eye) BEDTIME metformin ER (Glucophage XR) 1,000 mg (2 x 500 mg) PO BID 90 days pen needle, diabetic As directed trospium ER 60 mg PO DAILY [vitamin a PO] Tobacco use date assessed: 10/27/25 Dental Screening Dental Screen Date: 03/02/25 HPI med check HPI Details Patient is a 75-year-old male with a significant past medical history of type 2 diabetes, hypertension, hyperlipidemia, prostate ca, pancreatic ca and obesity presenting today for a f/u. Msk: following with ortho and is s/p right shoulder repair. CV: Blood pressure today in the office is 130/74. He is currently on amlodipine 2.5 mg daily. Cholesterol is managed with atorvastatin 40 mg and fenofibrate 54 mg. Scheduled for his nuclear stress test tomorrow. No reoccurrence of symptoms. Endo: He was diagnosed with diabetes following his pancreatic cancer diagnosis 4 years ago. His A1c was 7. He is currently on Lantus 15 units, NovoLog 18-20-24, and metformin 1000 mg bid. farxiga and jardiance are too expensive GI: He reports getting diarrhea on and off for 6-8 months but over the last couple weeks it has been a bit better. He states it is more formed. He does have a follow up scheduled with GI. He is overdue for colonoscopy. He states that this is why he stopped the metformin. No recent travel or antibiotic use prior to this. No weight loss from this. No abdominal pain. Surgery: Dr. Aguilar treated the pancreatic cancer surgically. He thinks that this was done in 2020. He follows every 6 months. States that he did not need any chemo Uro: had prostate ca 12 years ago and had a total prostatectomy and radiation. Follows with Dr. Morris. Earlier this year he had significant hematuria due to blood vessel damage from radiation. The bleeding self resolved and patient is just being monitored closely. He did have a cystoscopy. Neuro: had recent sleep study which showed moderate obstructive sleep apnea. He has not yet called back the place to get a CPAP. He tells me he will consider doing this. He has follow up arranged with Neurology for memory issues. He is compliant with vitamin B12 and vitamin-D. Colonoscopy: Overdue, no records [facility] Medical History (Updated 10/12/25 @ 12:40 by ZACHARY Wong) Word finding difficulty Skin cancer Prostate cancer Hx of radiation therapy Arthritis Incontinence Pancreatic cancer Nephritis Cough HTN (hypertension) TIA (transient ischemic attack) Surgical History H/O shoulder surgery H/O colonoscopy Hx of splenectomy History of bladder surgery History of pancreatectomy H/O prostatectomy Family History Father Leukemia Social History (Updated 10/27/25 @ 08:42 by Glenis Argueta CMA) Housing: House Are you a primary managed care coordinator to a significant other at home: No Do you presently have visiting nurse or other home services: No Alcohol intake: current Alcohol intake frequency: a few times a week Comment: light beer and occasionally a glass of wine Patient Tobacco Use Status: Former Tobacco user Tobacco use type: Cigarette Years Smoked: 3 e-Cigarette/Vaping Use: Never Used Second Hand Smoke Exposure: No service: No Current occupational status: retired Cognitive needs: No Hearing needs: No Vision needs: No Questionnaire Thrive Questionnaire Date Thrive assessed: 02/12/25 MARYURI-7 AMB Questionnaire MARYURI-7 Date MARYURI - 7 assessed: 02/12/25 Source: Developed by Drs. Miguel Reyes, Ailyn Crenshaw, Valentino Lopez and colleagues, with an educational michael from [employer]. Physical exam (Primary Care) Vital Signs: Last Vital Signs Pulse 83 10/27/25 08:29 Resp 16 10/27/25 08:29 BP 130/74 10/27/25 08:29 Pulse Ox 96 10/27/25 08:29 Oxygen Delivery Method Room Air 10/27/25 08:29 BMI result Body Mass Index 34.1 Tobacco/Smoking Status: Tobacco use Status Tobacco use date assessed 10/27/25 10/27/25 08:34 Patient Tobacco Use Status Former Tobacco user 10/27/25 08:42 Tobacco use type Cigarette 10/27/25 08:42 e-Cigarette/Vaping Use Never Used 10/27/25 08:42 Thrive Assessment: Date of Thrive Assessment Date Thrive assessed 02/12/25 10/27/25 08:34 Const Orientation/consciousness: patient oriented x3 HENMT Ears: hearing grossly normal bilaterally Neck Thyroid: Thyroid normal Lymphatic: no lymphadenopathy noted Resp Auscultation: clear to auscultation bilaterally Cardio Rate: regular rate Rhythm: regular rhythm Heart sounds: S1 normal heart sound present and S2 normal heart sound present GI Inspection: Yes normal to inspection Palpation (GI): Soft to palpation and Other GI palpation findings present (nontender, no cva tenderness) Auscultation: normoactive bowel sounds Rectal Exam - Male: Yes deferred Skin General skin exam: no rashes or lesions noted Neuro General: patient oriented x3, gait normal and no focal motor deficits Results Reviewed Results Reviewed: US/US abdomen complete IMPRESSION: Hepatomegaly and likely steatosis. No cholelithiasis or choledocholithiasis. No hydronephrosis. Simple cyst, left kidney. No ascites. MR/MR head/brain wo con IMPRESSION: No acute stroke/nonhemorrhagic ischemia or acute intracranial hemorrhage. Global cerebral atrophy. Small vessel occlusive disease. Exercise stress test with exercise 6 mins 57 secs of Valente Protocol, achieving 85% MPHR, with reports of moderate SOB, with isolated PACs and PVCs, with normotenisve response to exercise. With baseline T wave abnormality, with T wave inversion with exercise, warranting further eval. In recovery, breathing returned to baseline. Will recommend nuclear stress test for further evaluation. Test reviewed with Dr. Louis. Laboratory Tests 08/03/25 08/31/25 08/31/25 10:26 08:29 08:31 Creatinine 1.11 Estimated GFR > 60 Glucose (Clinic) 149 H Hgb A1c (Clinic) 8.3 H 10/12/25 09:04 Creatinine Estimated GFR Glucose (Clinic) 177 H Hgb A1c (Clinic) Coding Level of Care Code Est Pt Level 4 (57790) Add On Problem Visit Only Diagnoses Uncontrolled type 2 diabetes mellitus with hyperglycemia, with long-term current use of insulin E11.65; Z79.4 Primary hypertension I10 Hypertension type: primary hypertension Mixed hyperlipidemia E78.2 Hyperlipidemia type: mixed hyperlipidemia Diarrhea R19.7 Assessment & Plan Assessment & Plan (1) Uncontrolled type 2 diabetes mellitus with hyperglycemia, with long-term current use of insulin: Code(s): E11.65 - Type 2 diabetes mellitus with hyperglycemia; Z79.4 - terminal computer operator (current) use of insulin Category: Medical Plan: Continue follow up with Endocrine (2) Hypertension: Code(s): I10 - Essential (primary) hypertension Category: Medical Qualifiers: Hypertension type: primary hypertension Qualified Code(s): I10 - Essential (primary) hypertension Plan: wnl continue current plan (3) Hyperlipidemia: Code(s): E78.5 - Hyperlipidemia, unspecified Category: Medical Qualifiers: Hyperlipidemia type: mixed hyperlipidemia Qualified Code(s): E78.2 - Mixed hyperlipidemia Plan: at goal will monitor (4) Diarrhea: Code(s): R19.7 - Diarrhea, unspecified Category: Medical Plan: improved booked to see GI soon Medications: New amlodipine 2.5 mg PO DAILY 90 tabs 3RF atorvastatin 40 mg PO DAILY 90 tabs 3RF Changed From pen needle, diabetic As directed 1,200 ea To pen needle, diabetic Use 4 x daily As directed 100 ea 2RF Refilled cyanocobalamin (vitamin B-12) 1,000 mcg PO DAILY 90 caps 3RF fenofibrate 54 mg PO DAILY 90 tabs 3RF 30 days
[2025-10-27 08:29] VITALS: BP 130/74; PULSE 83; RESP 16; O2SAT 96; BMI 34.1
--- OUTSIDE RECORDS SUMMARY | 2025-10-27 08:42 | XMS_ITS | Clinical Summary ---
Author Organization [facility] Address [address] [place] [phone] Phone Care Team Providers Care Outreach Director Name Role Phone Anne-Marie Markham Primary Care Provider [phone]- [phone] Social History Tobacco Use Types Packs/Day Years [...] Description 01/14/2026 1:00 PM EST Office Visit [facility] [address] [place] [id number] Amanda Hoskins CNP [address] [place] [address] Health Maintenance Due Date Last Done Comments [...] REPLACEMENT [employer] PPO MEDICARE REPLACEMENT Care Teams Outreach Director Relationship Specialty Start Date End Date Anne-Marie Markham PA [address] [place] [address] PCP - General Physician Materials Management Supervisor 09/24/25 Additional Source Comments The information contained in this document represents components of the legal health record. It is not the complete legal health record.[facility]
--- OUTSIDE RECORDS SUMMARY | 2025-10-27 08:42 | XMS_ITS | Clinical Summary ---
Author Organization [facility] Address [address] [place] [address] Phone Care Team Providers Care Mechanical Engineering Advisor Name Role Phone Unavailable Primary Care Provider [...] complication, with long-term current use of insulin ([facility] V24, [facility] V28) INJECT 5 UNITS INTO THE SKIN AT BEDTIME. 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, with long-term current use of insulin ([facility] V24, [facility] V28) Check sugars upto 2 times a day 200 each 3 4 Active pen needle, diabetic 32 gauge x needleIndicatio ns: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, with long-term current use of insulin ([facility] V24, [facility] V28) USE UP TO 4 TIMES A DAY 300 each 3 4 Active metFORMIN XR (GLUCOPHAGE-XR) 500 mg 24 hr tabletIndicatio ns: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, with long-term current use of insulin ([facility] V24, [facility] V28) Take 2 tablets (1,000 mg total) by mouth 2 (two) times a day. Do not crush, chew, or split. 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, with long-term current use of insulin ([facility] V24, [facility] V28) Take [...] Immunization Administration Dates Next Due Hepatitis B (Uvqwxlx-S-Nvoub , Recombivax HB-Adult) 19yo and older 07/09/2019,09/10/2018,06/06/2018 [...] COMMENT: robotic assisted prostatectomy CYSTOSCOPY 05/28/2017 PROCEDURE: LA CYSTOURETHROSCOPY; COMMENT: 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, [...] urethral sling OTHER SURGICAL HISTORY 07/2020 PROCEDURE: LA PNCRTECT DSTL STOT W/O PNCRTCOJEJUNOSTOMY OTHER SURGICAL HISTORY 07/2020 PROCEDURE: LA RPR TABDL LMPHADEC EXTNSV W/PEL AORTIC&RNL; COMMENT: 6 lymph nodes removed Medical History Medical History Date Comments Prediabetes 10/05/2013 DX:Prediabetes Mixed hyperlipidemia 06/21/2015 DX:Mixed hy perlipidemia Adenocarcinoma of prostate ( CMS/HCC V24, CMS/HCC V28) 10/05/2013 DX:Adenocarcinoma of prostat e (HCC); COMMENT: Biopsy 04/27/14, [place]'s 4+3 and no CVA of prostate in [...] on file Sexual Orientation Not on file Last Filed Vital Signs Vital Sign Reading [...] with other specified complication, unspecified whether exterminator helper insulin use ([facility] V24, [facility] V28) CREATININE, SERUM Routine 06/01/2025 10: 11 AM EDT Type 2 diabetes mellitus with other specified complication, unspecified whether snf insulin use ([facility] V24, [facility] V28) HEMOGLOBIN A1C Routine 06/01/2025 10:11 AM EDT Type 2 diabetes mellitus with other specified complication, unspecified whether exterminator helper insulin use ([facility] V24, [facility] V28) LIPID [...] LAB CHEMISTRY METHOD 06/01/2025 6:11 PM EDT [facility] Microalb, Ur 16.0 0.0 - 29.0 mg/L LAB CHEMISTRY METHOD 06/01/2025 6:11 PM EDT [facility] Microalb/Creat Ratio 12 <30 mg/g creat LAB CHEMISTRY METHOD 06/01/2025 6:11 PM EDT [facility] Urine Urine specimen obtained by clean catch procedure / Unknown Non-blood Collection / Unknown 06/01/2025 10:11 AM EDT 06/01/2025 10:11 AM EDT Kristina Dave MD LAB URINE ORDERABLES Final Resul t Performing Organization Address [facility]/ZIP Co de Phone Number [facility] [address] [place] [address], [place] [phone] * Creatinine (06/01/2025 10:11 AM EDT) Creatinine 1.20 0.70 - 1.30 mg/dL LAB CHEMISTRY METHOD 06/01/2025 2:23 PM EDT [facility] eGFR 63 >=60 mL/min/1. 73m2 LAB CHEMISTRY METHOD 06/01/2025 2:23 PM EDT [facility] Comment:Calculation based on the Chronic Kidney Disease Epidemiology Collaboration (CKD-EPI) equation refit without adjustment for race. Blood Venous blood specimen / Unknown Venipuncture / Unknown 06/01/2025 10:11 AM EDT 06/01/2025 10:11 AM EDT us Kristina Dave MD LAB BLOOD ORDERABLES Final Resul t Performing Organization Address City/[facility]/ZIP Co de Phone Number [facility] [address] [place] [address], [place] [phone] * (ABNORMAL) Hemoglobin A1c (06/01/2025 10:11 AM EDT) Pathologist [facility] Hemoglobin A1C 8.7(H) <6.5 % LAB CHEMISTRY METHOD 06/01/2025 5:59 PM EDT [facility] Mean Bld Glu Estim. 203 mg/dL LAB CHEMISTRY METHOD 06/01/2025 5:59 PM EDT [facility] Blood Venous blood specimen / Unknown Venipuncture / Unknown 06/01/2025 10:11 AM EDT 06/01/2025 10:11 AM EDT Kristina Dave MD LAB BLOOD ORDERABLES Final Resul t [facility] [address] [place] [address], [place] [phone] * (ABNORMAL) Lipid panel with reflex to direct LDL (02/16/2025 9:36 AM EDT) [facility] Cholesterol 138 0 - 200 mg/dL LAB [...] t [facility] [address] [place] [address], * Diabetes Eye Exam (07/28/2024) [facility] Diabetes: Annual Retina Eye Exam abstracted Historical Provider HEALTH MAINTENANCE Final Result * Diabetes Foot Exam (07/21/2024) [facility] Diabetes: Annual Foot Exam abstracted Historical Provider HEALTH MAINTENANCE Final Result * Abdominal Aortic Aneurysm Screen (05/18/2021) [facility] Abdominal Aortic Aneurysm (AAA) Screening 1 year fu Anatomical Region Laterality Modality Other Historical Provider HEALTH MAINTENANCE Final Result * Colonoscopy (06/07/2020) [facility] Colonoscopy 7 yr fu Anatomical Region Laterality Modality Other Historical Provider HEALTH MAINTENANCE Final Result * Hepatitis C Screening (10/13/2013) [facility] Hepatitis C Screening negative Historical Provider HEALTH MAINTENANCE Final Result from Last 3 Months or Most Recently Relevant to Health Maintenance [place] [phone] [employer] MEDICARE ADVANTAGE Advance Directives Documents on File Type Date Recorded Patient Poke In Expl 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
== END 2025-10-27 09:27 | disposition home or self-care (01) ==
LOC: HO.HMCFM 08:29
PROVIDERS: PCP Physician Assistant; Visit Provider Physician Assistant
DX: E11.65 Type 2 diabetes mellitus with hyperglycemia (principal); Z79.4 Long term (current) use of insulin; I10 Essential (primary) hypertension; E78.2 Mixed hyperlipidemia; R19.7 Diarrhea, unspecified

== ENCOUNTER → 2025-10-27 08:28 | Outpatient (BNVA) | payer MEDICARE, SELFPAY | PROVIDERS: PCP Physician Assistant; Visit Provider Physician Assistant | DX: E11.65 Type 2 diabetes mellitus with hyperglycemia (principal); I10 Essential (primary) hypertension; E78.5 Hyperlipidemia, unspecified; E66.9 Obesity, unspecified; R19.7 Diarrhea, unspecified; E78.2 Mixed hyperlipidemia; Z79.4 Long term (current) use of insulin; Z85.46 Personal history of malignant neoplasm of prostate; Z68.34 Body mass index [BMI] 34.0-34.9, adult | CPT/HCPCS: 99212 ==

== ENCOUNTER → 2025-10-28 07:35 | Outpatient (REF) | payer MEDICARE, SELFPAY ==
--- NOTE | 2025-10-28 07:37 | CA_ITS ---
Acquisition Time: 2025-10-28 08:08:15 Total Exercise Time: 00:07:00 Test Indications: Abnormal ECG Medications: SEE H&P Protocol: HANNAH Max HR: 123 BPM 84% of Pred: 145 BPM Max BP: 184/74 mmHG Max Work Load: 8.5 METS Exercise stress test with exercise 7 mins of Hannah Protocol, achieving 86% MPHR, with reports of SOB, no chest pain, with isolated PVCs, with normotensive response to exercise. With ST depression inferolaterally <2mm, suggestive of ischemia. In recovery, breathing improved and pt feeling back to baseline. ST segment improved. Nuclear images pending. Test reviewed with Dr. Shukla. Referred By: Anne-Marie Markham Electronically Signed By: Jeffery Landeros
--- OUTSIDE RECORDS SUMMARY | 2025-10-28 07:38 | XMS_ITS | Clinical Summary ---
Author Organization [facility] Address [address] [place] [address] Phone Care Team Providers Care Nursing Tech Name Role Phone Unavailable Primary Care Provider [...] complication, with long-term current use of insulin ([facility] V24, [facility] V28) INJECT 5 UNITS INTO THE SKIN AT BEDTIME. 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, with long-term current use of insulin ([facility] V24, [facility] V28) Check sugars upto 2 times a day 200 each 3 4 Active pen needle, diabetic 32 gauge x needleIndicatio ns: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, with long-term current use of insulin ([facility] V24, [facility] V28) USE UP TO 4 TIMES A DAY 300 each 3 4 Active metFORMIN XR (GLUCOPHAGE-XR) 500 mg 24 hr tabletIndicatio ns: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, with long-term current use of insulin ([facility] V24, [facility] V28) Take 2 tablets (1,000 mg total) by mouth 2 (two) times a day. Do not crush, chew, or split. 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, with long-term current use of insulin ([facility] V24, [facility] V28) Take three times a day before [...] Immunization Administration Dates Next Due Hepatitis B (Lcyklor-T-Yfhft , Recombivax HB-Adult) 19yo and older 07/09/2019,09/10/2018,06/06/2018 [...] COMMENT: robotic assisted prostatectomy CYSTOSCOPY 05/28/2017 PROCEDURE: RI CYSTOURETHROSCOPY; COMMENT: 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, [...] urethral sling OTHER SURGICAL HISTORY 07/2020 PROCEDURE: RI PNCRTECT DSTL STOT W/O PNCRTCOJEJUNOSTOMY OTHER SURGICAL HISTORY 07/2020 PROCEDURE: RI RPR TABDL LMPHADEC EXTNSV W/PEL AORTIC&RNL; COMMENT: 6 lymph nodes removed Medical History Medical History Date Comments Prediabetes 10/05/2013 DX:Prediabetes Mixed hyperlipidemia 06/21/2015 DX:Mixed hy perlipidemia Adenocarcinoma of prostate ( CMS/HCC V24, CMS/HCC V28) 10/05/2013 DX:Adenocarcinoma of prostat e (HCC); COMMENT: Biopsy 04/27/14, [place]'s 4+3 and no CVA of prostate in [...] with other specified complication, unspecified whether terminal gauger supervisor insulin use ([facility] V24, [facility] V28) CREATININE, SERUM Routine 06/01/2025 10: 11 AM EDT Type 2 diabetes mellitus with other specified complication, unspecified whether chcf insulin use ([facility] V24, [facility] V28) HEMOGLOBIN A1C Routine 06/01/2025 10:11 AM EDT Type 2 diabetes mellitus with other specified complication, unspecified whether terminal gauger supervisor insulin use ([facility] V24, [facility] V28) LIPID PANEL WITH REFLEX TO DIRECT [...] 6:11 PM EDT [facility] Urine Urine specimen obtained by clean catch procedure / Unknown Non-blood Collection / Unknown 06/01/2025 10:11 AM EDT 06/01/2025 10:11 AM EDT Kristina Dave MD LAB URINE ORDERABLES Final Resul t Performing Organization Address [facility]/ZIP Co de Phone Number [facility] [address] [place] [address], [place] [phone] * Creatinine (06/01/2025 10:11 AM EDT) Creatinine [...] ORDERABLES Final Resul t Performing Organization Address City/[facility]/ZIP Co de Phone Number [facility] [address] [place] [address], [place] [phone] * (ABNORMAL) Hemoglobin A1c (06/01/2025 10:11 AM EDT) Pathologist [facility] Hemoglobin A1C 8.7(H) <6.5 % LAB CHEMISTRY [...] Resul t [facility] [address] [place] [address], [place] [phone] * (ABNORMAL) Lipid panel with reflex to direct LDL (02/16/2025 9:36 AM EDT) [facility] Cholesterol 138 0 - 200 mg/dL LAB [...] Resul t [facility] [address] [place] [address], * Diabetes Eye Exam (07/28/2024) [facility] Diabetes: Annual Retina Eye Exam abstracted Historical [...] Health Maintenance [place] [phone] [employer] MEDICARE ADVANTAGE Advance Directives Documents on File Type Date Recorded 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
== END ==
LOC: HO.CARD 07:35
PROVIDERS: PCP Physician Assistant; Visit Provider Physician Assistant
DX: R94.39 Abnormal result of other cardiovascular function study (principal); R06.09 Other forms of dyspnea; R07.9 Chest pain, unspecified
CPT/HCPCS: 78452; 93017; A9500

== ENCOUNTER → 2025-10-28 07:37 | Outpatient (BNV) | payer MEDICARE, SELFPAY | PROVIDERS: PCP Physician Assistant | DX: R06.02 Shortness of breath (principal) | CPT/HCPCS: 78452; 93016; 93018 ==

== ENCOUNTER 2025-11-02 11:03 | Outpatient (AMB) | payer MEDICARE, SELFPAY ==
--- NOTE | 2025-11-02 11:09 | A.OFFVIS_ITS ---
Vital Signs 11/02/25 11:12 Height 5 ft 11 in Weight 237 lb BMI 33.1 Intake Visit Reasons: OV-Rt RTC Repair 06/11/25 Intake Note: Valente is a 75 year old male who presents with complaints of mild intermittent discomfort along the posterior aspect of his right shoulder after undergoing right shoulder rotator cuff repair surgery on 06/11/2025. The patient states that he notices the discomfort mostly when he is trying to sleep at night. He denies any fevers or chills. He continues with his home stretching program. Allergies Gadolinium-Containing Contrast Medi Allergy (Unknown, Verified 10/27/25 08:31) watery eyes, watery itchy nose, coughing lisinopril Allergy (Unknown, Verified 10/27/25 08:31) Unknown Medication List - Last Reconciled 11/02/25 by Andrey Cunha MD amlodipine 2.5 mg PO DAILY atorvastatin 40 mg PO DAILY blood sugar diagnostic (OneTouch Ultra Test strips) As directed blood-glucose meter (OneTouch Ultra2 Meter) As directed cholecalciferol (vitamin D3) 25 mcg PO DAILY cyanocobalamin (vitamin B-12) 1,000 mcg PO DAILY fenofibrate 54 mg PO DAILY 30 days insulin aspart U-100 (Novolog FlexPen U-100 Insulin aspart) subcutaneously; administer 18 units before breakfast, 20 units before lunch and 24 units before dinner insulin glargine (Lantus Solostar U-100 Insulin) 15 units subcut QPM lancets (OneTouch Delica Plus Lancet) As directed latanoprost 0.005% 1 drp ophthalmic (eye) BEDTIME metformin ER (Glucophage XR) 1,000 mg (2 x 500 mg) PO BID 90 days pen needle, diabetic Use 4 x daily As directed trospium ER 60 mg PO DAILY [vitamin a PO] [facility] Medical History (Updated 10/12/25 @ 12:40 by ZACHARY Wong) Word finding difficulty Skin cancer Prostate cancer Hx of radiation therapy Arthritis Incontinence Pancreatic cancer Nephritis Cough HTN (hypertension) TIA (transient ischemic attack) Surgical History H/O shoulder surgery H/O colonoscopy Hx of splenectomy History of bladder surgery History of pancreatectomy H/O prostatectomy Family History Father Leukemia Social History (Updated 10/27/25 @ 08:42 by Glenis Argueta CMA) Housing: House Are you a primary memory care program resident to a significant other at home: No Do you presently have visiting nurse or other home services: No Alcohol intake: current Alcohol intake frequency: a few times a week Comment: light beer and occasionally a glass of wine Patient Tobacco Use Status: Former Tobacco user Tobacco use type: Cigarette Years Smoked: 3 e-Cigarette/Vaping Use: Never Used Second Hand Smoke Exposure: No service: No Current occupational status: retired Cognitive needs: No Hearing needs: No Vision needs: No Physical Exam Vital Signs: BMI result Body Mass Index 33.1 Extrem Other: Right shoulder examination shows that the surgical incisions are well healed, no erythema, full range of motion when compared to his left shoulder, 5/5 strength with supraspinatus testing, no instability Assessment & Plan Assessment & Plan (1) Right shoulder pain: Code(s): M25.511 - Pain in right shoulder Category: Medical Plan Mr. Pagan continues to do well after undergoing right shoulder rotator cuff repair surgery on 06/11/2025. He will continue with his range of motion exercises to prevent stiffness. The do's and don'ts of lifting were discussed at length with the patient. I discussed with the patient the fact that his discomfort should continue to improve over the next few months. He will contact me prior to his follow-up appointment in 3 months should any questions or concerns arise. Feel free to call me at any time should questions regarding his orthopedic management arise. I spent 21 minutes in reviewing the patient's records and imaging studies, seeing the patient and documenting in the medical record. Coding Level of Care Code Est Pt Level 3 (48173) Add On Problem Visit Only Diagnoses Right shoulder pain M25.511
[2025-11-02 11:12] VITALS: BMI 33.1
--- OUTSIDE RECORDS SUMMARY | 2025-11-02 12:25 | XMS_ITS | Clinical Summary ---
Author Organization [facility] Address [address] [place] [address] Phone Care Team Providers Care Adjunct Faculty Mathematics Department Name Role Phone Anne-Marie Markham Primary Care Provider [phone] Social History Tobacco Use Types Packs/Day Years [...] Description 01/14/2026 1:00 PM EST Office Visit [facility] [address] [place] [id number] Amanda Hoskins CNP [address] [place] [address] Health Maintenance Due Date Last Done Comments [...] REPLACEMENT [employer] PPO MEDICARE REPLACEMENT Care Teams Adjunct Faculty Mathematics Department Relationship Specialty Start Date End Date Anne-Marie Markham PA [address] [place] [address] PCP - General Physician Analytical Data Scientist 09/24/25 Additional Source Comments The information contained in this document represents components of the legal health record. It is not the complete legal health record.[facility]
--- OUTSIDE RECORDS SUMMARY | 2025-11-02 12:25 | XMS_ITS | Clinical Summary ---
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 Do not crush, chew, or split. 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, with long-term current use of insulin ([facility] V24, [facility] V28) Take three times [...] Immunization Administration Dates Next Due Hepatitis B (Nkhqghg-P-Dznkw , Recombivax HB-Adult) 19yo and older 07/09/2019,09/10/2018,06/06/2018 [...] COMMENT: robotic assisted prostatectomy CYSTOSCOPY 05/28/2017 PROCEDURE: [place] CYSTOURETHROSCOPY; COMMENT: 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, [...] urethral sling OTHER SURGICAL HISTORY 07/2020 PROCEDURE: [place] PNCRTECT DSTL STOT W/O PNCRTCOJEJUNOSTOMY OTHER SURGICAL HISTORY 07/2020 PROCEDURE: [place] RPR TABDL LMPHADEC EXTNSV W/PEL AORTIC&RNL; COMMENT: 6 lymph nodes removed Medical History Medical History Date Comments Prediabetes 10/05/2013 DX:Prediabetes Mixed hyperlipidemia 06/21/2015 DX:Mixed hy perlipidemia Adenocarcinoma of prostate ( CMS/HCC V24, CMS/HCC V28) 10/05/2013 DX:Adenocarcinoma of prostat e (HCC); COMMENT: Biopsy 04/27/14, [place]'s 4+3 and no CVA of prostate in [...] mellitus with other specified complication, unspecified whether 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 ([facility] V24, [facility] V28) CREATININE, SERUM Routine 06/01/2025 10: 11 AM EDT Type 2 diabetes mellitus with other specified complication, unspecified whether correction insulin use ([facility] V24, [facility] V28) HEMOGLOBIN A1C Routine 06/01/2025 10:11 AM EDT Type 2 diabetes mellitus with other specified complication, unspecified whether 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 ([facility] V24, [facility] [...] LAB CHEMISTRY METHOD 06/01/2025 6:11 PM EDT [facility] Microalb, Ur 16.0 0.0 - 29.0 mg/L LAB CHEMISTRY METHOD 06/01/2025 6:11 PM EDT [facility] Microalb/Creat Ratio 12 <30 mg/g creat LAB CHEMISTRY METHOD 06/01/2025 6:11 PM EDT [facility] Urine Urine specimen obtained by clean catch procedure / Unknown Non-blood Collection / Unknown 06/01/2025 10:11 AM EDT 06/01/2025 10:11 AM EDT Kristina Dave MD LAB URINE ORDERABLES Final Resul t Performing Organization Address [facility]/ZIP Co de Phone Number [facility] [address] [place] [address], [place] [phone] * Creatinine (06/01/2025 10:11 AM EDT) Creatinine 1.20 0.70 - 1.30 mg/dL LAB CHEMISTRY METHOD 06/01/2025 2:23 PM EDT [facility] eGFR 63 >=60 mL/min/1. 73m2 LAB CHEMISTRY METHOD 06/01/2025 2:23 PM EDT [facility] Comment:Calculation based on the Chronic Kidney Disease Epidemiology Collaboration (CKD-EPI) equation refit without adjustment for race. Blood Venous blood specimen / Unknown Venipuncture / Unknown 06/01/2025 10:11 AM EDT 06/01/2025 10:11 AM EDT us Kristina Dave MD LAB BLOOD ORDERABLES Final Resul t Performing Organization Address City/[facility]/ZIP Co de Phone Number [facility] [address] [place] [address], [place] [phone] * (ABNORMAL) Hemoglobin A1c (06/01/2025 10:11 AM EDT) Pathologist [facility] [place] Hemoglobin A1C 8.7(H) <6.5 % LAB CHEMISTRY METHOD 06/01/2025 5:59 PM EDT [facility] Mean Bld Glu Estim. 203 mg/dL LAB CHEMISTRY METHOD 06/01/2025 5:59 PM EDT [facility] Blood Venous blood specimen / Unknown Venipuncture / Unknown 06/01/2025 10:11 AM EDT 06/01/2025 10:11 AM EDT Kristina Dave MD LAB BLOOD ORDERABLES Final Resul t [facility] [address] [place] [address], [place] [phone] * (ABNORMAL) Lipid panel with reflex to direct LDL (02/16/2025 9:36 AM EDT) [facility] Cholesterol 138 0 - 200 mg/dL [...] Resul t [facility] [address] [place] [address], * Diabetes Eye Exam (07/28/2024) [facility] Diabetes: Annual Retina Eye Exam abstracted Historical Provider HEALTH MAINTENANCE Final Result * Diabetes Foot Exam (07/21/2024) [facility] Diabetes: Annual Foot Exam abstracted Historical Provider HEALTH MAINTENANCE Final Result * Abdominal Aortic Aneurysm Screen (05/18/2021) [facility] Abdominal Aortic Aneurysm (AAA) Screening 1 year fu Anatomical Region Laterality Modality Other Historical Provider HEALTH MAINTENANCE Final Result * Colonoscopy (06/07/2020) [facility] Colonoscopy 7 yr fu Anatomical Region Laterality Modality Other Historical Provider HEALTH MAINTENANCE Final Result * Hepatitis C Screening (10/13/2013) [facility] Hepatitis C Screening negative Historical Provider HEALTH MAINTENANCE Final Result from Last 3 Months or Most Recently Relevant to Health Maintenance [place] [phone] [employer] MEDICARE ADVANTAGE Advance Directives Documents on File Type Date Recorded Patient Bead Maker Expl 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
== END 2025-11-02 11:23 | disposition home or self-care (01) ==
LOC: HO.HOS 11:04
PROVIDERS: PCP Physician Assistant; Visit Provider Orthopaedic Surgery
DX: M25.511 Pain in right shoulder (principal)
CPT/HCPCS: 99213; G2211

== ENCOUNTER → 2025-11-02 11:03 | Outpatient (BNVA) | payer MEDICARE, SELFPAY | PROVIDERS: PCP Physician Assistant; Visit Provider Orthopaedic Surgery | DX: M25.511 Pain in right shoulder (principal) | CPT/HCPCS: 99212 ==